=== PATIENT | male | born 1960 | race Hispanic/Latino ===

== ENCOUNTER 2020-03-19 13:26 | Inpatient (IN) | payer OTHER, SELFPAY ==
[2020-03-19] MEDS ORDERED: SODIUM CHLORIDE 0.9% 1000 ML 1,000 ML IV ONE ×2 (13:49→15:32)
--- NOTE | 2020-03-19 13:54 | Emergency Department Report ---
ED Shortness of Breath HPI - General Stated Complaint: COVID+/SOB Time Seen by Provider: 03/19/20 13:49 Source: patient, EMS - History of Present Illness Initial Comments: Patient is 59 years old male with history of hypertension. Patient brought to the emergency room via EMS from home for evaluation of shortness of breath and decreased oxygen saturation. Patient tested positive for COVID-19 4 days ago. Patient stated that he started having shortness of breath. EMS stated that his initial oxygen saturation was 84% on room air improved to 92% on 4 L. Patient denied any fever or chills. No nausea or vomiting. No chest pain. MD Complaint: shortness of breath, cough -: days(s) (3) Severity: moderate - Related Data Allergies Allergy/AdvReac Type Severity Reaction Status Date / Time celecoxib [From Celebrex] Allergy Unknown Verified 03/19/20 13:50 ED Review of Systems ROS: Stated complaint: COVID+/SOB Other details as noted in HPI Comment: All other systems reviewed and negative Constitutional: denies: chills, fever Respiratory: cough, shortness of breath, SOB with exertion, SOB at rest. denies: wheezing Cardiovascular: denies: chest pain, palpitations Gastrointestinal: denies: abdominal pain, nausea, vomiting Musculoskeletal: denies: back pain Neurological: weakness. denies: headache, numbness, paresthesias, confusion, abnormal gait ED Physical Exam - General General appearance: alert, in distress - Head Head exam: Present: atraumatic, normocephalic, normal inspection - Eye Eye exam: Present: normal appearance, PERRL - ENT ENT exam: Present: mucous membranes dry - Neck Neck exam: Present: normal inspection, full ROM. Absent: tenderness, meningismus - Respiratory Respiratory exam: Present: respiratory distress, rales - Cardiovascular Cardiovascular Exam: Present: regular rate, normal rhythm, normal heart sounds - GI/Abdominal GI/Abdominal exam: Present: soft, normal bowel sounds. Absent: distended, tenderness, guarding, rebound, rigid, organomegaly, mass, bruit, pulsatile mass, hernia - Extremities Exam Extremities exam: Present: normal inspection, full ROM, normal capillary refill. Absent: pedal edema, calf tenderness - Back Exam Back exam: Present: normal inspection, full ROM. Absent: CVA tenderness (R), CVA tenderness (L) - Neurological Exam Neurological exam: Present: alert, oriented X3, CN II-XII intact, normal gait, reflexes normal. Absent: motor sensory deficit - Psychiatric Psychiatric exam: Present: normal mood - Skin Skin exam: Present: warm, intact, normal color ED Course Vital Signs 03/19/20 03/19/20 03/19/20 13:38 13:46 14:00 Temperature Pulse Rate 91 H 88 Respiratory 15 34 H Rate Blood Pressure O2 Sat by Pulse 87 92 94 Oximetry 03/19/20 03/19/20 03/19/20 14:17 14:18 14:30 Temperature 98.3 F Pulse Rate 86 Respiratory 23 Rate Blood Pressure 126/86 O2 Sat by Pulse 4 L 95 Oximetry ED Medical Decision Making - Lab Data Result diagrams: 03/19/20 14:13 03/19/20 14:13 - EKG Data -: EKG Interpreted by Me EKG shows normal: sinus rhythm Rate: normal - EKG Data Interpretation: no acute changes - Radiology Data Radiology results: report reviewed - Medical Decision Making Patient is 59 years old male with history of hypertension. Patient brought to the emergency room via EMS from home for evaluation of shortness of breath and decreased oxygen saturation. Patient tested positive for COVID-19 4 days ago. Patient stated that he started having shortness of breath. EMS stated that his initial oxygen saturation was 84% on room air improved to 92% on 4 L. Patient denied any fever or chills. No nausea or vomiting. No chest pain. Patient continues to do well with 4 L of oxygen and his current oxygen satur ation is 96%. Chest x-ray showed bilateral infiltrate. Patient received Rocephin, Zithromax and Decadron. Critical Care Time: Yes Critical care time in (mins) excluding proc time.: 30 Critical care attestation.: If time is entered above; I have spent that time in minutes in the direct care of this critically ill patient, excluding procedure time. ED Disposition Clinical Impression: Acute respiratory failure due to COVID-19, Pneumonia Disposition: OP ADMIT IP TO THIS HOSP Is pt being admited?: Yes Condition: Stable Instructions: Bacterial Pneumonia (ED) Referrals: PRIMARY CARE, [Referring] - 3-5 Days
[2020-03-19 14:39] LABS: Basophils % (Auto) 0.2 % (0.0-1.8); Hematocrit 39.3 % (35.5-45.6); Hemoglobin 13.7 gm/dl (11.8-15.2); Lymphocytes # (Auto) 0.8 K/mm3 (1.2-5.4); Lymphocytes % (Auto) 13.5 % (13.4-35.0); Mean Corpuscular HGB Conc 35 % (32-34); Mean Corpuscular Volume 93 fl (84-94); Monocytes # (Auto) 0.7 K/mm3 (0.0-0.8); Monocytes % (Auto) 11.6 % (0.0-7.3); Platelet Count 219 K/mm3 (140-440); Red Blood Count 4.21 M/mm3 (3.65-5.03); Red Cell Distribution Width 13.4 % (13.2-15.2)
--- NOTE | 2020-03-19 14:45 | XRay Report ---
CHEST 1 VIEW 03/19/2020 1:57 PM INDICATION / CLINICAL INFORMATION: Dyspnea. COMPARISON: None available. FINDINGS: SUPPORT DEVICES: None. HEART / MEDIASTINUM: No significant abnormality. LUNGS / PLEURA: Subtle patchy densities in the right midlung and left lung base could represent early pneumonia. No pneumothorax. ADDITIONAL FINDINGS: No significant additional findings. IMPRESSION: 1. Possible early patchy pneumonia. Signer Name: Adela Meyers MD Signed: 03/19/2020 2:40 PM Workstation Name: [id number]
[2020-03-19 14:52] LABS: BUN/Creatinine Ratio 24; Blood Urea Nitrogen 19 mg/dL (9-20); Calcium 9.2 mg/dL (8.4-10.2); Hemolysis Index 6
[2020-03-19 14:56] LABS: Alanine Aminotransferase 45 units/L (7-56); Albumin 3.6 g/dL (3.9-5)
[2020-03-19 14:57] LABS: Bilirubin,Direct < 0.2 mg/dL (0-0.2)
[2020-03-19] MEDS ORDERED: cefTRIAXone/NS 1 GM/50 ML 1 GM/50 ML BAG IV ONE (15:30)
[2020-03-19] MEDS ORDERED: dexAMETHasone 4 MG/ML VIAL IV ONE (15:31)
[2020-03-19] MEDS ORDERED: AZITHROMYCIN 500 MG in SODIUM CHLORIDE 0.9% 250ML 250 ML IV ONE (16:00)
--- NOTE | 2020-03-19 16:15 | History and Physical Report ---
History of Present Illness Chief complaint: I cannot breathe History of present illness: 59 YO Male with HTN presents to ED for evaluation. Patient states that he has experienced "shortness of breath" for the past 1 week with persistently worsening symptoms over the same timeframe days. Patient underwent a coronav irus test as an outpatient 4 days ago and was found to have coronavirus infection. Pt acknowledges dry cough, shortness of breath, loss of sense of smell, loss of sense of taste, fatigue, malaise, body aches, and decreased exercise tolerance. EMS notified and upon arrival the patient was found to be in distress and subsequently transported to [facility] for further care and evaluation of the aforementioned symptoms. Patient seen and evaluated in the emergency department. All lab and imaging studies reviewed. Patient found to have lactic acidosis, tachycardia with heart rate of 105, tachypnea with a respiratory rate of 34, and a pulse oximetry of 84% with exertion while on room air which is co nsistent with acute hypoxemic respiratory failure. Patient underwent chest x- ray which revealed bilateral pneumonia complicated by sepsis. Patient admitted to medical floor and initiated on sepsis protocol, pneumonia protocol as well as coronavirus protocol. Pt denies chest pain, palpitation, skin rash, recent ill contacts, trauma. No medication listed at time of admission. No prior admission for review. Advanced care planning conducted in ED. Past History Past Medical History: hypertension Past Surgical History: No surgical history, Other (Reviewed) Social history: , lives with family, smoking, alcohol abuse Family history: hypertension Medications and Allergies Allergies Allergy/AdvReac Type Severity Reaction Status Date / Time celecoxib [From Celebrex] Allergy Unknown Verified 03/19/20 13:50 Home Medications Medication Instructions Recorded Confirmed Last Taken Type Insulin Glargine/Lixisenatide 15 unit SQ QAM 03/19/20 03/19/20 Unknown History [Soliqua 100 Unit-33 Mcg/ml Pen] Losartan [Cozaar] 100 mg PO QDAY 03/19/20 03/19/20 Unknown History Metformin HCl [metFORMIN] 2,000 mg PO BID 03/19/20 03/19/20 Unknown History Simvastatin 40 mg PO QHS 03/19/20 03/19/20 Unknown History Active Meds: Active Medications Azithromycin 500 mg/ Sodium (Chloride) 250 mls @ 250 mls/hr IV ONCE ONE; Protocol Stop: 03/19/20 16:59 Sodium Chloride (Nacl 0.9% 1000 Ml) 1,000 mls @ 999 mls/hr IV BOLUS ONE Stop: 03/19/20 16:32 Last Admin: 03/19/20 16:06 Dose: 999 mls/hr Documented by: Review of Systems Constitutional: fatigue, weakness, malaise, no weight loss, no weight gain, no fever Ears, nose, mouth and throat: other (Loss of sense of smell, loss of sense of ta rachana), no ear pain, no ear discharge, no nasal congestion Cardiovascular: no chest pain, no orthopnea, no rapid/irregular heart beat, no syncope Respiratory: cough, shortness of breath, no cough with sputum, no excessive sputum, no hemoptysis Gastrointestinal: no abdominal pain, no nausea, no vomiting, no diarrhea Genitourinary Male: no hematuria, no flank pain, no discharge, no urinary frequency, no urinary hesitancy Rectal: no pain, no incontinence Musculoskeletal: no neck stiffness, no neck pain, no shooting arm pain, no low back pain, no leg numbness/tingling Integumentary: no rash, no pruritis, no redness, no sores, no jaundice Neurological: no head injury, no transient paralysis, no paralysis, no weakness, no parathesias, no numbness, no tingling, no seizures Psychiatric: no anxiety, no memory loss, no change in sleep habits, no sleep disturbances, no hypersomnia, no change in appetite, no change in libido, no suicidal ideation Endocrine: no cold intolerance, no heat intolerance, no polyphagia, no excessive thirst, no polydipsia, no nocturia, no excessive sweating, no flushing Hematologic/Lymphatic: no easy bruising, no easy bleeding, no lymphadenopathy Allergic/Immunologic: no allergic rhinitis, no wheezing, no persistent infections, no anaphylaxis Exam - Constitutional Vitals: Temp Pulse Resp BP Pulse Ox 98.3 F 86 23 126/86 95 03/19/20 14:17 03/19/20 14:30 03/19/20 14:30 03/19/20 14:30 03/19/20 14:30 General appearance: Present: mild distress - EENT Eyes: Present: PERRL ENT: clear oral mucosa, hearing decreased - Neck Neck: Present: supple, normal ROM - Respiratory Respiratory effort: labored, accessory muscle use, stridor Respiratory: bilateral: diminished, wheezing - Cardiovascular Rhythm: other (Tachycardia) Heart Sounds: Present: S1 & S2. Absent: rub, click - Extremities Extremities: pulses symmetrical, No edema Peripheral Pulses: abnormal (Capillary refill greater than 3.5 seconds) - Abdominal General gastrointestinal: Present: soft, non-tender, non-distended, normal bowel sounds Male genitourinary: Present: normal - Integumentary Integumentary: Present: dry, clammy, decreased turgor - Musculoskeletal Musculoskeletal: generalized weakness - Psychiatric Psychiatric: appropriate mood/affect, intact judgment & insight - Neurologic Neurologic: CNII-XII intact, moves all extremities, no gait normal Results - Labs CBC & Chem 7: 03/19/20 14:13 03/19/20 14:13 Labs: Abnormal lab results 03/19/20 03/19/20 03/19/20 Range/Units 14:13 14:13 14:13 MCHC 35 H (32-34) % Story % (Auto) 11.6 H (0.0-7.3) % Lymph # (Auto) 0.8 L (1.2-5.4) K/mm3 Seg Neutrophils % 74.7 H (40.0-70.0) % Glucose 204 H (75-100) mg/dL Lactic Acid 2.30 H* (0.7-2.0) mmol/L AST (5-40) units/L Albumin (3.9-5) g/dL 03/19/20 Range/Units 14:13 MCHC (32-34) % Story % (Auto) (0.0-7.3) % Lymph # (Auto) (1.2-5.4) K/mm3 Seg Neutrophils % (40.0-70.0) % Glucose (75-100) mg/dL Lactic Acid (0.7-2.0) mmol/L AST 62 H (5-40) units/L Albumin 3.6 L (3.9-5) g/dL Assessment and Plan - Patient Problems (1) Sepsis Current Visit: Yes Status: Acute Qualifiers: Acute respiratory failure type: with hypoxia Plan to address problem: Sepsis protocol: Chest x-rays, CBC, CMP, urinalysis, blood culture, IV antibiotic therapy, maintain mean arterial pressure greater than or equal to 65, hold IV fluid resuscitation for now due to suspected coronavirus infection. Care will be taken to avoid fluid overload and flash pulmonary edema. (2) Acute hypoxemic respiratory failure Current Visit: Yes Status: Acute Plan to address problem: Supplemental oxygen, nebulizer therapy, pulse oximetry, chest x-ray, pulmonary toilet, supportive care. (3) Coronavirus infection Current Visit: Yes Status: Acute Plan to address problem: Coronavirus protocol: Coronavirus PCR, IV antibiotic therapy, IV steroid therapy, prophylactic anticoagulation, prone positioning while in bed, supplemental oxygen, pulse oximetry, nebulizer therapy, contact precautions, isolation precaution, supportive care. (4) Pneumonia Current Visit: Yes Status: Acute Plan to address problem: Pneumonia protocol: Chest x-ray, CBC, CMP, supplemental oxygen, pulse oximetry, nebulizer therapy, blood culture, IV antibiotic therapy. (5) Hypertension Current Visit: Yes Status: Acute Qualifiers: Hypertension type: essential hypertension Qualified Code(s): I10 - Essential (primary) hypertension Plan to address problem: Monitor blood pressure every shift, continue medical management (6) DVT prophylaxis Current Visit: Yes Status: Acute Plan to address problem: SCD to bilateral lower extremities while in bed, prophylactic anticoagulation (7) Advance care planning Current Visit: Yes Status: Acute Plan to address problem: Disease education conducted, patient is full code, prognosis discussed, care plan discussed, patient knowledges understanding and agreement with care plan, +30 minutes.
[2020-03-19] MEDS ORDERED: ACETAMINOPHEN 325 MG TAB PO PRN (16:16)
[2020-03-19] MEDS ORDERED: ONDANSETRON 4 MG/2 ML INJ IV PRN (16:16)
[2020-03-19] MEDS ORDERED: ALBUTEROL 2.5 MG/3 ML NEBU IH PRN (16:16)
[2020-03-19] MEDS: HEPARIN 5,000 UNIT/1 ML VIAL SUB-Q SCH (22:13)
[2020-03-19] MEDS: methylPREDNISolone Sod Succinate 40 MG/1 ML INJ IV SCH (22:13)
[2020-03-19] MEDS: FAMOTIDINE 20 MG TAB PO SCH (22:13)
[2020-03-20] MEDS: methylPREDNISolone Sod Succinate 40 MG/1 ML INJ IV SCH (05:04)
[2020-03-20 05:43] LABS: Bilirubin,Urine NEG (Negative); Blood,Urine NEG (Negative); Color,Urine Yellow (Yellow); Protein,Urine <15 mg/dL mg/dL (Negative); Urobilinogen,Urine < 2.0 mg/dL (<2.0)
[2020-03-20] MEDS: HEPARIN 5,000 UNIT/1 ML VIAL SUB-Q SCH ×2 (10:00→22:41)
[2020-03-20] MEDS ORDERED: cefTRIAXone/NS 2 GM/100 ML 2 GM/100 ML BAG IV SCH (10:00)
[2020-03-20] MEDS: FAMOTIDINE 20 MG TAB PO SCH ×2 (12:01→22:39)
[2020-03-20] MEDS: AZITHROMYCIN 500 MG in SODIUM CHLORIDE 0.9% 250ML 250 ML IV SCH (12:02)
--- NOTE | 2020-03-20 14:40 | Progress Note ---
Assessment and Plan -- Sepsis due to COVID19 infection cont iv steroid, remdesivir, supplemental O2 -- Acute hypoxemic respiratory failure due to covid19 PNA Supplemental oxygen, nebulizer therapy, pulse oximetry, pulmonary toilet, supportive care. -- Covid19 PNA IV steroid therapy, prophylactic anticoagulation, prone positioning while in bed, supplemental oxygen, pulse oximetry, nebulizer therapy, contact precautions, isolation precaution, supportive care. remdesivir for 5 days check for SARS-CoV-2 IgG --Bacteremia 1 out of 2 blood cx +ve for gm+ve cocci start on iv vanco, order repeat blood cx -- Hypertension Monitor blood pressure every shift, continue medical management -- DVT prophylaxis prophylactic anticoagulation -- Advance care planning Disease education conducted, patient is full code, prognosis discussed, care plan discussed, patient knowledges understanding and agreement with care plan, +30 minutes. 03/20: Positive for COVID 4 days ago before admission. started on dexamethasone iv. ID consulted. ordered for remdesivir. follow inflammatory markers. Start on vancomycin for positive blood culture -we will follow final result Subjective Date of service: 03/20/20 Interval history: Patient seen and examined pt on high flow O2 denies any chest pain Objective - Exam Narrative Exam: General appearance: Present: mild distress - EENT Eyes: Present: PERRL ENT: clear oral mucosa, - Neck Neck: Present: supple, normal ROM - Respiratory Respiratory effort: mild labored, Respiratory: bilateral: diminished, wheezing - Cardiovascular Rhythm: other (Tachycardia) Heart Sounds: Present: S1 & S2. Absent: rub, click - Extremities Extremities: pulses symmetrical, No edema - Abdominal General gastrointestinal: Present: soft, non-tender, non-distended, normal bowel sounds Male genitourinary: Present: normal - Integumentary Integumentary: Present: dry, clammy, decreased turgor - Musculoskeletal Musculoskeletal: generalized weakness - Psychiatric Psychiatric: appropriate mood/affect, intact judgment & insight - Neurologic Neurologic: CNII-XII intact, moves all extremities, - Constitutional Vitals: Vital Signs - 12hr 03/20/20 03/20/20 03/20/20 04:19 06:00 10:31 Temperature 98.6 F Pulse Rate 86 Respiratory 22 18 Rate Blood Pressure 128/71 O2 Sat by Pulse 86 92 Oximetry - Labs CBC & Chem 7: 03/19/20 14:13 03/21/20 08:26 Labs: Abnormal lab results 03/19/20 03/19/20 03/19/20 Range/Units 14:13 14:13 14:13 MCHC 35 H (32-34) % Woodson % (Auto) 11.6 H (0.0-7.3) % Lymph # (Auto) 0.8 L (1.2-5.4) K/mm3 Seg Neutrophils % 74.7 H (40.0-70.0) % D-Dimer (0-234) ng/mlDDU Glucose 204 H (75-100) mg/dL POC Glucose (70-105) mg/dL Lactic Acid 2.30 H* (0.7-2.0) mmol/L Ferritin (30.0-300.0) ng/mL AST (5-40) units/L Albumin (3.9-5) g/dL 03/19/20 03/19/20 03/19/20 Range/Units 14:13 15:35 15:35 MCHC (32-34) % Woodson % (Auto) (0.0-7.3) % Lymph # (Auto) (1.2-5.4) K/mm3 Seg Neutrophils % (40.0-70.0) % D-Dimer 658.20 H (0-234) ng/mlDDU Glucose (75-100) mg/dL POC Glucose (70-105) mg/dL Lactic Acid (0.7-2.0) mmol/L Ferritin 722.2 H (30.0-300.0) ng/mL AST 62 H (5-40) units/L Albumin 3.6 L (3.9-5) g/dL 03/20/20 Range/Units 12:20 MCHC (32-34) % Woodson % (Auto) (0.0-7.3) % Lymph # (Auto) (1.2-5.4) K/mm3 Seg Neutrophils % (40.0-70.0) % D-Dimer (0-234) ng/mlDDU Glucose (75-100) mg/dL POC Glucose 270 H (70-105) mg/dL Lactic Acid (0.7-2.0) mmol/L Ferritin (30.0-300.0) ng/mL AST (5-40) units/L Albumin (3.9-5) g/dL
[2020-03-20] MEDS ORDERED: REMDESIVIR 200 MG in SODIUM CHLORIDE 0.9% 250ML 250 ML IV ONE (15:00)
[2020-03-20] MEDS ORDERED: REMDESIVIR 100 MG VIAL IV ONE (15:00)
[2020-03-20] MEDS ORDERED: VANCOMYCIN/NS 1 GM/250 ML 1 GM/250 ML BAG IV SCH (16:00)
[2020-03-20] MEDS: INSULIN REGULAR, HUMAN 100 UNIT/ML 3ML VIAL SUB-Q SCH ×2 (16:30→22:40)
[2020-03-20] MEDS: ASCORBIC ACID 500 MG TAB PO SCH ×2 (16:48→22:39)
[2020-03-20] MEDS: CHOLECALCIFEROL (VIT D3) 5,000 UNIT TAB PO SCH (16:48)
[2020-03-20] MEDS: ZINC SULFATE 220 MG CAP PO SCH (16:49)
[2020-03-20] MEDS: SODIUM CHLORIDE 0.9% 50 ML IVPB IV SCH (16:49)
[2020-03-20] MEDS: VANCOMYCIN 1,500 MG in SODIUM CHLORIDE 0.9% 500 ML 500 ML IV SCH (16:50)
[2020-03-20] MEDS: APIXABAN 5 MG TAB PO SCH (22:39)
[2020-03-21] MEDS: ZINC SULFATE 220 MG CAP PO SCH ×3 (00:43→21:41)
[2020-03-21] MEDS: VANCOMYCIN 1,500 MG in SODIUM CHLORIDE 0.9% 500 ML 500 ML IV SCH ×2 (05:50→20:05)
[2020-03-21 09:15] LABS: Alanine Aminotransferase 36 units/L (7-56); Albumin 2.8 g/dL (3.9-5); BUN/Creatinine Ratio 29; Blood Urea Nitrogen 23 mg/dL (9-20); Calcium 8.5 mg/dL (8.4-10.2); Hemolysis Index 3
[2020-03-21 09:19] LABS: Bilirubin,Direct < 0.2 mg/dL (0-0.2)
[2020-03-21] MEDS: HEPARIN 5,000 UNIT/1 ML VIAL SUB-Q SCH (09:49)
[2020-03-21] MEDS: dexAMETHasone 4 MG/ML VIAL IV SCH (09:49)
[2020-03-21] MEDS: FAMOTIDINE 20 MG TAB PO SCH ×2 (09:49→21:41)
[2020-03-21] MEDS: ASCORBIC ACID 500 MG TAB PO SCH ×2 (09:50→21:42)
[2020-03-21] MEDS: APIXABAN 5 MG TAB PO SCH ×2 (09:50→21:41)
[2020-03-21] MEDS: INSULIN REGULAR, HUMAN 100 UNIT/ML 3ML VIAL SUB-Q SCH ×3 (09:52→20:10)
[2020-03-21] MEDS: CHOLECALCIFEROL (VIT D3) 5,000 UNIT TAB PO SCH (09:52)
[2020-03-21] MEDS ORDERED: [UNRECOGNIZED DRUG - OTHER] SQ SCH (10:00)
[2020-03-21] MEDS: AZITHROMYCIN 500 MG in SODIUM CHLORIDE 0.9% 250ML 250 ML IV SCH (10:06)
[2020-03-21] MEDS ORDERED: REMDESIVIR 200 MG in SODIUM CHLORIDE 0.9% 250ML 250 ML IV ONE (13:00)
--- NOTE | 2020-03-21 15:16 | Consultation ---
History of Present Illness - Reason for Consult Consult date: 03/21/20 COVID Requesting physician: NIKA ARRIETA - History of Present Illness 59 years old male with history of hypertension and COVID-19 diagnosed 4 days before admission, admitted on 03/19/2020 secondary to a week history of dry cough, shortness of breath, loss of smell and taste, body aches, dyspnea on exertion. On arrival, temperature 98.3, HR 91, RR 34, O2 sats 87%, BP 126/86. Initial WBC 6000. D-dimer 658. Ferritin 722. Lactate 2.3. Creatinine 0.8. AST 62. Procalcitonin normal. Urinalysis negative. SARS-CoV-2 PCR positive. SARS-CoV-2 IgG negative. Blood cultures coagulase-negative staph 1 out of 4 bottles. Chest x-ray shows bilateral patchy infiltrates. Initial O2 sats dropped to 84%. Patient currently on high flow nasal cannula 90%. Review of Systems: reviewed ED and H&P notes. Deferred to prevent COVID-19 transmission. Past History Past Medical History: hypertension Past Surgical History: No surgical history, Other (Reviewed) Social history: , lives with family, smoking, alcohol abuse Family history: hypertension Medications and Allergies Allergies Allergy/AdvReac Type Severity Reaction Status Date / Time celecoxib [From Celebrex] Allergy Unknown Verified 03/19/20 13:50 Home Medications Medication Instructions Recorded Confirmed Last Taken Type Insulin Glargine/Lixisenatide 15 unit SQ QAM 03/19/20 03/19/20 Unknown History [Soliqua 100 Unit-33 Mcg/ml Pen] Losartan [Cozaar] 100 mg PO QDAY 03/19/20 03/19/20 Unknown History Metformin HCl [metFORMIN] 2,000 mg PO BID 03/19/20 03/19/20 Unknown History Simvastatin 40 mg PO QHS 03/19/20 03/19/20 Unknown History Actos 1 PO 03/20/20 03/19/20 History Active Meds: Active Medications Acetaminophen (Acetaminophen 325 Mg Tab) 650 mg PO Q4H PRN PRN Reason: Pain MILD(1-3)/Fever >100.5/ROSS Albuterol (Albuterol 2.5 Mg/3 Ml Nebu) 2.5 mg IH Q4HRT PRN PRN Reason: Shortness Of Breath Apixaban (Apixaban 5 Mg Tab) 5 mg PO Q12HR [facility]; Protocol Last Admin: 03/21/20 09:50 Dose: 5 mg Documented by: Ascorbic Acid (Ascorbic Acid 500 Mg Tab) 1,000 mg PO BID [facility] Last Admin: 03/21/20 09:50 Dose: 1,000 mg Documented by: Cholecalciferol (Cholecalciferol (Vit D3) 5,000 Unit Tab) 5,000 unit PO DAILY [facility] Last Admin: 03/21/20 09:52 Dose: 5,000 unit Documented by: Dexamethasone (Dexamethasone 4 Mg/Ml Vial) 6 mg IV Q24HR [facility] Stop: 03/28/20 23:59 Last Admin: 03/21/20 09:49 Dose: 6 mg Documented by: Famotidine (Famotidine 20 Mg Tab) 20 mg PO BID [facility] Last Admin: 03/21/20 09:49 Dose: 20 mg Documented by: Hydromorphone HCl (Hydromorphone 1 Mg/1 Ml Inj) 0.25 mg IV Q4H PRN PRN Reason: Pain, Moderate (4-6) REMDESIVIR 100 mg/ Sodium (Chloride) 250 mls @ 500 mls/hr IV Q24HR@2100 [facility] Stop: 03/24/20 21:29 Vancomycin HCl 1,500 mg/ (Sodium Chloride) 530 mls @ 265 mls/hr IV Q12H [facility] Last Admin: 03/21/20 05:50 Dose: 265 mls/hr Documented by: Insulin Human Regular (Insulin Regular, Human 100 Unit/Ml 3ml Vial) 0 unit SUB- Q ACHS [facility]; Protocol Last Admin: 03/21/20 12:43 Dose: 2 unit Documented by: Miscellaneous Medication (Insulin Glargine/Lixisenatide [Soliqua 100 Unit-33 Mcg/Ml Pen]) 15 unit SQ QAM [facility] Ondansetron HCl (Ondansetron 4 Mg/2 Ml Inj) 4 mg IV Q8H PRN PRN Reason: Nausea And Vomiting Sodium Chloride (Sodium Chloride 0.9% 10 Ml Flush Syringe) 10 ml IV BID [facility] Last Admin: 03/21/20 09:52 Dose: 10 ml Documented by: Sodium Chloride (Sodium Chloride 0.9% 10 Ml Flush Syringe) 10 ml IV PRN PRN PRN Reason: LINE FLUSH Sodium Chloride (Sodium Chloride 0.9% 50 Ml Ivpb) 50 ml IV Q24HR@2100 [facility] Stop: 03/24/20 21:01 Last Admin: 03/20/20 16:49 Dose: 50 ml Documented by: Zinc Sulfate (Zinc Sulfate 220 Mg Cap) 220 mg PO BID [facility] Last Admin: 03/21/20 09:50 Dose: 220 mg Documented by: Physical Examination - Physical Exam Narrative exam: Deferred to prevent COVID-19 transmission - Constitutional Vitals: Vital Signs Temp Pulse Resp BP Pulse Ox 99.2 F 78 18 121/68 96 03/21/20 12:33 03/21/20 12:33 03/21/20 04:15 03/21/20 12:33 03/21/20 04:15 Temperature -Last 24 Hours Temperature 99.2 F Temperature 98.2 F Temperature 98.1 F Temperature 98.5 F Results - Labs CBC & Chem 7: 03/19/20 14:13 03/21/20 08:26 Labs: Abnormal lab results 03/20/20 03/20/20 03/21/20 Range/Units 16:31 20:28 08:26 Chloride 110.5 H (98-107) mmol/L BUN 23 H (9-20) mg/dL Glucose 168 H (75-100) mg/dL POC Glucose 306 H 320 H (70-105) mg/dL AST 42 H (5-40) units/L Total Protein 6.1 L (6.3-8.2) g/dL Albumin 2.8 L (3.9-5) g/dL 03/21/20 03/21/20 Range/Units 09:03 12:26 Chloride (98-107) mmol/L BUN (9-20) mg/dL Glucose (75-100) mg/dL POC Glucose 159 H 190 H (70-105) mg/dL AST (5-40) units/L Total Protein (6.3-8.2) g/dL Albumin (3.9-5) g/dL Assessment and Plan Cultures: Blood culture coagulase-negative staph 1 out of 4 bottles SARS CoV2 PCR positive SARS Covid 2 IgG negative Assessment: 59 years old male with history of hypertension and COVID-19 diagnosed 4 days before admission, admitted on 03/19/2020 secondary to a week history of dry cough, shortness of breath, loss of smell and taste, body aches, dyspnea on exertion: #Severe sepsis: Present on admission with tachycardia, elevated lactate likely due to bilateral pneumonia. #Severe COVID pneumonia: Severe hypoxia noted. Chest x-ray with bilateral patchy infiltrates. Inflammatory markers elevated. #Acute hypoxemic respiratory failure: Currently on high flow nasal cannula. #Elevated LFTs: from COVID Recommendations: -Pulmonary consult -Obtain chest CTA rule out PE and lower extremity ultrasound rule out DVT -Continue dexamethasone 6 mg IV/PO daily for 10 days -Continue remdesivir 200 mg IV q day x 1 day followed by 100 mg IV q day x 4 days (CrCl>30. Order placed) -Monitor inflammatory markers - ferritin, Ddimer, CRP, LDH -Stop ceftriaxone and azithromycin, procalcitonin <0.25 ng/mL -Monitor liver function test on Remdesivir -Continue anticoagulation per System Protocol -Prone positioning as possible -Obtain SARS CoV-2 IgG to determine if patient is a candidate for COVID convalescent plasma All laboratory, cultures and imaging were reviewed. Discussed with attending. Will follow Syl Hanson MD Infectious Diseases [employer] [facility] M [phone] O [phone]
[2020-03-21] MEDS ORDERED: SODIUM CHLORIDE 0.9% 50 ML IVPB IV SCH (21:00)
[2020-03-21] MEDS: REMDESIVIR 100 MG in SODIUM CHLORIDE 0.9% 250ML 250 ML IV SCH (21:40)
[2020-03-21] MEDS: SODIUM CHLORIDE 0.9% 50 ML IVPB IV SCH (21:41)
--- NOTE | 2020-03-22 00:05 | Progress Note ---
Assessment and Plan -- Sepsis due to COVID19 infection cont iv steroid, remdesivir, supplemental O2 -- Acute hypoxemic respiratory failure due to covid19 PNA Supplemental oxygen, nebulizer therapy, pulse oximetry, pulmonary toilet, supportive care. -- Covid19 PNA IV steroid therapy, prophylactic anticoagulation, prone positioning while in bed, supplemental oxygen, pulse oximetry, nebulizer therapy, contact precautions, isolation precaution, supportive care. remdesivir for 5 days -ve SARS-CoV-2 IgG: ordered for convalescent plasma --DM type 2 started on long acting insulin along with SSI --Bacteremia 1 out of 2 blood cx +ve for gm+ve cocci on iv vanco, ordered repeat blood cx -- Hypertension Monitor blood pressure every shift, continue medical management -- DVT prophylaxis prophylactic anticoagulation -- Advance care planning Disease education conducted, patient is full code, prognosis discussed, care plan discussed, patient knowledges understanding and agreement with care plan, +30 minutes. 03/20: Positive for COVID 4 days ago before admission. started on dexamethasone iv. ID consulted. ordered for remdesivir. follow inflammatory markers. Start on vancomycin for positive blood culture -we will follow final result 03/21: ordered repeat blood cx. -ve SARS-CoV-2 IgG, ordered for convalescent plasma. patient remains on high flow O2. cont to adjust insulin dose for better glycemic control Subjective Date of service: 03/21/20 Interval history: Patient seen and examined pt on high flow O2 denies any chest pain Objective - Exam Narrative Exam: General appearance: Present: mild distress - EENT Eyes: Present: PERRL ENT: clear oral mucosa, - Neck Neck: Present: supple, normal ROM - Respiratory Respiratory effort: mild labored, Respiratory: bilateral: diminished, wheezing - Cardiovascular Rhythm: other (Tachycardia) Heart Sounds: Present: S1 & S2. Absent: rub, click - Extremities Extremities: pulses symmetrical, No edema - Abdominal General gastrointestinal: Present: soft, non-tender, non-distended, normal bowel sounds Male genitourinary: Present: normal - Integumentary Integumentary: Present: dry, clammy, decreased turgor - Musculoskeletal Musculoskeletal: generalized weakness - Psychiatric Psychiatric: appropriate mood/affect, intact judgment & insight - Neurologic Neurologic: CNII-XII intact, moves all extremities, - Constitutional Vitals: Vital Signs - 12hr 03/21/20 03/21/20 03/21/20 12:33 15:50 18:57 Temperature 99.2 F 98.5 F Pulse Rate 78 79 Respiratory 18 Rate Blood Pressure 117/68 Blood Pressure 121/68 [Right] O2 Sat by Pulse 96 97 Oximetry 03/21/20 03/21/20 03/21/20 21:50 21:52 22:46 Temperature 98.5 F Pulse Rate 71 Respiratory 20 Rate Blood Pressure 124/72 Blood Pressure [Right] O2 Sat by Pulse 92 92 90 Oximetry - Labs CBC & Chem 7: 03/19/20 14:13 03/21/20 08:26 Labs: Abnormal lab results 03/21/20 03/21/20 03/21/20 Range/Units 08:26 09:03 12:26 Chloride 110.5 H (98-107) mmol/L BUN 23 H (9-20) mg/dL Glucose 168 H (75-100) mg/dL POC Glucose 159 H 190 H (70-105) mg/dL AST 42 H (5-40) units/L Total Protein 6.1 L (6.3-8.2) g/dL Albumin 2.8 L (3.9-5) g/dL 03/21/20 03/21/20 Range/Units 20:08 22:45 Chloride (98-107) mmol/L BUN (9-20) mg/dL Glucose (75-100) mg/dL POC Glucose 375 H 248 H (70-105) mg/dL AST (5-40) units/L Total Protein (6.3-8.2) g/dL Albumin (3.9-5) g/dL
[2020-03-22] MEDS: INSULIN REGULAR, HUMAN 100 UNIT/ML 3ML VIAL SUB-Q SCH ×5 (01:13→23:09)
[2020-03-22] MEDS: VANCOMYCIN 1,500 MG in SODIUM CHLORIDE 0.9% 500 ML 500 ML IV SCH (05:46)
--- NOTE | 2020-03-22 08:35 | Progress Note ---
Assessment and Plan Cultures: Blood culture coagulase-negative staph 1 out of 4 bottles SARS CoV2 PCR positive SARS Covid 2 IgG negative Assessment: 59 years old male with history of hypertension and COVID-19 diagnosed 4 days before admission, admitted on 03/19/2020 secondary to a week history of dry cough, shortness of breath, loss of smell and taste, body aches, dyspnea on exertion: #Severe sepsis: Improving likely due to bilateral pneumonia. #Severe COVID pneumonia: Severe hypoxia noted. Chest x-ray with bilateral patchy infiltrates. Inflammatory markers elevated. D-dimer 658. Ferritin 722. #Acute hypoxemic respiratory failure: Now improving, remains on high flow nasal cannula 85%, 20 L #Elevated LFTs: from COVID #Coagulase-negative in blood cultures: Likely a contaminant. Recommendations: -Pulmonary consult -pending -Obtain chest CTA rule out PE and lower extremity ultrasound rule out DVT - pending -SARS-CoV-2 IgG is negative, patient may benefit from Covid convalescent plasma -Continue dexamethasone 6 mg IV/PO daily for 10 days -Continue remdesivir total 5 days -Monitor inflammatory markers - ferritin, Ddimer, CRP, LDH -Monitor liver function test on Remdesivir -Continue anticoagulation per System Protocol -Prone positioning as possible -Follow-up repeat blood cultures All laboratory, cultures and imaging were reviewed. Discussed with attending. Will follow Syl Hanson MD Infectious Diseases Assistant Banquet Manager [facility] [phone] O [phone] Subjective Date of service: 03/22/20 Principal diagnosis: Severe COVID-19 Interval history: Patient remains on high flow nasal cannula 85%, 20 L, desat to 87%. No fever. Objective - Exam Narrative Exam: Deferred to prevent COVID-19 transmission - Constitutional Vitals: Vital Signs Temp Pulse Resp BP Pulse Ox 99.9 F H 79 20 114/68 97 03/22/20 05:55 03/22/20 05:55 03/22/20 05:55 03/22/20 05:55 03/22/20 05:55 Temperature -Last 24 Hours Temperature 99.9 F Temperature 98.5 F Temperature 98.5 F Temperature 99.2 F - Labs CBC & Chem 7: 03/19/20 14:13 03/21/20 08:26 Labs: Abnormal lab results 03/21/20 03/21/20 03/21/20 Range/Units 08:26 09:03 12:26 Chloride 110.5 H (98-107) mmol/L BUN 23 H (9-20) mg/dL Glucose 168 H (75-100) mg/dL POC Glucose 159 H 190 H (70-105) mg/dL AST 42 H (5-40) units/L Total Protein 6.1 L (6.3-8.2) g/dL Albumin 2.8 L (3.9-5) g/dL 03/21/20 03/21/20 03/22/20 Range/Units 20:08 22:45 07:56 Chloride (98-107) mmol/L BUN (9-20) mg/dL Glucose (75-100) mg/dL POC Glucose 375 H 248 H 147 H (70-105) mg/dL AST (5-40) units/L Total Protein (6.3-8.2) g/dL Albumin (3.9-5) g/dL
[2020-03-22] MEDS: INSULIN GLARGINE 100 UNITS/ML SUB-Q SCH (09:27)
[2020-03-22] MEDS: FAMOTIDINE 20 MG TAB PO SCH ×2 (09:28→23:08)
[2020-03-22] MEDS: APIXABAN 5 MG TAB PO SCH ×2 (09:28→23:08)
[2020-03-22] MEDS: ZINC SULFATE 220 MG CAP PO SCH ×2 (09:28→23:08)
[2020-03-22] MEDS: CHOLECALCIFEROL (VIT D3) 5,000 UNIT TAB PO SCH (09:28)
[2020-03-22] MEDS: ASCORBIC ACID 500 MG TAB PO SCH ×2 (09:28→23:08)
[2020-03-22] MEDS: dexAMETHasone 4 MG/ML VIAL IV SCH (09:29)
[2020-03-22 11:32] LABS: C-Reactive Protein 6.7 mg/dL (0.00-1.30)
--- NOTE | 2020-03-22 14:18 | Progress Note ---
Assessment and Plan -- Sepsis due to COVID19 infection cont iv steroid, remdesivir, supplemental O2 -- Acute hypoxemic respiratory failure due to covid19 PNA Supplemental oxygen, nebulizer therapy, pulse oximetry, pulmonary toilet, supportive care. -- Covid19 PNA IV steroid therapy, prophylactic anticoagulation, prone positioning while in bed, supplemental oxygen, pulse oximetry, nebulizer therapy, contact precautions, isolation precaution, supportive care. remdesivir for 5 days -ve SARS-CoV-2 IgG: ordered for convalescent plasma --DM type 2 started on long acting insulin along with SSI --Bacteremia 1 out of 2 blood cx +ve for gm+ve cocci on iv vanco, ordered repeat blood cx -- Hypertension Monitor blood pressure every shift, continue medical management -- DVT prophylaxis prophylactic anticoagulation -- Advance care planning Disease education conducted, patient is full code, prognosis discussed, care plan discussed, patient knowledges understanding and agreement with care plan, +30 minutes. 03/20: Positive for COVID 4 days ago before admission. started on dexamethasone iv. ID consulted. ordered for remdesivir. follow inflammatory markers. Start on vancomycin for positive blood culture -we will follow final result 03/21: ordered repeat blood cx. -ve SARS-CoV-2 IgG, ordered for convalescent plasma. patient remains on high flow O2. cont to adjust insulin dose for better glycemic control 03/22: Patient remains on high flow O2, ordered for pulmonary consult, CTA chest and bilateral lower extremity Doppler. Continue to follow inflammatory markers. Pending convalescent plasma transfusion Subjective Date of service: 03/22/20 Principal diagnosis: Severe COVID-19 Interval history: Patient seen and examined pt on high flow O2 denies any chest pain Objective - Exam Narrative Exam: General appearance: Present: mild distress - EENT Eyes: Present: PERRL ENT: clear oral mucosa, - Neck Neck: Present: supple, normal ROM - Respiratory Respiratory effort: mild labored, Respiratory: bilateral: diminished, wheezing - Cardiovascular Rhythm: other (Tachycardia) Heart Sounds: Present: S1 & S2. Absent: rub, click - Extremities Extremities: pulses symmetrical, No edema - Abdominal General gastrointestinal: Present: soft, non-tender, non-distended, normal bowel sounds Male genitourinary: Present: normal - Integumentary Integumentary: Present: dry, clammy, decreased turgor - Musculoskeletal Musculoskeletal: generalized weakness - Psychiatric Psychiatric: appropriate mood/affect, intact judgment & insight - Neurologic Neurologic: CNII-XII intact, moves all extremities, - Constitutional Vitals: Vital Signs - 12hr 03/22/20 03/22/20 03/22/20 05:55 08:52 11:30 Temperature 99.9 F H 99.1 F Pulse Rate 79 73 Respiratory 20 18 Rate Blood Pressure 114/68 132/75 O2 Sat by Pulse 97 95 93 Oximetry 03/22/20 13:45 Temperature Pulse Rate Respiratory Rate Blood Pressure O2 Sat by Pulse 90 Oximetry - Labs CBC & Chem 7: 03/19/20 14:13 03/21/20 08:26 Labs: Abnormal lab results 03/21/20 03/21/20 03/22/20 Range/Units 20:08 22:45 07:56 D-Dimer (0-234) ng/mlDDU POC Glucose 375 H 248 H 147 H (70-105) mg/dL Ferritin (30.0-300.0) ng/mL Lactate Dehydrogenase (91-180) units/L C-Reactive Protein (0.00-1.30) mg/dL 03/22/20 03/22/20 03/22/20 Range/Units 10:47 10:47 10:47 D-Dimer 855.69 H (0-234) ng/mlDDU POC Glucose (70-105) mg/dL Ferritin 717.5 H (30.0-300.0) ng/mL Lactate Dehydrogenase 569 H (91-180) units/L C-Reactive Protein 6.70 H (0.00-1.30) mg/dL 03/22/20 Range/Units 11:28 D-Dimer (0-234) ng/mlDDU POC Glucose 187 H (70-105) mg/dL Ferritin (30.0-300.0) ng/mL Lactate Dehydrogenase (91-180) units/L C-Reactive Protein (0.00-1.30) mg/dL
--- NOTE | 2020-03-22 19:05 | Vascular Lab Report ---
DUPLEX DOPPLER LOWER EXTREMITY VEINS, BILATERAL INDICATION / CLINICAL INFORMATION: acute DVT. TECHNIQUE: Duplex doppler imaging was performed through the veins of both lower extremities using venous elza corrie and other maneuvers. COMPARISON: None available. FINDINGS: RIGHT COMMON FEMORAL VEIN: Negative. RIGHT FEMORAL VEIN: Negative. RIGHT POPLITEAL VEIN: Negative. RIGHT CALF VEINS: Negative. LEFT COMMON FEMORAL VEIN: Negative. LEFT FEMORAL VEIN: Negative. LEFT POPLITEAL VEIN: Negative. LEFT CALF VEINS: Negative. ADDITIONAL FINDINGS: None. IMPRESSION: 1. No sonographic evidence for DVT in either lower extremity. Signer Name: Jose Carrizales MD Signed: 03/22/2020 7:01 PM Workstation Name: [id number]
[2020-03-22] MEDS ORDERED: REMDESIVIR 100 MG in SODIUM CHLORIDE 0.9% 250ML 250 ML IV SCH (21:00)
[2020-03-22] MEDS: SODIUM CHLORIDE 0.9% 50 ML IVPB IV SCH (23:07)
[2020-03-22] MEDS: REMDESIVIR 100 MG in SODIUM CHLORIDE 0.9% 250ML 250 ML IV SCH (23:07)
[2020-03-22] MEDS: HYDROmorphone 1 MG/1 ML INJ IV PRN (23:30)
[2020-03-23 07:01] LABS: Alanine Aminotransferase 31 units/L (7-56); Albumin 2.6 g/dL (3.9-5)
[2020-03-23 07:08] LABS: Bilirubin,Direct < 0.2 mg/dL (0-0.2)
[2020-03-23] MEDS: INSULIN REGULAR, HUMAN 100 UNIT/ML 3ML VIAL SUB-Q SCH ×3 (07:30→16:30)
[2020-03-23] MEDS: INSULIN GLARGINE 100 UNITS/ML SUB-Q SCH ×2 (08:49→10:02)
--- NOTE | 2020-03-23 09:52 | Progress Note ---
Assessment and Plan Cultures: Blood culture coagulase-negative staph 1 out of 4 bottles SARS CoV2 PCR positive SARS Covid 2 IgG negative Assessment: 59 years old male with history of hypertension and COVID-19 diagnosed 4 days before admission, admitted on 03/19/2020 secondary to a week history of dry cough, shortness of breath, loss of smell and taste, body aches, dyspnea on exertion: #Severe sepsis: Improving likely due to bilateral pneumonia. #Severe COVID pneumonia: Severe hypoxia noted. Chest x-ray with bilateral patchy infiltrates. Inflammatory markers elevated. D-dimer 658 worsening a 55. Ferritin 722. No DVT. #Acute hypoxemic respiratory failure: Now improving, remains on high flow nasal cannula now 100%, 35 L, 93% sats #Elevated LFTs: from COVID #Coagulase-negative in blood cultures: Likely a contaminant. Recommendations: -Pulmonary consult -pending -Obtain chest CTA rule out PE -pending -SARS-CoV-2 IgG is negative, patient may benefit from Covid convalescent plasma -pending -Continue dexamethasone 6 mg IV/PO daily for 10 days -Continue remdesivir total 5 days -Monitor inflammatory markers - ferritin, Ddimer, CRP, LDH recheck tomorrow -Monitor liver function test on Remdesivir -Continue anticoagulation per System Protocol -Prone positioning as possible -Follow-up repeat blood cultures High risk for deterioration intubation and , consider close monitoring IMCU All laboratory, cultures and imaging were reviewed. Will follow Syl Hanson MD Infectious Diseases Dry Transfer Worker [facility] M [phone] O [phone] Subjective Date of service: 03/23/20 Principal diagnosis: Severe COVID-19 Interval history: Patient remains on high flow nasal cannula 100%, 20 L. No fever. Objective - Exam Narrative Exam: Deferred to prevent COVID-19 transmission - Constitutional Vitals: Vital Signs Temp Pulse Resp BP Pulse Ox 98.7 F 78 24 114/72 93 03/23/20 04:03 03/22/20 21:56 03/23/20 04:03 03/23/20 04:03 03/23/20 08:00 Temperature -Last 24 Hours Temperature 98.7 F Temperature 98.1 F Temperature 99.3 F Temperature 99.1 F - Labs CBC & Chem 7: 03/19/20 14:13 03/21/20 08:26 Labs: Abnormal lab results 03/22/20 03/22/20 03/22/20 Range/Units 10:47 10:47 10:47 D-Dimer 855.69 H (0-234) ng/mlDDU POC Glucose (70-105) mg/dL Ferritin 717.5 H (30.0-300.0) ng/mL Lactate Dehydrogenase 569 H (91-180) units/L C-Reactive Protein 6.70 H (0.00-1.30) mg/dL Total Protein (6.3-8.2) g/dL Albumin (3.9-5) g/dL 03/22/20 03/22/20 03/22/20 Range/Units 11:28 16:32 21:03 D-Dimer (0-234) ng/mlDDU POC Glucose 187 H 238 H 204 H (70-105) mg/dL Ferritin (30.0-300.0) ng/mL Lactate Dehydrogenase (91-180) units/L C-Reactive Protein (0.00-1.30) mg/dL Total Protein (6.3-8.2) g/dL Albumin (3.9-5) g/dL 03/23/20 03/23/20 Range/Units 05:48 06:17 D-Dimer (0-234) ng/mlDDU POC Glucose 163 H (70-105) mg/dL Ferritin (30.0-300.0) ng/mL Lactate Dehydrogenase (91-180) units/L C-Reactive Protein (0.00-1.30) mg/dL Total Protein 5.7 L (6.3-8.2) g/dL Albumin 2.6 L (3.9-5) g/dL
[2020-03-23] MEDS: FAMOTIDINE 20 MG TAB PO SCH (10:09)
[2020-03-23] MEDS: ASCORBIC ACID 500 MG TAB PO SCH (10:09)
[2020-03-23] MEDS: APIXABAN 5 MG TAB PO SCH (10:09)
[2020-03-23] MEDS: ZINC SULFATE 220 MG CAP PO SCH (10:10)
[2020-03-23] MEDS: CHOLECALCIFEROL (VIT D3) 5,000 UNIT TAB PO SCH (10:10)
[2020-03-23] MEDS: dexAMETHasone 4 MG/ML VIAL IV SCH (10:11)
[2020-03-23] MEDS ORDERED: FUROSEMIDE 40 MG/4 ML INJ IV NR (10:30)
--- NOTE | 2020-03-23 12:51 | Consultation ---
History of Present Illness Consult date: 03/23/20 Requesting physician: NIKA ARRIETA Reason for consult: hypoxemia, other (COVID 19) History of present illness: 59 y/o male with acute hypoxic respiratory failure secondary to COVID 19. Patient has been on HFNC since admit with varying degrees of flow and FiO2. ID has requested a pulmonary consult placed by [facility]. No prior history of lung disease but patient is a smoker. Past History Past Medical History: hypertension Past Surgical History: No surgical history, Other (Reviewed) Social history: , lives with family, smoking, alcohol abuse Family history: hypertension Medications and Allergies Allergies Allergy/AdvReac Type Severity Reaction Status Date / Time celecoxib [From Celebrex] Allergy Unknown Verified 03/19/20 13:50 Home Medications Medication Instructions Recorded Confirmed Last Taken Type Insulin Glargine/Lixisenatide 15 unit SQ QAM 03/19/20 03/19/20 Unknown History [Soliqua 100 Unit-33 Mcg/ml Pen] Losartan [Cozaar] 100 mg PO QDAY 03/19/20 03/19/20 Unknown History Metformin HCl [metFORMIN] 2,000 mg PO BID 03/19/20 03/19/20 Unknown History Simvastatin 40 mg PO QHS 03/19/20 03/19/20 Unknown History Actos 1 PO 03/20/20 03/19/20 History Active Meds: Active Medications Acetaminophen (Acetaminophen 325 Mg Tab) 650 mg PO Q4H PRN PRN Reason: Pain MILD(1-3)/Fever >100.5/ROSS Albuterol (Albuterol 2.5 Mg/3 Ml Nebu) 2.5 mg IH Q4HRT PRN PRN Reason: Shortness Of Breath Apixaban (Apixaban 5 Mg Tab) 5 mg PO Q12HR FAVIOLA; Protocol Last Admin: 03/23/20 10:09 Dose: 5 mg Documented by: Ascorbic Acid (Ascorbic Acid 500 Mg Tab) 1,000 mg PO BID FAVIOLA Last Admin: 03/23/20 10:09 Dose: 1,000 mg Documented by: Cholecalciferol (Cholecalciferol (Vit D3) 5,000 Unit Tab) 5,000 unit PO DAILY FAVIOLA Last Admin: 03/23/20 10:10 Dose: 5,000 unit Documented by: Dexamethasone (Dexamethasone 4 Mg Tab) 6 mg PO DAILY [facility] Stop: 03/28/20 12:00 Famotidine (Famotidine 20 Mg Tab) 20 mg PO BID [facility] Last Admin: 03/23/20 10:09 Dose: 20 mg Documented by: Furosemide (Furosemide 40 Mg/4 Ml Inj) 40 mg IV ONCE@1030 NR Stop: 03/23/20 14:00 Last Admin: 03/23/20 10:12 Dose: 40 mg Documented by: Hydromorphone HCl (Hydromorphone 1 Mg/1 Ml Inj) 0.25 mg IV Q4H PRN PRN Reason: Pain, Moderate (4-6) Last Admin: 03/22/20 23:30 Dose: 0.25 mg Documented by: REMDESIVIR 100 mg/ Sodium (Chloride) 250 mls @ 500 mls/hr IV Q24HR@2100 FAVIOLA Stop: 03/24/20 21:29 Last Admin: 03/22/20 23:07 Dose: 500 mls/hr Documented by: Insulin Glargine (Insulin Glargine 100 Units/Ml) 15 units SUB-Q [facility] Last Admin: 03/23/20 10:02 Dose: Not Given Documented by: Insulin Human Regular (Insulin Regular, Human 100 Unit/Ml 3ml Vial) 0 unit SUB- Q [facility]; Protocol Last Admin: 03/23/20 07:30 Dose: 2 unit Documented by: Ondansetron HCl (Ondansetron 4 Mg/2 Ml Inj) 4 mg IV Q8H PRN PRN Reason: Nausea And Vomiting Sodium Chloride (Sodium Chloride 0.9% 10 Ml Flush Syringe) 10 ml IV BID [facility] Last Admin: 03/23/20 10:11 Dose: 10 ml Documented by: Sodium Chloride (Sodium Chloride 0.9% 10 Ml Flush Syringe) 10 ml IV PRN PRN PRN Reason: LINE FLUSH Sodium Chloride (Sodium Chloride 0.9% 50 Ml Ivpb) 50 ml IV Q24HR@2100 FAVIOLA Stop: 03/24/20 21:01 Last Admin: 03/22/20 23:07 Dose: 50 ml Documented by: Zinc Sulfate (Zinc Sulfate 220 Mg Cap) 220 mg PO BID [facility] Last Admin: 03/23/20 10:10 Dose: 220 mg Documented by: Physical Examination Vital signs: Vital Signs Pulse Ox 87 03/19/20 13:38 Patient not examined in person to preserve PPE during the global pandemic of COVID 19 Results - Laboratory Findings CBC and BMP: 03/19/20 14:13 03/21/20 08:26 PT/INR, D-dimer D-Dimer 855.69 ng/mlDDU (0-234) H 03/22/20 10:47 Abnormal lab findings: Abnormal Labs 03/19/20 03/19/20 03/19/20 14:13 14:13 14:13 MCHC 35 H Frederick % (Auto) 11.6 H Lymph # (Auto) 0.8 L Seg Neutrophils % 74.7 H D-Dimer Chloride BUN Glucose 204 H POC Glucose Lactic Acid 2.30 H* Ferritin AST Lactate Dehydrogenase C-Reactive Protein Total Protein Albumin Coronavirus (PCR) 03/19/20 03/19/20 03/19/20 14:13 15:35 15:35 MCHC Frederick % (Auto) Lymph # (Auto) Seg Neutrophils % D-Dimer 658.20 H Chloride BUN Glucose POC Glucose Lactic Acid Ferritin 722.2 H AST 62 H Lactate Dehydrogenase C-Reactive Protein Total Protein Albumin 3.6 L Coronavirus (PCR) 03/20/20 03/20/20 03/20/20 05:28 12:20 16:31 MCHC Frederick % (Auto) Lymph # (Auto) Seg Neutrophils % D-Dimer Chloride BUN Glucose POC Glucose 270 H 306 H Lactic Acid Ferritin AST Lactate Dehydrogenase C-Reactive Protein Total Protein Albumin Coronavirus (PCR) Positive A 03/20/20 03/21/20 03/21/20 20:28 08:26 09:03 MCHC Frederick % (Auto) Lymph # (Auto) Seg Neutrophils % D-Dimer Chloride 110.5 H BUN 23 H Glucose 168 H POC Glucose 320 H 159 H Lactic Acid Ferritin AST 42 H Lactate Dehydrogenase C-Reactive Protein Total Protein 6.1 L Albumin 2.8 L Coronavirus (PCR) 03/21/20 03/21/20 03/21/20 12:26 20:08 22:45 MCHC Frederick % (Auto) Lymph # (Auto) Seg Neutrophils % D-Dimer Chloride BUN Glucose POC Glucose 190 H 375 H 248 H Lactic Acid Ferritin AST Lactate Dehydrogenase C-Reactive Protein Total Protein Albumin Coronavirus (PCR) 03/22/20 03/22/20 03/22/20 07:56 10:47 10:47 MCHC Frederick % (Auto) Lymph # (Auto) Seg Neutrophils % D-Dimer 855.69 H Chloride BUN Glucose POC Glucose 147 H Lactic Acid Ferritin 717.5 H AST Lactate Dehydrogenase C-Reactive Protein Total Protein Albumin Coronavirus (PCR) 03/22/20 03/22/20 03/22/20 10:47 11:28 16:32 MCHC Frederick % (Auto) Lymph # (Auto) Seg Neutrophils % D-Dimer Chloride BUN Glucose POC Glucose 187 H 238 H Lactic Acid Ferritin AST Lactate Dehydrogenase 569 H C-Reactive Protein 6.70 H Total Protein Albumin Coronavirus (PCR) 03/22/20 03/23/20 03/23/20 21:03 05:48 06:17 MCHC Frederick % (Auto) Lymph # (Auto) Seg Neutrophils % D-Dimer Chloride BUN Glucose POC Glucose 204 H 163 H Lactic Acid Ferritin AST Lactate Dehydrogenase C-Reactive Protein Total Protein 5.7 L Albumin 2.6 L Coronavirus (PCR) 03/23/20 10:27 MCHC Frederick % (Auto) Lymph # (Auto) Seg Neutrophils % D-Dimer Chloride BUN Glucose POC Glucose 160 H Lactic Acid Ferritin AST Lactate Dehydrogenase C-Reactive Protein Total Protein Albumin Coronavirus (PCR) - Diagnostic Findings Chest x-ray: image reviewed (admission film. Agree with rads assessment.) Assessment and Plan 59 y/o male with acute hypoxic respiratory failure secondary to COVID 19 with prior history of tobacco abuse. 1. Given smoking history, not unreasonable to increase steroids as he may have a component of COPD. Will ask ID but I think they would be ok with this 2. [facility] has already given lasix this am. Would suggest checking chemistry in am and ordering strict I/O 3. Doppler's are negative. Already on treatment doses of anticoagulation. 4. Prone as much as possible during the day and sleep prone at night. Will ask that this be documented in nursing notes. 5. [facility]MS will need to manage diabetes more tightly with increases in steroids. 6. Guarded prognosis. Reviewed ID note, but no IMCU beds at the moment so will have to monitor as closely as possible on the floor.
[2020-03-23] MEDS: methylPREDNISolone Sod Succinate 125 MG/2 ML INJ IV SCH ×2 (14:56→17:51)
[2020-03-23] MEDS: HYDROmorphone 1 MG/1 ML INJ IV PRN (15:27)
--- NOTE | 2020-03-23 18:16 | Progress Note ---
Assessment and Plan -- Sepsis due to COVID19 infection cont iv steroid, remdesivir, supplemental O2 -- Acute hypoxemic respiratory failure due to covid19 PNA Supplemental oxygen, nebulizer therapy, pulse oximetry, pulmonary toilet, supportive care. -- Covid19 PNA IV steroid therapy, prophylactic anticoagulation, prone positioning while in bed, supplemental oxygen, pulse oximetry, nebulizer therapy, contact precautions, isolation precaution, supportive care. remdesivir for 5 days -ve SARS-CoV-2 IgG: ordered for convalescent plasma --DM type 2 started on long acting insulin along with SSI --Bacteremia, likely contamination 1 out of 2 blood cx +ve for gm+ve cocci s/p iv vanco, repeat blood cx negative -- Hypertension Monitor blood pressure every shift, continue medical management -- DVT prophylaxis prophylactic anticoagulation -- Advance care planning Disease education conducted, patient is full code, prognosis discussed, care plan discussed, patient knowledges understanding and agreement with care plan, +30 minutes. 03/20: Positive for COVID 4 days ago before admission. started on dexamethasone iv. ID consulted. ordered for remdesivir. follow inflammatory markers. Start on vancomycin for positive blood culture -we will follow final result 03/21: ordered repeat blood cx. -ve SARS-CoV-2 IgG, ordered for convalescent plasma. patient remains on high flow O2. cont to adjust insulin dose for better glycemic control 03/22: Patient remains on high flow O2, ordered for pulmonary consult, CTA chest and bilateral lower extremity Doppler. Continue to follow inflammatory markers. Pending convalescent plasma transfusion 03/23: pending convalescent plasma transfusion. remains on high flow O2. s/p laisx 40mg today. cont remdesivir and steroid. Le doppler neg for PE. on 35L with 100% FiO2 - poor prognostic factor Subjective Date of service: 03/23/20 Principal diagnosis: Severe COVID-19 Interval history: Patient seen and examined pt on high flow O2 denies any chest pain Objective - Exam Narrative Exam: General appearance: Present: mild distress - EENT Eyes: Present: PERRL ENT: clear oral mucosa, - Neck Neck: Present: supple, normal ROM - Respiratory Respiratory effort: mild labored, Respiratory: bilateral: diminished, wheezing - Cardiovascular Rhythm: other (Tachycardia) Heart Sounds: Present: S1 & S2. Absent: rub, click - Extremities Extremities: pulses symmetrical, No edema - Abdominal General gastrointestinal: Present: soft, non-tender, non-distended, normal bowel sounds Male genitourinary: Present: normal - Integumentary Integumentary: Present: dry, clammy, decreased turgor - Musculoskeletal Musculoskeletal: generalized weakness - Psychiatric Psychiatric: appropriate mood/affect, intact judgment & insight - Neurologic Neurologic: CNII-XII intact, moves all extremities, - Constitutional Vitals: Vital Signs - 12hr 03/23/20 03/23/20 03/23/20 08:00 12:01 13:39 Temperature 99.1 F Pulse Rate 98 H Respiratory 20 Rate Blood Pressure 106/71 O2 Sat by Pulse 93 86 94 Oximetry - Labs CBC & Chem 7: 03/19/20 14:13 03/21/20 08:26 Labs: Abnormal lab results 03/22/20 03/23/20 03/23/20 Range/Units 21:03 05:48 06:17 POC Glucose 204 H 163 H (70-105) mg/dL Total Protein 5.7 L (6.3-8.2) g/dL Albumin 2.6 L (3.9-5) g/dL 03/23/20 03/23/20 Range/Units 10:27 17:04 POC Glucose 160 H 253 H (70-105) mg/dL Total Protein (6.3-8.2) g/dL Albumin (3.9-5) g/dL
[2020-03-23] MEDS ORDERED: NALOXONE 0.4 MG/1 ML INJ ONE (22:05)
[2020-03-23] MEDS ORDERED: ROCURONIUM 50 MG/5 ML INJ IV ONE (22:15)
[2020-03-23] MEDS ORDERED: ETOMIDATE 20 MG/10 ML INJ IV ONE (22:15)
--- NOTE | 2020-03-23 22:29 | Procedure Note ---
Date of procedure: 03/23/20 Pre-op diagnosis: Respiratory failure Post-op diagnosis: same Procedure: Patient is a 59-year-old male that is admitted to the hospital service. The hospitalist asked that I intubate the patient for respiratory failure. Patient is currently hypoxic and the rest of his vital signs are stable. Intubation note: Timeout was done with the nursing staff. Patient intubated under emergent situation. RSI used for sedation. 20 mg of etomidate and 50 mg of rocuronium. Patient was intubated with a [place] 3. A 7.5 tube was placed at 24 at the teeth. I visualized the tube passing through the cords, equal breath sounds bilaterally, no breath sounds over the epigastrium, color change on capnography. Patient tolerated procedure well. No complications noted. X-ray was ordered. Care transferred back to the primary team. Anesthesia: other (RSI) Estimated blood loss: none Pathology: none Condition: critical Disposition: ICU
[2020-03-23] MEDS ORDERED: MINERAL OIL/PETROLATUM, WHITE OPHTH OINT 3.5 GM OU PRN (22:42)
[2020-03-23] MEDS ORDERED: LIP THERAPY VASELINE TP PRN (22:42)
[2020-03-23] MEDS: fentaNYL DRIP Premix 2,000 MCG/100 ML BAG IV SCH (22:52)
--- NOTE | 2020-03-23 23:35 | XRay Report ---
CHEST 1 VIEW, 03/23/2020 11:06 PM CLINICAL INFORMATION/INDICATION: Endotracheal tube placement COMPARISON: Chest radiograph, 03/19/2020 FINDINGS: SUPPORT DEVICES: There has been interval placement of endotracheal tube with tip approximately 3 cm a albino the level the yamilet. HEART: The cardiac silhouette is normal in size. LUNGS/PLEURA: There has been interval development of faint patchy bilateral pulmonary opacities. Ther e is a trace right pleural effusion. No pneumothorax. ADDITIONAL FINDINGS: No additional acute findings. IMPRESSION: 1. Satisfactory placement of endotracheal tube as described. 2. Interval development of faint patchy bilateral pulmonary opacities suggestive for pneumonia. Signer Name: Melissa Clark MD Signed: 03/23/2020 11:31 PM Workstation Name: [id number]
--- NOTE | 2020-03-23 23:36 | Event Note ---
Date: 03/23/20 Attention called to patient who has been on admission with acute respiratory failure secondary to COVID-19 pneumonia who has become unresponsive. Oxygen saturation is also said to be in the 80s. He was placed on the nonrebreather without any significant improvement in his oxygen saturation. Patient was also said to have had some Dilaudid about 5 to 6 hours ago. He had Narcan without any significant improvement. Stat ABG done reveals hypoxemia. Patient was subsequently intubated and transferred to the intensive care unit. Will notify information systems consultant and drywall application supervisor of change in patient's status.
[2020-03-24] MEDS: SODIUM CHLORIDE 0.9% 50 ML IVPB IV SCH ×2 (00:27→22:12)
[2020-03-24] MEDS: REMDESIVIR 100 MG in SODIUM CHLORIDE 0.9% 250ML 250 ML IV SCH ×2 (00:27→22:12)
[2020-03-24] MEDS: APIXABAN 5 MG TAB PO SCH ×3 (00:28→22:13)
[2020-03-24] MEDS: FAMOTIDINE 20 MG TAB PO SCH ×3 (00:28→22:13)
[2020-03-24] MEDS: INSULIN REGULAR, HUMAN 100 UNIT/ML 3ML VIAL SUB-Q SCH ×4 (00:28→18:38)
[2020-03-24] MEDS: ASCORBIC ACID 500 MG TAB PO SCH ×3 (00:28→22:13)
[2020-03-24] MEDS: ZINC SULFATE 220 MG CAP PO SCH ×3 (00:28→22:13)
[2020-03-24] MEDS: methylPREDNISolone Sod Succinate 125 MG/2 ML INJ IV SCH ×5 (01:15→23:07)
--- NOTE | 2020-03-24 08:29 | XRay Report ---
CHEST 1 VIEW 0801 hours INDICATION: follow up respiratory failure. COMPARISON: Yesterday at 2306 hours FINDINGS: Support devices: Endotracheal tube remains in similar position terminating 2.8 cm superior to the car christopher. Heart: Within normal limits. Lungs/Pleura: Severe diffuse subcutaneous emphysema has developed throughout the lower neck and chest wall bilaterally. Subtle bilateral lung opacities appear stable. No pneumothorax is detected. I ques tion if there could be pneumomediastinum. No pleural effusion. IMPRESSION: Severe diffuse subcutaneous emphysema has developed since yesterday's exam. There may be small pneum omediastinum as well. Given the marked change, CT chest with or without contrast should be considered . Please correlate with the patient's clinical presentation. Faint bilateral lung opacities are stable. Signer Name: Luis Manuel Chaparro Jr, MD Signed: 03/24/2020 8:25 AM Workstation Name: [id number]
[2020-03-24 09:08] LABS: Hemoglobin 14.6 gm/dl (11.8-15.2); Mean Corpuscular HGB Conc 35 % (32-34); Mean Corpuscular Volume 91 fl (84-94); Platelet Count 219 K/mm3 (140-440); Red Cell Distribution Width 13.4 % (13.2-15.2)
[2020-03-24 09:28] LABS: Blood Urea Nitrogen 27 mg/dL (9-20); Calcium 8.7 mg/dL (8.4-10.2); Hemolysis Index 4
[2020-03-24 09:30] LABS: BUN/Creatinine Ratio 39
[2020-03-24] MEDS ORDERED: DEXAMETHASONE 4 MG TAB PO SCH (10:00)
[2020-03-24] MEDS ORDERED: INSULIN GLARGINE 100 UNITS/ML SUB-Q ONE (10:00)
[2020-03-24] MEDS: CHOLECALCIFEROL (VIT D3) 5,000 UNIT TAB PO SCH (10:32)
--- NOTE | 2020-03-24 10:42 | Progress Note ---
Assessment and Plan -- Sepsis due to COVID19 infection cont iv steroid, remdesivir, supplemental O2 Patient now hypoxemic intubated. Severe sepsis secondary to COVID-19 pneumonia. -- Acute hypoxemic respiratory failure due to covid19 PNA Supplemental oxygen, nebulizer therapy, pulse oximetry, pulmonary toilet, supportive care. Will need to obtain CT scan head and neck. Patient has crepitus in neck area and increased rhonchi. -- Covid19 PNA IV steroid therapy, prophylactic anticoagulation, prone positioning while in bed, supplemental oxygen, pulse oximetry, nebulizer therapy, contact precautions, isolation precaution, supportive care. remdesivir for 5 days -ve SARS-CoV-2 IgG: ordered for convalescent plasma --DM type 2 started on long acting insulin along with SSI Uncontrolled. Will increase long-acting Lantus at this time. --Bacteremia, likely contamination 1 out of 2 blood cx +ve for gm+ve cocci s/p iv vanco, repeat blood cx negative -- Hypertension Monitor blood pressure every shift, continue medical management The high probability of a clinically significant, sudden or life threatening deterioration of the [] system(s) required my full and direct attention, intervention and personal management. The aggregate critical care time was [34] minutes. This time is in addition to time spent performing reported procedures but includes the following: [x] Data Review and interpretation [x] Patient assessment and monitoring of vital signs [x] Documentation [x] Medication orders and management Subjective Date of service: 03/24/20 Principal diagnosis: Severe COVID-19 Interval history: : Positive for COVID 4 days ago before admission. started on dexamethasone iv. ID consulted. ordered for remdesivir. follow inflammatory markers. Start on vancomycin for positive blood culture -we will follow final result 03/21: ordered repeat blood cx. -ve SARS-CoV-2 IgG, ordered for convalescent plasma. patient remains on high flow O2. cont to adjust insulin dose for better glycemic control 03/22: Patient remains on high flow O2, ordered for pulmonary consult, CTA chest and bilateral lower extremity Doppler. Continue to follow inflammatory markers. Pending convalescent plasma transfusion 03/23: pending convalescent plasma transfusion. remains on high flow O2. s/p laisx 40mg today. cont remdesivir and steroid. Le doppler neg for PE. on 35L with 100% FiO2 - poor prognostic factor 03/24 patient overnight episode altered mental status hypoxemia requiring intubation. At present patient in the prone position intubated remains unresponsive with altered mental status despite being only on 1 cal fentanyl. Objective - Constitutional Vitals: Vital Signs - 12hr 03/23/20 03/24/20 03/24/20 23:00 00:08 00:13 Temperature Pulse Rate 90 111 H 105 H Pulse Rate [ From Monitor] Respiratory 21 Rate Blood Pressure 112/76 132/102 138/86 O2 Sat by Pulse 94 99 99 Oximetry 03/24/20 03/24/20 03/24/20 00:17 01:00 02:00 Temperature 98.8 F Pulse Rate 86 71 Pulse Rate [ From Monitor] Respiratory 19 18 Rate Blood Pressure 138/86 109/77 O2 Sat by Pulse 96 Oximetry 03/24/20 03/24/20 03/24/20 02:27 03:00 03:04 Temperature Pulse Rate 65 62 Pulse Rate [ From Monitor] Respiratory 18 Rate Blood Pressure 109/77 113/81 O2 Sat by Pulse 99 98 96 Oximetry 03/24/20 03/24/20 03/24/20 04:00 05:00 06:00 Temperature 98.7 F Pulse Rate 64 63 69 Pulse Rate [ 63 From Monitor] Respiratory 20 14 19 Rate Blood Pressure 110/74 113/77 111/79 O2 Sat by Pulse 97 96 96 Oximetry 03/24/20 03/24/20 03/24/20 07:00 08:00 08:14 Temperature Pulse Rate 65 88 31 L Pulse Rate [ From Monitor] Respiratory 20 19 Rate Blood Pressure 113/77 113/77 127/94 O2 Sat by Pulse 96 95 95 Oximetry 03/24/20 03/24/20 09:00 10:00 Temperature Pulse Rate 71 66 Pulse Rate [ From Monitor] Respiratory 16 26 H Rate Blood Pressure 104/69 110/75 O2 Sat by Pulse 97 Oximetry General appearance: Present: other (Altered mental status unresponsive.) - Respiratory Respiratory: bilateral: rhonchi (Rhonchi), negative: other (Crepitus in upper neck area) - Cardiovascular Rhythm: other (Tachycardic at times.) Extremity abnormal: other (No edema unable to move extremities. Patient) - Gastrointestinal General gastrointestinal: Present: soft, non-tender, non-distended, normal bowel sounds - Musculoskeletal Musculoskeletal: generalized weakness - Labs CBC & Chem 7: 03/24/20 07:31 03/24/20 07:31 Labs: Abnormal lab results 03/23/20 03/23/20 03/23/20 Range/Units 17:04 21:53 23:02 WBC (4.5-11.0) K/mm3 MCHC (32-34) % ABG pH 7.472 H (7.320-7.450) POC ABG pO2 48.2 L (83-108) mmHg ABG Oxyhemoglobin (94-98) ABG Glucose 319 H (65-95) mg/dL BUN (9-20) mg/dL Creatinine (0.8-1.3) mg/dL Glucose (75-100) mg/dL POC Glucose 253 H 274 H (70-105) mg/dL Arterial Blood Glucose 319 H (65-95) mg/dL Arterial Blood Ionized Calcium 4.5 L (4.6-5.3) mg/dL 03/23/20 03/24/20 03/24/20 Range/Units 23:44 02:58 07:31 WBC 14.9 H (4.5-11.0) K/mm3 MCHC 35 H (32-34) % ABG pH (7.320-7.450) POC ABG pO2 260.5 H (83-108) mmHg ABG Oxyhemoglobin 98.4 H (94-98) ABG Glucose 287 H (65-95) mg/dL BUN (9-20) mg/dL Creatinine (0.8-1.3) mg/dL Glucose (75-100) mg/dL POC Glucose 216 H (70-105) mg/dL Arterial Blood Glucose 287 H (65-95) mg/dL Arterial Blood Ionized Calcium (4.6-5.3) mg/dL 03/24/20 03/24/20 Range/Units 07:31 08:10 WBC (4.5-11.0) K/mm3 MCHC (32-34) % ABG pH (7.320-7.450) POC ABG pO2 (83-108) mmHg ABG Oxyhemoglobin (94-98) ABG Glucose (65-95) mg/dL BUN 27 H (9-20) mg/dL Creatinine 0.7 L (0.8-1.3) mg/dL Glucose 305 H (75-100) mg/dL POC Glucose 259 H (70-105) mg/dL Arterial Blood Glucose (65-95) mg/dL Arterial Blood Ionized Calcium (4.6-5.3) mg/dL - Imaging and cardiology EKG: image reviewed CT scan - chest: image reviewed
[2020-03-24] MEDS: INSULIN GLARGINE 100 UNITS/ML SUB-Q SCH (11:18)
--- NOTE | 2020-03-24 11:21 | Progress Note ---
Assessment and Plan Cultures: Blood culture 03/19/2020 coagulase-negative staph 1 out of 4 bottles SARS CoV2 PCR positive SARS Covid 2 IgG negative Blood cultures 03/21/2020 no growth today Assessment: 59 years old male with history of hypertension and COVID-19 diagnosed 4 days before admission, admitted on 03/19/2020 secondary to a week history of dry cough, shortness of breath, loss of smell and taste, body aches, dyspnea on exertion: #Severe sepsis: Improving likely due to bilateral pneumonia. #Critical COVID pneumonia: Severe hypoxia noted. Chest x-ray with bilateral patchy infiltrates. Inflammatory markers elevated. D-dimer 658 worsening a 855. Ferritin 722. No DVT. #Acute hypoxemic respiratory failure: Now intubated, proning. #Elevated LFTs: from COVID #Coagulase-negative in blood cultures: Likely a contaminant. Recommendations: -Agree with increasing his steroids -Continue remdesivir D4 of 5 -Obtain chest CTA rule out PE -unable to obtain due to intubation -SARS-CoV-2 IgG is negative, patient may benefit from Covid convalescent plasma -pending -Monitor inflammatory markers - ferritin, Ddimer, CRP, LDH recheck today -Monitor liver function test on Remdesivir -Continue anticoagulation per System Protocol -Prone positioning as possible -Follow-up repeat blood cultures High risk for deterioration including All laboratory, cultures and imaging were reviewed. Will follow Syl Hanson MD Infectious Diseases Bilingual Speech Language Pathologist [facility] M [phone] O [phone] Subjective Date of service: 03/24/20 Principal diagnosis: Severe COVID-19 Interval history: Patient was not intubated, currently prone position, FiO2 40%, PEEP of 8, no fever. Objective - Exam Narrative Exam: Deferred to prevent COVID-19 transmission - Constitutional Vitals: Vital Signs Temp Pulse Resp BP Pulse Ox 98.7 F 66 26 H 110/75 97 03/24/20 04:00 03/24/20 10:00 03/24/20 10:00 03/24/20 10:00 03/24/20 10:00 Temperature -Last 24 Hours Temperature 98.7 F Temperature 98.8 F Temperature 98.9 F Temperature 99.1 F - Labs CBC & Chem 7: 03/24/20 07:31 03/24/20 07:31 Labs: Abnormal lab results 03/23/20 03/23/20 03/23/20 Range/Units 17:04 21:53 23:02 WBC (4.5-11.0) K/mm3 MCHC (32-34) % ABG pH 7.472 H (7.320-7.450) POC ABG pO2 48.2 L (83-108) mmHg ABG Oxyhemoglobin (94-98) ABG Glucose 319 H (65-95) mg/dL BUN (9-20) mg/dL Creatinine (0.8-1.3) mg/dL Glucose (75-100) mg/dL POC Glucose 253 H 274 H (70-105) mg/dL Arterial Blood Glucose 319 H (65-95) mg/dL Arterial Blood Ionized Calcium 4.5 L (4.6-5.3) mg/dL 03/23/20 03/24/20 03/24/20 Range/Units 23:44 02:58 07:31 WBC 14.9 H (4.5-11.0) K/mm3 MCHC 35 H (32-34) % ABG pH (7.320-7.450) POC ABG pO2 260.5 H (83-108) mmHg ABG Oxyhemoglobin 98.4 H (94-98) ABG Glucose 287 H (65-95) mg/dL BUN (9-20) mg/dL Creatinine (0.8-1.3) mg/dL Glucose (75-100) mg/dL POC Glucose 216 H (70-105) mg/dL Arterial Blood Glucose 287 H (65-95) mg/dL Arterial Blood Ionized Calcium (4.6-5.3) mg/dL 03/24/20 03/24/20 Range/Units 07:31 08:10 WBC (4.5-11.0) K/mm3 MCHC (32-34) % ABG pH (7.320-7.450) POC ABG pO2 (83-108) mmHg ABG Oxyhemoglobin (94-98) ABG Glucose (65-95) mg/dL BUN 27 H (9-20) mg/dL Creatinine 0.7 L (0.8-1.3) mg/dL Glucose 305 H (75-100) mg/dL POC Glucose 259 H (70-105) mg/dL Arterial Blood Glucose (65-95) mg/dL Arterial Blood Ionized Calcium (4.6-5.3) mg/dL
--- NOTE | 2020-03-24 12:03 | Progress Note ---
Assessment and Plan 59 y/o male with acute hypoxic respiratory failure secondary to COVID 19 with prior history of tobacco abuse. 1. Will obtain CT of chest given decrease in O2 and PEEP. Will obtain about 1 hour after un-proning and monitor for stability 2. Also ordered CT of head and neck given altered mental state and neck to be through given subq air present 3. Continue steroids at current dosing 4. Will prone again tonight at midnight 5. Finishes remdesivir today 6. Guarded prognosis. CCT 31 minutes. Subjective Date of service: 03/24/20 Principal diagnosis: Severe COVID-19 Interval history: Patient had an episode of altered mental status last night, unresponsive and required intubation secondary to hypoxemia. Currently on Fent but only at one. Prone in bed. SubQ emphysema is palpable, but actually down to 40% and 8 of PEEP. Unable to tell if pneumo on CXR from this am. Objective Vital Signs - 12hr 03/24/20 03/24/20 03/24/20 00:08 00:13 00:17 Temperature 98.8 F Pulse Rate 111 H 105 H Pulse Rate [ From Monitor] Respiratory Rate Blood Pressure 132/102 138/86 O2 Sat by Pulse 99 99 Oximetry 03/24/20 03/24/20 03/24/20 01:00 02:00 02:27 Temperature Pulse Rate 86 71 65 Pulse Rate [ From Monitor] Respiratory 19 18 Rate Blood Pressure 138/86 109/77 109/77 O2 Sat by Pulse 96 99 Oximetry 03/24/20 03/24/20 03/24/20 03:00 03:04 04:00 Temperature 98.7 F Pulse Rate 62 64 Pulse Rate [ 63 From Monitor] Respiratory 18 20 Rate Blood Pressure 113/81 110/74 O2 Sat by Pulse 98 96 97 Oximetry 03/24/20 03/24/20 03/24/20 05:00 06:00 07:00 Temperature Pulse Rate 63 69 65 Pulse Rate [ From Monitor] Respiratory 14 19 20 Rate Blood Pressure 113/77 111/79 113/77 O2 Sat by Pulse 96 96 96 Oximetry 03/24/20 03/24/20 03/24/20 08:00 08:14 09:00 Temperature Pulse Rate 88 31 L 71 Pulse Rate [ From Monitor] Respiratory 19 16 Rate Blood Pressure 113/77 127/94 104/69 O2 Sat by Pulse 95 95 Oximetry 03/24/20 10:00 Temperature Pulse Rate 66 Pulse Rate [ From Monitor] Respiratory 26 H Rate Blood Pressure 110/75 O2 Sat by Pulse 97 Oximetry CBC and BMP: 03/24/20 07:31 03/24/20 07:31 ABG, PT/INR, D-dimer: ABG ABG pH 7.418 (7.320-7.450) 03/24/20 02:58 POC ABG pCO2 39.0 mmHg (32.0-48.0) 03/24/20 02:58 POC ABG pO2 260.5 mmHg (83-108) H 03/24/20 02:58 POC ABG HCO3 24.6 03/24/20 02:58 PT/INR, D-dimer D-Dimer 855.69 ng/mlDDU (0-234) H 03/22/20 10:47 Abnormal lab findings: Abnormal Labs 03/19/20 03/19/20 03/19/20 14:13 14:13 14:13 WBC MCHC 35 H [place] % (Auto) 11.6 H Lymph # (Auto) 0.8 L Seg Neutrophils % 74.7 H D-Dimer ABG pH POC ABG pO2 ABG Oxyhemoglobin ABG Glucose Chloride BUN Creatinine Glucose 204 H POC Glucose Lactic Acid 2.30 H* Ferritin AST Lactate Dehydrogenase C-Reactive Protein Total Protein Albumin Arterial Blood Glucose Arterial Blood Ionized Calcium Coronavirus (PCR) 03/19/20 03/19/20 03/19/20 14:13 15:35 15:35 WBC MCHC [place] % (Auto) Lymph # (Auto) Seg Neutrophils % D-Dimer 658.20 H ABG pH POC ABG pO2 ABG Oxyhemoglobin ABG Glucose Chloride BUN Creatinine Glucose POC Glucose Lactic Acid Ferritin 722.2 H AST 62 H Lactate Dehydrogenase C-Reactive Protein Total Protein Albumin 3.6 L Arterial Blood Glucose Arterial Blood Ionized Calcium Coronavirus (PCR) 03/20/20 03/20/20 03/20/20 05:28 12: 16:31 WBC MCHC [place] % (Auto) Lymph # (Auto) Seg Neutrophils % D-Dimer ABG pH POC ABG pO2 ABG Oxyhemoglobin ABG Glucose Chloride BUN Creatinine Glucose POC Glucose 270 H 306 H Lactic Acid Ferritin AST Lactate Dehydrogenase C-Reactive Protein Total Protein Albumin Arterial Blood Glucose Arterial Blood Ionized Calcium Coronavirus (PCR) Positive A 03/20/20 03/21/20 03/21/20 20:28 08:26 09:03 WBC MCHC [place] % (Auto) Lymph # (Auto) Seg Neutrophils % D-Dimer ABG pH POC ABG pO2 ABG Oxyhemoglobin ABG Glucose Chloride 110.5 H BUN 23 H Creatinine Glucose 168 H POC Glucose 320 H 159 H Lactic Acid Ferritin AST 42 H Lactate Dehydrogenase C-Reactive Protein Total Protein 6.1 L Albumin 2.8 L Arterial Blood Glucose Arterial Blood Ionized Calcium Coronavirus (PCR) 03/21/20 03/21/20 03/21/20 12:26 20:08 22:45 WBC MCHC [place] % (Auto) Lymph # (Auto) Seg Neutrophils % D-Dimer ABG pH POC ABG pO2 ABG Oxyhemoglobin ABG Glucose Chloride BUN Creatinine Glucose POC Glucose 190 H 375 H 248 H Lactic Acid Ferritin AST Lactate Dehydrogenase C-Reactive Protein Total Protein Albumin Arterial Blood Glucose Arterial Blood Ionized Calcium Coronavirus (PCR) 03/22/20 03/22/20 03/22/20 07:56 10:47 10:47 WBC MCHC [place] % (Auto) Lymph # (Auto) Seg Neutrophils % D-Dimer 855.69 H ABG pH POC ABG pO2 ABG Oxyhemoglobin ABG Glucose Chloride BUN Creatinine Glucose POC Glucose 147 H Lactic Acid Ferritin 717.5 H AST Lactate Dehydrogenase C-Reactive Protein Total Protein Albumin Arterial Blood Glucose Arterial Blood Ionized Calcium Coronavirus (PCR) 03/22/20 03/22/20 03/22/20 10:47 11:28 16:32 WBC MCHC [place] % (Auto) Lymph # (Auto) Seg Neutrophils % D-Dimer ABG pH POC ABG pO2 ABG Oxyhemoglobin ABG Glucose Chloride BUN Creatinine Glucose POC Glucose 187 H 238 H Lactic Acid Ferritin AST Lactate Dehydrogenase 569 H C-Reactive Protein 6.70 H Total Protein Albumin Arterial Blood Glucose Arterial Blood Ionized Calcium Coronavirus (PCR) 03/22/20 03/23/20 03/23/20 21:03 05:48 06:17 WBC MCHC [place] % (Auto) Lymph # (Auto) Seg Neutrophils % D-Dimer ABG pH POC ABG pO2 ABG Oxyhemoglobin ABG Glucose Chloride BUN Creatinine Glucose POC Glucose 204 H 163 H Lactic Acid Ferritin AST Lactate Dehydrogenase C-Reactive Protein Total Protein 5.7 L Albumin 2.6 L Arterial Blood Glucose Arterial Blood Ionized Calcium Coronavirus (PCR) 03/23/20 03/23/20 03/23/20 10:27 17:04 21:53 WBC MCHC [place] % (Auto) Lymph # (Auto) Seg Neutrophils % D-Dimer ABG pH POC ABG pO2 ABG Oxyhemoglobin ABG Glucose Chloride BUN Creatinine Glucose POC Glucose 160 H 253 H 274 H Lactic Acid Ferritin AST Lactate Dehydrogenase C-Reactive Protein Total Protein Albumin Arterial Blood Glucose Arterial Blood Ionized Calcium Coronavirus (PCR) 03/23/20 03/23/20 03/24/20 23:02 23:44 02:58 WBC MCHC [place] % (Auto) Lymph # (Auto) Seg Neutrophils % D-Dimer ABG pH 7.472 H POC ABG pO2 48.2 L 260.5 H ABG Oxyhemoglobin 98.4 H ABG Glucose 319 H 287 H Chloride BUN Creatinine Glucose POC Glucose 216 H Lactic Acid Ferritin AST Lactate Dehydrogenase C-Reactive Protein Total Protein Albumin Arterial Blood Glucose 319 H 287 H Arterial Blood Ionized Calcium 4.5 L Coronavirus (PCR) 03/24/20 03/24/20 03/24/20 07:31 07:31 08:10 WBC 14.9 H MCHC 35 H [place] % (Auto) Lymph # (Auto) Seg Neutrophils % D-Dimer ABG pH POC ABG pO2 ABG Oxyhemoglobin ABG Glucose Chloride BUN 27 H Creatinine 0.7 L Glucose 305 H POC Glucose 259 H Lactic Acid Ferritin AST Lactate Dehydrogenase C-Reactive Protein Total Protein Albumin Arterial Blood Glucose Arterial Blood Ionized Calcium Coronavirus (PCR)
--- NOTE | 2020-03-24 16:02 | Cat Scan Report ---
NONENHANCED CT SCAN OF THE HEAD: INDICATION / CLINICAL INFORMATION: 59 years Male; altered mental state. TECHNIQUE: Routine CT head without contrast. All CT scans at this location are performed using CT dos e reduction for ALARA by means of automated exposure control. COMPARISON: None. FINDINGS: BRAIN / INTRACRANIAL CONTENTS: Abnormal CT scan of the head Acute/subacute nonhemorrhagic infarction seen in left superior cerebellar artery territory, left post erior cerebral artery territory and to assist left occipital lobe and left thalamus). There are also ischemic changes in the right occipital lobe and in the right thalamus. Mass effect over the fourth ventricle and third ventricle; no hydrocephalus Mild cortical involution CRANIOCERVICAL JUNCTION: No significant abnormality. ORBITS: No significant abnormality of visualized orbits. SINUSES / MASTOIDS: No significant abnormality of the visualized paranasal sinuses or mastoid air k[place] ls. ADDITIONAL FINDINGS: None. IMPRESSION: Nonhemorrhagic acute/subacute infarction in the left cerebral hemisphere, both occipital lobes in bot h thalami; mass effect over the fourth ventricle and third ventricle Signer Name: Kulwant Hernandez MD Signed: 03/24/2020 3:57 PM Workstation Name: [id number]
--- NOTE | 2020-03-24 16:23 | Cat Scan Report ---
CT NECK WITHOUT CONTRAST HISTORY: Altered mental status TECHNIQUE: Helical CT was sagittal and coronal reformatted images. All CT scans at this location are performed using CT dose reduction for ALARA by means of automated exposure control. COMPARISON: None. FINDINGS: There is severe extensive subcutaneous emphysema dissecting through the fascial planes of the neck an d the upper chest anteriorly and posteriorly. An endotracheal tube is present within the trachea alth ough the distal tip is not included. Moderate pneumomediastinum and trace right pneumothorax is ident ified in the visualized upper chest. Soft tissue structures of the neck are otherwise unremarkable. There is no obvious mass, adenopathy, inflammatory changes or fluid collection. There are moderate degenerative changes throughout the cerv ical spine but no evidence for acute injury. Skull base is intact. IMPRESSION: Extensive subcutaneous emphysema throughout the fascial planes of the neck and upper chest. Pneumomed iastinum and trace right pneumothorax are also noted in the upper chest. The etiology of this is not clearly evident on noncontrast CT. Signer Name: Luis Manuel Chaparro Jr, MD Signed: 03/24/2020 4:19 PM Workstation Name: [id number]
--- NOTE | 2020-03-24 16:26 | Cat Scan Report ---
CT CHEST WITHOUT CONTRAST INDICATION / CLINICAL INFORMATION: concern for pneumothorax. TECHNIQUE: Axial CT images were obtained through the chest without contrast. All CT scans at this location are p erformed using CT dose reduction for ALARA by means of automated exposure control. COMPARISON: Prior chest radiograph dated 03/24/2020. FINDINGS: HEART: No significant abnormality. THORACIC AORTA: Mild atherosclerotic calcification without acute abnormality. MEDIASTINUM and DEAN: Large volume pneumomediastinum. LUNGS: Scattered bilateral groundglass opacities and bibasilar pulmonary consolidations with air bron chograms, worse in the right lower lobe. Additionally there is a 3.4 cm thin-walled cyst right lower lobe. PLEURA: No significant pleural effusion. No pneumothorax. ADDITIONAL FINDINGS: ET tube terminates approximately 1.8 cm above the level the yamilet. Significant subcutaneous emphysema is noted throughout the lower neck and bilateral chest soares. UPPER ABDOMEN: Moderate volume pneumoperitoneum and pneumoretroperitoneum. SKELETAL SYSTEM: Multilevel degenerative changes are noted of the spine. No acute fractures or aggres sive osseous lesions. IMPRESSION: 1. No pneumothorax. 2. Large volume pneumomediastinum extending into the neck. 3. Pneumoperitoneum and pneumoretroperitoneum. 4. Extensive subcutaneous emphysema of the lower neck and bilateral chest wall. 5. Scattered groundglass opacities with bibasilar pulmonary consolidations consistent with prior hist ory of infectious process. Signer Name: Kameron Horton MD Signed: 03/24/2020 4:21 PM Workstation Name: [id number]
--- NOTE | 2020-03-24 20:53 | XRay Report ---
ABDOMEN 1 VIEW(S) INDICATION / CLINICAL INFORMATION: NGT plcmt for feeding. COMPARISON: None available. FINDINGS: TUBES / LINES: Gastric tube tip is in the distal stomach near the pylorus. BOWEL GAS PATTERN: No significant abnormality. FREE AIR / EXTRALUMINAL GAS: Pneumoperitoneum is noted. There is also pneumomediastinum. ADDITIONAL FINDINGS: No significant additional findings. IMPRESSION: 1. Gastric tube in good position. 2. Pneumoperitoneum and pneumomediastinum as seen on CT earlier today. Signer Name: Pedro Martinez MD Signed: 03/24/2020 8:48 PM Workstation Name: [id number]
[2020-03-24 20:57] LABS: C-Reactive Protein 12.9 mg/dL (0.00-1.30)
[2020-03-24] MEDS: fentaNYL DRIP Premix 2,000 MCG/100 ML BAG IV SCH (21:12)
[2020-03-25] MEDS: INSULIN REGULAR, HUMAN 100 UNIT/ML 3ML VIAL SUB-Q SCH ×4 (01:49→18:37)
[2020-03-25] MEDS: methylPREDNISolone Sod Succinate 125 MG/2 ML INJ IV SCH ×3 (06:04→18:37)
[2020-03-25 07:41] LABS: Hematocrit 46.8 % (35.5-45.6); Hemoglobin 15.4 gm/dl (11.8-15.2); Mean Corpuscular HGB Conc 33 % (32-34); Mean Corpuscular Volume 96 fl (84-94); Platelet Count 127 K/mm3 (140-440); Red Blood Count 4.86 M/mm3 (3.65-5.03); Red Cell Distribution Width 13.5 % (13.2-15.2)
--- NOTE | 2020-03-25 08:54 | Progress Note ---
Assessment and Plan Assessment and plan: -- Sepsis due to COVID19 infection cont iv steroid, remdesivir, supplemental O2 Patient now hypoxemic intubated. Severe sepsis secondary to COVID-19 pneumonia. -- Acute hypoxemic respiratory failure due to covid19 PNA Supplemental oxygen, nebulizer therapy, pulse oximetry, pulmonary toilet, supportive care. Will need to obtain CT scan head and neck. Patient has crepitus in neck area and increased rhonchi. -- Covid19 PNA IV steroid therapy, prophylactic anticoagulation, prone positioning while in bed, supplemental oxygen, pulse oximetry, nebulizer therapy, contact precautions, isolation precaution, supportive care. remdesivir for 5 days -ve SARS-CoV-2 IgG: ordered for convalescent plasma --DM type 2 started on long acting insulin along with SSI Uncontrolled. Will increase long-acting Lantus at this time. --Bacteremia, likely contamination 1 out of 2 blood cx +ve for gm+ve cocci s/p iv vanco, repeat blood cx negative -- Hypertension Monitor blood pressure every shift, continue medical management The high probability of a clinically significant, sudden or life threatening deterioration of the [] system(s) required my full and direct attention, intervention and personal management. The aggregate critical care time was [34] minutes. This time is in addition to time spent performing reported procedures but includes the following: [x] Data Review and interpretation [x] Patient assessment and monitoring of vital signs [x] Documentation [x] Medication orders and management Subjective Date of service: 03/24/20 Principal diagnosis: Severe COVID-19 Interval history: : Positive for COVID 4 days ago before admission. started on dexamethasone iv. ID consulted. ordered for remdesivir. follow inflammatory markers. Start on vancomycin for positive blood culture -we will follow final result 03/21: ordered repeat blood cx. -ve SARS-CoV-2 IgG, ordered for convalescent plasma. patient remains on high flow O2. cont to adjust insulin dose for better glycemic control 03/22: Patient remains on high flow O2, ordered for pulmonary consult, CTA chest and bilateral lower extremity Doppler. Continue to follow inflammatory markers. Pending convalescent plasma transfusion 03/23: pending convalescent plasma transfusion. remains on high flow O2. s/p l aisx 40mg today. cont remdesivir and steroid. Le doppler neg for PE. on 35L with 100% FiO2 - poor prognostic factor 03/24 patient overnight episode altered mental status hypoxemia requiring intubation. At present patient in the prone position intubated remains unresponsive with altered mental status despite being only on 1 cal fentanyl. 03/25/2020; patient is intubated and sedated, on mechanical ventilation. From prone positioning when I saw the patient. Patient has altered mental status and CT head was done yesterday and significant for acute bilateral CVA, left cerebral hemispheres, both thalamus, occipital with mass-effect and teleneurology was consulted. Teleneurology recommend to transfer to another facility and I called [facility] transfer line and pending the call back. Our neurosurgeon was also consulted and agreed with the transfer. It is difficult to get an accepting facility given the current pandemic, limited bed availability especially in the ICU. History Interval history: Patient was seen and evaluated this morning Patient was intubated, sedated and on mechanical ventilation Patient was on proning when I saw him Hospitalist Physical - Physical exam Narrative exam: Patient is intubated and sedated The patient appeared well nourished and normally developed. Vital signs as documented. Head exam is unremarkable. No scleral icterus . Neck is without jugular venous distension, thyromegaly, or carotid bruits. Lungs are clear to auscultation. Cardiac exam reveals regular rate and Rhythm. Abdominal exam reveals normal bowel sounds, nontender, no organomegaly. Extremities are nonedematous and both femoral and pedal pulses are normal. MARKETING SECRETARY: Patient is sedated - Constitutional Vitals: Temp Pulse Resp BP Pulse Ox 99.3 F 71 17 102/69 95 03/25/20 03:30 03/25/20 08:19 03/25/20 08:00 03/25/20 08:19 03/25/20 08:19 General appearance: Present: other (Altered mental status unresponsive.) Results - Labs CBC & Chem 7: 03/25/20 07:02 03/25/20 13:16 Labs: Laboratory Last Values WBC 16.4 K/mm3 (4.5-11.0) H 03/25/20 07:02 RBC 4.86 M/mm3 (3.65-5.03) 03/25/20 07:02 Hgb 15.4 gm/dl (11.8-15.2) H 03/25/20 07:02 Hct 46.8 % (35.5-45.6) H 03/25/20 07:02 MCV 96 fl (84-94) H 03/25/20 07:02 MCH 32 pg (28-32) 03/25/20 07:02 MCHC 33 % (32-34) 03/25/20 07:02 RDW 13.5 % (13.2-15.2) 03/25/20 07:02 Plt Count 127 K/mm3 (140-440) L 03/25/20 07:02 Lymph % (Auto) 13.5 % (13.4-35.0) 03/19/20 14:13 Hale % (Auto) 11.6 % (0.0-7.3) H 03/19/20 14:13 Eos % (Auto) 0.0 % (0.0-4.3) 03/19/20 14:13 Baso % (Auto) 0.2 % (0.0-1.8) 03/19/20 14:13 Lymph # (Auto) 0.8 K/mm3 (1.2-5.4) L 03/19/20 14:13 Hale # (Auto) 0.7 K/mm3 (0.0-0.8) 03/19/20 14:13 Eos # (Auto) 0.0 K/mm3 (0.0-0.4) 03/19/20 14:13 Baso # (Auto) 0.0 K/mm3 (0.0-0.1) 03/19/20 14:13 Seg Neutrophils % Title I Math Tutor 03/25/20 07:02 Seg Neutrophils # 4.5 K/mm3 (1.8-7.7) 03/19/20 14:13 D-Dimer > 62472 ng/mlDDU (0-234) H 03/24/20 20:01 ABG pH 7.418 (7.320-7.450) 03/24/20 02:58 POC ABG pCO2 39.0 mmHg (32.0-48.0) 03/24/20 02:58 POC ABG pO2 260.5 mmHg (83-108) H 03/24/20 02:58 POC ABG HCO3 24.6 03/24/20 02:58 POC ABG Base Excess 0.3 03/24/20 02:58 ABG Hemoglobin 15.0 (12.0-17.5) 03/24/20 02:58 ABG Oxyhemoglobin 98.4 (94-98) H 03/24/20 02:58 ABG Methemoglobin 0.3 (0.0-1.5) 03/24/20 02:58 ABG Sodium 137.5 mmol/L (136.0-145.0) 03/24/20 02:58 ABG Potassium 3.9 mmol/L (3.40-4.50) 03/24/20 02:58 ABG Chloride 103.0 mmol/L (98-107) 03/24/20 02:58 ABG Glucose 287 mg/dL (65-95) H 03/24/20 02:58 Carboxyhemoglobin 0.7 (0.5-1.5) 03/24/20 02:58 FiO2 100 03/24/20 02:58 Sodium 139 mmol/L (137-145) 03/24/20 07:31 Potassium 4.1 mmol/L (3.6-5.0) 03/24/20 07:31 Chloride 101.7 mmol/L (98-107) 03/24/20 07:31 Carbon Dioxide 26 mmol/L (22-30) 03/24/20 07:31 Anion Gap 15 mmol/L 03/24/20 07:31 BUN 27 mg/dL (9-20) H 03/24/20 07:31 Creatinine 0.7 mg/dL (0.8-1.3) L 03/24/20 07:31 Estimated GFR > 60 ml/min 03/24/20 07:31 BUN/Creatinine Ratio 39 % 03/24/20 07:31 Glucose 305 mg/dL (75-100) H 03/24/20 07:31 POC Glucose 298 mg/dL (70-105) H 03/25/20 05:36 Osmolality 311 Mosm/kg 03/21/20 13:43 Lactic Acid 1.70 mmol/L (0.7-2.0) 03/19/20 23:24 Calcium 8.7 mg/dL (8.4-10.2) 03/24/20 07:31 Ferritin 1233.0 ng/mL (30.0-300.0) H 03/24/20 20:01 Total Bilirubin 0.60 mg/dL (0.1-1.2) 03/23/20 05:48 Direct Bilirubin < 0.2 mg/dL (0-0.2) 03/23/20 05:48 Indirect Bilirubin 0.4 mg/dL 03/23/20 05:48 AST 30 units/L (5-40) 03/23/20 05:48 ALT 31 units/L (7-56) 03/23/20 05:48 Alkaline Phosphatase 77 units/L (35-129) 03/23/20 05:48 Lactate Dehydrogenase 619 units/L (91-180) H 03/24/20 20:01 C-Reactive Protein 12.90 mg/dL (0.00-1.30) H 03/24/20 20:01 Total Protein 5.7 g/dL (6.3-8.2) L 03/23/20 05:48 Albumin 2.6 g/dL (3.9-5) L 03/23/20 05:48 Albumin/Globulin Ratio 0.8 % 03/23/20 05:48 Procalcitonin 0.13 ng/mL (<0.15) 03/22/20 10:47 Arterial Blood Glucose 287 mg/dL (65-95) H 03/24/20 02:58 Arterial Blood Ionized Calcium 4.7 mg/dL (4.6-5.3) 03/24/20 02:58 Urine Color Yellow (Yellow) 03/20/20 05:28 Urine Turbidity Clear (Clear) 03/20/20 05:28 Urine pH 6.0 (5.0-7.0) 03/20/20 05:28 Ur Specific [place] 1.029 (1.003-1.030) 03/20/20 05:28 Urine Protein <15 mg/dl mg/dL (Negative) 03/20/20 05:28 Urine Glucose (UA) >=500 mg/dL (Negative) 03/20/20 05:28 Urine Ketones 20 mg/dL (Negative) 03/20/20 05:28 Urine Blood Neg (Negative) 03/20/20 05:28 Urine Nitrite Neg (Negative) 03/20/20 05:28 Urine Bilirubin Neg (Negative) 03/20/20 05:28 Urine Urobilinogen < 2.0 mg/dL (<2.0) 03/20/20 05:28 Ur Leukocyte Esterase Neg (Negative) 03/20/20 05:28 Urine WBC (Auto) 1.0 /HPF (0.0-6.0) 03/20/20 05:28 Urine RBC (Auto) 1.0 /HPF (0.0-6.0) 03/20/20 05:28 Coronavirus (PCR) Positive (Negative) A 03/20/20 05:28 SARS-CoV-2 IgG Ab Nonreactive (NonReactive) 03/20/20 17:49 Blood Type AB POSITIVE 03/20/20 17:49 Antibody Screen Negative 03/20/20 17:49 Microbiology: Microbiology 03/21/20 19:21 Peripheral/Venous Blood Culture - Preliminary NO GROWTH AFTER 72 HOURS 03/21/20 19:21 Peripheral/Venous Blood Culture - Preliminary NO GROWTH AFTER 72 HOURS 03/19/20 14:13 Peripheral/Venous Blood Culture - Final NO GROWTH AFTER 5 DAYS 03/24/20 02:14 Tracheal Aspirate Sputum Culture - Preliminary [place]/IV: Voiding Method Condom Catheter IV Catheter Type [Left Upper INT / Saline Lock arm] IV Catheter Type [Right Hand] INT / Saline Lock IV Catheter Type [Left Peripheral IV Antecubital] Active Medications - Current Medications Current Medications: Generic Name Dose Route Start Last Admin Trade Name Freq PRN Reason Stop Dose Admin Acetaminophen 650 mg 03/19/20 16:16 Acetaminophen 325 Mg Tab PO Q4H PRN Pain MILD(1-3)/Fever >100.5/ROSS Albuterol 2.5 mg 03/19/20 16:16 Albuterol 2.5 Mg/3 Ml Nebu IH Q4HRT PRN Shortness Of Breath Apixaban 5 mg 03/20/20 22:00 03/24/20 22:13 Apixaban 5 Mg Tab PO Not Given Q12HR [facility] Protocol Ascorbic Acid 1,000 mg 03/20/20 14:00 03/24/20 22:13 Ascorbic Acid 500 Mg Tab PO Not Given BID FAVIOLA Cholecalciferol 5,000 unit 03/20/20 14:00 03/24/20 10:32 Cholecalciferol (Vit D3) 5,000 Unit Tab PO Not Given DAILY FAVIOLA Famotidine 20 mg 03/25/20 10:00 Famotidine 20 Mg/2 Ml Inj IV BID FAVIOLA Fentanyl 50 mcg 03/23/20 22:42 Fentanyl 100 Mcg/2 Ml Inj IV Q10MIN PRN ANALGESIA Hydromorphone HCl 0.25 mg 03/19/20 16:16 03/23/20 15:27 Hydromorphone 1 Mg/1 Ml Inj IV 0.25 mg Q4H PRN Administration Pain, Moderate (4-6) Hydrophilic Ointment 1 applic 03/23/20 22:42 Lip Therapy Vaseline TP Q2HR PRN Dry Lips Fentanyl Citrate 2,000 mcg in 100 mls @ 3.92 mls/hr 03/23/20 23:00 03/25/20 00:05 Fentanyl Drip Premix IV 2 mcg/kg/hr TITR FAVIOLA 7.84 mls/hr Titration Protocol 1 MCG/KG/HR Insulin Glargine 22 units 03/25/20 10:00 Insulin Glargine 100 Units/Ml SUB-Q QAM FAVIOLA Insulin Human Regular 0 unit 03/24/20 12:00 03/25/20 05:52 Insulin Regular, Human 100 Unit/Ml 3ml Vial SUB-Q 4 unit Q6HR FAVIOLA Administration Protocol Methylprednisolone Sodium Succinate 60 mg 03/23/20 13:00 03/25/20 06:04 Methylprednisolone Sod Succinate 125 Mg/2 Ml Inj IV 60 mg Q6HR FAVIOLA Administration Multi-Ingred Cream/Lotion/Oil/Oint 1 applic 03/23/20 22:42 Mineral Oil/Petrolatum, White Ophth Oint 3.5 Gm OU Q4HR PRN Dry Eye(s) Ondansetron HCl 4 mg 03/19/20 16:16 Ondansetron 4 Mg/2 Ml Inj IV Q8H PRN Nausea And Vomiting Sodium Chloride 10 ml 03/19/20 22:00 03/24/20 22:14 Sodium Chloride 0.9% 10 Ml Flush Syringe IV 10 ml BID FAVIOLA Administration Sodium Chloride 10 ml 03/19/20 16:16 Sodium Chloride 0.9% 10 Ml Flush Syringe IV PRN PRN LINE FLUSH Zinc Sulfate 220 mg 03/20/20 14:00 03/24/20 22:13 Zinc Sulfate 220 Mg Cap PO Not Given BID [facility] Nutrition/Malnutrition Assess - Dietary Evaluation Nutrition/Malnutrition Findings: Nutrition Notes Start: 03/24/20 11:40 Freq: Status: Active Protocol: Document 03/24/20 11:41 AB (Rec: 03/24/20 11:54 AB [id number]) Co-Sign 03/24/20 11:41 LP Nutrition Notes Need for Assessment generated from: MD Order Initial or Follow up Assessment Current Diagnosis Sepsis,Hypertension Other Pertinent Diagnosis acute respiratory failure, pneumonia Current Diet NPO Labs/Tests 03/21 BUN 23 03/24 POC BG 259 Pertinent Medications Solu-medrol Fentanyl Height 5 ft 11 in Weight 78.9 kg [place] Body Weight (kg) 78.18 BMI 24.3 Weight Status Appropriate Subjective/Other Information MD order for evaluating nutritional intake. Per MD, pt to have NGT placed today once un-proned. Pt observed in proned position. Percent of energy/protein needs met: 0%/0% Burn Absent Trauma Absent GI Symptoms None Food Allergy No Current % PO Negligible Minimum of two criteria No physical signs of malnutrition #1 Nutrition Diagnosis Inadequate oral intake Etiology Mechanical ventilation As Evidenced by Signs and Symptoms Pt unable to consume PO Is patient on ventilator? Yes Is Patient Ambulatory and/or Out of Bed No REE-([facility]-confined to bed) 4.264 Calculation Used for Recommendations [facility] Additional Notes Protein: 95-158 g (1.2-2 g/kg) Fluid: 1 ml/kcal Nutrition Intervention Change Diet Order: Advance when medically feasible Nutrition Support: Osmolite 1.5 at 50 ml/hr (goal rate) Flush with 160 ml q4h Kcal 1,980 Protein (gm) 83 Fluid (mL) 1,006 Goal #1 Diet advancement Anticipated Discharge Needs: Unable to determine at this time Follow-Up By: 03/25/20 Additional Comments F/U for NGT placement and TF start
[2020-03-25] MEDS ORDERED: INSULIN GLARGINE 100 UNITS/ML SUB-Q ONE (10:00)
[2020-03-25] MEDS: ZINC SULFATE 220 MG CAP PO SCH ×2 (10:20→22:19)
[2020-03-25] MEDS: ASCORBIC ACID 500 MG TAB PO SCH ×2 (10:20→22:19)
[2020-03-25] MEDS: FAMOTIDINE 20 MG/2 ML INJ IV SCH ×2 (10:20→22:19)
[2020-03-25] MEDS: INSULIN GLARGINE 100 UNITS/ML SUB-Q SCH (10:21)
[2020-03-25] MEDS: CHOLECALCIFEROL (VIT D3) 5,000 UNIT TAB PO SCH (10:21)
--- NOTE | 2020-03-25 10:27 | Progress Note ---
Assessment and Plan 59 y/o male with acute hypoxic respiratory failure secondary to COVID 19 with prior history of tobacco abuse. 1. Prone again tonight. ABG in am. Currently, stable. Will not place chest tube as of right now. 2. Ordered Urgent Neuro consult. Likely not a candidate for any therapy that is invasive. Will turn sedation off after patient is unproned and see what mental state is like. Hopefully neurology can see during that tiem. 3. Continue steroids at current dosing 4. Pharmacy has adjusted insulin 5. Finished remdesivir 6. Guarded prognosis, especially with head CT findings. CCT 31 minutes. Subjective Date of service: 03/25/20 Principal diagnosis: Severe COVID-19 Interval history: FiO2 had to be increased overnight to 60. Currently prone. Now on Fent 2. Per RT, was given report that patient moved his head on his own last night. Head, ,Neck and Chest CT done. I am not able to see images. Each read by [address] shows large stroke with effacement. Neck CT suggest right apical pneumo and Chest CT says no Pneumo. Objective Vital Signs - 12hr 03/24/20 03/24/20 03/24/20 23:00 23:01 23:11 Temperature 98.9 F Pulse Rate 79 Pulse Rate [ From Monitor] Respiratory 16 Rate Blood Pressure 119/80 119/80 O2 Sat by Pulse Oximetry 03/25/20 03/25/20 03/25/20 00:00 01:00 01:01 Temperature Pulse Rate 87 85 84 Pulse Rate [ 86 From Monitor] Respiratory 18 20 Rate Blood Pressure 127/72 127/72 O2 Sat by Pulse 95 96 97 Oximetry 03/25/20 03/25/20 03/25/20 02:00 03:00 03:30 Temperature 99.3 F Pulse Rate 83 84 Pulse Rate [ From Monitor] Respiratory 20 13 Rate Blood Pressure 112/73 123/78 O2 Sat by Pulse 96 96 Oximetry 03/25/20 03/25/20 03/25/20 04:00 04:59 05:00 Temperature Pulse Rate 84 81 80 Pulse Rate [ 74 From Monitor] Respiratory 16 18 Rate Blood Pressure 114/73 115/63 115/63 O2 Sat by Pulse 96 95 95 Oximetry 03/25/20 03/25/20 03/25/20 06:00 07:00 08:00 Temperature Pulse Rate 75 81 78 Pulse Rate [ 72 From Monitor] Respiratory 11 L 15 18 Rate Blood Pressure 115/63 106/76 102/69 O2 Sat by Pulse 95 95 96 Oximetry 03/25/20 03/25/20 08:19 09:00 Temperature Pulse Rate 71 66 Pulse Rate [ From Monitor] Respiratory 21 Rate Blood Pressure 102/69 105/69 O2 Sat by Pulse 95 96 Oximetry CBC and BMP: 03/25/20 07:02 03/24/20 07:31 ABG, PT/INR, D-dimer: ABG ABG pH 7.418 (7.320-7.450) 03/24/20 02:58 POC ABG pCO2 39.0 mmHg (32.0-48.0) 03/24/20 02:58 POC ABG pO2 260.5 mmHg (83-108) H 03/24/20 02:58 POC ABG HCO3 24.6 03/24/20 02:58 PT/INR, D-dimer D-Dimer > 22487 ng/mlDDU (0-234) H 03/24/20 20:01 Abnormal lab findings: Abnormal Labs 03/19/20 03/19/20 03/19/20 14:13 14:13 14:13 WBC Hgb Hct MCV MCHC 35 H Plt Count Luce % (Auto) 11.6 H Lymph # (Auto) 0.8 L Seg Neutrophils % 74.7 H D-Dimer ABG pH POC ABG pO2 ABG Oxyhemoglobin ABG Glucose Chloride BUN Creatinine Glucose 204 H POC Glucose Lactic Acid 2.30 H* Ferritin AST Lactate Dehydrogenase C-Reactive Protein Total Protein Albumin Arterial Blood Glucose Arterial Blood Ionized Calcium Coronavirus (PCR) 03/19/20 03/19/20 03/19/20 14:13 15:35 15:35 WBC Hgb Hct MCV MCHC Plt Count Luce % (Auto) Lymph # (Auto) Seg Neutrophils % D-Dimer 658.20 H ABG pH POC ABG pO2 ABG Oxyhemoglobin ABG Glucose Chloride BUN Creatinine Glucose POC Glucose Lactic Acid Ferritin 722.2 H AST 62 H Lactate Dehydrogenase C-Reactive Protein Total Protein Albumin 3.6 L Arterial Blood Glucose Arterial Blood Ionized Calcium Coronavirus (PCR) 03/20/20 03/20/20 03/20/20 05:28 12:20 16:31 WBC Hgb Hct MCV MCHC Plt Count Luce % (Auto) Lymph # (Auto) Seg Neutrophils % D-Dimer ABG pH POC ABG pO2 ABG Oxyhemoglobin ABG Glucose Chloride BUN Creatinine Glucose POC Glucose 270 H 306 H Lactic Acid Ferritin AST Lactate Dehydrogenase C-Reactive Protein Total Protein Albumin Arterial Blood Glucose Arterial Blood Ionized Calcium Coronavirus (PCR) Positive A 03/20/20 03/21/20 03/21/20 20:28 08:26 09:03 WBC Hgb Hct MCV MCHC Plt Count Luce % (Auto) Lymph # (Auto) Seg Neutrophils % D-Dimer ABG pH POC ABG pO2 ABG Oxyhemoglobin ABG Glucose Chloride 110.5 H BUN 23 H Creatinine Glucose 168 H POC Glucose 320 H 159 H Lactic Acid Ferritin AST 42 H Lactate Dehydrogenase C-Reactive Protein Total Protein 6.1 L Albumin 2.8 L Arterial Blood Glucose Arterial Blood Ionized Calcium Coronavirus (PCR) 03/21/20 03/21/20 03/21/20 12:26 20:08 22:45 WBC Hgb Hct MCV MCHC Plt Count Luce % (Auto) Lymph # (Auto) Seg Neutrophils % D-Dimer ABG pH POC ABG pO2 ABG Oxyhemoglobin ABG Glucose Chloride BUN Creatinine Glucose POC Glucose 190 H 375 H 248 H Lactic Acid Ferritin AST Lactate Dehydrogenase C-Reactive Protein Total Protein Albumin Arterial Blood Glucose Arterial Blood Ionized Calcium Coronavirus (PCR) 03/22/20 03/22/20 03/22/20 07:56 10:47 10:47 WBC Hgb Hct MCV MCHC Plt Count Luce % (Auto) Lymph # (Auto) Seg Neutrophils % D-Dimer 855.69 H ABG pH POC ABG pO2 ABG Oxyhemoglobin ABG Glucose Chloride BUN Creatinine Glucose POC Glucose 147 H Lactic Acid Ferritin 717.5 H AST Lactate Dehydrogenase C-Reactive Protein Total Protein Albumin Arterial Blood Glucose Arterial Blood Ionized Calcium Coronavirus (PCR) 03/22/20 03/22/20 03/22/20 10:47 11:28 16:32 WBC Hgb Hct MCV MCHC Plt Count Luce % (Auto) Lymph # (Auto) Seg Neutrophils % D-Dimer ABG pH POC ABG pO2 ABG Oxyhemoglobin ABG Glucose Chloride BUN Creatinine Glucose POC Glucose 187 H 238 H Lactic Acid Ferritin AST Lactate Dehydrogenase 569 H C-Reactive Protein 6.70 H Total Protein Albumin Arterial Blood Glucose Arterial Blood Ionized Calcium Coronavirus (PCR) 1203/23/20 03/23/20 21:03 05:48 06:17 WBC Hgb Hct MCV MCHC Plt Count Luce % (Auto) Lymph # (Auto) Seg Neutrophils % D-Dimer ABG pH POC ABG pO2 ABG Oxyhemoglobin ABG Glucose Chloride BUN Creatinine Glucose POC Glucose 204 H 163 H Lactic Acid Ferritin AST Lactate Dehydrogenase C-Reactive Protein Total Protein 5.7 L Albumin 2.6 L Arterial Blood Glucose Arterial Blood Ionized Calcium Coronavirus (PCR) 03/23/20 03/23/20 03/23/20 10:27 17:04 21:53 WBC Hgb Hct MCV MCHC Plt Count Luce % (Auto) Lymph # (Auto) Seg Neutrophils % D-Dimer ABG pH POC ABG pO2 ABG Oxyhemoglobin ABG Glucose Chloride BUN Creatinine Glucose POC Glucose 160 H 253 H 274 H Lactic Acid Ferritin AST Lactate Dehydrogenase C-Reactive Protein Total Protein Albumin Arterial Blood Glucose Arterial Blood Ionized Calcium Coronavirus (PCR) 03/23/20 03/23/20 03/24/20 23:02 23:44 02:58 WBC Hgb Hct MCV MCHC Plt Count Luce % (Auto) Lymph # (Auto) Seg Neutrophils % D-Dimer ABG pH 7.472 H POC ABG pO2 48.2 L 260.5 H ABG Oxyhemoglobin 98.4 H ABG Glucose 319 H 287 H Chloride BUN Creatinine Glucose POC Glucose 216 H Lactic Acid Ferritin AST Lactate Dehydrogenase C-Reactive Protein Total Protein Albumin Arterial Blood Glucose 319 H 287 H Arterial Blood Ionized Calcium 4.5 L Coronavirus (PCR) 03/24/20 03/24/20 03/24/20 07:31 07:31 08:10 WBC 14.9 H Hgb Hct MCV MCHC 35 H Plt Count Luce % (Auto) Lymph # (Auto) Seg Neutrophils % D-Dimer ABG pH POC ABG pO2 ABG Oxyhemoglobin ABG Glucose Chloride BUN 27 H Creatinine 0.7 L Glucose 305 H POC Glucose 259 H Lactic Acid Ferritin AST Lactate Dehydrogenase C-Reactive Protein Total Protein Albumin Arterial Blood Glucose Arterial Blood Ionized Calcium Coronavirus (PCR) 03/24/20 03/24/20 03/24/20 12:07 17:07 20:01 WBC Hgb Hct MCV MCHC Plt Count Luce % (Auto) Lymph # (Auto) Seg Neutrophils % D-Dimer > 04371 H ABG pH POC ABG pO2 ABG Oxyhemoglobin ABG Glucose Chloride BUN Creatinine Glucose POC Glucose 306 H 306 H Lactic Acid Ferritin AST Lactate Dehydrogenase C-Reactive Protein Total Protein Albumin Arterial Blood Glucose Arterial Blood Ionized Calcium Coronavirus (PCR) 03/24/20 03/24/20 03/24/20 20:01 20:01 21:24 WBC Hgb Hct MCV MCHC Plt Count Luce % (Auto) Lymph # (Auto) Seg Neutrophils % D-Dimer ABG pH POC ABG pO2 ABG Oxyhemoglobin ABG Glucose Chloride BUN Creatinine Glucose POC Glucose 321 H Lactic Acid Ferritin 1233.0 H AST Lactate Dehydrogenase 619 H C-Reactive Protein 12.90 H Total Protein Albumin Arterial Blood Glucose Arterial Blood Ionized Calcium Coronavirus (PCR) 03/25/20 03/25/20 03/25/20 01:46 05:36 07:02 WBC 16.4 H Hgb 15.4 H Hct 46.8 H MCV 96 H MCHC Plt Count 127 L Luce % (Auto) Lymph # (Auto) Seg Neutrophils % D-Dimer ABG pH POC ABG pO2 ABG Oxyhemoglobin ABG Glucose Chloride BUN Creatinine Glucose POC Glucose 302 H 298 H Lactic Acid Ferritin AST Lactate Dehydrogenase C-Reactive Protein Total Protein Albumin Arterial Blood Glucose Arterial Blood Ionized Calcium Coronavirus (PCR)
--- NOTE | 2020-03-25 10:27 | Progress Note ---
Assessment and Plan Cultures: Blood culture 03/19/2020 coagulase-negative staph 1 out of 4 bottles SARS CoV2 PCR positive SARS Covid 2 IgG negative Blood cultures 03/21/2020 no growth today Tracheal aspirate 2020-03-24 pending Assessment: 59 years old male with history of hypertension and COVID-19 diagn osed 4 days before admission, admitted on 03/19/2020 secondary to a week history of dry cough, shortness of breath, loss of smell and taste, body aches, dyspnea on exertion: #Severe sepsis: likely due to bilateral pneumonia. #Acute bilateral CVA: CT shows left cerebral hemispheres, both thalamus, both occipital, positive mass-effect #Large pneumomediastinum with extensive subcutaneous emphysema #Critical COVID pneumonia: Severe hypoxia noted. Chest x-ray with bilateral patchy infiltrates. Inflammatory markers elevated. D-dimer 658 worsening a 8 55. Ferritin 722. Markers worsening. #Acute hypoxemic respiratory failure: Now intubated, proning. #Elevated LFTs: from COVID #Coagulase-negative in blood cultures: Likely a contaminant. Recommendations: -Stat Neuro consult -Continue remdesivir D5 of 5 -Obtain chest CTA rule out PE -unable to obtain due to intubation -SARS-CoV-2 IgG is negative, patient may benefit from Covid convalescent plasma -pending -Monitor inflammatory markers - ferritin, Ddimer, CRP, LDH recheck today -Monitor liver function test on Remdesivir -Continue anticoagulation per System Protocol -Prone positioning as possible High risk for deterioration including Dr. Kenny rounding this weekend. All laboratory, cultures and imaging were reviewed. Will follow Syl Hanson MD Infectious Diseases Mobile Lab Technician [facility] ([facility]) M [phone] O [phone] Subjective Date of service: 03/25/20 Principal diagnosis: Severe COVID-19 Interval history: Remains extubated intubated, currently prone position, FiO2 60% PEEP of 8, no fever. On fentanyl drip Objective - Exam Narrative Exam: General appearance: Sedated intubated prone position limited Eyes: Limited due to prone position HENT: Normocephalic, limited due to prone position Neck: supple, tracheal midline, no JVD Lungs: Bilateral posterior rhonchi CV: Limited Abdomen: Limited Extremities: no edema, no cyanosis Skin: No rash. Psych: Sedated Neuro: Sedated - Constitutional Vitals: Vital Signs Temp Pulse Resp BP Pulse Ox 99.3 F 66 21 105/69 96 03/25/20 03:30 03/25/20 09:00 03/25/20 09:00 03/25/20 09:00 03/25/20 09:00 Temperature -Last 24 Hours Temperature 99.3 F Temperature 98.9 F Temperature 98.5 F - Labs CBC & Chem 7: 03/25/20 07:02 03/24/20 07:31 Labs: Abnormal lab results 03/24/20 03/24/20 03/24/20 Range/Units 12:07 17:07 20:01 WBC (4.5-11.0) K/mm3 Hgb (11.8-15.2) gm/dl Hct (35.5-45.6) % MCV (84-94) fl Plt Count (140-440) K/mm3 D-Dimer > 01458 H (0-234) ng/mlDDU POC Glucose 306 H 306 H (70-105) mg/dL Ferritin (30.0-300.0) ng/mL Lactate Dehydrogenase (91-180) units/L C-Reactive Protein (0.00-1.30) mg/dL 03/24/20 03/24/20 03/24/20 Range/Units 20:01 20:01 21:24 WBC (4.5-11.0) K/mm3 Hgb (11.8-15.2) gm/dl Hct (35.5-45.6) % MCV (84-94) fl Plt Count (140-440) K/mm3 D-Dimer (0-234) ng/mlDDU POC Glucose 321 H (70-105) mg/dL Ferritin 1233.0 H (30.0-300.0) ng/mL Lactate Dehydrogenase 619 H (91-180) units/L C-Reactive Protein 12.90 H (0.00-1.30) mg/dL 03/25/20 03/25/20 03/25/20 Range/Units 01:46 05:36 07:02 WBC 16.4 H (4.5-11.0) K/mm3 Hgb 15.4 H (11.8-15.2) gm/dl Hct 46.8 H (35.5-45.6) % MCV 96 H (84-94) fl Plt Count 127 L (140-440) K/mm3 D-Dimer (0-234) ng/mlDDU POC Glucose 302 H 298 H (70-105) mg/dL Ferritin (30.0-300.0) ng/mL Lactate Dehydrogenase (91-180) units/L C-Reactive Protein (0.00-1.30) mg/dL
[2020-03-25 10:43] LABS: Total Cells Counted 100
[2020-03-25 10:44] LABS: Platelet Estimate Consistent w Auto; RBC Morphology Normal
[2020-03-25] MEDS: APIXABAN 5 MG TAB PO SCH (10:49)
[2020-03-25] MEDS ORDERED: SIMPLE SYRUP 15 ML FEEDTUBE PRN ×2 (11:39)
[2020-03-25] MEDS ORDERED: LIPASE 10,500/PROTEASE 25,000/AMYLASE 43,750 (UNITS) DR CAP FEEDTUBE PRN (11:39)
[2020-03-25] MEDS ORDERED: SODIUM BICARBONATE 325 MG TAB FEEDTUBE PRN (11:39)
[2020-03-25] MEDS: fentaNYL 100 MCG/2 ML INJ IV PRN (12:01)
[2020-03-25] MEDS: fentaNYL DRIP Premix 2,000 MCG/100 ML BAG IV SCH (12:43)
[2020-03-25 14:00] LABS: Alanine Aminotransferase 27 units/L (7-56); Albumin 2.7 g/dL (3.9-5); BUN/Creatinine Ratio 65; Blood Urea Nitrogen 52 mg/dL (9-20); Calcium 8.8 mg/dL (8.4-10.2); Hemolysis Index 5
--- NOTE | 2020-03-25 14:16 | Consultation ---
History of Present Illness Consult date: 03/25/20 Requesting physician: NICOLE LAINEZ Reason for Consult: Stroke, AMS Chief complaint: Stroke History of present illness: 59 yo male with htn, presenting with shortness of breath and diagnosed with COVID-19 4 days prior to admission, and during the hospital course noted with bilateral "COVID pneumonia" and concern also raised for sepsis. Noted with worsening respiratory distress requiring high flow O2. However, on the night of 03/23/2020, the patient suffered an unresponsive event which required emergent intubation. NCHCT obtained yesterday revealed bilateral posterior circulation infarcts. Patient remains unresponsive. Per RN, no seizure-like activity noted and the patient is currently prone. Past History Past Medical History: hypertension Past Surgical History: No surgical history, Other (Reviewed) Social history: , lives with family, smoking, alcohol abuse Family history: hypertension Medications and Allergies Allergies Allergy/AdvReac Type Severity Reaction Status Date / Time celecoxib [From Celebrex] Allergy Unknown Verified 03/19/20 13:50 Home Medications Medication Instructions Recorded Confirmed Last Taken Type Insulin Glargine/Lixisenatide 15 unit SQ QAM 03/19/20 03/19/20 Unknown History [Soliqua 100 Unit-33 Mcg/ml Pen] Losartan [Cozaar] 100 mg PO QDAY 03/19/20 03/19/20 Unknown History Metformin HCl [metFORMIN] 2,000 mg PO BID 03/19/20 03/19/20 Unknown History Simvastatin 40 mg PO QHS 03/19/20 03/19/20 Unknown History Actos 1 PO 03/20/20 03/19/20 History Active Meds: Active Medications Acetaminophen (Acetaminophen 325 Mg Tab) 650 mg PO Q4H PRN PRN Reason: Pain MILD(1-3)/Fever >100.5/ROSS Albuterol (Albuterol 2.5 Mg/3 Ml Nebu) 2.5 mg IH Q4HRT PRN PRN Reason: Shortness Of Breath Lipase/Protease/Amylase (Lipase 10,500/Protease 25,000/Amylase 43,750 (Units) Dr Chou) 1 each FEEDTUBE PRN PRN PRN Reason: For Clogged Feeding Tube Apixaban (Apixaban 5 Mg Tab) 5 mg PO Q12HR [facility]; Protocol Last Admin: 03/25/20 10:49 Dose: Not Given Documented by: Ascorbic Acid (Ascorbic Acid 500 Mg Tab) 1,000 mg PO BID [facility] Last Admin: 03/25/20 10:20 Dose: 1,000 mg Documented by: Cholecalciferol (Cholecalciferol (Vit D3) 5,000 Unit Tab) 5,000 unit PO DAILY [facility] Last Admin: 03/25/20 10:21 Dose: 5,000 unit Documented by: Famotidine (Famotidine 20 Mg/2 Ml Inj) 20 mg IV BID [facility] Last Admin: 03/25/20 10:20 Dose: 20 mg Documented by: Fentanyl (Fentanyl 100 Mcg/2 Ml Inj) 50 mcg IV Q10MIN PRN PRN Reason: ANALGESIA Last Admin: 03/25/20 12:01 Dose: 50 mcg Documented by: Hydromorphone HCl (Hydromorphone 1 Mg/1 Ml Inj) 0.25 mg IV Q4H PRN PRN Reason: Pain, Moderate (4-6) Last Admin: 03/23/20 15:27 Dose: 0.25 mg Documented by: Hydrophilic Ointment (Lip Therapy Vaseline) 1 applic TP Q2HR PRN PRN Reason: Dry Lips Fentanyl Citrate (Fentanyl Drip Premix) 2,000 mcg in 100 mls @ 3.92 mls/hr IV TITR [facility]; Protocol Last Admin: 03/25/20 12:43 Dose: 2 mcg/kg/hr, 7.84 mls/hr Documented by: Insulin Glargine (Insulin Glargine 100 Units/Ml) 22 units SUB-Q QAM [facility] Last Admin: 03/25/20 10:21 Dose: 22 units Documented by: Insulin Human Regular (Insulin Regular, Human 100 Unit/Ml 3ml Vial) 0 unit SUB- Q Q6HR [facility]; Protocol Last Admin: 03/25/20 12:04 Dose: 6 unit Documented by: Methylprednisolone Sodium Succinate (Methylprednisolone Sod Succinate 125 Mg/2 Ml Inj) 60 mg IV Q6HR [facility] Last Admin: 03/25/20 11:16 Dose: 60 mg Documented by: Multi-Ingred Cream/Lotion/Oil/Oint (Mineral Oil/Petrolatum, White Ophth Oint 3.5 Gm) 1 applic OU Q4HR PRN PRN Reason: Dry Eye(s) Ondansetron HCl (Ondansetron 4 Mg/2 Ml Inj) 4 mg IV Q8H PRN PRN Reason: Nausea And Vomiting Simple Syrup (Simple Syrup 15 Ml) 15 ml FEEDTUBE PRN PRN PRN Reason: Hypoglycemia Simple Syrup (Simple Syrup 15 Ml) 30 ml FEEDTUBE PRN PRN PRN Reason: Hypoglycemia Sodium Bicarbonate (Sodium Bicarbonate 325 Mg Tab) 325 mg FEEDTUBE PRN PRN PRN Reason: For Clogged Feeding Tube Sodium Chloride (Sodium Chloride 0.9% 10 Ml Flush Syringe) 10 ml IV BID [facility] Last Admin: 03/25/20 10:22 Dose: 10 ml Documented by: Sodium Chloride (Sodium Chloride 0.9% 10 Ml Flush Syringe) 10 ml IV PRN PRN PRN Reason: LINE FLUSH Zinc Sulfate (Zinc Sulfate 220 Mg Cap) 220 mg PO BID [facility] Last Admin: 03/25/20 10:20 Dose: 220 mg Documented by: Review of Systems ROS unobtainable: due to mental status Physical Examination - Vital Signs Vital Signs: Vital Signs Pulse Ox 87 03/19/20 13:38 - Additional Exam Additional Exam: Per RN, pt is on Fentanyl; sluggish reactive pupils; Results - Laboratory Findings CBC and BMP: 03/25/20 07:02 03/25/20 13:16 Abnormal Lab Findings: Abnormal Labs 03/19/20 03/19/20 03/19/20 14:13 14:13 14:13 WBC Hgb Hct MCV MCHC 35 H Plt Count Gregg % (Auto) 11.6 H Lymph # (Auto) 0.8 L Seg Neutrophils % 74.7 H Seg Neuts % (Manual) Seg Neutrophils # Man Lymphocytes # (Manual) D-Dimer ABG pH POC ABG pO2 ABG Oxyhemoglobin ABG Glucose Chloride BUN Creatinine Glucose 204 H POC Glucose Lactic Acid 2.30 H* Ferritin AST Lactate Dehydrogenase C-Reactive Protein Total Protein Albumin Arterial Blood Glucose Arterial Blood Ionized Calcium Coronavirus (PCR) 03/19/20 03/19/20 03/19/20 14:13 15:35 15:35 WBC Hgb Hct MCV MCHC Plt Count Gregg % (Auto) Lymph # (Auto) Seg Neutrophils % Seg Neuts % (Manual) Seg Neutrophils # Man Lymphocytes # (Manual) D-Dimer 658.20 H ABG pH POC ABG pO2 ABG Oxyhemoglobin ABG Glucose Chloride BUN Creatinine Glucose POC Glucose Lactic Acid Ferritin 722.2 H AST 62 H Lactate Dehydrogenase C-Reactive Protein Total Protein Albumin 3.6 L Arterial Blood Glucose Arterial Blood Ionized Calcium Coronavirus (PCR) 03/20/20 03/20/20 03/20/20 05:28 12:20 16:31 WBC Hgb Hct MCV MCHC Plt Count Gregg % (Auto) Lymph # (Auto) Seg Neutrophils % Seg Neuts % (Manual) Seg Neutrophils # Man Lymphocytes # (Manual) D-Dimer ABG pH POC ABG pO2 ABG Oxyhemoglobin ABG Glucose Chloride BUN Creatinine Glucose POC Glucose 270 H 306 H Lactic Acid Ferritin AST Lactate Dehydrogenase C-Reactive Protein Total Protein Albumin Arterial Blood Glucose Arterial Blood Ionized Calcium Coronavirus (PCR) Positive A 03/20/20 03/21/20 03/21/20 20:28 08:26 09:03 WBC Hgb Hct MCV MCHC Plt Count Gregg % (Auto) Lymph # (Auto) Seg Neutrophils % Seg Neuts % (Manual) Seg Neutrophils # Man Lymphocytes # (Manual) D-Dimer ABG pH POC ABG pO2 ABG Oxyhemoglobin ABG Glucose Chloride 110.5 H BUN 23 H Creatinine Glucose 168 H POC Glucose 320 H 159 H Lactic Acid Ferritin AST 42 H Lactate Dehydrogenase C-Reactive Protein Total Protein 6.1 L Albumin 2.8 L Arterial Blood Glucose Arterial Blood Ionized Calcium Coronavirus (PCR) 03/21/20 03/21/20 03/21/20 12:26 20:08 22:45 WBC Hgb Hct MCV MCHC Plt Count Gregg % (Auto) Lymph # (Auto) Seg Neutrophils % Seg Neuts % (Manual) Seg Neutrophils # Man Lymphocytes # (Manual) D-Dimer ABG pH POC ABG pO2 ABG Oxyhemoglobin ABG Glucose Chloride BUN Creatinine Glucose POC Glucose 190 H 375 H 248 H Lactic Acid Ferritin AST Lactate Dehydrogenase C-Reactive Protein Total Protein Albumin Arterial Blood Glucose Arterial Blood Ionized Calcium Coronavirus (PCR) 03/22/20 03/22/20 03/22/20 07:56 10:47 10:47 WBC Hgb Hct MCV MCHC Plt Count Gregg % (Auto) Lymph # (Auto) Seg Neutrophils % Seg Neuts % (Manual) Seg Neutrophils # Man Lymphocytes # (Manual) D-Dimer 855.69 H ABG pH POC ABG pO2 ABG Oxyhemoglobin ABG Glucose Chloride BUN Creatinine Glucose POC Glucose 147 H Lactic Acid Ferritin 717.5 H AST Lactate Dehydrogenase C-Reactive Protein Total Protein Albumin Arterial Blood Glucose Arterial Blood Ionized Calcium Coronavirus (PCR) 03/22/20 03/22/20 03/22/20 10:47 11:28 16:32 WBC Hgb Hct MCV MCHC Plt Count Gregg % (Auto) Lymph # (Auto) Seg Neutrophils % Seg Neuts % (Manual) Seg Neutrophils # Man Lymphocytes # (Manual) D-Dimer ABG pH POC ABG pO2 ABG Oxyhemoglobin ABG Glucose Chloride BUN Creatinine Glucose POC Glucose 187 H 238 H Lactic Acid Ferritin AST Lactate Dehydrogenase 569 H C-Reactive Protein 6.70 H Total Protein Albumin Arterial Blood Glucose Arterial Blood Ionized Calcium Coronavirus (PCR) 03/22/20 03/23/20 03/23/20 21:03 05:48 06:17 WBC Hgb Hct MCV MCHC Plt Count Gregg % (Auto) Lymph # (Auto) Seg Neutrophils % Seg Neuts % (Manual) Seg Neutrophils # Man Lymphocytes # (Manual) D-Dimer ABG pH POC ABG pO2 ABG Oxyhemoglobin ABG Glucose Chloride BUN Creatinine Glucose POC Glucose 204 H 163 H Lactic Acid Ferritin AST Lactate Dehydrogenase C-Reactive Protein Total Protein 5.7 L Albumin 2.6 L Arterial Blood Glucose Arterial Blood Ionized Calcium Coronavirus (PCR) 03/23/20 03/23/20 03/23/20 10:27 17:04 21:53 WBC Hgb Hct MCV MCHC Plt Count Gregg % (Auto) Lymph # (Auto) Seg Neutrophils % Seg Neuts % (Manual) Seg Neutrophils # Man Lymphocytes # (Manual) D-Dimer ABG pH POC ABG pO2 ABG Oxyhemoglobin ABG Glucose Chloride BUN Creatinine Glucose POC Glucose 160 H 253 H 274 H Lactic Acid Ferritin AST Lactate Dehydrogenase C-Reactive Protein Total Protein Albumin Arterial Blood Glucose Arterial Blood Ionized Calcium Coronavirus (PCR) 03/23/20 03/23/20 03/24/20 23:02 23:44 02:58 WBC Hgb Hct MCV MCHC Plt Count Gregg % (Auto) Lymph # (Auto) Seg Neutrophils % Seg Neuts % (Manual) Seg Neutrophils # Man Lymphocytes # (Manual) D-Dimer ABG pH 7.472 H POC ABG pO2 48.2 L 260.5 H ABG Oxyhemoglobin 98.4 H ABG Glucose 319 H 287 H Chloride BUN Creatinine Glucose POC Glucose 216 H Lactic Acid Ferritin AST Lactate Dehydrogenase C-Reactive Protein Total Protein Albumin Arterial Blood Glucose 319 H 287 H Arterial Blood Ionized Calcium 4.5 L Coronavirus (PCR) 03/24/20 03/24/20 03/24/20 07:31 07:31 08:10 WBC 14.9 H Hgb Hct MCV MCHC 35 H Plt Count Gregg % (Auto) Lymph # (Auto) Seg Neutrophils % Seg Neuts % (Manual) Seg Neutrophils # Man Lymphocytes # (Manual) D-Dimer ABG pH POC ABG pO2 ABG Oxyhemoglobin ABG Glucose Chloride BUN 27 H Creatinine 0.7 L Glucose 305 H POC Glucose 259 H Lactic Acid Ferritin AST Lactate Dehydrogenase C-Reactive Protein Total Protein Albumin Arterial Blood Glucose Arterial Blood Ionized Calcium Coronavirus (PCR) 03/24/20 03/24/20 03/24/20 12:07 17:07 20:01 WBC Hgb Hct MCV MCHC Plt Count Gregg % (Auto) Lymph # (Auto) Seg Neutrophils % Seg Neuts % (Manual) Seg Neutrophils # Man Lymphocytes # (Manual) D-Dimer > 16172 H ABG pH POC ABG pO2 ABG Oxyhemoglobin ABG Glucose Chloride BUN Creatinine Glucose POC Glucose 306 H 306 H Lactic Acid Ferritin AST Lactate Dehydrogenase C-Reactive Protein Total Protein Albumin Arterial Blood Glucose Arterial Blood Ionized Calcium Coronavirus (PCR) 03/24/20 03/24/20 03/24/20 20:01 20:01 21:24 WBC Hgb Hct MCV MCHC Plt Count Gregg % (Auto) Lymph # (Auto) Seg Neutrophils % Seg Neuts % (Manual) Seg Neutrophils # Man Lymphocytes # (Manual) D-Dimer ABG pH POC ABG pO2 ABG Oxyhemoglobin ABG Glucose Chloride BUN Creatinine Glucose POC Glucose 321 H Lactic Acid Ferritin 1233.0 H AST Lactate Dehydrogenase 619 H C-Reactive Protein 12.90 H Total Protein Albumin Arterial Blood Glucose Arterial Blood Ionized Calcium Coronavirus (PCR) 03/25/20 03/25/20 03/25/20 01:46 05:36 07:02 WBC 16.4 H Hgb 15.4 H Hct 46.8 H MCV 96 H MCHC Plt Count 127 L Gregg % (Auto) Lymph # (Auto) Seg Neutrophils % Seg Neuts % (Manual) 98.0 H Seg Neutrophils # Man 16.1 H Lymphocytes # (Manual) 0.0 L D-Dimer ABG pH POC ABG pO2 ABG Oxyhemoglobin ABG Glucose Chloride BUN Creatinine Glucose POC Glucose 302 H 298 H Lactic Acid Ferritin AST Lactate Dehydrogenase C-Reactive Protein Total Protein Albumin Arterial Blood Glucose Arterial Blood Ionized Calcium Coronavirus (PCR) 03/25/20 03/25/20 11:27 13:16 WBC Hgb Hct MCV MCHC Plt Count Gregg % (Auto) Lymph # (Auto) Seg Neutrophils % Seg Neuts % (Manual) Seg Neutrophils # Man Lymphocytes # (Manual) D-Dimer ABG pH POC ABG pO2 ABG Oxyhemoglobin ABG Glucose Chloride BUN 52 H Creatinine Glucose 294 H POC Glucose 267 H Lactic Acid Ferritin AST Lactate Dehydrogenase C-Reactive Protein Total Protein 6.0 L Albumin 2.7 L Arterial Blood Glucose Arterial Blood Ionized Calcium Coronavirus (PCR) Assessment and Plan 59 yo male with COVID-19 w/ respiratory failure w/ noted bilateral occipital/thalamic/cerebellar strokes (CT images not available to me). 1. Basilar (top of) / Vertebrobasilar Stroke - concern is raised based on CT report; noted with edema with only continued edema to be expected with risk of obstructive hydrocephalus; recommend emergent transfer of the patient to a comprehensive center if patient is clinically stable for transfer. Questions that come up is whether the patient will benefit from an EVD and/or from a possible suboccipital craniectomy. 2. Sp[address] Lainez regarding my concerns. Case to be discussed also with Neurosurgeon here at this hospital if he is available today. Mateo Elkins MD Neurology
--- NOTE | 2020-03-25 15:55 | XRay Report ---
CHEST - 1 VIEW 1240 hours INDICATION: follow up respiratory failure COMPARISON: Yesterday FINDINGS: Support devices: Stable support device positioning. Heart: Stable cardiomediastinal silhouette. Pneumomediastinum appears stable. Lungs/pleura: Bilateral lung opacities appear stable. No pneumothorax is appreciated on portable kristin st. Additional findings: Persistent diffuse subcutaneous edema IMPRESSION: Unchanged exam. Signer Name: Luis Manuel Chaparro Jr, MD Signed: 03/25/2020 3:50 PM Workstation Name: [id number]
--- NOTE | 2020-03-25 16:42 | Cat Scan Report ---
CTA HEAD AND NECK WITH CONTRAST HISTORY: Posterior circulation infarcts seen on recent CT. COMPARISON: Head CT on 03/24/2020. Neck CT on 03/24/2020 TECHNIQUE: All CT scans at this location are performed using CT dose reduction for ALARA by means of automated exposure control.. 3-D/MIP reformats postprocessed. Percentage stenosis is determined by d irect quantitative measurements of diseased internal carotid artery diameter compared with normal dis shmuel internal carotid artery reference segments or by criteria similar to NASCET where applicable. CONTRAST: 100 ml of Omnipaque 350 FINDINGS: CT HEAD: BRAIN / INTRACRANIAL CONTENTS: There is expected maturation of the left cerebellar hemisphere and occ ipital infarcts. ORBITS: No significant abnormality of visualized orbits. SINUSES / MASTOIDS: No significant abnormality of visualized sinuses and mastoid air cells. CTA HEAD: Intracranial vertebral arteries: No significant abnormality. Basilar artery: No significant abnormality. Posterior cerebral arteries: There is a free-floating thrombus in the right DRYER FEEDER P1 segment measuring about 5 mm in length. Remainder of the hot press operator appear normal. Intracranial internal carotid arteries: There is mild atherosclerotic plaque in the bilateral carotid siphons without significant stenosis or aneurysm. Anterior cerebral arteries: No significant abnormality. Middle cerebral arteries: No significant abnormality. Dural venous sinuses:Not optimally opacified. No significant abnormality. CTA NECK: Aortic arch: No significant abnormality. Cervical vertebral arteries: There is free floating thrombus in the cervical left vertebral artery ex tending from the C2-C4 level was. Common carotid arteries: No significant abnormality. Cervical internal carotid arteries: There is mild atherosclerotic plaque in both carotid bulbs withou t significant stenosis. Additional findings: Extensive subcutaneous emphysema is again seen in the neck. Tiny right apical pn eumothorax also again seen. Bilateral consolidations in the chest again noted. IMPRESSION: 1. Free-floating thrombus is seen in the cervical left vertebral artery and in the right T1 segment o f the right DRYER FEEDER. 2. Expected maturation in cerebellar and occipital lobe infarcts. 3. Extensive subcutaneous emphysema, pneumomediastinum, tiny right apical pneumothorax, and bilateral pulmonary consolidations are again noted. Signer Name: Misbah Ragsdale MD Signed: 03/25/2020 4:38 PM Workstation Name: [id number]
--- NOTE | 2020-03-25 16:42 | Cat Scan Report ---
CTA HEAD AND NECK WITH CONTRAST HISTORY: Posterior circulation infarcts seen on recent CT. COMPARISON: Head CT on 03/24/2020. Neck CT on 03/24/2020 TECHNIQUE: All CT scans at this location are performed using CT dose reduction for ALARA by means of automated exposure control.. 3-D/MIP reformats postprocessed. Percentage stenosis is determined by d irect quantitative measurements of diseased internal carotid artery diameter compared with normal dis shmuel internal carotid artery reference segments or by criteria similar to NASCET where applicable. CONTRAST: 100 ml of Omnipaque 350 FINDINGS: CT HEAD: BRAIN / INTRACRANIAL CONTENTS: There is expected maturation of the left cerebellar hemisphere and occ ipital infarcts. ORBITS: No significant abnormality of visualized orbits. SINUSES / MASTOIDS: No significant abnormality of visualized sinuses and mastoid air cells. CTA HEAD: Intracranial vertebral arteries: No significant abnormality. Basilar artery: No significant abnormality. Posterior cerebral arteries: There is a free-floating thrombus in the right FATS AND OILS LOADER P1 segment measuring about 5 mm in length. Remainder of the ladies attendant appear normal. Intracranial internal carotid arteries: There is mild atherosclerotic plaque in the bilateral carotid siphons without significant stenosis or aneurysm. Anterior cerebral arteries: No significant abnormality. Middle cerebral arteries: No significant abnormality. Dural venous sinuses:Not optimally opacified. No significant abnormality. CTA NECK: Aortic arch: No significant abnormality. Cervical vertebral arteries: There is free floating thrombus in the cervical left vertebral artery ex tending from the C2-C4 level was. Common carotid arteries: No significant abnormality. Cervical internal carotid arteries: There is mild atherosclerotic plaque in both carotid bulbs withou t significant stenosis. Additional findings: Extensive subcutaneous emphysema is again seen in the neck. Tiny right apical pn eumothorax also again seen. Bilateral consolidations in the chest again noted. IMPRESSION: 1. Free-floating thrombus is seen in the cervical left vertebral artery and in the right T1 segment o f the right FATS AND OILS LOADER. 2. Expected maturation in cerebellar and occipital lobe infarcts. 3. Extensive subcutaneous emphysema, pneumomediastinum, tiny right apical pneumothorax, and bilateral pulmonary consolidations are again noted. Signer Name: Misbah Ragsdale MD Signed: 03/25/2020 4:38 PM Workstation Name: [id number]
--- NOTE | 2020-03-25 21:50 | Consultation ---
History of Present Illness Consult date: 03/25/20 Reason for Consult: Posterior fossa infarct Chief complaint: altered mental status History of present illness: 59 y/o M admitted to [facility] 4 days ago due to shortness of breath. He was subsequently diagnosed with bilateral COVID-19 pneumonia. He was transferred to the ICU due to increasing respiratory requirements. He reportedly had an abrupt change in his mental status on 03/23/2020. Imaging studies have revealed a free floating thrombus in his left cervical vertebral artery and evidence of multiple infarcts involving both cerebellar hemispheres, thalami and occipital lobes. Neurologically, he has been minimally responsive for more than 48 hours. Past History Past Medical History: hypertension Past Surgical History: No surgical history, Other (Reviewed) Social history: , lives with family, smoking, alcohol abuse Family history: hypertension Medications and Allergies Allergies Allergy/AdvReac Type Severity Reaction Status Date / Time celecoxib [From Celebrex] Allergy Unknown Verified 03/19/20 13:50 Home Medications Medication Instructions Recorded Confirmed Last Taken Type Insulin Glargine/Lixisenatide 15 unit SQ QAM 03/19/20 03/19/20 Unknown History [Soliqua 100 Unit-33 Mcg/ml Pen] Losartan [Cozaar] 100 mg PO QDAY 03/19/20 03/19/20 Unknown History Metformin HCl [metFORMIN] 2,000 mg PO BID 03/19/20 03/19/20 Unknown History Simvastatin 40 mg PO QHS 03/19/20 03/19/20 Unknown History Actos 1 PO 03/20/20 03/19/20 History Active Meds: Active Medications Acetaminophen (Acetaminophen 325 Mg Tab) 650 mg PO Q4H PRN PRN Reason: Pain MILD(1-3)/Fever >100.5/ROSS Albuterol (Albuterol 2.5 Mg/3 Ml Nebu) 2.5 mg IH Q4HRT PRN PRN Reason: Shortness Of Breath Lipase/Protease/Amylase (Lipase 10,500/Protease 25,000/Amylase 43,750 (Units) Dr Chou) 1 each FEEDTUBE PRN PRN PRN Reason: For Clogged Feeding Tube Ascorbic Acid (Ascorbic Acid 500 Mg Tab) 1,000 mg PO BID [facility] Last Admin: 03/25/20 10:20 Dose: 1,000 mg Documented by: Cholecalciferol (Cholecalciferol (Vit D3) 5,000 Unit Tab) 5,000 unit PO DAILY [facility] Last Admin: 03/25/20 10:21 Dose: 5,000 unit Documented by: Clopidogrel Bisulfate (Clopidogrel 75 Mg Tab) 75 mg PO QDAY [facility] Famotidine (Famotidine 20 Mg/2 Ml Inj) 20 mg IV BID [facility] Last Admin: 03/25/20 10:20 Dose: 20 mg Documented by: Fentanyl (Fentanyl 100 Mcg/2 Ml Inj) 50 mcg IV Q10MIN PRN PRN Reason: ANALGESIA Last Admin: 03/25/20 12:01 Dose: 50 mcg Documented by: Hydromorphone HCl (Hydromorphone 1 Mg/1 Ml Inj) 0.25 mg IV Q4H PRN PRN Reason: Pain, Moderate (4-6) Last Admin: 03/23/20 15:27 Dose: 0.25 mg Documented by: Hydrophilic Ointment (Lip Therapy Vaseline) 1 applic TP Q2HR PRN PRN Reason: Dry Lips Fentanyl Citrate (Fentanyl Drip Premix) 2,000 mcg in 100 mls @ 3.92 mls/hr IV TITR [facility]; Protocol Last Titration: 03/25/20 18:56 Dose: 0 mcg/kg/hr, 0 mls/hr Documented by: Insulin Glargine (Insulin Glargine 100 Units/Ml) 22 units SUB-Q QAM [facility] Last Admin: 03/25/20 10:21 Dose: 22 units Documented by: Insulin Human Regular (Insulin Regular, Human 100 Unit/Ml 3ml Vial) 0 unit SUB- Q Q6HR [facility]; Protocol Last Admin: 03/25/20 18:37 Dose: 6 unit Documented by: Methylprednisolone Sodium Succinate (Methylprednisolone Sod Succinate 125 Mg/2 Ml Inj) 60 mg IV Q6HR [facility] Last Admin: 03/25/20 18:37 Dose: 60 mg Documented by: Multi-Ingred Cream/Lotion/Oil/Oint (Mineral Oil/Petrolatum, White Ophth Oint 3.5 Gm) 1 applic OU Q4HR PRN PRN Reason: Dry Eye(s) Ondansetron HCl (Ondansetron 4 Mg/2 Ml Inj) 4 mg IV Q8H PRN PRN Reason: Nausea And Vomiting Simple Syrup (Simple Syrup 15 Ml) 15 ml FEEDTUBE PRN PRN PRN Reason: Hypoglycemia Simple Syrup (Simple Syrup 15 Ml) 30 ml FEEDTUBE PRN PRN PRN Reason: Hypoglycemia Sodium Bicarbonate (Sodium Bicarbonate 325 Mg Tab) 325 mg FEEDTUBE PRN PRN PRN Reason: For Clogged Feeding Tube Sodium Chloride (Sodium Chloride 0.9% 10 Ml Flush Syringe) 10 ml IV BID [facility] Last Admin: 03/25/20 10:22 Dose: 10 ml Documented by: Sodium Chloride (Sodium Chloride 0.9% 10 Ml Flush Syringe) 10 ml IV PRN PRN PRN Reason: LINE FLUSH Zinc Sulfate (Zinc Sulfate 220 Mg Cap) 220 mg PO BID [facility] Last Admin: 03/25/20 10:20 Dose: 220 mg Documented by: Physical Examination - Vital Signs Vital Signs: Vital Signs Pulse Ox 87 03/19/20 13:38 - Physical Exam Narrative exam: seen and examined intubated no eye opening L pupil 4 mm, NR R pupil 3 mm, NR no corneal reflexes +cough localizes LUE to deep central stim extensor postures with b/l LE Results - Laboratory Findings CBC and BMP: 03/25/20 07:02 03/25/20 13:16 Abnormal Lab Findings: Abnormal Labs 03/19/20 03/19/20 03/19/20 14:13 14:13 14:13 WBC Hgb Hct MCV MCHC 35 H Plt Count [place] % (Auto) 11.6 H Lymph # (Auto) 0.8 L Seg Neutrophils % 74.7 H Seg Neuts % (Manual) Seg Neutrophils # Man Lymphocytes # (Manual) D-Dimer ABG pH POC ABG pO2 ABG Oxyhemoglobin ABG Glucose Chloride BUN Creatinine Glucose 204 H POC Glucose Lactic Acid 2.30 H* Ferritin AST Lactate Dehydrogenase C-Reactive Protein Total Protein Albumin Arterial Blood Glucose Arterial Blood Ionized Calcium Coronavirus (PCR) 03/19/20 03/19/20 03/19/20 14:13 15:35 15:35 WBC Hgb Hct MCV MCHC Plt Count [place] % (Auto) Lymph # (Auto) Seg Neutrophils % Seg Neuts % (Manual) Seg Neutrophils # Man Lymphocytes # (Manual) D-Dimer 658.20 H ABG pH POC ABG pO2 ABG Oxyhemoglobin ABG Glucose Chloride BUN Creatinine Glucose POC Glucose Lactic Acid Ferritin 722.2 H AST 62 H Lactate Dehydrogenase C-Reactive Protein Total Protein Albumin 3.6 L Arterial Blood Glucose Arterial Blood Ionized Calcium Coronavirus (PCR) 03/20/20 03/20/20 03/20/20 05:28 12:20 16:31 WBC Hgb Hct MCV MCHC Plt Count [place] % (Auto) Lymph # (Auto) Seg Neutrophils % Seg Neuts % (Manual) Seg Neutrophils # Man Lymphocytes # (Manual) D-Dimer ABG pH POC ABG pO2 ABG Oxyhemoglobin ABG Glucose Chloride BUN Creatinine Glucose POC Glucose 270 H 306 H Lactic Acid Ferritin AST Lactate Dehydrogenase C-Reactive Protein Total Protein Albumin Arterial Blood Glucose Arterial Blood Ionized Calcium Coronavirus (PCR) Positive A 03/20/20 03/21/20 03/21/20 20:28 08:26 09:03 WBC Hgb Hct MCV MCHC Plt Count [place] % (Auto) Lymph # (Auto) Seg Neutrophils % Seg Neuts % (Manual) Seg Neutrophils # Man Lymphocytes # (Manual) D-Dimer ABG pH POC ABG pO2 ABG Oxyhemoglobin ABG Glucose Chloride 110.5 H BUN 23 H Creatinine Glucose 168 H POC Glucose 320 H 159 H Lactic Acid Ferritin AST 42 H Lactate Dehydrogenase C-Reactive Protein Total Protein 6.1 L Albumin 2.8 L Arterial Blood Glucose Arterial Blood Ionized Calcium Coronavirus (PCR) 03/21/20 03/21/20 03/21/20 12:26 20:08 22:45 WBC Hgb Hct MCV MCHC Plt Count [place] % (Auto) Lymph # (Auto) Seg Neutrophils % Seg Neuts % (Manual) Seg Neutrophils # Man Lymphocytes # (Manual) D-Dimer ABG pH POC ABG pO2 ABG Oxyhemoglobin ABG Glucose Chloride BUN Creatinine Glucose POC Glucose 190 H 375 H 248 H Lactic Acid Ferritin AST Lactate Dehydrogenase C-Reactive Protein Total Protein Albumin Arterial Blood Glucose Arterial Blood Ionized Calcium Coronavirus (PCR) 03/22/20 03/22/20 03/22/20 07:56 10:47 10:47 WBC Hgb Hct MCV MCHC Plt Count [place] % (Auto) Lymph # (Auto) Seg Neutrophils % Seg Neuts % (Manual) Seg Neutrophils # Man Lymphocytes # (Manual) D-Dimer 855.69 H ABG pH POC ABG pO2 ABG Oxyhemoglobin ABG Glucose Chloride BUN Creatinine Glucose POC Glucose 147 H Lactic Acid Ferritin 717.5 H AST Lactate Dehydrogenase C-Reactive Protein Total Protein Albumin Arterial Blood Glucose Arterial Blood Ionized Calcium Coronavirus (PCR) 12/03/22/20 03/22/20 10:47 11:28 16:32 WBC Hgb Hct MCV MCHC Plt Count [place] % (Auto) Lymph # (Auto) Seg Neutrophils % Seg Neuts % (Manual) Seg Neutrophils # Man Lymphocytes # (Manual) D-Dimer ABG pH POC ABG pO2 ABG Oxyhemoglobin ABG Glucose Chloride BUN Creatinine Glucose POC Glucose 187 H 238 H Lactic Acid Ferritin AST Lactate Dehydrogenase 569 H C-Reactive Protein 6.70 H Total Protein Albumin Arterial Blood Glucose Arterial Blood Ionized Calcium Coronavirus (PCR) 03/22/20 03/23/20 03/23/20 21:03 05:48 06:17 WBC Hgb Hct MCV MCHC Plt Count [place] % (Auto) Lymph # (Auto) Seg Neutrophils % Seg Neuts % (Manual) Seg Neutrophils # Man Lymphocytes # (Manual) D-Dimer ABG pH POC ABG pO2 ABG Oxyhemoglobin ABG Glucose Chloride BUN Creatinine Glucose POC Glucose 204 H 163 H Lactic Acid Ferritin AST Lactate Dehydrogenase C-Reactive Protein Total Protein 5.7 L Albumin 2.6 L Arterial Blood Glucose Arterial Blood Ionized Calcium Coronavirus (PCR) 03/23/20 03/23/20 03/23/20 10:27 17:04 21:53 WBC Hgb Hct MCV MCHC Plt Count [place] % (Auto) Lymph # (Auto) Seg Neutrophils % Seg Neuts % (Manual) Seg Neutrophils # Man Lymphocytes # (Manual) D-Dimer ABG pH POC ABG pO2 ABG Oxyhemoglobin ABG Glucose Chloride BUN Creatinine Glucose POC Glucose 160 H 253 H 274 H Lactic Acid Ferritin AST Lactate Dehydrogenase C-Reactive Protein Total Protein Albumin Arterial Blood Glucose Arterial Blood Ionized Calcium Coronavirus (PCR) 03/23/20 03/23/20 03/24/20 23:02 23:44 02:58 WBC Hgb Hct MCV MCHC Plt Count [place] % (Auto) Lymph # (Auto) Seg Neutrophils % Seg Neuts % (Manual) Seg Neutrophils # Man Lymphocytes # (Manual) D-Dimer ABG pH 7.472 H POC ABG pO2 48.2 L 260.5 H ABG Oxyhemoglobin 98.4 H ABG Glucose 319 H 287 H Chloride BUN Creatinine Glucose POC Glucose 216 H Lactic Acid Ferritin AST Lactate Dehydrogenase C-Reactive Protein Total Protein Albumin Arterial Blood Glucose 319 H 287 H Arterial Blood Ionized Calcium 4.5 L Coronavirus (PCR) 03/24/20 03/24/20 03/24/20 07:31 07:31 08:10 WBC 14.9 H Hgb Hct MCV MCHC 35 H Plt Count [place] % (Auto) Lymph # (Auto) Seg Neutrophils % Seg Neuts % (Manual) Seg Neutrophils # Man Lymphocytes # (Manual) D-Dimer ABG pH POC ABG pO2 ABG Oxyhemoglobin ABG Glucose Chloride BUN 27 H Creatinine 0.7 L Glucose 305 H POC Glucose 259 H Lactic Acid Ferritin AST Lactate Dehydrogenase C-Reactive Protein Total Protein Albumin Arterial Blood Glucose Arterial Blood Ionized Calcium Coronavirus (PCR) 03/24/20 03/24/20 03/24/20 12:07 17:07 20:01 WBC Hgb Hct MCV MCHC Plt Count [place] % (Auto) Lymph # (Auto) Seg Neutrophils % Seg Neuts % (Manual) Seg Neutrophils # Man Lymphocytes # (Manual) D-Dimer > 07775 H ABG pH POC ABG pO2 ABG Oxyhemoglobin ABG Glucose Chloride BUN Creatinine Glucose POC Glucose 306 H 306 H Lactic Acid Ferritin AST Lactate Dehydrogenase C-Reactive Protein Total Protein Albumin Arterial Blood Glucose Arterial Blood Ionized Calcium Coronavirus (PCR) 03/24/20 03/24/20 03/24/20 20:01 20:01 21:24 WBC Hgb Hct MCV MCHC Plt Count [place] % (Auto) Lymph # (Auto) Seg Neutrophils % Seg Neuts % (Manual) Seg Neutrophils # Man Lymphocytes # (Manual) D-Dimer ABG pH POC ABG pO2 ABG Oxyhemoglobin ABG Glucose Chloride BUN Creatinine Glucose POC Glucose 321 H Lactic Acid Ferritin 1233.0 H AST Lactate Dehydrogenase 619 H C-Reactive Protein 12.90 H Total Protein Albumin Arterial Blood Glucose Arterial Blood Ionized Calcium Coronavirus (PCR) 03/25/20 03/25/20 03/25/20 01:46 05:36 07:02 WBC 16.4 H Hgb 15.4 H Hct 46.8 H MCV 96 H MCHC Plt Count 127 L [place] % (Auto) Lymph # (Auto) Seg Neutrophils % Seg Neuts % (Manual) 98.0 H Seg Neutrophils # Man 16.1 H Lymphocytes # (Manual) 0.0 L D-Dimer ABG pH POC ABG pO2 ABG Oxyhemoglobin ABG Glucose Chloride BUN Creatinine Glucose POC Glucose 302 H 298 H Lactic Acid Ferritin AST Lactate Dehydrogenase C-Reactive Protein Total Protein Albumin Arterial Blood Glucose Arterial Blood Ionized Calcium Coronavirus (PCR) 03/25/20 03/25/20 03/25/20 11:27 13:16 17:12 WBC Hgb Hct MCV MCHC Plt Count [place] % (Auto) Lymph # (Auto) Seg Neutrophils % Seg Neuts % (Manual) Seg Neutrophils # Man Lymphocytes # (Manual) D-Dimer ABG pH POC ABG pO2 ABG Oxyhemoglobin ABG Glucose Chloride BUN 52 H Creatinine Glucose 294 H POC Glucose 267 H 261 H Lactic Acid Ferritin AST Lactate Dehydrogenase C-Reactive Protein Total Protein 6.0 L Albumin 2.7 L Arterial Blood Glucose Arterial Blood Ionized Calcium Coronavirus (PCR) 03/25/20 21:33 WBC Hgb Hct MCV MCHC Plt Count [place] % (Auto) Lymph # (Auto) Seg Neutrophils % Seg Neuts % (Manual) Seg Neutrophils # Man Lymphocytes # (Manual) D-Dimer ABG pH POC ABG pO2 ABG Oxyhemoglobin ABG Glucose Chloride BUN Creatinine Glucose POC Glucose 265 H Lactic Acid Ferritin AST Lactate Dehydrogenase C-Reactive Protein Total Protein Albumin Arterial Blood Glucose Arterial Blood Ionized Calcium Coronavirus (PCR) Assessment and Plan 59 y/o M w/ bilateral COVID-19 pneumonia, L cervical VA thrombus formation with bilateral posterior fossa strokes -this patient is at risk of impending neurologic deterioration and progression to brain -recommend consideration for urgent transfer to a comprehensive stroke center for evaluation of EVD placement +/- suboccipital craniectomy -may consider ASA 81 mg the setting of free floating thrombus and due to the abs ence of possible transfer destinations -recommend goals of care discussion with family member- prognosis is extremely poor at this time and the likelihood of significant functional recovery is low -please notify if questions
[2020-03-25 23:57] LABS: Alanine Aminotransferase 28 units/L (7-56); Albumin 3.1 g/dL (3.9-5); BUN/Creatinine Ratio 63; Blood Urea Nitrogen 57 mg/dL (9-20); Hemolysis Index 32
[2020-03-26] MEDS: methylPREDNISolone Sod Succinate 125 MG/2 ML INJ IV SCH ×5 (01:51→23:44)
[2020-03-26] MEDS: INSULIN REGULAR, HUMAN 100 UNIT/ML 3ML VIAL SUB-Q SCH ×5 (01:52→23:42)
[2020-03-26] MEDS: fentaNYL DRIP Premix 2,000 MCG/100 ML BAG IV SCH ×2 (02:44→13:02)
[2020-03-26 06:18] LABS: Hematocrit 48.5 % (35.5-45.6); Hemoglobin 16.4 gm/dl (11.8-15.2); Mean Corpuscular HGB Conc 34 % (32-34); Mean Corpuscular Volume 95 fl (84-94); Platelet Count 128 K/mm3 (140-440); Red Blood Count 5.12 M/mm3 (3.65-5.03); Red Cell Distribution Width 13.7 % (13.2-15.2)
[2020-03-26 06:32] LABS: BUN/Creatinine Ratio 63; Blood Urea Nitrogen 57 mg/dL (9-20); Calcium 9.1 mg/dL (8.4-10.2); Hemolysis Index 6
[2020-03-26 09:55] LABS: Monocytes # (Auto) 0.1 K/mm3 (0.0-0.8)
[2020-03-26] MEDS: INSULIN GLARGINE 100 UNITS/ML SUB-Q SCH (10:35)
[2020-03-26] MEDS: FAMOTIDINE 20 MG/2 ML INJ IV SCH ×2 (10:35→21:56)
[2020-03-26] MEDS: CLOPIDOGREL 75 MG TAB PO SCH (10:36)
[2020-03-26] MEDS: CHOLECALCIFEROL (VIT D3) 5,000 UNIT TAB PO SCH (10:36)
[2020-03-26] MEDS: ZINC SULFATE 220 MG CAP PO SCH ×2 (10:36→21:56)
[2020-03-26] MEDS: ASCORBIC ACID 500 MG TAB PO SCH ×2 (10:36→21:56)
--- NOTE | 2020-03-26 11:09 | Event Note ---
Date: 03/26/20 The daughter said patient was accepted by [facility] but I called [facility] and [facility] doesn't have ICU beds.
[2020-03-26 11:25] LABS: Band Neutrophils # (Manual) 0.3 K/mm3; Total Cells Counted 100
--- NOTE | 2020-03-26 11:25 | Progress Note ---
Assessment and Plan 59 y/o male with acute hypoxic respiratory failure secondary to COVID 19 with prior history of tobacco abuse. 1. Proned now. Will get ABG once unproned today. Likely will need to increase PEEP. Unable to see images in meditech and now axis to pacs. 2. Neurology and Neurosurgery have both seen and evaluated patient. They both recommend transfer to a neurospecialized facility. The hospitalist had diligently tried to get the patient transferred but [facility] has declined the patient. Per the sister (Charlene) she is working to get patient accepted to [facility]. I explained to her that her brother is in the intensive care unit and he would need to be transferred to another intensive care unit and that the physician must have privileges to admit to the ICU. 3. Continue steroids at current dosing 4. Pharmacy has adjusted insulin 5. Finished remdesivir 6. Guarded prognosis, especially with head CT findings. CCT 31 minutes. Subjective Date of service: 03/26/20 Principal diagnosis: Severe COVID-19 Interval history: Pulm status has worsened in the last 48 hours. Now up to 100%. Still at only 8 of PEEP. Objective Vital Signs - 12hr 03/26/20 03/26/20 03/26/20 00:00 00:14 01:00 Temperature Pulse Rate 112 H 66 64 Pulse Rate [ 78 From Monitor] Respiratory 18 20 Rate Blood Pressure 123/88 121/97 141/96 O2 Sat by Pulse 91 93 92 Oximetry 03/26/20 03/26/20 03/26/20 02:01 03:00 03:31 Temperature 98.9 F Pulse Rate 75 99 H Pulse Rate [ From Monitor] Respiratory 21 22 Rate Blood Pressure 147/98 153/90 O2 Sat by Pulse 89 98 Oximetry 03/26/20 03/26/20 03/26/20 04:00 05:00 05:01 Temperature Pulse Rate 100 H 123 H 125 H Pulse Rate [ 103 H From Monitor] Respiratory 19 17 Rate Blood Pressure 136/102 131/101 131/101 O2 Sat by Pulse 97 96 95 Oximetry 03/26/20 03/26/20 03/26/20 06:01 07:00 09:50 Temperature Pulse Rate 130 H 127 H 127 H Pulse Rate [ From Monitor] Respiratory 16 15 Rate Blood Pressure 138/95 120/87 120/87 O2 Sat by Pulse 96 94 94 Oximetry CBC and BMP: 03/26/20 05:09 03/26/20 05:09 ABG, PT/INR, D-dimer: ABG ABG pH 7.418 (7.320-7.450) 03/24/20 02:58 POC ABG pCO2 39.0 mmHg (32.0-48.0) 03/24/20 02:58 POC ABG pO2 260.5 mmHg (83-108) H 03/24/20 02:58 POC ABG HCO3 24.6 03/24/20 02:58 PT/INR, D-dimer D-Dimer > 94661 ng/mlDDU (0-234) H 03/24/20 20:01 Abnormal lab findings: Abnormal Labs 03/19/20 03/19/20 03/19/20 14:13 14:13 14:13 WBC RBC Hgb Hct MCV MCHC 35 H Plt Count [place] % (Auto) 11.6 H Lymph # (Auto) 0.8 L Seg Neutrophils % 74.7 H Seg Neuts % (Manual) Seg Neutrophils # Man Lymphocytes # (Manual) D-Dimer ABG pH POC ABG pO2 ABG Oxyhemoglobin ABG Glucose Chloride BUN Creatinine Glucose 204 H POC Glucose Lactic Acid 2.30 H* Ferritin AST Lactate Dehydrogenase C-Reactive Protein Total Protein Albumin Arterial Blood Glucose Arterial Blood Ionized Calcium Coronavirus (PCR) 03/19/20 03/19/20 03/19/20 14:13 15:35 15:35 WBC RBC Hgb Hct MCV MCHC Plt Count [place] % (Auto) Lymph # (Auto) Seg Neutrophils % Seg Neuts % (Manual) Seg Neutrophils # Man Lymphocytes # (Manual) D-Dimer 658.20 H ABG pH POC ABG pO2 ABG Oxyhemoglobin ABG Glucose Chloride BUN Creatinine Glucose POC Glucose Lactic Acid Ferritin 722.2 H AST 62 H Lactate Dehydrogenase C-Reactive Protein Total Protein Albumin 3.6 L Arterial Blood Glucose Arterial Blood Ionized Calcium Coronavirus (PCR) 03/20/20 03/20/20 03/20/20 05:28 : 16:31 WBC RBC Hgb Hct MCV MCHC Plt Count [place] % (Auto) Lymph # (Auto) Seg Neutrophils % Seg Neuts % (Manual) Seg Neutrophils # Man Lymphocytes # (Manual) D-Dimer ABG pH POC ABG pO2 ABG Oxyhemoglobin ABG Glucose Chloride BUN Creatinine Glucose POC Glucose 270 H 306 H Lactic Acid Ferritin AST Lactate Dehydrogenase C-Reactive Protein Total Protein Albumin Arterial Blood Glucose Arterial Blood Ionized Calcium Coronavirus (PCR) Positive A 03/20/20 03/21/20 03/21/20 20:28 08:26 09:03 WBC RBC Hgb Hct MCV MCHC Plt Count [place] % (Auto) Lymph # (Auto) Seg Neutrophils % Seg Neuts % (Manual) Seg Neutrophils # Man Lymphocytes # (Manual) D-Dimer ABG pH POC ABG pO2 ABG Oxyhemoglobin ABG Glucose Chloride 110.5 H BUN 23 H Creatinine Glucose 168 H POC Glucose 320 H 159 H Lactic Acid Ferritin AST 42 H Lactate Dehydrogenase C-Reactive Protein Total Protein 6.1 L Albumin 2.8 L Arterial Blood Glucose Arterial Blood Ionized Calcium Coronavirus (PCR) 03/21/20 03/21/20 03/21/20 12:26 20:08 22:45 WBC RBC Hgb Hct MCV MCHC Plt Count [place] % (Auto) Lymph # (Auto) Seg Neutrophils % Seg Neuts % (Manual) Seg Neutrophils # Man Lymphocytes # (Manual) D-Dimer ABG pH POC ABG pO2 ABG Oxyhemoglobin ABG Glucose Chloride BUN Creatinine Glucose POC Glucose 190 H 375 H 248 H Lactic Acid Ferritin AST Lactate Dehydrogenase C-Reactive Protein Total Protein Albumin Arterial Blood Glucose Arterial Blood Ionized Calcium Coronavirus (PCR) 03/22/20 03/22/20 03/22/20 07:56 10:47 10:47 WBC RBC Hgb Hct MCV MCHC Plt Count [place] % (Auto) Lymph # (Auto) Seg Neutrophils % Seg Neuts % (Manual) Seg Neutrophils # Man Lymphocytes # (Manual) D-Dimer 855.69 H ABG pH POC ABG pO2 ABG Oxyhemoglobin ABG Glucose Chloride BUN Creatinine Glucose POC Glucose 147 H Lactic Acid Ferritin 717.5 H AST Lactate Dehydrogenase C-Reactive Protein Total Protein Albumin Arterial Blood Glucose Arterial Blood Ionized Calcium Coronavirus (PCR) 03/22/20 03/22/20 03/22/20 10:47 11:28 16:32 WBC RBC Hgb Hct MCV MCHC Plt Count [place] % (Auto) Lymph # (Auto) Seg Neutrophils % Seg Neuts % (Manual) Seg Neutrophils # Man Lymphocytes # (Manual) D-Dimer ABG pH POC ABG pO2 ABG Oxyhemoglobin ABG Glucose Chloride BUN Creatinine Glucose POC Glucose 187 H 238 H Lactic Acid Ferritin AST Lactate Dehydrogenase 569 H C-Reactive Protein 6.70 H Total Protein Albumin Arterial Blood Glucose Arterial Blood Ionized Calcium Coronavirus (PCR) 03/22/20 03/23/20 03/23/20 21:03 05:48 06:17 WBC RBC Hgb Hct MCV MCHC Plt Count [place] % (Auto) Lymph # (Auto) Seg Neutrophils % Seg Neuts % (Manual) Seg Neutrophils # Man Lymphocytes # (Manual) D-Dimer ABG pH POC ABG pO2 ABG Oxyhemoglobin ABG Glucose Chloride BUN Creatinine Glucose POC Glucose 204 H 163 H Lactic Acid Ferritin AST Lactate Dehydrogenase C-Reactive Protein Total Protein 5.7 L Albumin 2.6 L Arterial Blood Glucose Arterial Blood Ionized Calcium Coronavirus (PCR) 03/23/20 03/23/20 03/23/20 10:27 17:04 21:53 WBC RBC Hgb Hct MCV MCHC Plt Count [place] % (Auto) Lymph # (Auto) Seg Neutrophils % Seg Neuts % (Manual) Seg Neutrophils # Man Lymphocytes # (Manual) D-Dimer ABG pH POC ABG pO2 ABG Oxyhemoglobin ABG Glucose Chloride BUN Creatinine Glucose POC Glucose 160 H 253 H 274 H Lactic Acid Ferritin AST Lactate Dehydrogenase C-Reactive Protein Total Protein Albumin Arterial Blood Glucose Arterial Blood Ionized Calcium Coronavirus (PCR) 03/23/20 03/23/20 03/24/20 23:02 23:44 02:58 WBC RBC Hgb Hct MCV MCHC Plt Count [place] % (Auto) Lymph # (Auto) Seg Neutrophils % Seg Neuts % (Manual) Seg Neutrophils # Man Lymphocytes # (Manual) D-Dimer ABG pH 7.472 H POC ABG pO2 48.2 L 260.5 H ABG Oxyhemoglobin 98.4 H ABG Glucose 319 H 287 H Chloride BUN Creatinine Glucose POC Glucose 216 H Lactic Acid Ferritin AST Lactate Dehydrogenase C-Reactive Protein Total Protein Albumin Arterial Blood Glucose 319 H 287 H Arterial Blood Ionized Calcium 4.5 L Coronavirus (PCR) 03/24/20 03/24/20 03/24/20 07:31 07:31 08:10 WBC 14.9 H RBC Hgb Hct MCV MCHC 35 H Plt Count [place] % (Auto) Lymph # (Auto) Seg Neutrophils % Seg Neuts % (Manual) Seg Neutrophils # Man Lymphocytes # (Manual) D-Dimer ABG pH POC ABG pO2 ABG Oxyhemoglobin ABG Glucose Chloride BUN 27 H Creatinine 0.7 L Glucose 305 H POC Glucose 259 H Lactic Acid Ferritin AST Lactate Dehydrogenase C-Reactive Protein Total Protein Albumin Arterial Blood Glucose Arterial Blood Ionized Calcium Coronavirus (PCR) 03/24/20 03/24/20 03/24/20 12:07 17:07 20:01 WBC RBC Hgb Hct MCV MCHC Plt Count [place] % (Auto) Lymph # (Auto) Seg Neutrophils % Seg Neuts % (Manual) Seg Neutrophils # Man Lymphocytes # (Manual) D-Dimer > 21678 H ABG pH POC ABG pO2 ABG Oxyhemoglobin ABG Glucose Chloride BUN Creatinine Glucose POC Glucose 306 H 306 H Lactic Acid Ferritin AST Lactate Dehydrogenase C-Reactive Protein Total Protein Albumin Arterial Blood Glucose Arterial Blood Ionized Calcium Coronavirus (PCR) 03/24/20 03/24/20 03/24/20 20:01 20:01 21:24 WBC RBC Hgb Hct MCV MCHC Plt Count [place] % (Auto) Lymph # (Auto) Seg Neutrophils % Seg Neuts % (Manual) Seg Neutrophils # Man Lymphocytes # (Manual) D-Dimer ABG pH POC ABG pO2 ABG Oxyhemoglobin ABG Glucose Chloride BUN Creatinine Glucose POC Glucose 321 H Lactic Acid Ferritin 1233.0 H AST Lactate Dehydrogenase 619 H C-Reactive Protein 12.90 H Total Protein Albumin Arterial Blood Glucose Arterial Blood Ionized Calcium Coronavirus (PCR) 03/25/20 03/25/20 03/25/20 01:46 05:36 07:02 WBC 16.4 H RBC Hgb 15.4 H Hct 46.8 H MCV 96 H MCHC Plt Count 127 L [place] % (Auto) Lymph # (Auto) Seg Neutrophils % Seg Neuts % (Manual) 98.0 H Seg Neutrophils # Man 16.1 H Lymphocytes # (Manual) 0.0 L D-Dimer ABG pH POC ABG pO2 ABG Oxyhemoglobin ABG Glucose Chloride BUN Creatinine Glucose POC Glucose 302 H 298 H Lactic Acid Ferritin AST Lactate Dehydrogenase C-Reactive Protein Total Protein Albumin Arterial Blood Glucose Arterial Blood Ionized Calcium Coronavirus (PCR) 03/25/20 03/25/20 03/25/20 11:27 13:16 17:12 WBC RBC Hgb Hct MCV MCHC Plt Count [place] % (Auto) Lymph # (Auto) Seg Neutrophils % Seg Neuts % (Manual) Seg Neutrophils # Man Lymphocytes # (Manual) D-Dimer ABG pH POC ABG pO2 ABG Oxyhemoglobin ABG Glucose Chloride BUN 52 H Creatinine Glucose 294 H POC Glucose 267 H 261 H Lactic Acid Ferritin AST Lactate Dehydrogenase C-Reactive Protein Total Protein 6.0 L Albumin 2.7 L Arterial Blood Glucose Arterial Blood Ionized Calcium Coronavirus (PCR) 03/25/20 03/25/20 03/25/20 21:33 22:40 23:46 WBC RBC Hgb Hct MCV MCHC Plt Count [place] % (Auto) Lymph # (Auto) Seg Neutrophils % Seg Neuts % (Manual) Seg Neutrophils # Man Lymphocytes # (Manual) D-Dimer ABG pH POC ABG pO2 ABG Oxyhemoglobin ABG Glucose Chloride BUN 57 H Creatinine Glucose 326 H POC Glucose 265 H 321 H Lactic Acid Ferritin AST Lactate Dehydrogenase C-Reactive Protein Total Protein 6.0 L Albumin 3.1 L Arterial Blood Glucose Arterial Blood Ionized Calcium Coronavirus (PCR) 03/26/20 03/26/20 03/26/20 05:09 05:09 05:20 WBC RBC 5.12 H Hgb 16.4 H Hct 48.5 H MCV 95 H MCHC Plt Count 128 L [place] % (Auto) Lymph # (Auto) Seg Neutrophils % Seg Neuts % (Manual) Seg Neutrophils # Man Lymphocytes # (Manual) D-Dimer ABG pH POC ABG pO2 ABG Oxyhemoglobin ABG Glucose Chloride BUN 57 H Creatinine Glucose 302 H POC Glucose 245 H Lactic Acid Ferritin AST Lactate Dehydrogenase C-Reactive Protein Total Protein Albumin Arterial Blood Glucose Arterial Blood Ionized Calcium Coronavirus (PCR)
[2020-03-26 11:26] LABS: Platelet Estimate Consistent w Auto; RBC Morphology Normal
--- NOTE | 2020-03-26 14:08 | Progress Note ---
Assessment and Plan Assessment and plan: -- Sepsis due to COVID19 infection cont iv steroid, remdesivir, supplemental O2 Patient now hypoxemic intubated. Severe sepsis secondary to COVID-19 pneumonia. -- Acute hypoxemic respiratory failure due to covid19 PNA Supplemental oxygen, nebulizer therapy, pulse oximetry, pulmonary toilet, supportive care. Will need to obtain CT scan head and neck. Patient has crepitus in neck area and increased rhonchi. -- Covid19 PNA IV steroid therapy, prophylactic anticoagulation, prone positioning while in bed, supplemental oxygen, pulse oximetry, nebulizer therapy, contact precautions, isolation precaution, supportive care. remdesivir for 5 days -ve SARS-CoV-2 IgG: ordered for convalescent plasma --DM type 2 started on long acting insulin along with SSI Uncontrolled. Will increase long-acting Lantus at this time. --Bacteremia, likely contamination 1 out of 2 blood cx +ve for gm+ve cocci s/p iv vanco, repeat blood cx negative -- Hypertension Monitor blood pressure every shift, continue medical management The high probability of a clinically significant, sudden or life threatening deterioration of the [] system(s) required my full and direct attention, intervention and personal management. The aggregate critical care time was [34] minutes. This time is in addition to time spent performing reported procedures but includes the following: [x] Data Review and interpretation [x] Patient assessment and monitoring of vital signs [x] Documentation [x] Medication orders and management Subjective Date of service: 03/24/20 Principal diagnosis: Severe COVID-19 Interval history: : Positive for COVID 4 days ago before admission. started on dexamethasone iv. ID consulted. ordered for remdesivir. follow inflammatory markers. Start on vancomycin for positive blood culture -we will follow final result 03/21: ordered repeat blood cx. -ve SARS-CoV-2 IgG, ordered for convalescent plasma. patient remains on high flow O2. cont to adjust insulin dose for better glycemic control 03/22: Patient remains on high flow O2, ordered for pulmonary consult, CTA chest and bilateral lower extremity Doppler. Continue to follow inflammatory markers. Pending convalescent plasma transfusion 03/23: pending convalescent plasma transfusion. remains on high flow O2. s/p l aisx 40mg today. cont remdesivir and steroid. Le doppler neg for PE. on 35L with 100% FiO2 - poor prognostic factor 03/24 patient overnight episode altered mental status hypoxemia requiring intubation. At present patient in the prone position intubated remains unresponsive with altered mental status despite being only on 1 cal fentanyl. 03/25/2020; patient is intubated and sedated, on mechanical ventilation. From prone positioning when I saw the patient. Patient has altered mental status and CT head was done yesterday and significant for acute bilateral CVA, left cerebral hemispheres, both thalamus, occipital with mass-effect and teleneurology was consulted. Teleneurology recommend to transfer to another facility and I called [facility] transfer line and pending the call back. Our neurosurgeon was also consulted and agreed with the transfer. It is difficult to get an accepting facility given the current pandemic, limited bed availability especially in the ICU. 03/26/2020; patient is intubated and sedated and on mechanical ventilation with FiO2 of 100%. Patient was on prone position. I have a long discussion with his sister about transferring to another facility. I called [facility] transfer on 03/25/2020 and discussed with Neurointensivist Dr Dae Cordon and Neurosurgeon Dr Hector Wellington after explained to the the clinical condition and told them the CT and CTA head findings impression read by our radiologist both of them agreed that the patient is not a candidate for any neuro intervention. Said the damage is extensive and prognosis is very poor. I also told them the recommendations neurosurgeon at [facility] Dr Gaurav berry recommendations for the transfer. I also called other facilities including [facility] and because of the pandemic most of the ICU beds are full and I could not find any accepting facility. I also discussed with neurosurgeon Dr. [facility] I talk with her daughter about the poor prognosis and further plan of care, she wants him to be full code and thinking once his respiratory condition is improving she said she will take him to [facility] if they can do surgery. At this time prognosis is very poor and is not stable enough to be transferred or to do any surgery. His daughter wants plasma to be given to the patient and I called ID and he does not think it will help him much but okay to give it to him if the family requested. History Interval history: Patient was seen and evaluated this morning Patient was intubated, sedated and on mechanical ventilation Patient was on proning by the time I saw the patient Hospitalist Physical - Physical exam Narrative exam: Patient is intubated and sedated The patient appeared well nourished and normally developed. Vital signs as documented. Head exam is unremarkable. No scleral icterus . Neck is without jugular venous distension, thyromegaly, or carotid bruits. Lungs are clear to auscultation. Cardiac exam reveals regular rate and Rhythm. Abdominal exam reveals normal bowel sounds, nontender, no organomegaly. Extremities are nonedematous and both femoral and pedal pulses are normal. 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 MANAGER: Patient is sedated - Constitutional Vitals: Temp Pulse Resp BP Pulse Ox 98.9 F 127 H 15 120/87 94 03/26/20 03:31 03/26/20 09:50 03/26/20 07:00 03/26/20 09:50 03/26/20 09:50 General appearance: Present: other (Altered mental status unresponsive.) Results - Labs CBC & Chem 7: 03/26/20 05:09 03/26/20 05:09 Labs: Laboratory Last Values WBC 5.7 K/mm3 (4.5-11.0) 03/26/20 05:09 RBC 5.12 M/mm3 (3.65-5.03) H 03/26/20 05:09 Hgb 16.4 gm/dl (11.8-15.2) H 03/26/20 05:09 Hct 48.5 % (35.5-45.6) H 03/26/20 05:09 MCV 95 fl (84-94) H 03/26/20 05:09 MCH 32 pg (28-32) 03/26/20 05:09 MCHC 34 % (32-34) 03/26/20 05:09 RDW 13.7 % (13.2-15.2) 03/26/20 05:09 Plt Count 128 K/mm3 (140-440) L 03/26/20 05:09 Lymph % (Auto) 13.5 % (13.4-35.0) 03/19/20 14:13 [place] % (Auto) 1.0 % (0.0-7.3) 03/26/20 05:09 Eos % (Auto) 0.0 % (0.0-4.3) 03/26/20 05:09 Baso % (Auto) 0.2 % (0.0-1.8) 03/19/20 14:13 Lymph # (Auto) 0.8 K/mm3 (1.2-5.4) L 03/19/20 14:13 [place] # (Auto) 0.1 K/mm3 (0.0-0.8) 03/26/20 05:09 Eos # (Auto) 0.0 K/mm3 (0.0-0.4) 03/26/20 05:09 Baso # (Auto) 0.0 K/mm3 (0.0-0.1) 03/26/20 05:09 Add Manual Diff Complete 03/26/20 05:09 Total Counted 100 03/26/20 05:09 Seg Neutrophils % Back Strip Machine Operator 03/26/20 05:09 Seg Neuts % (Manual) 91.0 % (40.0-70.0) H 03/26/20 05:09 Band Neutrophils % 5.0 % 03/26/20 05:09 Lymphocytes % (Manual) 3.0 % (13.4-35.0) L 03/26/20 05:09 Monocytes % (Manual) 1.0 % (0.0-7.3) 03/26/20 05:09 Nucleated RBC % Not Reportable 03/26/20 05:09 Seg Neutrophils # 5.6 K/mm3 (1.8-7.7) 03/26/20 05:09 Seg Neutrophils # Man 5.2 K/mm3 (1.8-7.7) 03/26/20 05:09 Band Neutrophils # 0.3 K/mm3 03/26/20 05:09 Lymphocytes # (Manual) 0.2 K/mm3 (1.2-5.4) L 03/26/20 05:09 Abs React Lymphs (Man) 0.0 K/mm3 03/26/20 05:09 Monocytes # (Manual) 0.1 K/mm3 (0.0-0.8) 03/26/20 05:09 Eosinophils # (Manual) 0.0 K/mm3 (0.0-0.4) 03/26/20 05:09 Basophils # (Manual) 0.0 K/mm3 (0.0-0.1) 03/26/20 05:09 Metamyelocytes # 0.0 K/mm3 03/26/20 05:09 Myelocytes # 0.0 K/mm3 03/26/20 05:09 Promyelocytes # 0.0 K/mm3 03/26/20 05:09 Blast Cells # 0.0 K/mm3 03/26/20 05:09 WBC Morphology Not Reportable 03/26/20 05:09 Hypersegmented Neuts Not Reportable 03/26/20 05:09 Hyposegmented Neuts Not Reportable 03/26/20 05:09 Hypogranular Neuts Not Reportable 03/26/20 05:09 Smudge Cells Not Reportable 03/26/20 05:09 Toxic Granulation Not Reportable 03/26/20 05:09 Toxic Vacuolation Not Reportable 03/26/20 05:09 Dohle Bodies Not Reportable 03/26/20 05:09 Pelger-Huet Anomaly Not Reportable 03/26/20 05:09 Madeleine Rods Not Reportable 03/26/20 05:09 Platelet Estimate Consistent w auto 03/26/20 05:09 Clumped Platelets Not Reportable 03/26/20 05:09 Plt Clumps, EDTA Not Reportable 03/26/20 05:09 Large Platelets Not Reportable 03/26/20 05:09 Giant Platelets Not Reportable 03/26/20 05:09 Platelet Satelliting Not Reportable 03/26/20 05:09 Plt Morphology Comment Not Reportable 03/26/20 05:09 RBC Morphology Normal 03/26/20 05:09 Dimorphic RBCs Not Reportable 03/26/20 05:09 Polychromasia Not Reportable 03/26/20 05:09 Hypochromasia Not Reportable 03/26/20 05:09 Poikilocytosis Not Reportable 03/26/20 05:09 Anisocytosis Not Reportable 03/26/20 05:09 Microcytosis Not Reportable 03/26/20 05:09 Macrocytosis Not Reportable 03/26/20 05:09 Spherocytes Not Reportable 03/26/20 05:09 Pappenheimer Bodies Not Reportable 03/26/20 05:09 Sickle Cells Not Reportable 03/26/20 05:09 Target Cells Not Reportable 03/26/20 05:09 Tear Drop Cells Not Reportable 03/26/20 05:09 Ovalocytes Not Reportable 03/26/20 05:09 Helmet Cells Not Reportable 03/26/20 05:09 [place] Bodies Not Reportable 03/26/20 05:09 Thomas Rings Not Reportable 03/26/20 05:09 Ivelisse Cells Not Reportable 03/26/20 05:09 Bite Cells Not Reportable 03/26/20 05:09 Crenated Cell Not Reportable 03/26/20 05:09 Elliptocytes Not Reportable 03/26/20 05:09 Acanthocytes (Spur) Not Reportable 03/26/20 05:09 Rouleaux Not Reportable 03/26/20 05:09 Hemoglobin C Crystals Not Reportable 03/26/20 05:09 Schistocytes Not Reportable 03/26/20 05:09 Malaria parasites Not Reportable 03/26/20 05:09 Leland Bodies Not Reportable 03/26/20 05:09 Hem Pathologist Commnt No 03/26/20 05:09 D-Dimer > 96424 ng/mlDDU (0-234) H 03/24/20 20:01 ABG pH 7.418 (7.320-7.450) 03/24/20 02:58 POC ABG pCO2 39.0 mmHg (32.0-48.0) 03/24/20 02:58 POC ABG pO2 260.5 mmHg (83-108) H 03/24/20 02:58 POC ABG HCO3 24.6 03/24/20 02:58 POC ABG Base Excess 0.3 03/24/20 02:58 ABG Hemoglobin 15.0 (12.0-17.5) 03/24/20 02:58 ABG Oxyhemoglobin 98.4 (94-98) H 03/24/20 02:58 ABG Methemoglobin 0.3 (0.0-1.5) 03/24/20 02:58 ABG Sodium 137.5 mmol/L (136.0-145.0) 03/24/20 02:58 ABG Potassium 3.9 mmol/L (3.40-4.50) 03/24/20 02:58 ABG Chloride 103.0 mmol/L (98-107) 03/24/20 02:58 ABG Glucose 287 mg/dL (65-95) H 03/24/20 02:58 Carboxyhemoglobin 0.7 (0.5-1.5) 03/24/20 02:58 FiO2 100 03/24/20 02:58 Sodium 145 mmol/L (137-145) 03/26/20 05:09 Potassium 4.1 mmol/L (3.6-5.0) 03/26/20 05:09 Chloride 106.3 mmol/L (98-107) 03/26/20 05:09 Carbon Dioxide 25 mmol/L (22-30) 03/26/20 05:09 Anion Gap 18 mmol/L 03/26/20 05:09 BUN 57 mg/dL (9-20) H 03/26/20 05:09 Creatinine 0.9 mg/dL (0.8-1.3) 03/26/20 05:09 Estimated GFR > 60 ml/min 03/26/20 05:09 BUN/Creatinine Ratio 63 % 03/26/20 05:09 Glucose 302 mg/dL (75-100) H 03/26/20 05:09 POC Glucose 225 mg/dL (70-105) H 03/26/20 11:50 Osmolality 311 Mosm/kg 03/21/20 13:43 Lactic Acid 1.70 mmol/L (0.7-2.0) 03/19/20 23:24 Calcium 9.1 mg/dL (8.4-10.2) 03/26/20 05:09 Ferritin 1233.0 ng/mL (30.0-300.0) H 03/24/20 20:01 Total Bilirubin 1.20 mg/dL (0.1-1.2) 03/25/20 22:40 Direct Bilirubin < 0.2 mg/dL (0-0.2) 03/23/20 05:48 Indirect Bilirubin 0.4 mg/dL 03/23/20 05:48 AST 26 units/L (5-40) 03/25/20 22:40 ALT 28 units/L (7-56) 03/25/20 22:40 Alkaline Phosphatase 92 units/L (35-129) 03/25/20 22:40 Lactate Dehydrogenase 619 units/L (91-180) H 03/24/20 20:01 C-Reactive Protein 12.90 mg/dL (0.00-1.30) H 03/24/20 20:01 Total Protein 6.0 g/dL (6.3-8.2) L 03/25/20 22:40 Albumin 3.1 g/dL (3.9-5) L 03/25/20 22:40 Albumin/Globulin Ratio 1.1 % 03/25/20 22:40 Procalcitonin 0.13 ng/mL (<0.15) 03/22/20 10:47 Arterial Blood Glucose 287 mg/dL (65-95) H 03/24/20 02:58 Arterial Blood Ionized Calcium 4.7 mg/dL (4.6-5.3) 03/24/20 02:58 Urine Color Yellow (Yellow) 03/20/20 05:28 Urine Turbidity Clear (Clear) 03/20/20 05:28 Urine pH 6.0 (5.0-7.0) 03/20/20 05:28 Ur Specific Bivalve 1.029 (1.003-1.030) 03/20/20 05:28 Urine Protein <15 mg/dl mg/dL (Negative) 03/20/20 05:28 Urine Glucose (UA) >=500 mg/dL (Negative) 03/20/20 05:28 Urine Ketones 20 mg/dL (Negative) 03/20/20 05:28 Urine Blood Neg (Negative) 03/20/20 05:28 Urine Nitrite Neg (Negative) 03/20/20 05:28 Urine Bilirubin Neg (Negative) 03/20/20 05:28 Urine Urobilinogen < 2.0 mg/dL (<2.0) 03/20/20 05:28 Ur Leukocyte Esterase Neg (Negative) 03/20/20 05:28 Urine WBC (Auto) 1.0 /HPF (0.0-6.0) 03/20/20 05:28 Urine RBC (Auto) 1.0 /HPF (0.0-6.0) 03/20/20 05:28 Coronavirus (PCR) Positive (Negative) A 03/20/20 05:28 SARS-CoV-2 IgG Ab Nonreactive (NonReactive) 03/20/20 17:49 Blood Type AB POSITIVE 03/20/20 17:49 Antibody Screen Negative 03/20/20 17:49 Microbiology: Microbiology 03/21/20 19:21 Peripheral/Venous Blood Culture - Preliminary NO GROWTH AFTER 4 DAYS 03/21/20 19:21 Peripheral/Venous Blood Culture - Preliminary NO GROWTH AFTER 4 DAYS 03/24/20 02:14 Tracheal Aspirate Sputum Culture - Preliminary [place]/IV: Voiding Method Condom Catheter IV Catheter Type [Left Upper INT / Saline Lock arm] IV Catheter Type [Right Hand] INT / Saline Lock IV Catheter Type [Left Peripheral IV Antecubital] Active Medications - Current Medications Current Medications: Generic Name Dose Route Start Last Admin Trade Name Freq PRN Reason Stop Dose Admin Acetaminophen 650 mg 03/19/20 16:16 Acetaminophen 325 Mg Tab PO Q4H PRN Pain MILD(1-3)/Fever >100.5/ROSS Albuterol 2.5 mg 03/19/20 16:16 Albuterol 2.5 Mg/3 Ml Nebu IH Q4HRT PRN Shortness Of Breath Lipase/Protease/Amylase 1 each 03/25/20 11:39 Lipase 10,500/Protease 25,000/Amylase 43,750 (Units) Dr Chou FEEDTUBE PRN PRN For Clogged Feeding Tube Ascorbic Acid 1,000 mg 03/20/20 14:00 03/26/20 10:36 Ascorbic Acid 500 Mg Tab PO 1,000 mg BID FAVIOLA Administration Cholecalciferol 5,000 unit 03/20/20 14:00 03/26/20 10:36 Cholecalciferol (Vit D3) 5,000 Unit Tab PO 5,000 unit DAILY FAVIOLA Administration Clopidogrel Bisulfate 75 mg 03/26/20 10:00 03/26/20 10:36 Clopidogrel 75 Mg Tab PO 75 mg QDAY FAVIOLA Administration Famotidine 20 mg 03/25/20 10:00 03/26/20 10:35 Famotidine 20 Mg/2 Ml Inj IV 20 mg BID FAVIOLA Administration Fentanyl 50 mcg 03/23/20 22:42 03/25/20 12:01 Fentanyl 100 Mcg/2 Ml Inj IV 50 mcg Q10MIN PRN Administration ANALGESIA Hydromorphone HCl 0.25 mg 03/19/20 16:16 03/23/20 15:27 Hydromorphone 1 Mg/1 Ml Inj IV 0.25 mg Q4H PRN Administration Pain, Moderate (4-6) Hydrophilic Ointment 1 applic 03/23/20 22:42 Lip Therapy Vaseline TP Q2HR PRN Dry Lips Fentanyl Citrate 2,000 mcg in 100 mls @ 3.92 mls/hr 03/23/20 23:00 03/26/20 13:02 Fentanyl Drip Premix IV 2 mcg/kg/hr TITR FAVIOLA 7.84 mls/hr Administration Protocol 1 MCG/KG/HR Insulin Glargine 22 units 03/25/20 10:00 03/26/20 10:35 Insulin Glargine 100 Units/Ml SUB-Q 22 units QAM FAVIOLA Administration Insulin Human Regular 0 unit 03/24/20 12:00 03/26/20 13:00 Insulin Regular, Human 100 Unit/Ml 3ml Vial SUB-Q 4 unit Q6HR FAVIOLA Administration Protocol Methylprednisolone Sodium Succinate 60 mg 03/23/20 13:00 03/26/20 13:01 Methylprednisolone Sod Succinate 125 Mg/2 Ml Inj IV 60 mg Q6HR FAVIOLA Administration Multi-Ingred Cream/Lotion/Oil/Oint 1 applic 03/23/20 22:42 Mineral Oil/Petrolatum, White Ophth Oint 3.5 Gm OU Q4HR PRN Dry Eye(s) Ondansetron HCl 4 mg 03/19/20 16:16 Ondansetron 4 Mg/2 Ml Inj IV Q8H PRN Nausea And Vomiting Simple Syrup 15 ml 03/25/20 11:39 Simple Syrup 15 Ml FEEDTUBE PRN PRN Hypoglycemia Simple Syrup 30 ml 03/25/20 11:39 Simple Syrup 15 Ml FEEDTUBE PRN PRN Hypoglycemia Sodium Bicarbonate 325 mg 03/25/20 11:39 Sodium Bicarbonate 325 Mg Tab FEEDTUBE PRN PRN For Clogged Feeding Tube Sodium Chloride 10 ml 03/19/20 22:00 03/26/20 10:00 Sodium Chloride 0.9% 10 Ml Flush Syringe IV 10 ml BID FAVIOLA Administration Sodium Chloride 10 ml 03/19/20 16:16 Sodium Chloride 0.9% 10 Ml Flush Syringe IV PRN PRN LINE FLUSH Zinc Sulfate 220 mg 03/20/20 14:00 03/26/20 10:36 Zinc Sulfate 220 Mg Cap PO 220 mg BID FAVIOLA Administration Nutrition/Malnutrition Assess - Dietary Evaluation Nutrition/Malnutrition Findings: Nutrition Notes Start: 03/24/20 11:40 Freq: Status: Active Protocol: Document 03/25/20 11:44 AB (Rec: 03/25/20 11:50 AB [id number]) Co-Sign 03/25/20 11:44 LP Nutrition Notes Need for Assessment generated from: MD Order Initial or Follow up Reassessment Current Diagnosis Sepsis,Hypertension Other Pertinent Diagnosis acute respiratory failure, pneumonia Current Diet NPO Labs/Tests 03/24 BUN 27, Cr 0.7 03/25 POC BG 298 Pertinent Medications Reviewed Height 5 ft 11 in Weight 78.9 kg [place] Body Weight (kg) 78.18 BMI 24.3 Weight Status Appropriate Subjective/Other Information MD order for a write/manage TF . Per chart, pt had NGT placed . Pt observed in proned position. Percent of energy/protein needs met: 0%/0% Burn Absent Trauma Absent GI Symptoms None Food Allergy No Current % PO Negligible Minimum of two criteria No physical signs of malnutrition #1 Nutrition Diagnosis Inadequate oral intake Diagnosis Progress(for reassessment Continues documentation) Is patient on ventilator? Yes Is Patient Ambulatory and/or Out of Bed No REE-([facility]-confined to bed) 1943.264 Calculation Used for Recommendations [facility] Additional Notes Protein: 95-158 g (1.2-2 g/kg) Fluid: 1 ml/kcal Nutrition Intervention Change Diet Order: TF Nutrition Support: Change to Vital AF 1.2 at 65 ml/hr (goal rate) Flush with 100 ml q4h Kcal 1,872 Protein (gm) 117 Fluid (mL) 1,265 Goal #1 TF start/tolerance Anticipated Discharge Needs: Unable to determine at this time Follow-Up By: 03/29/20 Additional Comments F/U for TF rate/tolerance
--- NOTE | 2020-03-26 17:29 | Cat Scan Report ---
CT head/brain wo con INDICATION: Stroke. TECHNIQUE: Head CT without contrast. All CT scans at this location are performed using CT dose reduction for ALA RA by means of automated exposure control. COMPARISON: Head CT on 03/24/2020 FINDINGS: There is continued maturation in the bilateral CAPONIZER territory infarcts as well as multifocal infarcts in the left cerebellar hemisphere. There is a small 5 mm focus of hemorrhage along the lateral left o ccipital lobe. There is no adverse mass effect or hydrocephalus. There is no additional acute abnorma lity. IMPRESSION: 1. Continued maturation in multifocal posterior circulation infarcts, without worsening mass effect. Small 5 mm focus of hemorrhage is seen along the left lateral occipital lobe. Signer Name: Misbah Ragsdale MD Signed: 03/26/2020 5:25 PM Workstation Name: [id number]
--- NOTE | 2020-03-26 19:58 | XRay Report ---
CHEST 1 VIEW 03/26/2020 7:38 PM INDICATION / CLINICAL INFORMATION: follow up respiratory failure. COMPARISON: 03/25/2020 FINDINGS: SUPPORT DEVICES: Endotracheal tube and nasogastric tube appear unchanged HEART / MEDIASTINUM: Pneumomediastinum appears unchanged LUNGS / PLEURA: There is increased airspace opacity in the right lower lung zone remaining pulmonary opacities appear unchanged No pneumothorax is seen. ADDITIONAL FINDINGS: Subcutaneous air is again noted IMPRESSION: 1. There is increased airspace opacity in the right lung base. There is no other significant change. Signer Name: Tone tSiles MD Signed: 03/26/2020 7:53 PM Workstation Name: [id number]
[2020-03-27] MEDS: fentaNYL DRIP Premix 2,000 MCG/100 ML BAG IV SCH ×2 (06:14→18:13)
[2020-03-27] MEDS: methylPREDNISolone Sod Succinate 125 MG/2 ML INJ IV SCH ×4 (06:15→23:39)
[2020-03-27] MEDS: INSULIN REGULAR, HUMAN 100 UNIT/ML 3ML VIAL SUB-Q SCH ×4 (06:16→23:39)
--- NOTE | 2020-03-27 08:05 | Progress Note ---
Assessment and Plan Assessment and plan: -- Sepsis due to COVID19 infection cont iv steroid, remdesivir, supplemental O2 Patient now hypoxemic intubated. Severe sepsis secondary to COVID-19 pneumonia. -- Acute hypoxemic respiratory failure due to covid19 PNA Supplemental oxygen, nebulizer therapy, pulse oximetry, pulmonary toilet, supportive care. Will need to obtain CT scan head and neck. Patient has crepitus in neck area and increased rhonchi. -- Covid19 PNA IV steroid therapy, prophylactic anticoagulation, prone positioning while in bed, supplemental oxygen, pulse oximetry, nebulizer therapy, contact precautions, isolation precaution, supportive care. remdesivir for 5 days -ve SARS-CoV-2 IgG: ordered for convalescent plasma --DM type 2 started on long acting insulin along with SSI Uncontrolled. Will increase long-acting Lantus at this time. --Bacteremia, likely contamination 1 out of 2 blood cx +ve for gm+ve cocci s/p iv vanco, repeat blood cx negative -- Hypertension Monitor blood pressure every shift, continue medical management The high probability of a clinically significant, sudden or life threatening deterioration of the [] system(s) required my full and direct attention, intervention and personal management. The aggregate critical care time was [34] minutes. This time is in addition to time spent performing reported procedures but includes the following: [x] Data Review and interpretation [x] Patient assessment and monitoring of vital signs [x] Documentation [x] Medication orders and management Subjective Date of service: 03/24/20 Principal diagnosis: Severe COVID-19 Interval history: : Positive for COVID 4 days ago before admission. started on dexamethasone iv. ID consulted. ordered for remdesivir. follow inflammatory markers. Start on vancomycin for positive blood culture -we will follow final result 03/21: ordered repeat blood cx. -ve SARS-CoV-2 IgG, ordered for convalescent plasma. patient remains on high flow O2. cont to adjust insulin dose for better glycemic control 03/22: Patient remains on high flow O2, ordered for pulmonary consult, CTA chest and bilateral lower extremity Doppler. Continue to follow inflammatory markers. Pending convalescent plasma transfusion 03/23: pending convalescent plasma transfusion. remains on high flow O2. s/p l aisx 40mg today. cont remdesivir and steroid. Le doppler neg for PE. on 35L with 100% FiO2 - poor prognostic factor 03/24 patient overnight episode altered mental status hypoxemia requiring intubation. At present patient in the prone position intubated remains unresponsive with altered mental status despite being only on 1 cal fentanyl. 03/25/2020; patient is intubated and sedated, on mechanical ventilation. From prone positioning when I saw the patient. Patient has altered mental status and CT head was done yesterday and significant for acute bilateral CVA, left cerebral hemispheres, both thalamus, occipital with mass-effect and teleneurology was consulted. Teleneurology recommend to transfer to another facility and I called [facility] transfer line and pending the call back. Our neurosurgeon was also consulted and agreed with the transfer. It is difficult to get an accepting facility given the current pandemic, limited bed availability especially in the ICU. 03/26/2020; patient is intubated and sedated and on mechanical ventilation with FiO2 of 100%. Patient was on prone position. I have a long discussion with his sister about transferring to another facility. I called [facility] transfer on 03/25/2020 and discussed with Neurointensivist Dr Dea Cordon and Neurosurgeon Dr Hector Wellington after explained to the the clinical condition and told them the CT and CTA head findings impression read by our radiologist both of them agreed that the patient is not a candidate for any neuro intervention. Said the damage is extensive and prognosis is very poor. I also told them the recommendations neurosurgeon at [facility] Dr Gaurav berry recommendations for the transfer. I also called other facilities including [facility] and because of the pandemic most of the ICU beds are full and I could not find any accepting facility. I also discussed with neurosurgeon Dr. Berry here at [facility]. I talk with her daughter about the poor prognosis and further plan of care, she wants him to be full code and thinking once his respiratory condition is improving she said she will take him to [facility] if they can do surgery. At this time prognosis is very poor and is not stable enough to be transferred or to do any surgery. His daughter wants plasma to be given to the patient and I called ID and he does not think it will help him much but okay to give it to him if the family requested. 03/27/2020; I have also tried to call [facility] yesterday to transfer the patient and the neurosurgeon said did not have any capacity to accept the patient and he said call back tomorrow to place the patient on waiting list. Plans discussed in detail with his Sister Asad. His blood sugar level was very high and I increase his Lantus from 22units to 30 units and added 10 units of Humalog AC. I have discussed with his sister asad and she says she is going to get a ccepting facility. From my side already called the nearby hospitals who have neurosurgery capability but declined because of patient's poor prognosis. I have also discussed the neurosurgery here Dr. Gaurav Berry and he said patient's prognosis is very poor and no point to transfer the patient. He said he is going to talk to patient's sister problem and I gave her number. [phone]. History Interval history: Patient was seen and evaluated this morning Patient was intubated, sedated and on mechanical ventilation Hospitalist Physical - Physical exam Narrative exam: Patient is intubated and sedated The patient appeared well nourished and normally developed. Vital signs as documented. Head exam is unremarkable. No scleral icterus . Neck is without jugular venous distension, thyromegaly, or carotid bruits. Lungs are clear to auscultation. Cardiac exam reveals regular rate and Rhythm. Abdominal exam reveals normal bowel sounds, nontender, no organomegaly. Extremities are nonedematous and both femoral and pedal pulses are normal. ZINC PLATER: Patient is sedated - Constitutional Vitals: Temp Pulse Resp BP Pulse Ox 99.3 F 113 H 16 119/78 97 03/27/20 03:33 03/27/20 06:00 03/27/20 06:00 03/27/20 06:00 03/27/20 06:00 General appearance: Present: other (Altered mental status unresponsive.) Results - Labs CBC & Chem 7: 03/27/20 10:52 03/27/20 10:52 Labs: Laboratory Last Values WBC 5.7 K/mm3 (4.5-11.0) 03/26/20 05:09 RBC 5.12 M/mm3 (3.65-5.03) H 03/26/20 05:09 Hgb 16.4 gm/dl (11.8-15.2) H 03/26/20 05:09 Hct 48.5 % (35.5-45.6) H 03/26/20 05:09 MCV 95 fl (84-94) H 03/26/20 05:09 MCH 32 pg (28-32) 03/26/20 05:09 MCHC 34 % (32-34) 03/26/20 05:09 RDW 13.7 % (13.2-15.2) 03/26/20 05:09 Plt Count 128 K/mm3 (140-440) L 03/26/20 05:09 Lymph % (Auto) 13.5 % (13.4-35.0) 03/19/20 14:13 Falls % (Auto) 1.0 % (0.0-7.3) 03/26/20 05:09 Eos % (Auto) 0.0 % (0.0-4.3) 03/26/20 05:09 Baso % (Auto) 0.2 % (0.0-1.8) 03/19/20 14:13 Lymph # (Auto) 0.8 K/mm3 (1.2-5.4) L 03/19/20 14:13 Falls # (Auto) 0.1 K/mm3 (0.0-0.8) 03/26/20 05:09 Eos # (Auto) 0.0 K/mm3 (0.0-0.4) 03/26/20 05:09 Baso # (Auto) 0.0 K/mm3 (0.0-0.1) 03/26/20 05:09 Add Manual Diff Complete 03/26/20 05:09 Total Counted 100 03/26/20 05:09 Seg Neutrophils % [employer] Program Director 03/26/20 05:09 Seg Neuts % (Manual) 91.0 % (40.0-70.0) H 03/26/20 05:09 Band Neutrophils % 5.0 % 03/26/20 05:09 Lymphocytes % (Manual) 3.0 % (13.4-35.0) L 03/26/20 05:09 Monocytes % (Manual) 1.0 % (0.0-7.3) 03/26/20 05:09 Nucleated RBC % Not Reportable 03/26/20 05:09 Seg Neutrophils # 5.6 K/mm3 (1.8-7.7) 03/26/20 05:09 Seg Neutrophils # Man 5.2 K/mm3 (1.8-7.7) 03/26/20 05:09 Band Neutrophils # 0.3 K/mm3 03/26/20 05:09 Lymphocytes # (Manual) 0.2 K/mm3 (1.2-5.4) L 03/26/20 05:09 Abs React Lymphs (Man) 0.0 K/mm3 03/26/20 05:09 Monocytes # (Manual) 0.1 K/mm3 (0.0-0.8) 03/26/20 05:09 Eosinophils # (Manual) 0.0 K/mm3 (0.0-0.4) 03/26/20 05:09 Basophils # (Manual) 0.0 K/mm3 (0.0-0.1) 03/26/20 05:09 Metamyelocytes # 0.0 K/mm3 03/26/20 05:09 Myelocytes # 0.0 K/mm3 03/26/20 05:09 Promyelocytes # 0.0 K/mm3 03/26/20 05:09 Blast Cells # 0.0 K/mm3 03/26/20 05:09 WBC Morphology Not Reportable 03/26/20 05:09 Hypersegmented Neuts Not Reportable 03/26/20 05:09 Hyposegmented Neuts Not Reportable 03/26/20 05:09 Hypogranular Neuts Not Reportable 03/26/20 05:09 Smudge Cells Not Reportable 03/26/20 05:09 Toxic Granulation Not Reportable 03/26/20 05:09 Toxic Vacuolation Not Reportable 03/26/20 05:09 Dohle Bodies Not Reportable 03/26/20 05:09 Pelger-Huet Anomaly Not Reportable 03/26/20 05:09 Madeleine Rods Not Reportable 03/26/20 05:09 Platelet Estimate Consistent w auto 03/26/20 05:09 Clumped Platelets Not Reportable 03/26/20 05:09 Plt Clumps, EDTA Not Reportable 03/26/20 05:09 Large Platelets Not Reportable 03/26/20 05:09 Giant Platelets Not Reportable 03/26/20 05:09 Platelet Satelliting Not Reportable 03/26/20 05:09 Plt Morphology Comment Not Reportable 03/26/20 05:09 RBC Morphology Normal 03/26/20 05:09 Dimorphic RBCs Not Reportable 03/26/20 05:09 Polychromasia Not Reportable 03/26/20 05:09 Hypochromasia Not Reportable 03/26/20 05:09 Poikilocytosis Not Reportable 03/26/20 05:09 Anisocytosis Not Reportable 03/26/20 05:09 Microcytosis Not Reportable 03/26/20 05:09 Macrocytosis Not Reportable 03/26/20 05:09 Spherocytes Not Reportable 03/26/20 05:09 Pappenheimer Bodies Not Reportable 03/26/20 05:09 Sickle Cells Not Reportable 03/26/20 05:09 Target Cells Not Reportable 03/26/20 05:09 Tear Drop Cells Not Reportable 03/26/20 05:09 Ovalocytes Not Reportable 03/26/20 05:09 Helmet Cells Not Reportable 03/26/20 05:09 [place] Bodies Not Reportable 03/26/20 05:09 Holly Rings Not Reportable 03/26/20 05:09 [place] Cells Not Reportable 03/26/20 05:09 Bite Cells Not Reportable 03/26/20 05:09 Crenated Cell Not Reportable 03/26/20 05:09 Elliptocytes Not Reportable 03/26/20 05:09 Acanthocytes (Spur) Not Reportable 03/26/20 05:09 Rouleaux Not Reportable 03/26/20 05:09 Hemoglobin C Crystals Not Reportable 03/26/20 05:09 Schistocytes Not Reportable 03/26/20 05:09 Malaria parasites Not Reportable 03/26/20 05:09 Leland Bodies Not Reportable 03/26/20 05:09 Hem Pathologist Commnt No 03/26/20 05:09 D-Dimer > 95431 ng/mlDDU (0-234) H 03/24/20 20:01 ABG pH 7.346 (7.320-7.450) 03/26/20 18:16 POC ABG pCO2 46.2 mmHg (32.0-48.0) 03/26/20 18:16 POC ABG pO2 90.6 mmHg (83-108) 03/26/20 18:16 POC ABG HCO3 24.7 03/26/20 18:16 POC ABG Base Excess -1.4 03/26/20 18:16 ABG Hemoglobin 16.2 (12.0-17.5) 03/26/20 18:16 ABG Oxyhemoglobin 95.4 (94-98) 03/26/20 18:16 ABG Methemoglobin 0.3 (0.0-1.5) 03/26/20 18:16 ABG Sodium 143.4 mmol/L (136.0-145.0) 03/26/20 18:16 ABG Potassium 4.8 mmol/L (3.40-4.50) H 03/26/20 18:16 ABG Chloride 107.0 mmol/L (98-107) 03/26/20 18:16 ABG Glucose 422 mg/dL (65-95) H 03/26/20 18:16 Carboxyhemoglobin 1.1 (0.5-1.5) 03/26/20 18:16 FiO2 100 03/26/20 18:16 Sodium 145 mmol/L (137-145) 03/26/20 05:09 Potassium 4.1 mmol/L (3.6-5.0) 03/26/20 05:09 Chloride 106.3 mmol/L (98-107) 03/26/20 05:09 Carbon Dioxide 25 mmol/L (22-30) 03/26/20 05:09 Anion Gap 18 mmol/L 03/26/20 05:09 BUN 57 mg/dL (9-20) H 03/26/20 05:09 Creatinine 0.9 mg/dL (0.8-1.3) 03/26/20 05:09 Estimated GFR > 60 ml/min 03/26/20 05:09 BUN/Creatinine Ratio 63 % 03/26/20 05:09 Glucose 302 mg/dL (75-100) H 03/26/20 05:09 POC Glucose 376 mg/dL (70-105) H 03/27/20 05:21 Osmolality 311 Mosm/kg 03/21/20 13:43 Lactic Acid 1.70 mmol/L (0.7-2.0) 03/19/20 23:24 Calcium 9.1 mg/dL (8.4-10.2) 03/26/20 05:09 Ferritin 1233.0 ng/mL (30.0-300.0) H 03/24/20 20:01 Total Bilirubin 1.20 mg/dL (0.1-1.2) 03/25/20 22:40 Direct Bilirubin < 0.2 mg/dL (0-0.2) 03/23/20 05:48 Indirect Bilirubin 0.4 mg/dL 03/23/20 05:48 AST 26 units/L (5-40) 03/25/20 22:40 ALT 28 units/L (7-56) 03/25/20 22:40 Alkaline Phosphatase 92 units/L (35-129) 03/25/20 22:40 Lactate Dehydrogenase 619 units/L (91-180) H 03/24/20 20:01 C-Reactive Protein 12.90 mg/dL (0.00-1.30) H 03/24/20 20:01 Total Protein 6.0 g/dL (6.3-8.2) L 03/25/20 22:40 Albumin 3.1 g/dL (3.9-5) L 03/25/20 22:40 Albumin/Globulin Ratio 1.1 % 03/25/20 22:40 Procalcitonin 0.13 ng/mL (<0.15) 03/22/20 10:47 Arterial Blood Glucose 422 mg/dL (65-95) H 03/26/20 18:16 Arterial Blood Ionized Calcium 4.9 mg/dL (4.6-5.3) 03/26/20 18:16 Urine Color Yellow (Yellow) 03/20/20 05:28 Urine Turbidity Clear (Clear) 03/20/20 05:28 Urine pH 6.0 (5.0-7.0) 03/20/20 05:28 Ur Specific [place] 1.029 (1.003-1.030) 03/20/20 05:28 Urine Protein <15 mg/dl mg/dL (Negative) 03/20/20 05:28 Urine Glucose (UA) >=500 mg/dL (Negative) 03/20/20 05:28 Urine Ketones 20 mg/dL (Negative) 03/20/20 05:28 Urine Blood Neg (Negative) 03/20/20 05:28 Urine Nitrite Neg (Negative) 03/20/20 05:28 Urine Bilirubin Neg (Negative) 03/20/20 05:28 Urine Urobilinogen < 2.0 mg/dL (<2.0) 03/20/20 05:28 Ur Leukocyte Esterase Neg (Negative) 03/20/20 05:28 Urine WBC (Auto) 1.0 /HPF (0.0-6.0) 03/20/20 05:28 Urine RBC (Auto) 1.0 /HPF (0.0-6.0) 03/20/20 05:28 Coronavirus (PCR) Positive (Negative) A 03/20/20 05:28 SARS-CoV-2 IgG Ab Nonreactive (NonReactive) 03/20/20 17:49 Blood Type AB POSITIVE 03/20/20 17:49 Antibody Screen Negative 03/20/20 17:49 Microbiology: Microbiology 03/21/20 19:21 Peripheral/Venous Blood Culture - Final NO GROWTH AFTER 5 DAYS 03/21/20 19:21 Peripheral/Venous Blood Culture - Final NO GROWTH AFTER 5 DAYS 03/24/20 02:14 Tracheal Aspirate Sputum Culture - Final [place]/IV: Voiding Method Condom Catheter IV Catheter Type [Left Upper INT / Saline Lock arm] IV Catheter Type [Right Hand] INT / Saline Lock IV Catheter Type [Left Peripheral IV Antecubital] Active Medications - Current Medications Current Medications: Generic Name Dose Route Start Last Admin Trade Name Freq PRN Reason Stop Dose Admin Acetaminophen 650 mg 03/19/20 16:16 Acetaminophen 325 Mg Tab PO Q4H PRN Pain MILD(1-3)/Fever >100.5/ROSS Albuterol 2.5 mg 03/19/20 16:16 Albuterol 2.5 Mg/3 Ml Nebu IH Q4HRT PRN Shortness Of Breath Lipase/Protease/Amylase 1 each 03/25/20 11:39 Lipase 10,500/Protease 25,000/Amylase 43,750 (Units) Dr Chou FEEDTUBE PRN PRN For Clogged Feeding Tube Ascorbic Acid 1,000 mg 03/20/20 14:00 03/26/20 21:56 Ascorbic Acid 500 Mg Tab PO 1,000 mg BID FAVIOLA Administration Cholecalciferol 5,000 unit 03/20/20 14:00 03/26/20 10:36 Cholecalciferol (Vit D3) 5,000 Unit Tab PO 5,000 unit DAILY FAVIOLA Administration Clopidogrel Bisulfate 75 mg 03/26/20 10:00 03/26/20 10:36 Clopidogrel 75 Mg Tab PO 75 mg QDAY FAVIOLA Administration Famotidine 20 mg 03/25/20 10:00 03/26/20 21:56 Famotidine 20 Mg/2 Ml Inj IV 20 mg BID FAVIOLA Administration Fentanyl 50 mcg 03/23/20 22:42 03/25/20 12:01 Fentanyl 100 Mcg/2 Ml Inj IV 50 mcg Q10MIN PRN Administration ANALGESIA Hydromorphone HCl 0.25 mg 03/19/20 16:16 03/23/20 15:27 Hydromorphone 1 Mg/1 Ml Inj IV 0.25 mg Q4H PRN Administration Pain, Moderate (4-6) Hydrophilic Ointment 1 applic 03/23/20 22:42 Lip Therapy Vaseline TP Q2HR PRN Dry Lips Fentanyl Citrate 2,000 mcg in 100 mls @ 3.92 mls/hr 03/23/20 23:00 03/27/20 06:14 Fentanyl Drip Premix IV 2 mcg/kg/hr TITR FAVIOLA 7.84 mls/hr Administration Protocol 1 MCG/KG/HR Insulin Glargine 30 units 03/27/20 07:58 Insulin Glargine 100 Units/Ml SUB-Q QAM [facility] Insulin Human Lispro 10 unit 03/27/20 11:30 Insulin Lispro 100 Unit/Ml Vial 3 Ml SUB-Q AC [facility] Insulin Human Regular 0 unit 03/24/20 12:00 03/27/20 06:16 Insulin Regular, Human 100 Unit/Ml 3ml Vial SUB-Q 10 unit Q6HR [facility] Administration Protocol Methylprednisolone Sodium Succinate 60 mg 03/23/20 13:00 03/27/20 06:15 Methylprednisolone Sod Succinate 125 Mg/2 Ml Inj IV 60 mg Q6HR [facility] Administration Multi-Ingred Cream/Lotion/Oil/Oint 1 applic 03/23/20 22:42 Mineral Oil/Petrolatum, White Ophth Oint 3.5 Gm OU Q4HR PRN Dry Eye(s) Ondansetron HCl 4 mg 03/19/20 16:16 Ondansetron 4 Mg/2 Ml Inj IV Q8H PRN Nausea And Vomiting Simple Syrup 15 ml 03/25/20 11:39 Simple Syrup 15 Ml FEEDTUBE PRN PRN Hypoglycemia Simple Syrup 30 ml 03/25/20 11:39 Simple Syrup 15 Ml FEEDTUBE PRN PRN Hypoglycemia Sodium Bicarbonate 325 mg 03/25/20 11:39 Sodium Bicarbonate 325 Mg Tab FEEDTUBE PRN PRN For Clogged Feeding Tube Sodium Chloride 10 ml 03/19/20 22:00 03/26/20 10:00 Sodium Chloride 0.9% 10 Ml Flush Syringe IV 10 ml BID AFVIOLA Administration Sodium Chloride 10 ml 03/19/20 16:16 Sodium Chloride 0.9% 10 Ml Flush Syringe IV PRN PRN LINE FLUSH Zinc Sulfate 220 mg 03/20/20 14:00 03/26/20 21:56 Zinc Sulfate 220 Mg Cap PO 220 mg BID FAVIOLA Administration Nutrition/Malnutrition Assess - Dietary Evaluation Nutrition/Malnutrition Findings: Nutrition Notes Start: 03/24/20 11:40 Freq: Status: Active Protocol: Document 03/25/20 11:44 AB (Rec: 03/25/20 11:50 AB [id number]) Co-Sign 03/25/20 11:44 LP Nutrition Notes Need for Assessment generated from: MD Order Initial or Follow up Reassessment Current Diagnosis Sepsis,Hypertension Other Pertinent Diagnosis acute respiratory failure, pneumonia Current Diet NPO Labs/Tests 03/24 BUN 27, Cr 0.7 03/25 POC BG 298 Pertinent Medications Reviewed Height 5 ft 11 in Weight 78.9 kg [place] Body Weight (kg) 78.18 BMI 24.3 Weight Status Appropriate Subjective/Other Information MD order for a write/manage TF . Per chart, pt had NGT placed . Pt observed in proned position. Percent of energy/protein needs met: 0%/0% Burn Absent Trauma Absent GI Symptoms None Food Allergy No Current % PO Negligible Minimum of two criteria No physical signs of malnutrition #1 Nutrition Diagnosis Inadequate oral intake Diagnosis Progress(for reassessment Continues documentation) Is patient on ventilator? Yes Is Patient Ambulatory and/or Out of Bed No REE-([facility]-confined to bed) 1944.264 Calculation Used for Recommendations [facility] Additional Notes Protein: 95-158 g (1.2-2 g/kg) Fluid: 1 ml/kcal Nutrition Intervention Change Diet Order: TF Nutrition Support: Change to Vital AF 1.2 at 65 ml/hr (goal rate) Flush with 100 ml q4h Kcal 1,872 Protein (gm) 117 Fluid (mL) 1,265 Goal #1 TF start/tolerance Anticipated Discharge Needs: Unable to determine at this time Follow-Up By: 03/29/20 Additional Comments F/U for TF rate/tolerance
[2020-03-27] MEDS: ZINC SULFATE 220 MG CAP PO SCH ×2 (10:27→21:58)
[2020-03-27] MEDS: ASCORBIC ACID 500 MG TAB PO SCH ×2 (10:27→21:57)
[2020-03-27] MEDS: CHOLECALCIFEROL (VIT D3) 5,000 UNIT TAB PO SCH (10:27)
[2020-03-27] MEDS: CLOPIDOGREL 75 MG TAB PO SCH (10:27)
[2020-03-27] MEDS: FAMOTIDINE 20 MG/2 ML INJ IV SCH ×2 (10:28→21:57)
[2020-03-27] MEDS: INSULIN LISPRO 100 UNIT/ML VIAL 3 mL SUB-Q SCH ×2 (10:29→18:12)
[2020-03-27] MEDS: INSULIN GLARGINE 100 UNITS/ML SUB-Q SCH (10:29)
[2020-03-27] MEDS ORDERED: fentaNYL 100 MCG/2 ML INJ IV ONE (11:00)
[2020-03-27 11:18] LABS: Hematocrit 47.9 % (35.5-45.6); Mean Corpuscular HGB Conc 33 % (32-34); Mean Corpuscular Volume 96 fl (84-94); Platelet Count 102 K/mm3 (140-440); Red Blood Count 5.02 M/mm3 (3.65-5.03)
[2020-03-27 11:38] LABS: BUN/Creatinine Ratio 63; Blood Urea Nitrogen 69 mg/dL (9-20); Calcium 8.8 mg/dL (8.4-10.2); Hemolysis Index 15
--- NOTE | 2020-03-27 11:41 | Progress Note ---
Assessment and Plan 59 y/o male with acute hypoxic respiratory failure secondary to COVID 19 with prior history of tobacco abuse. 1. No further proning. Will wean FiO2 for sats >88% and PaO2>55 2. Neurology and Neurosurgery have both seen and evaluated patient. They both recommend transfer to a neurospecialized facility. The hospitalist had diligently tried to get the patient transferred but [facility] has declined the patient. Per the sister (Charlene) she is working to get patient transfered. I explained to her that her brother is in the intensive care unit and he would need to be transferred to another intensive care unit and that the physician mus t have privileges to admit to the ICU. 3. Continue steroids at current dosing 4. Pharmacy has adjusted insulin 5. Finished remdesivir 6. Guarded prognosis, especially with head CT findings. CCT 31 minutes. Subjective Date of service: 03/27/20 Principal diagnosis: Severe COVID-19 Interval history: Still no beds available for transfer. mental state is unchanged. When proned requires sedations. No further proning after today. Objective Vital Signs - 12hr 03/26/20 03/26/20 03/27/20 23:44 23:46 00:00 Temperature 100 F H Pulse Rate 120 H 121 H Pulse Rate [ 141 H From Monitor] Respiratory 18 Rate Blood Pressure 121/87 125/86 O2 Sat by Pulse 94 93 Oximetry 03/27/20 03/27/20 03/27/20 01:00 02:00 03:09 Temperature Pulse Rate 124 H 124 H 175 H Pulse Rate [ From Monitor] Respiratory 17 16 17 Rate Blood Pressure 113/83 111/83 119/74 O2 Sat by Pulse 94 92 96 Oximetry 03/27/20 03/27/20 03/27/20 03:33 03:42 04:00 Temperature 99.3 F Pulse Rate 147 H 142 H Pulse Rate [ 113 H From Monitor] Respiratory 20 Rate Blood Pressure 109/58 105/68 O2 Sat by Pulse 98 99 Oximetry 03/27/20 03/27/20 03/27/20 05:00 06:00 09:11 Temperature Pulse Rate 120 H 113 H 108 H Pulse Rate [ From Monitor] Respiratory 17 16 Rate Blood Pressure 110/65 119/78 109/75 O2 Sat by Pulse 97 97 99 Oximetry CBC and BMP: 03/27/20 10:52 03/27/20 10:52 ABG, PT/INR, D-dimer: ABG ABG pH 7.346 (7.320-7.450) 03/26/20 18:16 POC ABG pCO2 46.2 mmHg (32.0-48.0) 03/26/20 18:16 POC ABG pO2 90.6 mmHg (83-108) 03/26/20 18:16 POC ABG HCO3 24.7 03/26/20 18:16 PT/INR, D-dimer D-Dimer > 18923 ng/mlDDU (0-234) H 03/24/20 20:01 Abnormal lab findings: Abnormal Labs 03/19/20 03/19/20 03/19/20 14:13 14:13 14:13 WBC RBC Hgb Hct MCV MCHC 35 H Plt Count [place] % (Auto) 11.6 H Lymph # (Auto) 0.8 L Seg Neutrophils % 74.7 H Seg Neuts % (Manual) Lymphocytes % (Manual) Seg Neutrophils # Man Lymphocytes # (Manual) D-Dimer ABG pH POC ABG pO2 ABG Oxyhemoglobin ABG Potassium ABG Glucose Sodium Chloride BUN Creatinine Glucose 204 H POC Glucose Lactic Acid 2.30 H* Ferritin AST Lactate Dehydrogenase C-Reactive Protein Total Protein Albumin Arterial Blood Glucose Arterial Blood Ionized Calcium Coronavirus (PCR) 03/19/20 03/19/20 03/19/20 14:13 15:35 15:35 WBC RBC Hgb Hct MCV MCHC Plt Count [place] % (Auto) Lymph # (Auto) Seg Neutrophils % Seg Neuts % (Manual) Lymphocytes % (Manual) Seg Neutrophils # Man Lymphocytes # (Manual) D-Dimer 658.20 H ABG pH POC ABG pO2 ABG Oxyhemoglobin ABG Potassium ABG Glucose Sodium Chloride BUN Creatinine Glucose POC Glucose Lactic Acid Ferritin 722.2 H AST 62 H Lactate Dehydrogenase C-Reactive Protein Total Protein Albumin 3.6 L Arterial Blood Glucose Arterial Blood Ionized Calcium Coronavirus (PCR) 03/20/20 03/20/20 03/20/20 05:28 12: 16:31 WBC RBC Hgb Hct MCV MCHC Plt Count [place] % (Auto) Lymph # (Auto) Seg Neutrophils % Seg Neuts % (Manual) Lymphocytes % (Manual) Seg Neutrophils # Man Lymphocytes # (Manual) D-Dimer ABG pH POC ABG pO2 ABG Oxyhemoglobin ABG Potassium ABG Glucose Sodium Chloride BUN Creatinine Glucose POC Glucose 270 H 306 H Lactic Acid Ferritin AST Lactate Dehydrogenase C-Reactive Protein Total Protein Albumin Arterial Blood Glucose Arterial Blood Ionized Calcium Coronavirus (PCR) Positive A 03/20/20 03/21/20 03/21/20 20:28 08:26 09:03 WBC RBC Hgb Hct MCV MCHC Plt Count [place] % (Auto) Lymph # (Auto) Seg Neutrophils % Seg Neuts % (Manual) Lymphocytes % (Manual) Seg Neutrophils # Man Lymphocytes # (Manual) D-Dimer ABG pH POC ABG pO2 ABG Oxyhemoglobin ABG Potassium ABG Glucose Sodium Chloride 110.5 H BUN 23 H Creatinine Glucose 168 H POC Glucose 320 H 159 H Lactic Acid Ferritin AST 42 H Lactate Dehydrogenase C-Reactive Protein Total Protein 6.1 L Albumin 2.8 L Arterial Blood Glucose Arterial Blood Ionized Calcium Coronavirus (PCR) 03/21/20 03/21/20 03/21/20 12:26 20:08 22:45 WBC RBC Hgb Hct MCV MCHC Plt Count [place] % (Auto) Lymph # (Auto) Seg Neutrophils % Seg Neuts % (Manual) Lymphocytes % (Manual) Seg Neutrophils # Man Lymphocytes # (Manual) D-Dimer ABG pH POC ABG pO2 ABG Oxyhemoglobin ABG Potassium ABG Glucose Sodium Chloride BUN Creatinine Glucose POC Glucose 190 H 375 H 248 H Lactic Acid Ferritin AST Lactate Dehydrogenase C-Reactive Protein Total Protein Albumin Arterial Blood Glucose Arterial Blood Ionized Calcium Coronavirus (PCR) 03/22/20 03/22/20 03/22/20 07:56 10:47 10:47 WBC RBC Hgb Hct MCV MCHC Plt Count [place] % (Auto) Lymph # (Auto) Seg Neutrophils % Seg Neuts % (Manual) Lymphocytes % (Manual) Seg Neutrophils # Man Lymphocytes # (Manual) D-Dimer 855.69 H ABG pH POC ABG pO2 ABG Oxyhemoglobin ABG Potassium ABG Glucose Sodium Chloride BUN Creatinine Glucose POC Glucose 147 H Lactic Acid Ferritin 717.5 H AST Lactate Dehydrogenase C-Reactive Protein Total Protein Albumin Arterial Blood Glucose Arterial Blood Ionized Calcium Coronavirus (PCR) 03/22/20 03/22/20 03/22/20 10:47 11:28 16:32 WBC RBC Hgb Hct MCV MCHC Plt Count [place] % (Auto) Lymph # (Auto) Seg Neutrophils % Seg Neuts % (Manual) Lymphocytes % (Manual) Seg Neutrophils # Man Lymphocytes # (Manual) D-Dimer ABG pH POC ABG pO2 ABG Oxyhemoglobin ABG Potassium ABG Glucose Sodium Chloride BUN Creatinine Glucose POC Glucose 187 H 238 H Lactic Acid Ferritin AST Lactate Dehydrogenase 569 H C-Reactive Protein 6.70 H Total Protein Albumin Arterial Blood Glucose Arterial Blood Ionized Calcium Coronavirus (PCR) 03/22/20 03/23/20 03/23/20 21:03 05:48 06:17 WBC RBC Hgb Hct MCV MCHC Plt Count [place] % (Auto) Lymph # (Auto) Seg Neutrophils % Seg Neuts % (Manual) Lymphocytes % (Manual) Seg Neutrophils # Man Lymphocytes # (Manual) D-Dimer ABG pH POC ABG pO2 ABG Oxyhemoglobin ABG Potassium ABG Glucose Sodium Chloride BUN Creatinine Glucose POC Glucose 204 H 163 H Lactic Acid Ferritin AST Lactate Dehydrogenase C-Reactive Protein Total Protein 5.7 L Albumin 2.6 L Arterial Blood Glucose Arterial Blood Ionized Calcium Coronavirus (PCR) 03/23/20 03/23/20 03/23/20 10:27 17:04 21:53 WBC RBC Hgb Hct MCV MCHC Plt Count [place] % (Auto) Lymph # (Auto) Seg Neutrophils % Seg Neuts % (Manual) Lymphocytes % (Manual) Seg Neutrophils # Man Lymphocytes # (Manual) D-Dimer ABG pH POC ABG pO2 ABG Oxyhemoglobin ABG Potassium ABG Glucose Sodium Chloride BUN Creatinine Glucose POC Glucose 160 H 253 H 274 H Lactic Acid Ferritin AST Lactate Dehydrogenase C-Reactive Protein Total Protein Albumin Arterial Blood Glucose Arterial Blood Ionized Calcium Coronavirus (PCR) 03/23/20 03/23/20 03/24/20 23:02 23:44 02:58 WBC RBC Hgb Hct MCV MCHC Plt Count [place] % (Auto) Lymph # (Auto) Seg Neutrophils % Seg Neuts % (Manual) Lymphocytes % (Manual) Seg Neutrophils # Man Lymphocytes # (Manual) D-Dimer ABG pH 7.472 H POC ABG pO2 48.2 L 260.5 H ABG Oxyhemoglobin 98.4 H ABG Potassium ABG Glucose 319 H 287 H Sodium Chloride BUN Creatinine Glucose POC Glucose 216 H Lactic Acid Ferritin AST Lactate Dehydrogenase C-Reactive Protein Total Protein Albumin Arterial Blood Glucose 319 H 287 H Arterial Blood Ionized Calcium 4.5 L Coronavirus (PCR) 03/24/20 03/24/20 03/24/20 07:31 07:31 08:10 WBC 14.9 H RBC Hgb Hct MCV MCHC 35 H Plt Count [place] % (Auto) Lymph # (Auto) Seg Neutrophils % Seg Neuts % (Manual) Lymphocytes % (Manual) Seg Neutrophils # Man Lymphocytes # (Manual) D-Dimer ABG pH POC ABG pO2 ABG Oxyhemoglobin ABG Potassium ABG Glucose Sodium Chloride BUN 27 H Creatinine 0.7 L Glucose 305 H POC Glucose 259 H Lactic Acid Ferritin AST Lactate Dehydrogenase C-Reactive Protein Total Protein Albumin Arterial Blood Glucose Arterial Blood Ionized Calcium Coronavirus (PCR) 03/24/20 03/24/20 03/24/20 12:07 17:07 20:01 WBC RBC Hgb Hct MCV MCHC Plt Count [place] % (Auto) Lymph # (Auto) Seg Neutrophils % Seg Neuts % (Manual) Lymphocytes % (Manual) Seg Neutrophils # Man Lymphocytes # (Manual) D-Dimer > 51654 H ABG pH POC ABG pO2 ABG Oxyhemoglobin ABG Potassium ABG Glucose Sodium Chloride BUN Creatinine Glucose POC Glucose 306 H 306 H Lactic Acid Ferritin AST Lactate Dehydrogenase C-Reactive Protein Total Protein Albumin Arterial Blood Glucose Arterial Blood Ionized Calcium Coronavirus (PCR) 03/24/20 03/24/20 03/24/20 20:01 20:01 21:24 WBC RBC Hgb Hct MCV MCHC Plt Count [place] % (Auto) Lymph # (Auto) Seg Neutrophils % Seg Neuts % (Manual) Lymphocytes % (Manual) Seg Neutrophils # Man Lymphocytes # (Manual) D-Dimer ABG pH POC ABG pO2 ABG Oxyhemoglobin ABG Potassium ABG Glucose Sodium Chloride BUN Creatinine Glucose POC Glucose 321 H Lactic Acid Ferritin 1233.0 H AST Lactate Dehydrogenase 619 H C-Reactive Protein 12.90 H Total Protein Albumin Arterial Blood Glucose Arterial Blood Ionized Calcium Coronavirus (PCR) 03/25/20 03/25/20 03/25/20 01:46 05:36 07:02 WBC 16.4 H RBC Hgb 15.4 H Hct 46.8 H MCV 96 H MCHC Plt Count 127 L [place] % (Auto) Lymph # (Auto) Seg Neutrophils % Seg Neuts % (Manual) 98.0 H Lymphocytes % (Manual) Seg Neutrophils # Man 16.1 H Lymphocytes # (Manual) 0.0 L D-Dimer ABG pH POC ABG pO2 ABG Oxyhemoglobin ABG Potassium ABG Glucose Sodium Chloride BUN Creatinine Glucose POC Glucose 302 H 298 H Lactic Acid Ferritin AST Lactate Dehydrogenase C-Reactive Protein Total Protein Albumin Arterial Blood Glucose Arterial Blood Ionized Calcium Coronavirus (PCR) 03/25/20 03/25/20 03/25/20 11:27 13:16 17:12 WBC RBC Hgb Hct MCV MCHC Plt Count [place] % (Auto) Lymph # (Auto) Seg Neutrophils % Seg Neuts % (Manual) Lymphocytes % (Manual) Seg Neutrophils # Man Lymphocytes # (Manual) D-Dimer ABG pH POC ABG pO2 ABG Oxyhemoglobin ABG Potassium ABG Glucose Sodium Chloride BUN 52 H Creatinine Glucose 294 H POC Glucose 267 H 261 H Lactic Acid Ferritin AST Lactate Dehydrogenase C-Reactive Protein Total Protein 6.0 L Albumin 2.7 L Arterial Blood Glucose Arterial Blood Ionized Calcium Coronavirus (PCR) 03/25/20 03/25/20 03/25/20 21:33 22:40 23:46 WBC RBC Hgb Hct MCV MCHC Plt Count [place] % (Auto) Lymph # (Auto) Seg Neutrophils % Seg Neuts % (Manual) Lymphocytes % (Manual) Seg Neutrophils # Man Lymphocytes # (Manual) D-Dimer ABG pH POC ABG pO2 ABG Oxyhemoglobin ABG Potassium ABG Glucose Sodium Chloride BUN 57 H Creatinine Glucose 326 H POC Glucose 265 H 321 H Lactic Acid Ferritin AST Lactate Dehydrogenase C-Reactive Protein Total Protein 6.0 L Albumin 3.1 L Arterial Blood Glucose Arterial Blood Ionized Calcium Coronavirus (PCR) 03/26/20 03/26/20 03/26/20 05:09 05:09 05:20 WBC RBC 5.12 H Hgb 16.4 H Hct 48.5 H MCV 95 H MCHC Plt Count 128 L [place] % (Auto) Lymph # (Auto) Seg Neutrophils % Seg Neuts % (Manual) 91.0 H Lymphocytes % (Manual) 3.0 L Seg Neutrophils # Man Lymphocytes # (Manual) 0.2 L D-Dimer ABG pH POC ABG pO2 ABG Oxyhemoglobin ABG Potassium ABG Glucose Sodium Chloride BUN 57 H Creatinine Glucose 302 H POC Glucose 245 H Lactic Acid Ferritin AST Lactate Dehydrogenase C-Reactive Protein Total Protein Albumin Arterial Blood Glucose Arterial Blood Ionized Calcium Coronavirus (PCR) 03/26/20 03/26/20 03/26/20 11:50 16:51 18:16 WBC RBC Hgb Hct MCV MCHC Plt Count [place] % (Auto) Lymph # (Auto) Seg Neutrophils % Seg Neuts % (Manual) Lymphocytes % (Manual) Seg Neutrophils # Man Lymphocytes # (Manual) D-Dimer ABG pH POC ABG pO2 ABG Oxyhemoglobin ABG Potassium 4.8 H ABG Glucose 422 H Sodium Chloride BUN Creatinine Glucose POC Glucose 225 H 352 H Lactic Acid Ferritin AST Lactate Dehydrogenase C-Reactive Protein Total Protein Albumin Arterial Blood Glucose 422 H Arterial Blood Ionized Calcium Coronavirus (PCR) 03/26/20 03/27/20 03/27/20 23:29 05:21 10:52 WBC 11.8 H RBC Hgb 16.0 H Hct 47.9 H MCV 96 H MCHC Plt Count 102 L [place] % (Auto) Lymph # (Auto) Seg Neutrophils % Seg Neuts % (Manual) Lymphocytes % (Manual) Seg Neutrophils # Man Lymphocytes # (Manual) D-Dimer ABG pH POC ABG pO2 ABG Oxyhemoglobin ABG Potassium ABG Glucose Sodium Chloride BUN Creatinine Glucose POC Glucose 367 H 376 H Lactic Acid Ferritin AST Lactate Dehydrogenase C-Reactive Protein Total Protein Albumin Arterial Blood Glucose Arterial Blood Ionized Calcium Coronavirus (PCR) 03/27/20 10:52 WBC RBC Hgb Hct MCV MCHC Plt Count [place] % (Auto) Lymph # (Auto) Seg Neutrophils % Seg Neuts % (Manual) Lymphocytes % (Manual) Seg Neutrophils # Man Lymphocytes # (Manual) D-Dimer ABG pH POC ABG pO2 ABG Oxyhemoglobin ABG Potassium ABG Glucose Sodium 149 H Chloride 109.3 H BUN 69 H Creatinine Glucose POC Glucose Lactic Acid Ferritin AST Lactate Dehydrogenase C-Reactive Protein Total Protein Albumin Arterial Blood Glucose Arterial Blood Ionized Calcium Coronavirus (PCR)
[2020-03-27 12:22] LABS: Band Neutrophils # (Manual) 0.4 K/mm3; Platelet Estimate Consistent w Auto; RBC Morphology Normal; Total Cells Counted 100
--- NOTE | 2020-03-27 13:54 | Progress Note ---
Assessment and Plan Cultures: Blood culture 03/19/2020 coagulase-negative staph 1 out of 4 bottles SARS CoV2 PCR positive SARS Covid 2 IgG negative Blood cultures 03/21/2020 no growth Tracheal aspirate 2020-03-24: Usual respiratory bernard Assessment: 59 year old male with history of hypertension and COVID-19 diagnosed 4 days before admission, admitted on 03/19/2020 secondary to a week history of dry cough, shortness of breath, loss of smell and taste, body aches, dyspnea on exertion: #Severe sepsis: likely due to bilateral pneumonia. #Acute bilateral CVA: CT with CVA involving left cerebral hemisphere, both thalamus, both occipital, positive mass-effect. #Large pneumomediastinum with extensive subcutaneous emphysema #Critical COVID pneumonia: on vent. #Acute hypoxemic respiratory failure: intubated, proning. #Elevated LFTs: from COVID #Coagulase-negative in blood cultures: Likely a contaminant. Recommendations: -Completed remdesivir -CCP pending, may or may not benefit -Steroids per ICU -Monitor inflammatory markers - ferritin, Ddimer, CRP, LDH recheck today -Continue anticoagulation per System Protocol -Poor prognosis Eva Kenny MD, FACP [facility] O: [phone] F: [phone] Subjective Date of service: 03/27/20 Principal diagnosis: Severe COVID-19 Interval history: T-max 100 F. Remains on the vent, prone ventilation. Objective - Exam Narrative Exam: Physical Exam (reviewed in chart to minimize risk of transmission) Constitutional: deferred Head, Ears, Nose: deferred Eyes: deferred Neck: deferred Oral: deferred Cardiovascular: deferred Respiratory: deferred GI: deferred Musculoskeletal: deferred Skin: deferred Hem/Lymphatic: deferred Psych: deferred Neurological: deferred - Constitutional Vitals: Vital Signs Temp Pulse Resp BP Pulse Ox 99.3 F 136 H 18 103/70 99 03/27/20 03:33 03/27/20 12:56 03/27/20 12:00 03/27/20 12:56 03/27/20 12:56 Temperature -Last 24 Hours Temperature 99.3 F Temperature 100 F Temperature 98.9 F - Labs CBC & Chem 7: 03/27/20 10:52 12/20/20 10:52 Labs: Abnormal lab results 03/26/20 03/26/20 03/26/20 Range/Units 16:51 18:16 23:29 WBC (4.5-11.0) K/mm3 Hgb (11.8-15.2) gm/dl Hct (35.5-45.6) % MCV (84-94) fl Plt Count (140-440) K/mm3 Seg Neuts % (Manual) (40.0-70.0) % Lymphocytes % (Manual) (13.4-35.0) % Seg Neutrophils # Man (1.8-7.7) K/mm3 Lymphocytes # (Manual) (1.2-5.4) K/mm3 ABG Potassium 4.8 H (3.40-4.50) mmol/L ABG Glucose 422 H (65-95) mg/dL Sodium (137-145) mmol/L Potassium (3.6-5.0) mmol/L Chloride (98-107) mmol/L BUN (9-20) mg/dL Glucose (75-100) mg/dL POC Glucose 352 H 367 H (70-105) mg/dL Arterial Blood Glucose 422 H (65-95) mg/dL 03/27/20 03/27/20 03/27/20 Range/Units 05:21 10:52 10:52 WBC 11.8 H (4.5-11.0) K/mm3 Hgb 16.0 H (11.8-15.2) gm/dl Hct 47.9 H (35.5-45.6) % MCV 96 H (84-94) fl Plt Count 102 L (140-440) K/mm3 Seg Neuts % (Manual) 93.0 H (40.0-70.0) % Lymphocytes % (Manual) 1.0 L (13.4-35.0) % Seg Neutrophils # Man 11.0 H (1.8-7.7) K/mm3 Lymphocytes # (Manual) 0.1 L (1.2-5.4) K/mm3 ABG Potassium (3.40-4.50) mmol/L ABG Glucose (65-95) mg/dL Sodium 149 H (137-145) mmol/L Potassium 5.1 H D (3.6-5.0) mmol/L Chloride 109.3 H (98-107) mmol/L BUN 69 H (9-20) mg/dL Glucose 512 H* (75-100) mg/dL POC Glucose 376 H (70-105) mg/dL Arterial Blood Glucose (65-95) mg/dL 03/27/20 Range/Units 11:46 WBC (4.5-11.0) K/mm3 Hgb (11.8-15.2) gm/dl Hct (35.5-45.6) % MCV (84-94) fl Plt Count (140-440) K/mm3 Seg Neuts % (Manual) (40.0-70.0) % Lymphocytes % (Manual) (13.4-35.0) % Seg Neutrophils # Man (1.8-7.7) K/mm3 Lymphocytes # (Manual) (1.2-5.4) K/mm3 ABG Potassium (3.40-4.50) mmol/L ABG Glucose (65-95) mg/dL Sodium (137-145) mmol/L Potassium (3.6-5.0) mmol/L Chloride (98-107) mmol/L BUN (9-20) mg/dL Glucose (75-100) mg/dL POC Glucose 446 H (70-105) mg/dL Arterial Blood Glucose (65-95) mg/dL - Imaging and cardiology Chest x-ray: report reviewed, image reviewed (subcut emphysema, pneumonia)
--- NOTE | 2020-03-27 15:21 | Discharge Summary ---
Providers - Providers Date of Admission: 03/19/20 16:33 Attending physician: DEN BROOKS MD 03/20/20 13:40 Consult to Physician [CONS] Routine Comment: Consulting Provider: AARON FRANKEL Physician Instructions: Reason For Exam: covid 19 03/22/20 09:39 Consult to Physician [CONS] Routine Comment: Consulting Provider: NICOLE ESPINOZA Physician Instructions: Reason For Exam: acute respiratory failure 03/23/20 22:42 Consult to Dietitian/Nutrition [CONS] Routine Physician Instructions: Reason For Exam: Reason for Consult: Evaluate nutritional intake 03/24/20 10:38 Midline [Consult to PICC Line RN] [CONS] Urgent Reason For Exam: IV medication needs Type Line:: Midline 03/25/20 10:17 Consult to Physician [CONS] Urgent Comment: Consulting Provider: BETTIE ELKINS Physician Instructions: Reason For Exam: Stroke, altered mental state 03/25/20 10:33 Consult to Dietitian/Nutrition [CONS] Routine Physician Instructions: Reason For Exam: Reason for Consult: Write/Manage Tube Feeding Primary care physician: JESSICA BARAJAS Hospitalization Condition: Stable Disposition: [id number]/[place]-[id number] ANOTHER [facility] Time spent for discharge: 45 minutes - Discharge Diagnoses (1) Cerebrovascular accident involving posterior circulation Status: Acute (2) Acute hypoxemic respiratory failure Status: Acute (3) Acute respiratory failure due to COVID-19 Status: Acute Core Measure Documentation - Palliative Care Palliative Care/ Comfort Measures: Not Applicable - Core Measures Any of the following diagnoses?: stroke - Stroke Discharge Requirements Statin for LDL = or >70 mg/dl on DC: Not Applicable Reason for no statin on DC: Not Indicated Anticoag for atrial fib/atrial flutter: Not Applicable Reason for no anticoag for AF/F on DC: Not Indicated Antithrombotic for ischemic stroke: No Reason for no antithrombotic on DC: Not Indicated (patient is going to another facility) Exam - Physical Exam Narrative exam: Patient is intubated and sedated The patient appeared well nourished and normally developed. Vital signs as documented. Head exam is unremarkable. No scleral icterus . Neck is without jugular venous distension, thyromegaly, or carotid bruits. Lungs are clear to auscultation. Cardiac exam reveals regular rate and Rhythm. Abdominal exam reveals normal bowel sounds, nontender, no organomegaly. Extremities are nonedematous and both femoral and pedal pulses are normal. TUBE WINDER HAND: Patient is sedated - Constitutional Vitals: Temp Pulse Resp BP Pulse Ox 99.3 F 136 H 18 103/70 99 03/27/20 03:33 03/27/20 12:56 03/27/20 12:00 03/27/20 12:56 03/27/20 12:56 Plan Follow up with: PRIMARY CARE, [Referring] - 3-5 Days
--- NOTE | 2020-03-27 15:39 | Discharge Summary ---
Providers - Providers Date of Admission: 03/19/20 16:33 Date of discharge: 03/27/20 Attending physician: DEN BROOKS MD 03/20/20 13:40 Consult to Physician [CONS] Routine Comment: Consulting Provider: AARON FRANKEL Physician Instructions: Reason For Exam: covid 19 03/22/20 09:39 Consult to Physician [CONS] Routine Comment: Consulting Provider: NICOLE ESPINOZA Physician Instructions: Reason For Exam: acute respiratory failure 03/23/20 22:42 Consult to Dietitian/Nutrition [CONS] Routine Physician Instructions: Reason For Exam: Reason for Consult: Evaluate nutritional intake 03/24/20 10:38 Midline [Consult to PICC Line RN] [CONS] Urgent Reason For Exam: IV medication needs Type Line:: Midline 03/25/20 10:17 Consult to Physician [CONS] Urgent Comment: Consulting Provider: BETTIE ELKINS Physician Instructions: Reason For Exam: Stroke, altered mental state 03/25/20 10:33 Consult to Dietitian/Nutrition [CONS] Routine Physician Instructions: Reason For Exam: Reason for Consult: Write/Manage Tube Feeding Primary care physician: JESSICA BARAJAS Hospitalization Reason for admission: acute hypoxic respiratory failure, Covid-19 infection Condition: Critical Pertinent studies: ct head, CTA head and neck Hospital course: 59 YO Male with HTN presents to ED for evaluation. Patient states that he has experienced "shortness of breath" for the past 1 week with persistently worsening symptoms over the same timeframe days. Patient underwent a coronavirus test as an outpatient 4 days ago and was found to have coronavirus infection. Pt acknowledges dry cough, shortness of breath, loss of sense of smell, loss of sense of taste, fatigue, malaise, body aches, and decreased exercise tolerance. EMS notified and upon arrival the patient was found to be in distress and subsequently transported to [facility] for further care and evaluation of the aforementioned symptoms. Patient seen and evaluated in the emergency department. All lab and imaging studies reviewed. Patient found to have lactic acidosis, tachycardia with heart rate of 105, tachypnea with a respiratory rate of 34, and a pulse oximetry of 84% with exertion while on room air which is consistent with acute hypoxemic respiratory failure. Patient underwent chest x-ray which revealed bilateral pneumonia complicated by sepsis. Patient admitted to medical floor and initiated on sepsis protocol, pneumonia protocol as well as coronavirus protocol. Pt denies chest pain, palpitation, skin rash, recent ill contacts, trauma. No medication listed at time of admission. No prior admission for review. Advanced care planning conducted in ED. Hospital course -- Sepsis due to COVID19 infection cont iv steroid, remdesivir, supplemental O2 Patient now hypoxemic intubated. Severe sepsis secondary to COVID-19 pneumonia. -- Acute hypoxemic respiratory failure due to covid19 PNA Supplemental oxygen, nebulizer therapy, pulse oximetry, pulmonary toilet, supportive care. Will need to obtain CT scan head and neck. Patient has crepitus in neck area and increased rhonchi. -- Covid19 PNA IV steroid therapy, prophylactic anticoagulation, prone positioning while in bed, supplemental oxygen, pulse oximetry, nebulizer therapy, contact precautions, isolation precaution, supportive care. remdesivir for 5 days -ve SARS-CoV-2 IgG: ordered for convalescent plasma --DM type 2 started on long acting insulin along with SSI Uncontrolled. Will increase long-acting Lantus at this time. --Bacteremia, likely contamination 1 out of 2 blood cx +ve for gm+ve cocci s/p iv vanco, repeat blood cx negative -- Hypertension Monitor blood pressure every shift, continue medical management : Positive for COVID 4 days ago before admission. started on dexamethasone iv. ID consulted. ordered for remdesivir. follow inflammatory markers. Start on vancomycin for positive blood culture -we will follow final result 03/21: ordered repeat blood cx. -ve SARS-CoV-2 IgG, ordered for convalescent plasma. patient remains on high flow O2. cont to adjust insulin dose for better glycemic control 03/22: Patient remains on high flow O2, ordered for pulmonary consult, CTA chest and bilateral lower extremity Doppler. Continue to follow inflammatory markers. Pending convalescent plasma transfusion 03/23: pending convalescent plasma transfusion. remains on high flow O2. s/p laisx 40mg today. cont remdesivir and steroid. Le doppler neg for PE. on 35L with 100% FiO2 - poor prognostic factor 03/24 patient overnight episode altered mental status hypoxemia requiring intubation. At present patient in the prone position intubated remains unresponsive with altered mental status despite being only on 1 cal fentanyl. 03/25/2020; patient is intubated and sedated, on mechanical ventilation. From prone positioning when I saw the patient. Patient has altered mental status and CT head was done yesterday and significant for acute bilateral CVA, left cerebral hemispheres, both thalamus, occipital with mass-effect and teleneurology was consulted. Teleneurology recommend to transfer to another facility and I called [facility] line and pending the call back. Our neurosurgeon was also consulted and agreed with the transfer. It is difficult to get an accepting facility given the current pandemic, limited bed availability especially in the ICU. 03/26/2020; patient is intubated and sedated and on mechanical ventilation with FiO2 of 100%. Patient was on prone position. I have a long discussion with his sister about transferring to another facility. I called [facility] on 03/25/2020 and discussed with Neurointensivist Dr Dae Cordon and Neurosurgeon Dr Hector Wellington after explained to the the clinical condition and told them the CT and CTA head findings impression read by our radiologist both of them agreed that the patient is not a candidate for any neuro intervention. Said the damage is extensive and prognosis is very poor. I also told them the recommendations neurosurgeon at [facility] Dr Gaurav berry recommendations for the transfer. I also called other facilities including [facility] and because of the pandemic most of the ICU beds are full and I could not find any accepting facility. I also discussed with neurosurgeon Dr. Berry here at [facility]. I talk with her daughter about the poor prognosis and further plan of care, she wants him to be full code and thinking once his respiratory condition is improving she said she will take him to [facility] if they can do surgery. At this time prognosis is very poor and is not stable enough to be transferred or to do any surgery. His daughter wants plasma to be given to the patient and I called ID and he does not think it will help him much but okay to give it to him if the family requested. 03/27/2020; I have also tried to call [facility] yesterday to transfer the patient and the neurosurgeon said did not have any capacity to accept the patient and he said call back tomorrow to place the patient on waiting list. Plans discussed in detail with his Sister Asad. His blood sugar level was very high and I increase his Lantus from 22units to 30 units and added 10 units of Humalog AC. I have discussed with his sister asad and she says she is going to get accepting facility. From my side already called the nearby hospitals who have neurosurgery capability but declined because of patient's poor prognosis. I have also discussed the neurosurgery here Dr. Gaurav Berry and he said patient's prognosis is very poor and no point to transfer the patient. He said he is going to talk to patient's sister problem and I gave her number. . Patient's daughter find accepting Neurosurgeon at [facility] Dr Avinash Cabral, I have called and discussed with him in detail and agreed with the treatment plan. He said he is unlikely to do any surgery but he will accept the patient because family request. Contacted the [facility] and will take the patient when bed is ready. patient is intubated and on MV with fio2 of 100%. Patient was treated with covid-19. patient has very poor prognosis. I have discussed with my team the patient need to be airlifted. Disposition: [id number]/[id number] ANOTHER TYPE THCARE Time spent for discharge: 45 minutes - Discharge Diagnoses (1) Cerebrovascular accident involving posterior circulation Status: Acute (2) Acute hypoxemic respiratory failure Status: Acute (3) Acute respiratory failure due to COVID-19 Status: Acute Core Measure Documentation - Palliative Care Palliative Care/ Comfort Measures: Not Applicable - Core Measures Any of the following diagnoses?: stroke - Stroke Discharge Requirements Statin for LDL = or >70 mg/dl on DC: Not Applicable Reason for no statin on DC: Not Indicated Anticoag for atrial fib/atrial flutter: Not Applicable Reason for no anticoag for AF/F on DC: Not Indicated Antithrombotic for ischemic stroke: No Reason for no antithrombotic on DC: Not Indicated (patient transferred to [facility]) Exam - Physical Exam Narrative exam: Patient is intubated and sedated The patient appeared well nourished and normally developed. Vital signs as documented. Head exam is unremarkable. No scleral icterus . Neck is without jugular venous distension, thyromegaly, or carotid bruits. Lungs are clear to auscultation. Cardiac exam reveals regular rate and Rhythm. Abdominal exam reveals normal bowel sounds, nontender, no organomegaly. Extremities are nonedematous and both femoral and pedal pulses are normal. 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
[2020-03-27] MEDS: ASPIRIN 81 MG TAB CHEW PO SCH (16:36)
[2020-03-27] MEDS: fentaNYL 100 MCG/2 ML INJ IV PRN (18:11)
[2020-03-28] MEDS: fentaNYL DRIP Premix 2,000 MCG/100 ML BAG IV SCH ×2 (02:34→17:58)
[2020-03-28] MEDS: dilTIAZem/D5W 100 MG/100 ML BAG IV SCH ×3 (02:52→21:09)
[2020-03-28 05:10] LABS: ABG Base Excess 3.4 mmol/L (-2.0-3.0); ABG Methemoglobin 0.6 % (0.0-1.5); ABG Oxygen Saturation 98.9 % (95.0-99.0); ABG PCO2 58.1 mm Hg; ABG PH 7.346 pH Units (7.350-7.450)
[2020-03-28] MEDS: methylPREDNISolone Sod Succinate 125 MG/2 ML INJ IV SCH (06:19)
[2020-03-28] MEDS: INSULIN REGULAR, HUMAN 100 UNIT/ML 3ML VIAL SUB-Q SCH ×3 (06:19→17:59)
[2020-03-28 08:14] LABS: Hematocrit 48.4 % (35.5-45.6); Hemoglobin 16.3 gm/dl (11.8-15.2); Mean Corpuscular HGB Conc 34 % (32-34); Mean Corpuscular Volume 95 fl (84-94); Platelet Count 124 K/mm3 (140-440); Red Blood Count 5.08 M/mm3 (3.65-5.03)
[2020-03-28 08:35] LABS: BUN/Creatinine Ratio 69; Blood Urea Nitrogen 76 mg/dL (9-20); Calcium 9.2 mg/dL (8.4-10.2); Hemolysis Index 22
--- NOTE | 2020-03-28 09:07 | Progress Note ---
Assessment and Plan Assessment and plan: -- Sepsis due to COVID19 infection cont iv steroid, remdesivir, supplemental O2 Patient now hypoxemic intubated. Severe sepsis secondary to COVID-19 pneumonia. -- Acute hypoxemic respiratory failure due to covid19 PNA Supplemental oxygen, nebulizer therapy, pulse oximetry, pulmonary toilet, supportive care. Will need to obtain CT scan head and neck. Patient has crepitus in neck area and increased rhonchi. -- Covid19 PNA IV steroid therapy, prophylactic anticoagulation, prone positioning while in bed, supplemental oxygen, pulse oximetry, nebulizer therapy, contact precautions, isolation precaution, supportive care. remdesivir for 5 days -ve SARS-CoV-2 IgG: ordered for convalescent plasma --DM type 2 started on long acting insulin along with SSI Uncontrolled. Will increase long-acting Lantus at this time. --Bacteremia, likely contamination 1 out of 2 blood cx +ve for gm+ve cocci s/p iv vanco, repeat blood cx negative -- Hypertension Monitor blood pressure every shift, continue medical management The high probability of a clinically significant, sudden or life threatening deterioration of the [] system(s) required my full and direct attention, intervention and personal management. The aggregate critical care time was [34] minutes. This time is in addition to time spent performing reported procedures but includes the following: [x] Data Review and interpretation [x] Patient assessment and monitoring of vital signs [x] Documentation [x] Medication orders and management Subjective Date of service: 03/24/20 Principal diagnosis: Severe COVID-19 Interval history: : Positive for COVID 4 days ago before admission. started on dexamethasone iv. ID consulted. ordered for remdesivir. follow inflammatory markers. Start on vancomycin for positive blood culture -we will follow final result 03/21: ordered repeat blood cx. -ve SARS-CoV-2 IgG, ordered for convalescent plasma. patient remains on high flow O2. cont to adjust insulin dose for better glycemic control 03/22: Patient remains on high flow O2, ordered for pulmonary consult, CTA chest and bilateral lower extremity Doppler. Continue to follow inflammatory markers. Pending convalescent plasma transfusion 03/23: pending convalescent plasma transfusion. remains on high flow O2. s/p l aisx 40mg today. cont remdesivir and steroid. Le doppler neg for PE. on 35L with 100% FiO2 - poor prognostic factor 03/24 patient overnight episode altered mental status hypoxemia requiring intubation. At present patient in the prone position intubated remains unresponsive with altered mental status despite being only on 1 cal fentanyl. 03/25/2020; patient is intubated and sedated, on mechanical ventilation. From prone positioning when I saw the patient. Patient has altered mental status and CT head was done yesterday and significant for acute bilateral CVA, left cerebral hemispheres, both thalamus, occipital with mass-effect and teleneurology was consulted. Teleneurology recommend to transfer to another facility and I called [facility] transfer line and pending the call back. Our neurosurgeon was also consulted and agreed with the transfer. It is difficult to get an accepting facility given the current pandemic, limited bed availability especially in the ICU. 03/26/2020; patient is intubated and sedated and on mechanical ventilation with FiO2 of 100%. Patient was on prone position. I have a long discussion with his sister about transferring to another facility. I called [facility] on 03/25/2020 and discussed with Neurointensivist Dr Dae Cordon and Neurosurgeon Dr Hector Wellington after explained to the the clinical condition and told them the CT and CTA head findings impression read by our radiologist both of them agreed that the patient is not a candidate for any neuro intervention. Said the damage is extensive and prognosis is very poor. I also told them the recommendations [facility]sur[facility] Dr Gaurav berry recommendations for the transfer. I also called other facilities including [facility] and because of the pandemic most of the ICU beds are full and I could not find any accepting facility. I also discussed with neurosurgeon Dr. Berry here at [facility]. I talk with her daughter about the poor prognosis and further plan of care, she wants him to be full code and thinking once his respiratory condition is improving she said she will take him to [facility] if they can do surgery. At this time prognosis is very poor and is not stable enough to be transferred or to do any surgery. His daughter wants plasma to be given to the patient and I called ID and he does not think it will help him much but okay to give it to him if the family requested. 03/27/2020; I have also tried to call [facility] yesterday to transfer the patient and the neurosurgeon said did not have any capacity to accept the patient and he said call back tomorrow to place the patient on waiting list. Plans discussed in detail with his Sister Asad. His blood sugar level was very high and I increase his Lantus from 22units to 30 units and added 10 units of Humalog AC. I have discussed with his sister asad and she says she is going to get a ccepting facility. From my side already called the nearby hospitals who have neurosurgery capability but declined because of patient's poor prognosis. I have also discussed the neurosurgery here Dr. Gaurav Berry and he said patient's prognosis is very poor and no point to transfer the patient. He said he is going to talk to patient's sister problem and I gave her number. [phone]. 03/28/2020; yesterday I discussed with Dr. Avinash Cabral neurosurgeon at [facility] and he accepted the patient. But [facility] called me and said they did not have any bed but patient is on the waiting list. - Patient Problems (1) Cerebrovascular accident involving posterior circulation Current Visit: Yes Status: Acute (2) Acute hypoxemic respiratory failure Current Visit: Yes Status: Acute (3) Acute respiratory failure due to COVID-19 Current Visit: Yes Status: Acute History Interval history: Patient was seen and evaluated this morning Patient was intubated, sedated and on mechanical ventilation Hospitalist Physical - Physical exam Narrative exam: Patient is intubated and sedated The patient appeared well nourished and normally developed. Vital signs as documented. Head exam is unremarkable. No scleral icterus . Neck is without jugular venous distension, thyromegaly, or carotid bruits. Lungs are clear to auscultation. Cardiac exam reveals regular rate and Rhythm. Abdominal exam reveals normal bowel sounds, nontender, no organomegaly. Extremities are nonedematous and both femoral and pedal pulses are normal. [employer] OFFICER: Patient is sedated - Constitutional Vitals: Temp Pulse Resp BP Pulse Ox 98.2 F 104 H 30 H 117/79 98 03/28/20 08:00 03/28/20 08:30 03/28/20 08:30 03/28/20 08:30 03/28/20 08:30 General appearance: Present: other (Altered mental status unresponsive.) Results - Labs CBC & Chem 7: 03/28/20 07:24 03/28/20 07:24 Labs: Laboratory Last Values WBC 17.9 K/mm3 (4.5-11.0) H 03/28/20 07:24 RBC 5.08 M/mm3 (3.65-5.03) H 03/28/20 07:24 Hgb 16.3 gm/dl (11.8-15.2) H 03/28/20 07:24 Hct 48.4 % (35.5-45.6) H 03/28/20 07:24 MCV 95 fl (84-94) H 03/28/20 07:24 MCH 32 pg (28-32) 03/28/20 07:24 MCHC 34 % (32-34) 03/28/20 07:24 RDW 14.0 % (13.2-15.2) 03/28/20 07:24 Plt Count 124 K/mm3 (140-440) L 03/28/20 07:24 Lymph % (Auto) 13.5 % (13.4-35.0) 03/19/20 14:13 [place] % (Auto) 1.0 % (0.0-7.3) 03/26/20 05:09 Eos % (Auto) 0.0 % (0.0-4.3) 03/26/20 05:09 Baso % (Auto) 0.2 % (0.0-1.8) 03/19/20 14:13 Lymph # (Auto) 0.8 K/mm3 (1.2-5.4) L 03/19/20 14:13 [place] # (Auto) 0.1 K/mm3 (0.0-0.8) 03/26/20 05:09 Eos # (Auto) 0.0 K/mm3 (0.0-0.4) 03/26/20 05:09 Baso # (Auto) 0.0 K/mm3 (0.0-0.1) 03/26/20 05:09 Add Manual Diff Complete 03/27/20 10:52 Total Counted 100 03/27/20 10:52 Seg Neutrophils % Door Clamper 03/28/20 07:24 Seg Neuts % (Manual) 93.0 % (40.0-70.0) H 03/27/20 10:52 Band Neutrophils % 3.0 % 03/27/20 10:52 Lymphocytes % (Manual) 1.0 % (13.4-35.0) L 03/27/20 10:52 Reactive Lymphs % (Man) 1.0 % 03/27/20 10:52 Monocytes % (Manual) 1.0 % (0.0-7.3) 03/27/20 10:52 Metamyelocytes % 1.0 % 03/27/20 10:52 Nucleated RBC % Not Reportable 03/27/20 10:52 Seg Neutrophils # 5.6 K/mm3 (1.8-7.7) 03/26/20 05:09 Seg Neutrophils # Man 11.0 K/mm3 (1.8-7.7) H 03/27/20 10:52 Band Neutrophils # 0.4 K/mm3 03/27/20 10:52 Lymphocytes # (Manual) 0.1 K/mm3 (1.2-5.4) L 03/27/20 10:52 Abs React Lymphs (Man) 0.1 K/mm3 03/27/20 10:52 Monocytes # (Manual) 0.1 K/mm3 (0.0-0.8) 03/27/20 10:52 Eosinophils # (Manual) 0.0 K/mm3 (0.0-0.4) 03/27/20 10:52 Basophils # (Manual) 0.0 K/mm3 (0.0-0.1) 03/27/20 10:52 Metamyelocytes # 0.1 K/mm3 03/27/20 10:52 Myelocytes # 0.0 K/mm3 03/27/20 10:52 Promyelocytes # 0.0 K/mm3 03/27/20 10:52 Blast Cells # 0.0 K/mm3 03/27/20 10:52 WBC Morphology Not Reportable 03/27/20 10:52 WBC Morphology TNR 03/27/20 10:52 Hypersegmented Neuts Not Reportable 03/27/20 10:52 Hyposegmented Neuts Not Reportable 03/27/20 10:52 Hypogranular Neuts Not Reportable 03/27/20 10:52 Smudge Cells Not Reportable 03/27/20 10:52 Toxic Granulation Not Reportable 03/27/20 10:52 Toxic Vacuolation Not Reportable 03/27/20 10:52 Dohle Bodies Not Reportable 03/27/20 10:52 Pelger-Huet Anomaly Not Reportable 03/27/20 10:52 Madeleine Rods Not Reportable 03/27/20 10:52 Platelet Estimate Consistent w auto 03/27/20 10:52 Clumped Platelets Not Reportable 03/27/20 10:52 Plt Clumps, EDTA Not Reportable 03/27/20 10:52 Large Platelets Not Reportable 03/27/20 10:52 Giant Platelets Not Reportable 03/27/20 10:52 Platelet Satelliting Not Reportable 03/27/20 10:52 Plt Morphology Comment Not Reportable 03/27/20 10:52 RBC Morphology Normal 03/27/20 10:52 Dimorphic RBCs Not Reportable 03/27/20 10:52 Polychromasia Not Reportable 03/27/20 10:52 Hypochromasia Not Reportable 03/27/20 10:52 Poikilocytosis Not Reportable 03/27/20 10:52 Anisocytosis Not Reportable 03/27/20 10:52 Microcytosis Not Reportable 03/27/20 10:52 Macrocytosis Not Reportable 03/27/20 10:52 Spherocytes Not Reportable 03/27/20 10:52 Pappenheimer Bodies Not Reportable 03/27/20 10:52 Sickle Cells Not Reportable 03/27/20 10:52 Target Cells Not Reportable 03/27/20 10:52 Tear Drop Cells Not Reportable 03/27/20 10:52 Ovalocytes Not Reportable 03/27/20 10:52 Helmet Cells Not Reportable 03/27/20 10:52 [place] Bodies Not Reportable 03/27/20 10:52 [place] Rings Not Reportable 03/27/20 10:52 Ivelisse Cells Not Reportable 03/27/20 10:52 Bite Cells Not Reportable 03/27/20 10:52 Crenated Cell Not Reportable 03/27/20 10:52 Elliptocytes Not Reportable 03/27/20 10:52 Acanthocytes (Spur) Not Reportable 03/27/20 10:52 Rouleaux Not Reportable 03/27/20 10:52 Hemoglobin C Crystals Not Reportable 03/27/20 10:52 Schistocytes Not Reportable 03/27/20 10:52 Malaria parasites Not Reportable 03/27/20 10:52 [place] Bodies Not Reportable 03/27/20 10:52 Hem Pathologist Commnt No 03/27/20 10:52 D-Dimer > 33165 ng/mlDDU (0-234) H 03/24/20 20:01 ABG pH 7.346 pH Units (7.350-7.450) L 03/28/20 04:40 POC ABG pCO2 53.4 mmHg (32.0-48.0) H 03/27/20 04:07 ABG pCO2 58.1 mm Hg 03/28/20 04:40 POC ABG pO2 129.5 mmHg (83-108) H 03/27/20 04:07 ABG pO2 166.0 mm Hg (80.0-90.0) H 03/28/20 04:40 POC ABG HCO3 28.3 03/27/20 04:07 ABG HCO3 31.0 mmol/L (20.0-26.0) H 03/28/20 04:40 ABG O2 Saturation 98.9 % (95.0-99.0) 03/28/20 04:40 ABG O2 Content 24.2 (0.0-44) 03/28/20 04:40 POC ABG Base Excess 1.3 03/27/20 04:07 ABG Base Excess 3.4 mmol/L (-2.0-3.0) H 03/28/20 04:40 ABG Hemoglobin 17.4 gm/dl (14.0-18.0) 03/28/20 04:40 ABG Oxyhemoglobin 97.4 (94-98) 03/27/20 04:07 ABG Carboxyhemoglobin 0.7 % (0.0-5.0) 03/28/20 04:40 ABG Methemoglobin 0.6 % (0.0-1.5) 03/28/20 04:40 ABG Sodium 145.6 mmol/L (136.0-145.0) H 03/27/20 04:07 ABG Potassium 4.9 mmol/L (3.40-4.50) H 03/27/20 04:07 ABG Chloride 108.0 mmol/L (98-107) H 03/27/20 04:07 ABG Glucose 475 mg/dL (65-95) H 03/27/20 04:07 Oxyhemoglobin 97.5 % (95.0-99.0) 03/28/20 04:40 Carboxyhemoglobin 0.7 (0.5-1.5) 03/27/20 04:07 FiO2 100 % 03/28/20 04:40 Sodium 151 mmol/L (137-145) H 03/28/20 07:24 Potassium 5.4 mmol/L (3.6-5.0) H 03/28/20 07:24 Chloride 111.5 mmol/L (98-107) H 03/28/20 07:24 Carbon Dioxide 31 mmol/L (22-30) H 03/28/20 07:24 Anion Gap 14 mmol/L 03/28/20 07:24 BUN 76 mg/dL (9-20) H 03/28/20 07:24 Creatinine 1.1 mg/dL (0.8-1.3) 03/28/20 07:24 Estimated GFR > 60 ml/min 03/28/20 07:24 BUN/Creatinine Ratio 69 % 03/28/20 07:24 Glucose 481 mg/dL (75-100) H 03/28/20 07:24 POC Glucose 326 mg/dL (70-105) H 03/28/20 05:05 Osmolality 311 Mosm/kg 03/21/20 13:43 Lactic Acid 1.70 mmol/L (0.7-2.0) 03/19/20 23:24 Calcium 9.2 mg/dL (8.4-10.2) 03/28/20 07:24 Ferritin 1233.0 ng/mL (30.0-300.0) H 03/24/20 20:01 Total Bilirubin 1.20 mg/dL (0.1-1.2) 03/25/20 22:40 Direct Bilirubin < 0.2 mg/dL (0-0.2) 03/23/20 05:48 Indirect Bilirubin 0.4 mg/dL 03/23/20 05:48 AST 26 units/L (5-40) 03/25/20 22:40 ALT 28 units/L (7-56) 03/25/20 22:40 Alkaline Phosphatase 92 units/L (35-129) 03/25/20 22:40 Lactate Dehydrogenase 619 units/L (91-180) H 03/24/20 20:01 C-Reactive Protein 12.90 mg/dL (0.00-1.30) H 03/24/20 20:01 Total Protein 6.0 g/dL (6.3-8.2) L 03/25/20 22:40 Albumin 3.1 g/dL (3.9-5) L 03/25/20 22:40 Albumin/Globulin Ratio 1.1 % 03/25/20 22:40 Procalcitonin 0.13 ng/mL (<0.15) 03/22/20 10:47 Arterial Blood Glucose 475 mg/dL (65-95) H 03/27/20 04:07 Arterial Blood Ionized Calcium 5.0 mg/dL (4.6-5.3) 03/27/20 04:07 Urine Color Yellow (Yellow) 03/20/20 05:28 Urine Turbidity Clear (Clear) 03/20/20 05:28 Urine pH 6.0 (5.0-7.0) 03/20/20 05:28 Ur Specific [place] 1.029 (1.003-1.030) 03/20/20 05:28 Urine Protein <15 mg/dl mg/dL (Negative) 03/20/20 05:28 Urine Glucose (UA) >=500 mg/dL (Negative) 03/20/20 05:28 Urine Ketones 20 mg/dL (Negative) 03/20/20 05:28 Urine Blood Neg (Negative) 03/20/20 05:28 Urine Nitrite Neg (Negative) 03/20/20 05:28 Urine Bilirubin Neg (Negative) 03/20/20 05:28 Urine Urobilinogen < 2.0 mg/dL (<2.0) 03/20/20 05:28 Ur Leukocyte Esterase Neg (Negative) 03/20/20 05:28 Urine WBC (Auto) 1.0 /HPF (0.0-6.0) 03/20/20 05:28 Urine RBC (Auto) 1.0 /HPF (0.0-6.0) 03/20/20 05:28 Coronavirus (PCR) Positive (Negative) A 03/20/20 05:28 SARS-CoV-2 IgG Ab Nonreactive (NonReactive) 03/20/20 17:49 Blood Type AB POSITIVE 12/13/20 17:49 Antibody Screen Negative 03/20/20 17:49 Dodge/IV: Voiding Method Condom Catheter IV Catheter Type [Left Upper INT / Saline Lock arm] IV Catheter Type [Right Hand] INT / Saline Lock IV Catheter Type [Left Peripheral IV Antecubital] Active Medications - Current Medications Current Medications: Generic Name Dose Route Start Last Admin Trade Name Freq PRN Reason Stop Dose Admin Acetaminophen 650 mg 03/19/20 16:16 Acetaminophen 325 Mg Tab PO Q4H PRN Pain MILD(1-3)/Fever >100.5/ROSS Albuterol 2.5 mg 03/19/20 16:16 Albuterol 2.5 Mg/3 Ml Nebu IH Q4HRT PRN Shortness Of Breath Lipase/Protease/Amylase 1 each 03/25/20 11:39 Lipase 10,500/Protease 25,000/Amylase 43,750 (Units) Dr Chou FEEDTUBE PRN PRN For Clogged Feeding Tube Ascorbic Acid 1,000 mg 03/20/20 14:00 03/27/20 21:57 Ascorbic Acid 500 Mg Tab PO 1,000 mg BID FAVIOLA Administration Aspirin 81 mg 03/27/20 14:00 03/27/20 16:36 Aspirin 81 Mg Tab Chew PO 81 mg QDAY FAVIOLA Administration Cholecalciferol 5,000 unit 03/20/20 14:00 03/27/20 10:27 Cholecalciferol (Vit D3) 5,000 Unit Tab PO 5,000 unit DAILY FAVIOLA Administration Clopidogrel Bisulfate 75 mg 03/26/20 10:00 03/27/20 10:27 Clopidogrel 75 Mg Tab PO 75 mg QDAY FAVIOLA Administration Famotidine 20 mg 03/28/20 10:00 Famotidine 20 Mg Tab PO BID FAVIOLA Fentanyl 50 mcg 03/23/20 22:42 03/27/20 18:11 Fentanyl 100 Mcg/2 Ml Inj IV 50 mcg Q10MIN PRN Administration ANALGESIA Hydromorphone HCl 0.25 mg 03/19/20 16:16 03/23/20 15:27 Hydromorphone 1 Mg/1 Ml Inj IV 0.25 mg Q4H PRN Administration Pain, Moderate (4-6) Hydrophilic Ointment 1 applic 03/23/20 22:42 Lip Therapy Vaseline TP Q2HR PRN Dry Lips Fentanyl Citrate 2,000 mcg in 100 mls @ 3.92 mls/hr 03/23/20 23:00 03/28/20 02:34 Fentanyl Drip Premix IV 2 mcg/kg/hr TITR FAVIOLA 7.84 mls/hr Administration Protocol 1 MCG/KG/HR Diltiazem HCl 100 mg in 100 mls @ 5 mls/hr 03/27/20 21:00 03/28/20 03:39 Cardizem/D5w 100mg/100ml IV 10 mg/hr TITR FAVIOLA 10 mls/hr Titration Protocol 5 MG/HR Insulin Glargine 30 units 03/27/20 07:58 03/27/20 10:29 Insulin Glargine 100 Units/Ml SUB-Q 30 units QAM FAVIOLA Administration Insulin Human Lispro 10 unit 03/27/20 11:30 03/27/20 18:12 Insulin Lispro 100 Unit/Ml Vial 3 Ml SUB-Q 10 unit AC FAVIOLA Administration Insulin Human Regular 0 unit 03/24/20 12:00 03/28/20 06:19 Insulin Regular, Human 100 Unit/Ml 3ml Vial SUB-Q 8 unit Q6HR FAVIOLA Administration Protocol Methylprednisolone Sodium Succinate 60 mg 03/23/20 13:00 03/28/20 06:19 Methylprednisolone Sod Succinate 125 Mg/2 Ml Inj IV 60 mg Q6HR FAVIOLA Administration Multi-Ingred Cream/Lotion/Oil/Oint 1 applic 03/23/20 22:42 Mineral Oil/Petrolatum, White Ophth Oint 3.5 Gm OU Q4HR PRN Dry Eye(s) Ondansetron HCl 4 mg 03/19/20 16:16 Ondansetron 4 Mg/2 Ml Inj IV Q8H PRN Nausea And Vomiting Simple Syrup 15 ml 03/25/20 11:39 Simple Syrup 15 Ml FEEDTUBE PRN PRN Hypoglycemia Simple Syrup 30 ml 03/25/20 11:39 Simple Syrup 15 Ml FEEDTUBE PRN PRN Hypoglycemia Sodium Bicarbonate 325 mg 03/25/20 11:39 Sodium Bicarbonate 325 Mg Tab FEEDTUBE PRN PRN For Clogged Feeding Tube Sodium Chloride 10 ml 03/19/20 22:00 03/28/20 07:32 Sodium Chloride 0.9% 10 Ml Flush Syringe IV Not Given BID FAVIOLA Sodium Chloride 10 ml 03/19/20 16:16 Sodium Chloride 0.9% 10 Ml Flush Syringe IV PRN PRN LINE FLUSH Zinc Sulfate 220 mg 03/20/20 14:00 03/27/20 21:58 Zinc Sulfate 220 Mg Cap PO 220 mg BID FAVIOLA Administration Nutrition/Malnutrition Assess - Dietary Evaluation Nutrition/Malnutrition Findings: Nutrition Notes Start: 03/24/20 11:40 Freq: Status: Active Protocol: Document 03/25/20 11:44 AB (Rec: 03/25/20 11:50 AB [id number]) Co-Sign 03/25/20 11:44 LP Nutrition Notes Need for Assessment generated from: MD Order Initial or Follow up Reassessment Current Diagnosis Sepsis,Hypertension Other Pertinent Diagnosis acute respiratory failure, pneumonia Current Diet NPO Labs/Tests 03/24 BUN 27, Cr 0.7 03/25 POC BG 298 Pertinent Medications Reviewed Height 5 ft 11 in Weight 78.9 kg [place] Body Weight (kg) 78.18 BMI 24.3 Weight Status Appropriate Subjective/Other Information MD order for a write/manage TF . Per chart, pt had NGT placed . Pt observed in proned position. Percent of energy/protein needs met: 0%/0% Burn Absent Trauma Absent GI Symptoms None Food Allergy No Current % PO Negligible Minimum of two criteria No physical signs of malnutrition #1 Nutrition Diagnosis Inadequate oral intake Diagnosis Progress(for reassessment Continues documentation) Is patient on ventilator? Yes Is Patient Ambulatory and/or Out of Bed No REE-([facility]-confined to bed) 1944.264 Calculation Used for Recommendations [facility] Additional Notes Protein: 95-158 g (1.2-2 g/kg) Fluid: 1 ml/kcal Nutrition Intervention Change Diet Order: TF Nutrition Support: Change to Vital AF 1.2 at 65 ml/hr (goal rate) Flush with 100 ml q4h Kcal 1,872 Protein (gm) 117 Fluid (mL) 1,265 Goal #1 TF start/tolerance Anticipated Discharge Needs: Unable to determine at this time Follow-Up By: 03/29/20 Additional Comments F/U for TF rate/tolerance
[2020-03-28] MEDS: INSULIN LISPRO 100 UNIT/ML VIAL 3 mL SUB-Q SCH ×3 (09:34→17:59)
[2020-03-28] MEDS: FAMOTIDINE 20 MG TAB PO SCH ×2 (09:37→21:11)
[2020-03-28] MEDS: ZINC SULFATE 220 MG CAP PO SCH ×2 (09:37→21:11)
[2020-03-28] MEDS: ASPIRIN 81 MG TAB CHEW PO SCH (09:37)
[2020-03-28] MEDS: INSULIN GLARGINE 100 UNITS/ML SUB-Q SCH (09:37)
[2020-03-28] MEDS: CHOLECALCIFEROL (VIT D3) 5,000 UNIT TAB PO SCH (09:37)
[2020-03-28] MEDS: CLOPIDOGREL 75 MG TAB PO SCH (09:37)
[2020-03-28] MEDS: ASCORBIC ACID 500 MG TAB PO SCH ×2 (09:37→21:11)
--- NOTE | 2020-03-28 10:58 | Progress Note ---
Assessment and Plan 59 y/o male with acute hypoxic respiratory failure secondary to COVID 19 with prior history of tobacco abuse. 1. No further proning. Will wean FiO2 for sats >88% and PaO2>55 2. Ok with transfer to outside hospital for higher level of care. 3. Will decrease solumedrol to 40q8 4. Pharmacy has adjusted insulin, will given 10 of IV regular to help with sugar and potassium 5. Finished remdesivir 6. Guarded prognosis, especially with head CT findings. CCT 31 minutes. Subjective Date of service: 03/28/20 Principal diagnosis: Severe COVID-19 Interval history: No acute events. Per IMS documentation, patient has been accepted to [facility] by Neurosurgery. Pulm perez stable for traser. Mental status is un changed. Objective Vital Signs - 12hr 03/27/20 03/27/20 03/28/20 23:00 23:40 00:00 Temperature 98.9 F Pulse Rate 118 H 116 H Pulse Rate [ 111 H From Monitor] Respiratory 18 18 Rate Blood Pressure 117/76 99/75 O2 Sat by Pulse 95 95 Oximetry 03/28/20 03/28/20 03/28/20 00:22 01:00 02:00 Temperature Pulse Rate 113 H 113 H 109 H Pulse Rate [ From Monitor] Respiratory 19 19 Rate Blood Pressure 107/79 109/76 104/77 O2 Sat by Pulse 95 93 97 Oximetry 03/28/20 03/28/20 03/28/20 02:52 03:00 03:17 Temperature 97.4 F L Pulse Rate 168 H 189 H Pulse Rate [ From Monitor] Respiratory 19 Rate Blood Pressure 123/75 121/83 O2 Sat by Pulse 95 Oximetry 03/28/20 03/28/20 03/28/20 04:00 04:30 05:00 Temperature Pulse Rate 110 H 112 H 114 H Pulse Rate [ 113 H From Monitor] Respiratory 14 11 L Rate Blood Pressure 111/75 100/74 105/76 O2 Sat by Pulse 99 98 Oximetry 03/28/20 03/28/20 03/28/20 06:00 07:00 08:00 Temperature 98.2 F Pulse Rate 103 H 103 H 103 H Pulse Rate [ 103 H From Monitor] Respiratory 17 20 10 L Rate Blood Pressure 110/77 102/74 120/73 O2 Sat by Pulse 99 Oximetry 03/28/20 03/28/20 03/28/20 08:30 09:00 10:00 Temperature Pulse Rate 104 H 104 H 103 H Pulse Rate [ From Monitor] Respiratory 30 H 11 L 11 L Rate Blood Pressure 117/79 117/75 110/76 O2 Sat by Pulse 98 98 98 Oximetry CBC and BMP: 03/28/20 07:24 03/28/20 07:24 ABG, PT/INR, D-dimer: ABG ABG pH 7.346 pH Units (7.350-7.450) L 03/28/20 04:40 POC ABG pCO2 53.4 mmHg (32.0-48.0) H 03/27/20 04:07 ABG pCO2 58.1 mm Hg 03/28/20 04:40 POC ABG pO2 129.5 mmHg (83-108) H 03/27/20 04:07 ABG pO2 166.0 mm Hg (80.0-90.0) H 03/28/20 04:40 POC ABG HCO3 28.3 03/27/20 04:07 ABG O2 Saturation 98.9 % (95.0-99.0) 03/28/20 04:40 PT/INR, D-dimer D-Dimer > 24371 ng/mlDDU (0-234) H 03/24/20 20:01 Abnormal lab findings: Abnormal Labs 03/19/20 03/19/20 03/19/20 14:13 14:13 14:13 WBC RBC Hgb Hct MCV MCHC 35 H Plt Count [place] % (Auto) 11.6 H Lymph # (Auto) 0.8 L Seg Neutrophils % 74.7 H Seg Neuts % (Manual) Lymphocytes % (Manual) Seg Neutrophils # Man Lymphocytes # (Manual) D-Dimer ABG pH POC ABG pCO2 POC ABG pO2 ABG pO2 ABG HCO3 ABG Base Excess ABG Oxyhemoglobin ABG Sodium ABG Potassium ABG Chloride ABG Glucose Sodium Potassium Chloride Carbon Dioxide BUN Creatinine Glucose 204 H POC Glucose Lactic Acid 2.30 H* Ferritin AST Lactate Dehydrogenase C-Reactive Protein Total Protein Albumin Arterial Blood Glucose Arterial Blood Ionized Calcium Coronavirus (PCR) 03/19/20 03/19/20 03/19/20 14:13 15:35 15:35 WBC RBC Hgb Hct MCV MCHC Plt Count [place] % (Auto) Lymph # (Auto) Seg Neutrophils % Seg Neuts % (Manual) Lymphocytes % (Manual) Seg Neutrophils # Man Lymphocytes # (Manual) D-Dimer 658.20 H ABG pH POC ABG pCO2 POC ABG pO2 ABG pO2 ABG HCO3 ABG Base Excess ABG Oxyhemoglobin ABG Sodium ABG Potassium ABG Chloride ABG Glucose Sodium Potassium Chloride Carbon Dioxide BUN Creatinine Glucose POC Glucose Lactic Acid Ferritin 722.2 H AST 62 H Lactate Dehydrogenase C-Reactive Protein Total Protein Albumin 3.6 L Arterial Blood Glucose Arterial Blood Ionized Calcium Coronavirus (PCR) 03/20/20 03/20/20 03/20/20 05:28 12:20 16:31 WBC RBC Hgb Hct MCV MCHC Plt Count [place] % (Auto) Lymph # (Auto) Seg Neutrophils % Seg Neuts % (Manual) Lymphocytes % (Manual) Seg Neutrophils # Man Lymphocytes # (Manual) D-Dimer ABG pH POC ABG pCO2 POC ABG pO2 ABG pO2 ABG HCO3 ABG Base Excess ABG Oxyhemoglobin ABG Sodium ABG Potassium ABG Chloride ABG Glucose Sodium Potassium Chloride Carbon Dioxide BUN Creatinine Glucose POC Glucose 270 H 306 H Lactic Acid Ferritin AST Lactate Dehydrogenase C-Reactive Protein Total Protein Albumin Arterial Blood Glucose Arterial Blood Ionized Calcium Coronavirus (PCR) Positive A 03/20/20 03/21/20 03/21/20 20:28 08:26 09:03 WBC RBC Hgb Hct MCV MCHC Plt Count [place] % (Auto) Lymph # (Auto) Seg Neutrophils % Seg Neuts % (Manual) Lymphocytes % (Manual) Seg Neutrophils # Man Lymphocytes # (Manual) D-Dimer ABG pH POC ABG pCO2 POC ABG pO2 ABG pO2 ABG HCO3 ABG Base Excess ABG Oxyhemoglobin ABG Sodium ABG Potassium ABG Chloride ABG Glucose Sodium Potassium Chloride 110.5 H Carbon Dioxide BUN 23 H Creatinine Glucose 168 H POC Glucose 320 H 159 H Lactic Acid Ferritin AST 42 H Lactate Dehydrogenase C-Reactive Protein Total Protein 6.1 L Albumin 2.8 L Arterial Blood Glucose Arterial Blood Ionized Calcium Coronavirus (PCR) 03/21/20 03/21/20 03/21/20 12:26 20:08 22:45 WBC RBC Hgb Hct MCV MCHC Plt Count [place] % (Auto) Lymph # (Auto) Seg Neutrophils % Seg Neuts % (Manual) Lymphocytes % (Manual) Seg Neutrophils # Man Lymphocytes # (Manual) D-Dimer ABG pH POC ABG pCO2 POC ABG pO2 ABG pO2 ABG HCO3 ABG Base Excess ABG Oxyhemoglobin ABG Sodium ABG Potassium ABG Chloride ABG Glucose Sodium Potassium Chloride Carbon Dioxide BUN Creatinine Glucose POC Glucose 190 H 375 H 248 H Lactic Acid Ferritin AST Lactate Dehydrogenase C-Reactive Protein Total Protein Albumin Arterial Blood Glucose Arterial Blood Ionized Calcium Coronavirus (PCR) 03/22/20 03/22/20 03/22/20 07:56 10:47 10:47 WBC RBC Hgb Hct MCV MCHC Plt Count [place] % (Auto) Lymph # (Auto) Seg Neutrophils % Seg Neuts % (Manual) Lymphocytes % (Manual) Seg Neutrophils # Man Lymphocytes # (Manual) D-Dimer 855.69 H ABG pH POC ABG pCO2 POC ABG pO2 ABG pO2 ABG HCO3 ABG Base Excess ABG Oxyhemoglobin ABG Sodium ABG Potassium ABG Chloride ABG Glucose Sodium Potassium Chloride Carbon Dioxide BUN Creatinine Glucose POC Glucose 147 H Lactic Acid Ferritin 717.5 H AST Lactate Dehydrogenase C-Reactive Protein Total Protein Albumin Arterial Blood Glucose Arterial Blood Ionized Calcium Coronavirus (PCR) 03/22/20 03/22/20 03/22/20 10:47 11:28 16:32 WBC RBC Hgb Hct MCV MCHC Plt Count [place] % (Auto) Lymph # (Auto) Seg Neutrophils % Seg Neuts % (Manual) Lymphocytes % (Manual) Seg Neutrophils # Man Lymphocytes # (Manual) D-Dimer ABG pH POC ABG pCO2 POC ABG pO2 ABG pO2 ABG HCO3 ABG Base Excess ABG Oxyhemoglobin ABG Sodium ABG Potassium ABG Chloride ABG Glucose Sodium Potassium Chloride Carbon Dioxide BUN Creatinine Glucose POC Glucose 187 H 238 H Lactic Acid Ferritin AST Lactate Dehydrogenase 569 H C-Reactive Protein 6.70 H Total Protein Albumin Arterial Blood Glucose Arterial Blood Ionized Calcium Coronavirus (PCR) 03/22/20 03/23/20 03/23/20 21:03 05:48 06:17 WBC RBC Hgb Hct MCV MCHC Plt Count [place] % (Auto) Lymph # (Auto) Seg Neutrophils % Seg Neuts % (Manual) Lymphocytes % (Manual) Seg Neutrophils # Man Lymphocytes # (Manual) D-Dimer ABG pH POC ABG pCO2 POC ABG pO2 ABG pO2 ABG HCO3 ABG Base Excess ABG Oxyhemoglobin ABG Sodium ABG Potassium ABG Chloride ABG Glucose Sodium Potassium Chloride Carbon Dioxide BUN Creatinine Glucose POC Glucose 204 H 163 H Lactic Acid Ferritin AST Lactate Dehydrogenase C-Reactive Protein Total Protein 5.7 L Albumin 2.6 L Arterial Blood Glucose Arterial Blood Ionized Calcium Coronavirus (PCR) 03/23/20 03/23/20 03/23/20 10:27 17:04 21:53 WBC RBC Hgb Hct MCV MCHC Plt Count [place] % (Auto) Lymph # (Auto) Seg Neutrophils % Seg Neuts % (Manual) Lymphocytes % (Manual) Seg Neutrophils # Man Lymphocytes # (Manual) D-Dimer ABG pH POC ABG pCO2 POC ABG pO2 ABG pO2 ABG HCO3 ABG Base Excess ABG Oxyhemoglobin ABG Sodium ABG Potassium ABG Chloride ABG Glucose Sodium Potassium Chloride Carbon Dioxide BUN Creatinine Glucose POC Glucose 160 H 253 H 274 H Lactic Acid Ferritin AST Lactate Dehydrogenase C-Reactive Protein Total Protein Albumin Arterial Blood Glucose Arterial Blood Ionized Calcium Coronavirus (PCR) 03/23/20 03/23/20 03/24/20 23:02 23:44 02:58 WBC RBC Hgb Hct MCV MCHC Plt Count [place] % (Auto) Lymph # (Auto) Seg Neutrophils % Seg Neuts % (Manual) Lymphocytes % (Manual) Seg Neutrophils # Man Lymphocytes # (Manual) D-Dimer ABG pH 7.472 H POC ABG pCO2 POC ABG pO2 48.2 L 260.5 H ABG pO2 ABG HCO3 ABG Base Excess ABG Oxyhemoglobin 98.4 H ABG Sodium ABG Potassium ABG Chloride ABG Glucose 319 H 287 H Sodium Potassium Chloride Carbon Dioxide BUN Creatinine Glucose POC Glucose 216 H Lactic Acid Ferritin AST Lactate Dehydrogenase C-Reactive Protein Total Protein Albumin Arterial Blood Glucose 319 H 287 H Arterial Blood Ionized Calcium 4.5 L Coronavirus (PCR) 03/24/20 03/24/20 03/24/20 07:31 07:31 08:10 WBC 14.9 H RBC Hgb Hct MCV MCHC 35 H Plt Count [place] % (Auto) Lymph # (Auto) Seg Neutrophils % Seg Neuts % (Manual) Lymphocytes % (Manual) Seg Neutrophils # Man Lymphocytes # (Manual) D-Dimer ABG pH POC ABG pCO2 POC ABG pO2 ABG pO2 ABG HCO3 ABG Base Excess ABG Oxyhemoglobin ABG Sodium ABG Potassium ABG Chloride ABG Glucose Sodium Potassium Chloride Carbon Dioxide BUN 27 H Creatinine 0.7 L Glucose 305 H POC Glucose 259 H Lactic Acid Ferritin AST Lactate Dehydrogenase C-Reactive Protein Total Protein Albumin Arterial Blood Glucose Arterial Blood Ionized Calcium Coronavirus (PCR) 03/24/20 03/24/20 03/24/20 12:07 17:07 20:01 WBC RBC Hgb Hct MCV MCHC Plt Count [place] % (Auto) Lymph # (Auto) Seg Neutrophils % Seg Neuts % (Manual) Lymphocytes % (Manual) Seg Neutrophils # Man Lymphocytes # (Manual) D-Dimer > 11489 H ABG pH POC ABG pCO2 POC ABG pO2 ABG pO2 ABG HCO3 ABG Base Excess ABG Oxyhemoglobin ABG Sodium ABG Potassium ABG Chloride ABG Glucose Sodium Potassium Chloride Carbon Dioxide BUN Creatinine Glucose POC Glucose 306 H 306 H Lactic Acid Ferritin AST Lactate Dehydrogenase C-Reactive Protein Total Protein Albumin Arterial Blood Glucose Arterial Blood Ionized Calcium Coronavirus (PCR) 03/24/20 03/24/20 03/24/20 20:01 20:01 21:24 WBC RBC Hgb Hct MCV MCHC Plt Count [place] % (Auto) Lymph # (Auto) Seg Neutrophils % Seg Neuts % (Manual) Lymphocytes % (Manual) Seg Neutrophils # Man Lymphocytes # (Manual) D-Dimer ABG pH POC ABG pCO2 POC ABG pO2 ABG pO2 ABG HCO3 ABG Base Excess ABG Oxyhemoglobin ABG Sodium ABG Potassium ABG Chloride ABG Glucose Sodium Potassium Chloride Carbon Dioxide BUN Creatinine Glucose POC Glucose 321 H Lactic Acid Ferritin 1233.0 H AST Lactate Dehydrogenase 619 H C-Reactive Protein 12.90 H Total Protein Albumin Arterial Blood Glucose Arterial Blood Ionized Calcium Coronavirus (PCR) 03/25/20 03/25/20 03/25/20 01:46 05:36 07:02 WBC 16.4 H RBC Hgb 15.4 H Hct 46.8 H MCV 96 H MCHC Plt Count 127 L [place] % (Auto) Lymph # (Auto) Seg Neutrophils % Seg Neuts % (Manual) 98.0 H Lymphocytes % (Manual) Seg Neutrophils # Man 16.1 H Lymphocytes # (Manual) 0.0 L D-Dimer ABG pH POC ABG pCO2 POC ABG pO2 ABG pO2 ABG HCO3 ABG Base Excess ABG Oxyhemoglobin ABG Sodium ABG Potassium ABG Chloride ABG Glucose Sodium Potassium Chloride Carbon Dioxide BUN Creatinine Glucose POC Glucose 302 H 298 H Lactic Acid Ferritin AST Lactate Dehydrogenase C-Reactive Protein Total Protein Albumin Arterial Blood Glucose Arterial Blood Ionized Calcium Coronavirus (PCR) 03/25/20 03/25/20 03/25/20 11:27 13:16 17:12 WBC RBC Hgb Hct MCV MCHC Plt Count [place] % (Auto) Lymph # (Auto) Seg Neutrophils % Seg Neuts % (Manual) Lymphocytes % (Manual) Seg Neutrophils # Man Lymphocytes # (Manual) D-Dimer ABG pH POC ABG pCO2 POC ABG pO2 ABG pO2 ABG HCO3 ABG Base Excess ABG Oxyhemoglobin ABG Sodium ABG Potassium ABG Chloride ABG Glucose Sodium Potassium Chloride Carbon Dioxide BUN 52 H Creatinine Glucose 294 H POC Glucose 267 H 261 H Lactic Acid Ferritin AST Lactate Dehydrogenase C-Reactive Protein Total Protein 6.0 L Albumin 2.7 L Arterial Blood Glucose Arterial Blood Ionized Calcium Coronavirus (PCR) 03/25/20 03/25/20 03/25/20 21:33 22:40 23:46 WBC RBC Hgb Hct MCV MCHC Plt Count [place] % (Auto) Lymph # (Auto) Seg Neutrophils % Seg Neuts % (Manual) Lymphocytes % (Manual) Seg Neutrophils # Man Lymphocytes # (Manual) D-Dimer ABG pH POC ABG pCO2 POC ABG pO2 ABG pO2 ABG HCO3 ABG Base Excess ABG Oxyhemoglobin ABG Sodium ABG Potassium ABG Chloride ABG Glucose Sodium Potassium Chloride Carbon Dioxide BUN 57 H Creatinine Glucose 326 H POC Glucose 265 H 321 H Lactic Acid Ferritin AST Lactate Dehydrogenase C-Reactive Protein Total Protein 6.0 L Albumin 3.1 L Arterial Blood Glucose Arterial Blood Ionized Calcium Coronavirus (PCR) 03/26/20 03/26/20 03/26/20 05:09 05:09 05:20 WBC RBC 5.12 H Hgb 16.4 H Hct 48.5 H MCV 95 H MCHC Plt Count 128 L [place] % (Auto) Lymph # (Auto) Seg Neutrophils % Seg Neuts % (Manual) 91.0 H Lymphocytes % (Manual) 3.0 L Seg Neutrophils # Man Lymphocytes # (Manual) 0.2 L D-Dimer ABG pH POC ABG pCO2 POC ABG pO2 ABG pO2 ABG HCO3 ABG Base Excess ABG Oxyhemoglobin ABG Sodium ABG Potassium ABG Chloride ABG Glucose Sodium Potassium Chloride Carbon Dioxide BUN 57 H Creatinine Glucose 302 H POC Glucose 245 H Lactic Acid Ferritin AST Lactate Dehydrogenase C-Reactive Protein Total Protein Albumin Arterial Blood Glucose Arterial Blood Ionized Calcium Coronavirus (PCR) 03/26/20 03/26/20 03/26/20 11:50 16:51 18:16 WBC RBC Hgb Hct MCV MCHC Plt Count [place] % (Auto) Lymph # (Auto) Seg Neutrophils % Seg Neuts % (Manual) Lymphocytes % (Manual) Seg Neutrophils # Man Lymphocytes # (Manual) D-Dimer ABG pH POC ABG pCO2 POC ABG pO2 ABG pO2 ABG HCO3 ABG Base Excess ABG Oxyhemoglobin ABG Sodium ABG Potassium 4.8 H ABG Chloride ABG Glucose 422 H Sodium Potassium Chloride Carbon Dioxide BUN Creatinine Glucose POC Glucose 225 H 352 H Lactic Acid Ferritin AST Lactate Dehydrogenase C-Reactive Protein Total Protein Albumin Arterial Blood Glucose 422 H Arterial Blood Ionized Calcium Coronavirus (PCR) 03/26/20 03/27/20 03/27/20 23:29 04:07 05:21 WBC RBC Hgb Hct MCV MCHC Plt Count [place] % (Auto) Lymph # (Auto) Seg Neutrophils % Seg Neuts % (Manual) Lymphocytes % (Manual) Seg Neutrophils # Man Lymphocytes # (Manual) D-Dimer ABG pH POC ABG pCO2 53.4 H POC ABG pO2 129.5 H ABG pO2 ABG HCO3 ABG Base Excess ABG Oxyhemoglobin ABG Sodium 145.6 H ABG Potassium 4.9 H ABG Chloride 108.0 H ABG Glucose 475 H Sodium Potassium Chloride Carbon Dioxide BUN Creatinine Glucose POC Glucose 367 H 376 H Lactic Acid Ferritin AST Lactate Dehydrogenase C-Reactive Protein Total Protein Albumin Arterial Blood Glucose 475 H Arterial Blood Ionized Calcium Coronavirus (PCR) 03/27/20 03/27/20 03/27/20 10:52 10:52 11:46 WBC 11.8 H RBC Hgb 16.0 H Hct 47.9 H MCV 96 H MCHC Plt Count 102 L [place] % (Auto) Lymph # (Auto) Seg Neutrophils % Seg Neuts % (Manual) 93.0 H Lymphocytes % (Manual) 1.0 L Seg Neutrophils # Man 11.0 H Lymphocytes # (Manual) 0.1 L D-Dimer ABG pH POC ABG pCO2 POC ABG pO2 ABG pO2 ABG HCO3 ABG Base Excess ABG Oxyhemoglobin ABG Sodium ABG Potassium ABG Chloride ABG Glucose Sodium 149 H Potassium 5.1 H D Chloride 109.3 H Carbon Dioxide BUN 69 H Creatinine Glucose 512 H* POC Glucose 446 H Lactic Acid Ferritin AST Lactate Dehydrogenase C-Reactive Protein Total Protein Albumin Arterial Blood Glucose Arterial Blood Ionized Calcium Coronavirus (PCR) 03/27/20 03/27/20 03/28/20 17:24 23:25 04:40 WBC RBC Hgb Hct MCV MCHC Plt Count [place] % (Auto) Lymph # (Auto) Seg Neutrophils % Seg Neuts % (Manual) Lymphocytes % (Manual) Seg Neutrophils # Man Lymphocytes # (Manual) D-Dimer ABG pH 7.346 L POC ABG pCO2 POC ABG pO2 ABG pO2 166.0 H ABG HCO3 31.0 H ABG Base Excess 3.4 H ABG Oxyhemoglobin ABG Sodium ABG Potassium ABG Chloride ABG Glucose Sodium Potassium Chloride Carbon Dioxide BUN Creatinine Glucose POC Glucose 446 H 370 H Lactic Acid Ferritin AST Lactate Dehydrogenase C-Reactive Protein Total Protein Albumin Arterial Blood Glucose Arterial Blood Ionized Calcium Coronavirus (PCR) 03/28/20 03/28/20 03/28/20 05:05 07:24 07:24 WBC 17.9 H RBC 5.08 H Hgb 16.3 H Hct 48.4 H MCV 95 H MCHC Plt Count 124 L [place] % (Auto) Lymph # (Auto) Seg Neutrophils % Seg Neuts % (Manual) Lymphocytes % (Manual) Seg Neutrophils # Man Lymphocytes # (Manual) D-Dimer ABG pH POC ABG pCO2 POC ABG pO2 ABG pO2 ABG HCO3 ABG Base Excess ABG Oxyhemoglobin ABG Sodium ABG Potassium ABG Chloride ABG Glucose Sodium 151 H Potassium 5.4 H Chloride 111.5 H Carbon Dioxide 31 H BUN 76 H Creatinine Glucose 481 H POC Glucose 326 H Lactic Acid Ferritin AST Lactate Dehydrogenase C-Reactive Protein Total Protein Albumin Arterial Blood Glucose Arterial Blood Ionized Calcium Coronavirus (PCR)
[2020-03-28] MEDS ORDERED: SODIUM POLYSTYRENE 15 GM/60 ML ORAL LIQD PO ONE (11:00)
[2020-03-28] MEDS ORDERED: INSULIN REGULAR, HUMAN 100 UNIT/ML 3ML VIAL IV ONE (11:00)
--- NOTE | 2020-03-28 11:28 | Progress Note ---
Assessment and Plan Cultures: Blood culture 03/19/2020 coagulase-negative staph 1 out of 4 bottles SARS CoV2 PCR positive SARS Covid 2 IgG negative Blood cultures 03/21/2020 no growth Tracheal aspirate 2020-03-24: Usual respiratory bernard Assessment: 59 year old male with history of hypertension and COVID-19 diagnosed 4 days before admission, admitted on 03/19/2020 secondary to a week history of dry cough, shortness of breath, loss of smell and taste, body aches, dyspnea on exertion: #Severe sepsis: likely due to bilateral pneumonia. #Acute bilateral CVA: CT with CVA involving left cerebral hemisphere, both thalamus, both occipital, positive mass-effect. #Large pneumomediastinum with extensive subcutaneous emphysema #Critical COVID pneumonia: on vent. #Acute hypoxemic respiratory failure: intubated, proning. #Elevated LFTs: from COVID. #Coagulase-negative Staph in blood cultures: Likely a contaminant. Recommendations: -Completed remdesivir -CCP pending, may or may not benefit -Steroids per ICU -Continue anticoagulation per System Protocol -Poor prognosis. Noted plans for transfer to [facility] under neurosurgery. ID will sign off. Please call with questions. Eva Kenny MD, FACP [facility] ([facility] O: [phone] F: [phone] Subjective Date of service: 03/28/20 Principal diagnosis: Severe COVID-19 Interval history: No fever. Patient remains on the vent. Noted plans for possible transfer. Objective - Exam Narrative Exam: Physical Exam (reviewed in chart to minimize risk of transmission) Constitutional: deferred Head, Ears, Nose: deferred Eyes: deferred Neck: deferred Oral: deferred Cardiovascular: deferred Respiratory: deferred GI: deferred Musculoskeletal: deferred Skin: deferred Hem/Lymphatic: deferred Psych: deferred Neurological: deferred - Constitutional Vitals: Vital Signs Temp Pulse Resp BP Pulse Ox 98.2 F 102 H 10 L 108/74 97 03/28/20 08:00 03/28/20 11:08 03/28/20 11:00 03/28/20 11:08 03/28/20 11:08 Temperature -Last 24 Hours Temperature 98.2 F Temperature 97.4 F Temperature 98.9 F Temperature 98.7 F - Labs CBC & Chem 7: 03/28/20 07:24 03/28/20 07:24 Labs: Abnormal lab results 03/27/20 03/27/20 03/27/20 Range/Units 04:07 10:52 10:52 WBC 11.8 H (4.5-11.0) K/mm3 RBC (3.65-5.03) M/mm3 Hgb 16.0 H (11.8-15.2) gm/dl Hct 47.9 H (35.5-45.6) % MCV 96 H (84-94) fl Plt Count 102 L (140-440) K/mm3 Seg Neuts % (Manual) 93.0 H (40.0-70.0) % Lymphocytes % (Manual) 1.0 L (13.4-35.0) % Seg Neutrophils # Man 11.0 H (1.8-7.7) K/mm3 Lymphocytes # (Manual) 0.1 L (1.2-5.4) K/mm3 ABG pH (7.350-7.450) pH Units POC ABG pCO2 53.4 H (32.0-48.0) mmHg POC ABG pO2 129.5 H (83-108) mmHg ABG pO2 (80.0-90.0) mm Hg ABG HCO3 (20.0-26.0) mmol/L ABG Base Excess (-2.0-3.0) mmol/L ABG Sodium 145.6 H (136.0-145.0) mmol/L ABG Potassium 4.9 H (3.40-4.50) mmol/L ABG Chloride 108.0 H (98-107) mmol/L ABG Glucose 475 H (65-95) mg/dL Sodium 149 H (137-145) mmol/L Potassium 5.1 H D (3.6-5.0) mmol/L Chloride 109.3 H (98-107) mmol/L Carbon Dioxide (22-30) mmol/L BUN 69 H (9-20) mg/dL Glucose 512 H* (75-100) mg/dL POC Glucose (70-105) mg/dL Arterial Blood Glucose 475 H (65-95) mg/dL 03/27/20 03/27/20 03/27/20 Range/Units 11:46 17:24 23:25 WBC (4.5-11.0) K/mm3 RBC (3.65-5.03) M/mm3 Hgb (11.8-15.2) gm/dl Hct (35.5-45.6) % MCV (84-94) fl Plt Count (140-440) K/mm3 Seg Neuts % (Manual) (40.0-70.0) % Lymphocytes % (Manual) (13.4-35.0) % Seg Neutrophils # Man (1.8-7.7) K/mm3 Lymphocytes # (Manual) (1.2-5.4) K/mm3 ABG pH (7.350-7.450) pH Units POC ABG pCO2 (32.0-48.0) mmHg POC ABG pO2 (83-108) mmHg ABG pO2 (80.0-90.0) mm Hg ABG HCO3 (20.0-26.0) mmol/L ABG Base Excess (-2.0-3.0) mmol/L ABG Sodium (136.0-145.0) mmol/L ABG Potassium (3.40-4.50) mmol/L ABG Chloride (98-107) mmol/L ABG Glucose (65-95) mg/dL Sodium (137-145) mmol/L Potassium (3.6-5.0) mmol/L Chloride (98-107) mmol/L Carbon Dioxide (22-30) mmol/L BUN (9-20) mg/dL Glucose (75-100) mg/dL POC Glucose 446 H 446 H 370 H (70-105) mg/dL Arterial Blood Glucose (65-95) mg/dL 03/28/20 03/28/20 03/28/20 Range/Units 04:40 05:05 07:24 WBC 17.9 H (4.5-11.0) K/mm3 RBC 5.08 H (3.65-5.03) M/mm3 Hgb 16.3 H (11.8-15.2) gm/dl Hct 48.4 H (35.5-45.6) % MCV 95 H (84-94) fl Plt Count 124 L (140-440) K/mm3 Seg Neuts % (Manual) (40.0-70.0) % Lymphocytes % (Manual) (13.4-35.0) % Seg Neutrophils # Man (1.8-7.7) K/mm3 Lymphocytes # (Manual) (1.2-5.4) K/mm3 ABG pH 7.346 L (7.350-7.450) pH Units POC ABG pCO2 (32.0-48.0) mmHg POC ABG pO2 (83-108) mmHg ABG pO2 166.0 H (80.0-90.0) mm Hg ABG HCO3 31.0 H (20.0-26.0) mmol/L ABG Base Excess 3.4 H (-2.0-3.0) mmol/L ABG Sodium (136.0-145.0) mmol/L ABG Potassium (3.40-4.50) mmol/L ABG Chloride (98-107) mmol/L ABG Glucose (65-95) mg/dL Sodium (137-145) mmol/L Potassium (3.6-5.0) mmol/L Chloride (98-107) mmol/L Carbon Dioxide (22-30) mmol/L BUN (9-20) mg/dL Glucose (75-100) mg/dL POC Glucose 326 H (70-105) mg/dL Arterial Blood Glucose (65-95) mg/dL 03/28/20 Range/Units 07:24 WBC (4.5-11.0) K/mm3 RBC (3.65-5.03) M/mm3 Hgb (11.8-15.2) gm/dl Hct (35.5-45.6) % MCV (84-94) fl Plt Count (140-440) K/mm3 Seg Neuts % (Manual) (40.0-70.0) % Lymphocytes % (Manual) (13.4-35.0) % Seg Neutrophils # Man (1.8-7.7) K/mm3 Lymphocytes # (Manual) (1.2-5.4) K/mm3 ABG pH (7.350-7.450) pH Units POC ABG pCO2 (32.0-48.0) mmHg POC ABG pO2 (83-108) mmHg ABG pO2 (80.0-90.0) mm Hg ABG HCO3 (20.0-26.0) mmol/L ABG Base Excess (-2.0-3.0) mmol/L ABG Sodium (136.0-145.0) mmol/L ABG Potassium (3.40-4.50) mmol/L ABG Chloride (98-107) mmol/L ABG Glucose (65-95) mg/dL Sodium 151 H (137-145) mmol/L Potassium 5.4 H (3.6-5.0) mmol/L Chloride 111.5 H (98-107) mmol/L Carbon Dioxide 31 H (22-30) mmol/L BUN 76 H (9-20) mg/dL Glucose 481 H (75-100) mg/dL POC Glucose (70-105) mg/dL Arterial Blood Glucose (65-95) mg/dL
[2020-03-28 14:35] LABS: Band Neutrophils # (Manual) 0.2 K/mm3; Total Cells Counted 100
[2020-03-28 14:37] LABS: Anisocytosis 1+; Platelet Estimate Consistent w Auto
[2020-03-28] MEDS: methylPREDNISolone Sod Succinate 40 MG/1 ML INJ IV SCH ×2 (17:59→21:12)
[2020-03-29] MEDS: fentaNYL DRIP Premix 2,000 MCG/100 ML BAG IV SCH (06:22)
[2020-03-29] MEDS: dilTIAZem/D5W 100 MG/100 ML BAG IV SCH (06:23)
[2020-03-29] MEDS: methylPREDNISolone Sod Succinate 40 MG/1 ML INJ IV SCH ×3 (06:24→21:01)
[2020-03-29] MEDS: INSULIN REGULAR, HUMAN 100 UNIT/ML 3ML VIAL SUB-Q SCH ×2 (06:25)
[2020-03-29 08:51] LABS: Hematocrit 49.9 % (35.5-45.6); Hemoglobin 16.3 gm/dl (11.8-15.2); Mean Corpuscular HGB Conc 33 % (32-34); Mean Corpuscular Volume 97 fl (84-94); Platelet Count 114 K/mm3 (140-440); Red Blood Count 5.15 M/mm3 (3.65-5.03); Red Cell Distribution Width 14.4 % (13.2-15.2)
--- NOTE | 2020-03-29 09:04 | Progress Note ---
Assessment and Plan Assessment and plan: -- Sepsis due to COVID19 infection cont iv steroid, remdesivir, supplemental O2 Patient now hypoxemic intubated. Severe sepsis secondary to COVID-19 pneumonia. -- Acute hypoxemic respiratory failure due to covid19 PNA Supplemental oxygen, nebulizer therapy, pulse oximetry, pulmonary toilet, supportive care. Will need to obtain CT scan head and neck. Patient has crepitus in neck area and increased rhonchi. -- Covid19 PNA IV steroid therapy, prophylactic anticoagulation, prone positioning while in bed, supplemental oxygen, pulse oximetry, nebulizer therapy, contact precautions, isolation precaution, supportive care. remdesivir for 5 days -ve SARS-CoV-2 IgG: ordered for convalescent plasma --DM type 2 started on long acting insulin along with SSI Uncontrolled. Will increase long-acting Lantus at this time. --Bacteremia, likely contamination 1 out of 2 blood cx +ve for gm+ve cocci s/p iv vanco, repeat blood cx negative -- Hypertension Monitor blood pressure every shift, continue medical management The high probability of a clinically significant, sudden or life threatening deterioration of the [] system(s) required my full and direct attention, intervention and personal management. The aggregate critical care time was [34] minutes. This time is in addition to time spent performing reported procedures but includes the following: [x] Data Review and interpretation [x] Patient assessment and monitoring of vital signs [x] Documentation [x] Medication orders and management Subjective Date of service: 03/24/20 Principal diagnosis: Severe COVID-19 Interval history: : Positive for COVID 4 days ago before admission. started on dexamethasone iv. ID consulted. ordered for remdesivir. follow inflammatory markers. Start on vancomycin for positive blood culture -we will follow final result 03/21: ordered repeat blood cx. -ve SARS-CoV-2 IgG, ordered for convalescent plasma. patient remains on high flow O2. cont to adjust insulin dose for better glycemic control 03/22: Patient remains on high flow O2, ordered for pulmonary consult, CTA chest and bilateral lower extremity Doppler. Continue to follow inflammatory markers. Pending convalescent plasma transfusion 03/23: pending convalescent plasma transfusion. remains on high flow O2. s/p l aisx 40mg today. cont remdesivir and steroid. Le doppler neg for PE. on 35L with 100% FiO2 - poor prognostic factor 03/24 patient overnight episode altered mental status hypoxemia requiring intubation. At present patient in the prone position intubated remains unresponsive with altered mental status despite being only on 1 cal fentanyl. 03/25/2020; patient is intubated and sedated, on mechanical ventilation. From prone positioning when I saw the patient. Patient has altered mental status and CT head was done yesterday and significant for acute bilateral CVA, left cerebral hemispheres, both thalamus, occipital with mass-effect and teleneurology was consulted. Teleneurology recommend to transfer to another facility and I called [facility] transfer line and pending the call back. Our neurosurgeon was also consulted and agreed with the transfer. It is difficult to get an accepting facility given the current pandemic, limited bed availability especially in the ICU. 03/26/2020; patient is intubated and sedated and on mechanical ventilation with FiO2 of 100%. Patient was on prone position. I have a long discussion with his sister about transferring to another facility. I called [facility] transfer on 03/25/2020 and discussed with Neurointensivist Dr Dae Cordon and Neurosurgeon Dr Hector Wellington after explained to the the clinical condition and told them the CT and CTA head findings impression read by our radiologist both of them agreed that the patient is not a candidate for any neuro intervention. Said the damage is extensive and prognosis is very poor. I also told them the recommendations neurosurgeon at [facility] Dr Gaurav berry recommendations for the transfer. I also called other facilities including [facility] and because of the pandemic most of the ICU beds are full and I could not find any accepting facility. I also discussed with neurosurgeon Dr. Berry here at [facility]. I talk with her daughter about the poor prognosis and further plan of care, she wants him to be full code and thinking once his respiratory condition is improving she said she will take him to [facility] if they can do surgery. At this time prognosis is very poor and is not stable enough to be transferred or to do any surgery. His daughter wants plasma to be given to the patient and I called ID and he does not think it will help him much but okay to give it to him if the family requested. 03/27/2020; I have also tried to call [facility] yesterday to transfer the patient and the neurosurgeon said did not have any capacity to accept the patient and he said call back tomorrow to place the patient on waiting list. Plans discussed in detail with his Sister Asad. His blood sugar level was very high and I increase his Lantus from 22units to 30 units and added 10 units of Humalog AC. I have discussed with his sister asad and she says she is going to get a ccepting facility. From my side already called the nearby hospitals who have neurosurgery capability but declined because of patient's poor prognosis. I have also discussed the neurosurgery here Dr. Gaurav Berry and he said patient's prognosis is very poor and no point to transfer the patient. He said he is going to talk to patient's sister problem and I gave her number. [phone]. 03/28/2020; yesterday I discussed with Dr. Avinash Cabral neurosurgeon at [facility] and he accepted the patient. But [facility] called me and said they did not have any bed but patient is on the waiting list. 03/29/2020; patient is intubated and sedated and on mechanical ventilation. FiO2 60% and PEEP of 8. On the waiting list to be transferred to [facility]. Patient's blood sugar was 605 this a.m. and I discussed with the nurse to put the patient on insulin drip. Prognosis very poor. - Patient Problems (1) Cerebrovascular accident involving posterior circulation Current Visit: Yes Status: Acute (2) Acute hypoxemic respiratory failure Current Visit: Yes Status: Acute (3) Acute respiratory failure due to COVID-19 Current Visit: Yes Status: Acute History Interval history: Patient was seen and evaluated this morning Patient was intubated, sedated and on mechanical ventilation Hospitalist Physical - Physical exam Narrative exam: Patient is intubated and sedated The patient appeared well nourished and normally developed. Vital signs as documented. Head exam is unremarkable. No scleral icterus . Neck is without jugular venous distension, thyromegaly, or carotid bruits. Lungs are clear to auscultation. Cardiac exam reveals regular rate and Rhythm. Abdominal exam reveals normal bowel sounds, nontender, no organomegaly. Extremities are nonedematous and both femoral and pedal pulses are normal. FROG CATCHER: Patient is sedated - Constitutional Vitals: Temp Pulse Resp BP Pulse Ox 99.1 F 106 H 17 116/83 92 03/29/20 08:00 03/29/20 08:32 03/29/20 08:00 03/29/20 08:32 03/29/20 08:32 General appearance: Present: other (Altered mental status unresponsive.) Results - Labs CBC & Chem 7: 03/29/20 08:30 03/29/20 08:30 Labs: Laboratory Last Values WBC 20.9 K/mm3 (4.5-11.0) H 03/29/20 08:30 RBC 5.15 M/mm3 (3.65-5.03) H 03/29/20 08:30 Hgb 16.3 gm/dl (11.8-15.2) H 03/29/20 08:30 Hct 49.9 % (35.5-45.6) H 03/29/20 08:30 MCV 97 fl (84-94) H 03/29/20 08:30 MCH 32 pg (28-32) 03/29/20 08:30 MCHC 33 % (32-34) 03/29/20 08:30 RDW 14.4 % (13.2-15.2) 03/29/20 08:30 Plt Count 114 K/mm3 (140-440) L 03/29/20 08:30 Lymph % (Auto) 13.5 % (13.4-35.0) 03/19/20 14:13 [place] % (Auto) 1.0 % (0.0-7.3) 03/26/20 05:09 Eos % (Auto) 0.0 % (0.0-4.3) 03/26/20 05:09 Baso % (Auto) 0.2 % (0.0-1.8) 03/19/20 14:13 Lymph # (Auto) 0.8 K/mm3 (1.2-5.4) L 03/19/20 14:13 [place] # (Auto) 0.1 K/mm3 (0.0-0.8) 03/26/20 05:09 Eos # (Auto) 0.0 K/mm3 (0.0-0.4) 03/26/20 05:09 Baso # (Auto) 0.0 K/mm3 (0.0-0.1) 03/26/20 05:09 Add Manual Diff Complete 03/28/20 07:24 Total Counted 100 03/28/20 07:24 Seg Neutrophils % Drive In Teller 03/28/20 07:24 Seg Neuts % (Manual) 97.0 % (40.0-70.0) H 03/28/20 07:24 Band Neutrophils % 1.0 % 03/28/20 07:24 Lymphocytes % (Manual) 1.0 % (13.4-35.0) L 03/27/20 10:52 Reactive Lymphs % (Man) 1.0 % 03/27/20 10:52 Monocytes % (Manual) 2.0 % (0.0-7.3) 03/28/20 07:24 Metamyelocytes % 1.0 % 03/27/20 10:52 Nucleated RBC % Not Reportable 03/28/20 07:24 Seg Neutrophils # 5.6 K/mm3 (1.8-7.7) 03/26/20 05:09 Seg Neutrophils # Man 17.4 K/mm3 (1.8-7.7) H 03/28/20 07:24 Band Neutrophils # 0.2 K/mm3 03/28/20 07:24 Lymphocytes # (Manual) 0.0 K/mm3 (1.2-5.4) L 03/28/20 07:24 Abs React Lymphs (Man) 0.0 K/mm3 03/28/20 07:24 Monocytes # (Manual) 0.4 K/mm3 (0.0-0.8) 03/28/20 07:24 Eosinophils # (Manual) 0.0 K/mm3 (0.0-0.4) 03/28/20 07:24 Basophils # (Manual) 0.0 K/mm3 (0.0-0.1) 03/28/20 07:24 Metamyelocytes # 0.0 K/mm3 03/28/20 07:24 Myelocytes # 0.0 K/mm3 03/28/20 07:24 Promyelocytes # 0.0 K/mm3 03/28/20 07:24 Blast Cells # 0.0 K/mm3 03/28/20 07:24 WBC Morphology Not Reportable 03/28/20 07:24 Hypersegmented Neuts Not Reportable 03/28/20 07:24 Hyposegmented Neuts Not Reportable 03/28/20 07:24 Hypogranular Neuts Not Reportable 03/28/20 07:24 Smudge Cells Not Reportable 03/28/20 07:24 Toxic Granulation Not Reportable 03/28/20 07:24 Toxic Vacuolation Not Reportable 03/28/20 07:24 Dohle Bodies Not Reportable 03/28/20 07:24 Pelger-Huet Anomaly Not Reportable 03/28/20 07:24 Madeleine Rods Not Reportable 03/28/20 07:24 Platelet Estimate Consistent w auto 03/28/20 07:24 Clumped Platelets Not Reportable 03/28/20 07:24 Plt Clumps, EDTA Not Reportable 03/28/20 07:24 Large Platelets Not Reportable 03/28/20 07:24 Giant Platelets Not Reportable 03/28/20 07:24 Platelet Satelliting Not Reportable 03/28/20 07:24 Plt Morphology Comment Not Reportable 03/28/20 07:24 RBC Morphology Not Reportable 03/28/20 07:24 Dimorphic RBCs Not Reportable 03/28/20 07:24 Polychromasia Not Reportable 03/28/20 07:24 Hypochromasia Not Reportable 03/28/20 07:24 Poikilocytosis Not Reportable 03/28/20 07:24 Anisocytosis 1+ 03/28/20 07:24 Microcytosis Not Reportable 03/28/20 07:24 Macrocytosis Not Reportable 03/28/20 07:24 Spherocytes Not Reportable 03/28/20 07:24 Pappenheimer Bodies Not Reportable 03/28/20 07:24 Sickle Cells Not Reportable 03/28/20 07:24 Target Cells Not Reportable 03/28/20 07:24 Tear Drop Cells Not Reportable 03/28/20 07:24 Ovalocytes Not Reportable 03/28/20 07:24 Helmet Cells Not Reportable 03/28/20 07:24 [place] Bodies Not Reportable 03/28/20 07:24 [place] Rings Not Reportable 03/28/20 07:24 [place] Cells Not Reportable 03/28/20 07:24 Bite Cells Not Reportable 03/28/20 07:24 Crenated Cell Not Reportable 03/28/20 07:24 Elliptocytes Not Reportable 03/28/20 07:24 Acanthocytes (Spur) Not Reportable 03/28/20 07:24 Rouleaux Not Reportable 03/28/20 07:24 Hemoglobin C Crystals Not Reportable 03/28/20 07:24 Schistocytes Not Reportable 03/28/20 07:24 Malaria parasites Not Reportable 03/28/20 07:24 [place] Bodies Not Reportable 03/28/20 07:24 Hem Pathologist Commnt No 03/28/20 07:24 D-Dimer > 56533 ng/mlDDU (0-234) H 03/24/20 20:01 ABG pH 7.346 pH Units (7.350-7.450) L 03/28/20 04:40 POC ABG pCO2 53.4 mmHg (32.0-48.0) H 03/27/20 04:07 ABG pCO2 58.1 mm Hg 03/28/20 04:40 POC ABG pO2 129.5 mmHg (83-108) H 03/27/20 04:07 ABG pO2 166.0 mm Hg (80.0-90.0) H 03/28/20 04:40 POC ABG HCO3 28.3 03/27/20 04:07 ABG HCO3 31.0 mmol/L (20.0-26.0) H 03/28/20 04:40 ABG O2 Saturation 98.9 % (95.0-99.0) 03/28/20 04:40 ABG O2 Content 24.2 (0.0-44) 03/28/20 04:40 POC ABG Base Excess 1.3 03/27/20 04:07 ABG Base Excess 3.4 mmol/L (-2.0-3.0) H 03/28/20 04:40 ABG Hemoglobin 17.4 gm/dl (14.0-18.0) 03/28/20 04:40 ABG Oxyhemoglobin 97.4 (94-98) 03/27/20 04:07 ABG Carboxyhemoglobin 0.7 % (0.0-5.0) 03/28/20 04:40 ABG Methemoglobin 0.6 % (0.0-1.5) 03/28/20 04:40 ABG Sodium 145.6 mmol/L (136.0-145.0) H 03/27/20 04:07 ABG Potassium 4.9 mmol/L (3.40-4.50) H 03/27/20 04:07 ABG Chloride 108.0 mmol/L (98-107) H 03/27/20 04:07 ABG Glucose 475 mg/dL (65-95) H 03/27/20 04:07 Oxyhemoglobin 97.5 % (95.0-99.0) 03/28/20 04:40 Carboxyhemoglobin 0.7 (0.5-1.5) 03/27/20 04:07 FiO2 100 % 03/28/20 04:40 Sodium 151 mmol/L (137-145) H 03/28/20 07:24 Potassium 5.4 mmol/L (3.6-5.0) H 03/28/20 07:24 Chloride 111.5 mmol/L (98-107) H 03/28/20 07:24 Carbon Dioxide 31 mmol/L (22-30) H 03/28/20 07:24 Anion Gap 14 mmol/L 03/28/20 07:24 BUN 76 mg/dL (9-20) H 03/28/20 07:24 Creatinine 1.1 mg/dL (0.8-1.3) 03/28/20 07:24 Estimated GFR > 60 ml/min 03/28/20 07:24 BUN/Creatinine Ratio 69 % 03/28/20 07:24 Glucose 481 mg/dL (75-100) H 03/28/20 07:24 POC Glucose 446 mg/dL (70-105) H 03/29/20 05:16 Osmolality 311 Mosm/kg 03/21/20 13:43 Lactic Acid 1.70 mmol/L (0.7-2.0) 03/19/20 23:24 Calcium 9.2 mg/dL (8.4-10.2) 03/28/20 07:24 Ferritin 1233.0 ng/mL (30.0-300.0) H 03/24/20 20:01 Total Bilirubin 1.20 mg/dL (0.1-1.2) 03/25/20 22:40 Direct Bilirubin < 0.2 mg/dL (0-0.2) 03/23/20 05:48 Indirect Bilirubin 0.4 mg/dL 03/23/20 05:48 AST 26 units/L (5-40) 03/25/20 22:40 ALT 28 units/L (7-56) 03/25/20 22:40 Alkaline Phosphatase 92 units/L (35-129) 03/25/20 22:40 Lactate Dehydrogenase 619 units/L (91-180) H 03/24/20 20:01 C-Reactive Protein 12.90 mg/dL (0.00-1.30) H 03/24/20 20:01 Total Protein 6.0 g/dL (6.3-8.2) L 03/25/20 22:40 Albumin 3.1 g/dL (3.9-5) L 03/25/20 22:40 Albumin/Globulin Ratio 1.1 % 03/25/20 22:40 Procalcitonin 0.13 ng/mL (<0.15) 03/22/20 10:47 Arterial Blood Glucose 475 mg/dL (65-95) H 03/27/20 04:07 Arterial Blood Ionized Calcium 5.0 mg/dL (4.6-5.3) 03/27/20 04:07 Urine Color Yellow (Yellow) 03/20/20 05:28 Urine Turbidity Clear (Clear) 03/20/20 05:28 Urine pH 6.0 (5.0-7.0) 03/20/20 05:28 Ur Specific [place] 1.029 (1.003-1.030) 03/20/20 05:28 Urine Protein <15 mg/dl mg/dL (Negative) 03/20/20 05:28 Urine Glucose (UA) >=500 mg/dL (Negative) 03/20/20 05:28 Urine Ketones 20 mg/dL (Negative) 03/20/20 05:28 Urine Blood Neg (Negative) 03/20/20 05:28 Urine Nitrite Neg (Negative) 03/20/20 05:28 Urine Bilirubin Neg (Negative) 03/20/20 05:28 Urine Urobilinogen < 2.0 mg/dL (<2.0) 03/20/20 05:28 Ur Leukocyte Esterase Neg (Negative) 03/20/20 05:28 Urine WBC (Auto) 1.0 /HPF (0.0-6.0) 03/20/20 05:28 Urine RBC (Auto) 1.0 /HPF (0.0-6.0) 03/20/20 05:28 Coronavirus (PCR) Positive (Negative) A 03/20/20 05:28 SARS-CoV-2 IgG Ab Nonreactive (NonReactive) 03/20/20 17:49 Blood Type AB POSITIVE 03/20/20 17:49 Antibody Screen Negative 03/20/20 17:49 [place]/IV: Voiding Method Condom Catheter IV Catheter Type [Left Upper INT / Saline Lock arm] IV Catheter Type [Right Hand] INT / Saline Lock IV Catheter Type [Left Peripheral IV Antecubital] Active Medications - Current Medications Current Medications: Generic Name Dose Route Start Last Admin Trade Name Freq PRN Reason Stop Dose Admin Acetaminophen 650 mg 03/19/20 16:16 Acetaminophen 325 Mg Tab PO Q4H PRN Pain MILD(1-3)/Fever >100.5/ROSS Albuterol 2.5 mg 03/19/20 16:16 Albuterol 2.5 Mg/3 Ml Nebu IH Q4HRT PRN Shortness Of Breath Lipase/Protease/Amylase 1 each 03/25/20 11:39 Lipase 10,500/Protease 25,000/Amylase 43,750 (Units) Dr Chou FEEDTUBE PRN PRN For Clogged Feeding Tube Ascorbic Acid 1,000 mg 03/20/20 14:00 03/28/20 21:11 Ascorbic Acid 500 Mg Tab PO 1,000 mg BID FAVIOLA Administration Aspirin 81 mg 03/27/20 14:00 03/28/20 09:37 Aspirin 81 Mg Tab Chew PO 81 mg QDAY FAVIOLA Administration Cholecalciferol 5,000 unit 03/20/20 14:00 03/28/20 09:37 Cholecalciferol (Vit D3) 5,000 Unit Tab PO 5,000 unit DAILY FAVIOLA Administration Clopidogrel Bisulfate 75 mg 03/26/20 10:00 03/28/20 09:37 Clopidogrel 75 Mg Tab PO 75 mg QDAY FAVIOLA Administration Famotidine 20 mg 03/28/20 10:00 03/28/20 21:11 Famotidine 20 Mg Tab PO 20 mg BID FAVIOLA Administration Fentanyl 50 mcg 03/23/20 22:42 03/27/20 18:11 Fentanyl 100 Mcg/2 Ml Inj IV 50 mcg Q10MIN PRN Administration ANALGESIA Hydrophilic Ointment 1 applic 03/23/20 22:42 Lip Therapy Vaseline TP Q2HR PRN Dry Lips Fentanyl Citrate 2,000 mcg in 100 mls @ 3.92 mls/hr 03/23/20 23:00 03/29/20 06:22 Fentanyl Drip Premix IV 2 mcg/kg/hr TITR FAVIOLA 7.84 mls/hr Administration Protocol 1 MCG/KG/HR Diltiazem HCl 100 mg in 100 mls @ 5 mls/hr 03/27/20 21:00 03/29/20 06:23 Cardizem/D5w 100mg/100ml IV 10 mg/hr TITR FAVIOLA 10 mls/hr Administration Protocol 5 MG/HR Insulin Glargine 30 units 03/27/20 07:58 03/28/20 09:37 Insulin Glargine 100 Units/Ml SUB-Q 30 units QAM [facility] Administration Insulin Human Lispro 10 unit 03/29/20 14:00 Insulin Lispro 100 Unit/Ml Vial 3 Ml SUB-Q TID FAVIOLA Insulin Human Regular 0 unit 03/24/20 12:00 03/29/20 06:25 Insulin Regular, Human 100 Unit/Ml 3ml Vial SUB-Q 10 unit Q6HR [facility] Administration Protocol Methylprednisolone Sodium Succinate 40 mg 03/28/20 14:00 03/29/20 06:24 Methylprednisolone Sod Succinate 40 Mg/1 Ml Inj IV 40 mg Q8HR FAVIOLA Administration Multi-Ingred Cream/Lotion/Oil/Oint 1 applic 03/23/20 22:42 Mineral Oil/Petrolatum, White Ophth Oint 3.5 Gm OU Q4HR PRN Dry Eye(s) Ondansetron HCl 4 mg 03/19/20 16:16 Ondansetron 4 Mg/2 Ml Inj IV Q8H PRN Nausea And Vomiting Simple Syrup 15 ml 03/25/20 11:39 Simple Syrup 15 Ml FEEDTUBE PRN PRN Hypoglycemia Simple Syrup 30 ml 03/25/20 11:39 Simple Syrup 15 Ml FEEDTUBE PRN PRN Hypoglycemia Sodium Bicarbonate 325 mg 03/25/20 11:39 Sodium Bicarbonate 325 Mg Tab FEEDTUBE PRN PRN For Clogged Feeding Tube Sodium Chloride 10 ml 03/19/20 22:00 03/28/20 21:12 Sodium Chloride 0.9% 10 Ml Flush Syringe IV 10 ml BID FAVIOLA Administration Sodium Chloride 10 ml 03/19/20 16:16 Sodium Chloride 0.9% 10 Ml Flush Syringe IV PRN PRN LINE FLUSH Zinc Sulfate 220 mg 03/20/20 14:00 03/28/20 21:11 Zinc Sulfate 220 Mg Cap PO 220 mg BID FAVIOLA Administration Nutrition/Malnutrition Assess - Dietary Evaluation Nutrition/Malnutrition Findings: Nutrition Notes Start: 03/24/20 11:40 Freq: Status: Active Protocol: Document 03/28/20 12:01 AB (Rec: 03/28/20 12:05 AB [id number]) Co-Sign 03/28/20 12:01 LP Nutrition Notes Initial or Follow up Brief Note Current Diagnosis Sepsis,Hypertension Other Pertinent Diagnosis acute respiratory failure, pneumonia Current Diet Vital AF 1.2 at 65 ml/hr (goal rate) Labs/Tests Na 151 K 5.4 BUN 76 BG 481 Subjective/Other Information verbalized a want for increasing flush to 250 ml q4h . Order updated. Nutrition Intervention Follow-Up By: 03/30/20 Additional Comments F/U for TF rate/tolerance
[2020-03-29 09:07] LABS: Calcium 8.6 mg/dL (8.4-10.2)
[2020-03-29] MEDS ORDERED: DEXTROSE 50% IN WATER (25GM) 50 ML SYRINGE IV PRN (09:54)
[2020-03-29] MEDS: ASPIRIN 81 MG TAB CHEW PO SCH (10:48)
[2020-03-29] MEDS: ZINC SULFATE 220 MG CAP PO SCH ×2 (10:48→21:00)
[2020-03-29] MEDS: CLOPIDOGREL 75 MG TAB PO SCH (10:48)
[2020-03-29] MEDS: ASCORBIC ACID 500 MG TAB PO SCH ×2 (10:48→21:01)
[2020-03-29] MEDS: CHOLECALCIFEROL (VIT D3) 5,000 UNIT TAB PO SCH (10:48)
[2020-03-29] MEDS: FAMOTIDINE 20 MG TAB PO SCH ×2 (10:48→21:00)
[2020-03-29] MEDS: INSULIN REGULAR, HUMAN 100 UNITS in SODIUM CHLORIDE 0.9% 99 ML IV SCH ×2 (10:49→20:19)
[2020-03-29] MEDS ORDERED: fentaNYL 100 MCG/2 ML INJ IV PRN (11:00)
[2020-03-29] MEDS: dilTIAZem 60 MG TAB PO SCH ×2 (11:02→18:45)
[2020-03-29] MEDS: INSULIN LISPRO 100 UNIT/ML VIAL 3 mL SUB-Q SCH (11:03)
[2020-03-29] MEDS: ACETAMINOPHEN 325 MG TAB PO PRN (12:04)
--- NOTE | 2020-03-29 12:08 | Progress Note ---
Assessment and Plan 59 y/o male with acute hypoxic respiratory failure secondary to COVID 19 with prior history of tobacco abuse. 1. No further proning. Will wean FiO2 for sats >88% and PaO2>55 2. Ok with transfer to outside hospital for higher level of care. 3. Will decrease solumedrol to 40q8, sugars are still elevated so will start Insulin drip. 4. Continue current tube feeds 5. Finished remdesivir 6. Guarded prognosis, especially with head CT findings. CCT 31 minutes. Subjective Date of service: 03/29/20 Principal diagnosis: Severe COVID-19 Interval history: No beds at [facility]. Still unresponsive but sedation has been used for breathing pattern and presumed pain. Objective Vital Signs - 12hr 03/29/20 03/29/20 03/29/20 00:20 01:00 02:00 Temperature Pulse Rate 96 H 99 H 96 H Pulse Rate [ From Monitor] Respiratory 14 13 Rate Blood Pressure 129/84 124/83 104/83 O2 Sat by Pulse 93 93 Oximetry 03/29/20 03/29/20 03/29/20 03:00 03:40 03:55 Temperature 98.9 F Pulse Rate 99 H 103 H Pulse Rate [ From Monitor] Respiratory 16 Rate Blood Pressure 111/77 118/77 O2 Sat by Pulse 93 93 Oximetry 03/29/20 03/29/20 03/29/20 04:00 05:00 06:00 Temperature Pulse Rate 93 H 102 H 99 H Pulse Rate [ 101 H From Monitor] Respiratory 16 14 14 Rate Blood Pressure 112/78 118/79 117/81 O2 Sat by Pulse 93 90 Oximetry 03/29/20 03/29/20 03/29/20 07:00 08:00 08:32 Temperature 99.1 F Pulse Rate 103 H 108 H 106 H Pulse Rate [ 108 H From Monitor] Respiratory 14 17 Rate Blood Pressure 121/81 113/80 116/83 O2 Sat by Pulse 92 91 92 Oximetry 03/29/20 03/29/20 03/29/20 09:00 09:48 10:00 Temperature Pulse Rate 106 H 112 H Pulse Rate [ From Monitor] Respiratory 21 19 Rate Blood Pressure 122/80 121/82 O2 Sat by Pulse 89 Oximetry 03/29/20 03/29/20 03/29/20 11:00 11:02 11:23 Temperature Pulse Rate 106 H 109 H 110 H Pulse Rate [ From Monitor] Respiratory 22 Rate Blood Pressure 119/82 119/82 O2 Sat by Pulse 87 Oximetry 03/29/20 03/29/20 11:39 11:46 Temperature Pulse Rate 117 H Pulse Rate [ 118 H From Monitor] Respiratory 24 Rate Blood Pressure 115/80 O2 Sat by Pulse 88 89 Oximetry CBC and BMP: 03/29/20 08:30 03/29/20 08:30 ABG, PT/INR, D-dimer: ABG ABG pH 7.408 (7.320-7.450) 03/29/20 04:00 POC ABG pCO2 46.9 mmHg (32.0-48.0) 03/29/20 04:00 ABG pCO2 58.1 mm Hg 03/28/20 04:40 POC ABG pO2 66.0 mmHg (83-108) L 03/29/20 04:00 ABG pO2 166.0 mm Hg (80.0-90.0) H 03/28/20 04:40 POC ABG HCO3 28.9 03/29/20 04:00 ABG O2 Saturation 98.9 % (95.0-99.0) 03/28/20 04:40 PT/INR, D-dimer D-Dimer > 75891 ng/mlDDU (0-234) H 03/24/20 20:01 Abnormal lab findings: Abnormal Labs 03/19/20 03/19/20 03/19/20 14:13 14:13 14:13 WBC RBC Hgb Hct MCV MCHC 35 H Plt Count [place] % (Auto) 11.6 H Lymph # (Auto) 0.8 L Seg Neutrophils % 74.7 H Seg Neuts % (Manual) Lymphocytes % (Manual) Seg Neutrophils # Man Lymphocytes # (Manual) D-Dimer ABG pH POC ABG pCO2 POC ABG pO2 ABG pO2 ABG HCO3 ABG Base Excess ABG Oxyhemoglobin ABG Sodium ABG Potassium ABG Chloride ABG Glucose Sodium Potassium Chloride Carbon Dioxide BUN Creatinine Glucose 204 H POC Glucose Lactic Acid 2.30 H* Ferritin AST Lactate Dehydrogenase C-Reactive Protein Total Protein Albumin Arterial Blood Glucose Arterial Blood Ionized Calcium Coronavirus (PCR) 03/19/20 03/19/20 03/19/20 14:13 15:35 15:35 WBC RBC Hgb Hct MCV MCHC Plt Count [place] % (Auto) Lymph # (Auto) Seg Neutrophils % Seg Neuts % (Manual) Lymphocytes % (Manual) Seg Neutrophils # Man Lymphocytes # (Manual) D-Dimer 658.20 H ABG pH POC ABG pCO2 POC ABG pO2 ABG pO2 ABG HCO3 ABG Base Excess ABG Oxyhemoglobin ABG Sodium ABG Potassium ABG Chloride ABG Glucose Sodium Potassium Chloride Carbon Dioxide BUN Creatinine Glucose POC Glucose Lactic Acid Ferritin 722.2 H AST 62 H Lactate Dehydrogenase C-Reactive Protein Total Protein Albumin 3.6 L Arterial Blood Glucose Arterial Blood Ionized Calcium Coronavirus (PCR) 03/20/20 03/20/20 03/20/20 05:28 12:20 16:31 WBC RBC Hgb Hct MCV MCHC Plt Count [place] % (Auto) Lymph # (Auto) Seg Neutrophils % Seg Neuts % (Manual) Lymphocytes % (Manual) Seg Neutrophils # Man Lymphocytes # (Manual) D-Dimer ABG pH POC ABG pCO2 POC ABG pO2 ABG pO2 ABG HCO3 ABG Base Excess ABG Oxyhemoglobin ABG Sodium ABG Potassium ABG Chloride ABG Glucose Sodium Potassium Chloride Carbon Dioxide BUN Creatinine Glucose POC Glucose 270 H 306 H Lactic Acid Ferritin AST Lactate Dehydrogenase C-Reactive Protein Total Protein Albumin Arterial Blood Glucose Arterial Blood Ionized Calcium Coronavirus (PCR) Positive A 03/20/20 03/21/20 03/21/20 20:28 08:26 09:03 WBC RBC Hgb Hct MCV MCHC Plt Count [place] % (Auto) Lymph # (Auto) Seg Neutrophils % Seg Neuts % (Manual) Lymphocytes % (Manual) Seg Neutrophils # Man Lymphocytes # (Manual) D-Dimer ABG pH POC ABG pCO2 POC ABG pO2 ABG pO2 ABG HCO3 ABG Base Excess ABG Oxyhemoglobin ABG Sodium ABG Potassium ABG Chloride ABG Glucose Sodium Potassium Chloride 110.5 H Carbon Dioxide BUN 23 H Creatinine Glucose 168 H POC Glucose 320 H 159 H Lactic Acid Ferritin AST 42 H Lactate Dehydrogenase C-Reactive Protein Total Protein 6.1 L Albumin 2.8 L Arterial Blood Glucose Arterial Blood Ionized Calcium Coronavirus (PCR) 03/21/20 03/21/20 03/21/20 12:26 20:08 22:45 WBC RBC Hgb Hct MCV MCHC Plt Count [place] % (Auto) Lymph # (Auto) Seg Neutrophils % Seg Neuts % (Manual) Lymphocytes % (Manual) Seg Neutrophils # Man Lymphocytes # (Manual) D-Dimer ABG pH POC ABG pCO2 POC ABG pO2 ABG pO2 ABG HCO3 ABG Base Excess ABG Oxyhemoglobin ABG Sodium ABG Potassium ABG Chloride ABG Glucose Sodium Potassium Chloride Carbon Dioxide BUN Creatinine Glucose POC Glucose 190 H 375 H 248 H Lactic Acid Ferritin AST Lactate Dehydrogenase C-Reactive Protein Total Protein Albumin Arterial Blood Glucose Arterial Blood Ionized Calcium Coronavirus (PCR) 03/22/20 03/22/20 03/22/20 07:56 10:47 10:47 WBC RBC Hgb Hct MCV MCHC Plt Count [place] % (Auto) Lymph # (Auto) Seg Neutrophils % Seg Neuts % (Manual) Lymphocytes % (Manual) Seg Neutrophils # Man Lymphocytes # (Manual) D-Dimer 855.69 H ABG pH POC ABG pCO2 POC ABG pO2 ABG pO2 ABG HCO3 ABG Base Excess ABG Oxyhemoglobin ABG Sodium ABG Potassium ABG Chloride ABG Glucose Sodium Potassium Chloride Carbon Dioxide BUN Creatinine Glucose POC Glucose 147 H Lactic Acid Ferritin 717.5 H AST Lactate Dehydrogenase C-Reactive Protein Total Protein Albumin Arterial Blood Glucose Arterial Blood Ionized Calcium Coronavirus (PCR) 03/22/20 03/22/20 03/22/20 10:47 11:28 16:32 WBC RBC Hgb Hct MCV MCHC Plt Count [place] % (Auto) Lymph # (Auto) Seg Neutrophils % Seg Neuts % (Manual) Lymphocytes % (Manual) Seg Neutrophils # Man Lymphocytes # (Manual) D-Dimer ABG pH POC ABG pCO2 POC ABG pO2 ABG pO2 ABG HCO3 ABG Base Excess ABG Oxyhemoglobin ABG Sodium ABG Potassium ABG Chloride ABG Glucose Sodium Potassium Chloride Carbon Dioxide BUN Creatinine Glucose POC Glucose 187 H 238 H Lactic Acid Ferritin AST Lactate Dehydrogenase 569 H C-Reactive Protein 6.70 H Total Protein Albumin Arterial Blood Glucose Arterial Blood Ionized Calcium Coronavirus (PCR) 03/22/20 03/23/20 03/23/20 21:03 05:48 06:17 WBC RBC Hgb Hct MCV MCHC Plt Count [place] % (Auto) Lymph # (Auto) Seg Neutrophils % Seg Neuts % (Manual) Lymphocytes % (Manual) Seg Neutrophils # Man Lymphocytes # (Manual) D-Dimer ABG pH POC ABG pCO2 POC ABG pO2 ABG pO2 ABG HCO3 ABG Base Excess ABG Oxyhemoglobin ABG Sodium ABG Potassium ABG Chloride ABG Glucose Sodium Potassium Chloride Carbon Dioxide BUN Creatinine Glucose POC Glucose 204 H 163 H Lactic Acid Ferritin AST Lactate Dehydrogenase C-Reactive Protein Total Protein 5.7 L Albumin 2.6 L Arterial Blood Glucose Arterial Blood Ionized Calcium Coronavirus (PCR) 03/23/20 03/23/20 03/23/20 10:27 17:04 21:53 WBC RBC Hgb Hct MCV MCHC Plt Count [place] % (Auto) Lymph # (Auto) Seg Neutrophils % Seg Neuts % (Manual) Lymphocytes % (Manual) Seg Neutrophils # Man Lymphocytes # (Manual) D-Dimer ABG pH POC ABG pCO2 POC ABG pO2 ABG pO2 ABG HCO3 ABG Base Excess ABG Oxyhemoglobin ABG Sodium ABG Potassium ABG Chloride ABG Glucose Sodium Potassium Chloride Carbon Dioxide BUN Creatinine Glucose POC Glucose 160 H 253 H 274 H Lactic Acid Ferritin AST Lactate Dehydrogenase C-Reactive Protein Total Protein Albumin Arterial Blood Glucose Arterial Blood Ionized Calcium Coronavirus (PCR) 03/23/20 03/23/20 03/24/20 23:02 23:44 02:58 WBC RBC Hgb Hct MCV MCHC Plt Count [place] % (Auto) Lymph # (Auto) Seg Neutrophils % Seg Neuts % (Manual) Lymphocytes % (Manual) Seg Neutrophils # Man Lymphocytes # (Manual) D-Dimer ABG pH 7.472 H POC ABG pCO2 POC ABG pO2 48.2 L 260.5 H ABG pO2 ABG HCO3 ABG Base Excess ABG Oxyhemoglobin 98.4 H ABG Sodium ABG Potassium ABG Chloride ABG Glucose 319 H 287 H Sodium Potassium Chloride Carbon Dioxide BUN Creatinine Glucose POC Glucose 216 H Lactic Acid Ferritin AST Lactate Dehydrogenase C-Reactive Protein Total Protein Albumin Arterial Blood Glucose 319 H 287 H Arterial Blood Ionized Calcium 4.5 L Coronavirus (PCR) 03/24/20 03/24/20 03/24/20 07:31 07:31 08:10 WBC 14.9 H RBC Hgb Hct MCV MCHC 35 H Plt Count [place] % (Auto) Lymph # (Auto) Seg Neutrophils % Seg Neuts % (Manual) Lymphocytes % (Manual) Seg Neutrophils # Man Lymphocytes # (Manual) D-Dimer ABG pH POC ABG pCO2 POC ABG pO2 ABG pO2 ABG HCO3 ABG Base Excess ABG Oxyhemoglobin ABG Sodium ABG Potassium ABG Chloride ABG Glucose Sodium Potassium Chloride Carbon Dioxide BUN 27 H Creatinine 0.7 L Glucose 305 H POC Glucose 259 H Lactic Acid Ferritin AST Lactate Dehydrogenase C-Reactive Protein Total Protein Albumin Arterial Blood Glucose Arterial Blood Ionized Calcium Coronavirus (PCR) 03/24/20 03/24/20 03/24/20 12:07 17:07 20:01 WBC RBC Hgb Hct MCV MCHC Plt Count [place] % (Auto) Lymph # (Auto) Seg Neutrophils % Seg Neuts % (Manual) Lymphocytes % (Manual) Seg Neutrophils # Man Lymphocytes # (Manual) D-Dimer > 60597 H ABG pH POC ABG pCO2 POC ABG pO2 ABG pO2 ABG HCO3 ABG Base Excess ABG Oxyhemoglobin ABG Sodium ABG Potassium ABG Chloride ABG Glucose Sodium Potassium Chloride Carbon Dioxide BUN Creatinine Glucose POC Glucose 306 H 306 H Lactic Acid Ferritin AST Lactate Dehydrogenase C-Reactive Protein Total Protein Albumin Arterial Blood Glucose Arterial Blood Ionized Calcium Coronavirus (PCR) 03/24/20 03/24/20 03/24/20 20:01 20:01 21:24 WBC RBC Hgb Hct MCV MCHC Plt Count [place] % (Auto) Lymph # (Auto) Seg Neutrophils % Seg Neuts % (Manual) Lymphocytes % (Manual) Seg Neutrophils # Man Lymphocytes # (Manual) D-Dimer ABG pH POC ABG pCO2 POC ABG pO2 ABG pO2 ABG HCO3 ABG Base Excess ABG Oxyhemoglobin ABG Sodium ABG Potassium ABG Chloride ABG Glucose Sodium Potassium Chloride Carbon Dioxide BUN Creatinine Glucose POC Glucose 321 H Lactic Acid Ferritin 1233.0 H AST Lactate Dehydrogenase 619 H C-Reactive Protein 12.90 H Total Protein Albumin Arterial Blood Glucose Arterial Blood Ionized Calcium Coronavirus (PCR) 03/25/20 03/25/20 03/25/20 01:46 05:36 07:02 WBC 16.4 H RBC Hgb 15.4 H Hct 46.8 H MCV 96 H MCHC Plt Count 127 L [place] % (Auto) Lymph # (Auto) Seg Neutrophils % Seg Neuts % (Manual) 98.0 H Lymphocytes % (Manual) Seg Neutrophils # Man 16.1 H Lymphocytes # (Manual) 0.0 L D-Dimer ABG pH POC ABG pCO2 POC ABG pO2 ABG pO2 ABG HCO3 ABG Base Excess ABG Oxyhemoglobin ABG Sodium ABG Potassium ABG Chloride ABG Glucose Sodium Potassium Chloride Carbon Dioxide BUN Creatinine Glucose POC Glucose 302 H 298 H Lactic Acid Ferritin AST Lactate Dehydrogenase C-Reactive Protein Total Protein Albumin Arterial Blood Glucose Arterial Blood Ionized Calcium Coronavirus (PCR) 03/25/20 03/25/20 03/25/20 11:27 13:16 17:12 WBC RBC Hgb Hct MCV MCHC Plt Count [place] % (Auto) Lymph # (Auto) Seg Neutrophils % Seg Neuts % (Manual) Lymphocytes % (Manual) Seg Neutrophils # Man Lymphocytes # (Manual) D-Dimer ABG pH POC ABG pCO2 POC ABG pO2 ABG pO2 ABG HCO3 ABG Base Excess ABG Oxyhemoglobin ABG Sodium ABG Potassium ABG Chloride ABG Glucose Sodium Potassium Chloride Carbon Dioxide BUN 52 H Creatinine Glucose 294 H POC Glucose 267 H 261 H Lactic Acid Ferritin AST Lactate Dehydrogenase C-Reactive Protein Total Protein 6.0 L Albumin 2.7 L Arterial Blood Glucose Arterial Blood Ionized Calcium Coronavirus (PCR) 03/25/20 03/25/20 03/25/20 21:33 22:40 23:46 WBC RBC Hgb Hct MCV MCHC Plt Count [place] % (Auto) Lymph # (Auto) Seg Neutrophils % Seg Neuts % (Manual) Lymphocytes % (Manual) Seg Neutrophils # Man Lymphocytes # (Manual) D-Dimer ABG pH POC ABG pCO2 POC ABG pO2 ABG pO2 ABG HCO3 ABG Base Excess ABG Oxyhemoglobin ABG Sodium ABG Potassium ABG Chloride ABG Glucose Sodium Potassium Chloride Carbon Dioxide BUN 57 H Creatinine Glucose 326 H POC Glucose 265 H 321 H Lactic Acid Ferritin AST Lactate Dehydrogenase C-Reactive Protein Total Protein 6.0 L Albumin 3.1 L Arterial Blood Glucose Arterial Blood Ionized Calcium Coronavirus (PCR) 03/26/20 03/26/20 03/26/20 05:09 05:09 05:20 WBC RBC 5.12 H Hgb 16.4 H Hct 48.5 H MCV 95 H MCHC Plt Count 128 L [place] % (Auto) Lymph # (Auto) Seg Neutrophils % Seg Neuts % (Manual) 91.0 H Lymphocytes % (Manual) 3.0 L Seg Neutrophils # Man Lymphocytes # (Manual) 0.2 L D-Dimer ABG pH POC ABG pCO2 POC ABG pO2 ABG pO2 ABG HCO3 ABG Base Excess ABG Oxyhemoglobin ABG Sodium ABG Potassium ABG Chloride ABG Glucose Sodium Potassium Chloride Carbon Dioxide BUN 57 H Creatinine Glucose 302 H POC Glucose 245 H Lactic Acid Ferritin AST Lactate Dehydrogenase C-Reactive Protein Total Protein Albumin Arterial Blood Glucose Arterial Blood Ionized Calcium Coronavirus (PCR) 03/26/20 03/26/20 03/26/20 11:50 16:51 18:16 WBC RBC Hgb Hct MCV MCHC Plt Count [place] % (Auto) Lymph # (Auto) Seg Neutrophils % Seg Neuts % (Manual) Lymphocytes % (Manual) Seg Neutrophils # Man Lymphocytes # (Manual) D-Dimer ABG pH POC ABG pCO2 POC ABG pO2 ABG pO2 ABG HCO3 ABG Base Excess ABG Oxyhemoglobin ABG Sodium ABG Potassium 4.8 H ABG Chloride ABG Glucose 422 H Sodium Potassium Chloride Carbon Dioxide BUN Creatinine Glucose POC Glucose 225 H 352 H Lactic Acid Ferritin AST Lactate Dehydrogenase C-Reactive Protein Total Protein Albumin Arterial Blood Glucose 422 H Arterial Blood Ionized Calcium Coronavirus (PCR) 03/26/20 03/27/20 03/27/20 23:29 04:07 05:21 WBC RBC Hgb Hct MCV MCHC Plt Count [place] % (Auto) Lymph # (Auto) Seg Neutrophils % Seg Neuts % (Manual) Lymphocytes % (Manual) Seg Neutrophils # Man Lymphocytes # (Manual) D-Dimer ABG pH POC ABG pCO2 53.4 H POC ABG pO2 129.5 H ABG pO2 ABG HCO3 ABG Base Excess ABG Oxyhemoglobin ABG Sodium 145.6 H ABG Potassium 4.9 H ABG Chloride 108.0 H ABG Glucose 475 H Sodium Potassium Chloride Carbon Dioxide BUN Creatinine Glucose POC Glucose 367 H 376 H Lactic Acid Ferritin AST Lactate Dehydrogenase C-Reactive Protein Total Protein Albumin Arterial Blood Glucose 475 H Arterial Blood Ionized Calcium Coronavirus (PCR) 03/27/20 03/27/20 03/27/20 10:52 10:52 11:46 WBC 11.8 H RBC Hgb 16.0 H Hct 47.9 H MCV 96 H MCHC Plt Count 102 L [place] % (Auto) Lymph # (Auto) Seg Neutrophils % Seg Neuts % (Manual) 93.0 H Lymphocytes % (Manual) 1.0 L Seg Neutrophils # Man 11.0 H Lymphocytes # (Manual) 0.1 L D-Dimer ABG pH POC ABG pCO2 POC ABG pO2 ABG pO2 ABG HCO3 ABG Base Excess ABG Oxyhemoglobin ABG Sodium ABG Potassium ABG Chloride ABG Glucose Sodium 149 H Potassium 5.1 H D Chloride 109.3 H Carbon Dioxide BUN 69 H Creatinine Glucose 512 H* POC Glucose 446 H Lactic Acid Ferritin AST Lactate Dehydrogenase C-Reactive Protein Total Protein Albumin Arterial Blood Glucose Arterial Blood Ionized Calcium Coronavirus (PCR) 03/27/20 03/27/20 03/28/20 17:24 23:25 04:40 WBC RBC Hgb Hct MCV MCHC Plt Count [place] % (Auto) Lymph # (Auto) Seg Neutrophils % Seg Neuts % (Manual) Lymphocytes % (Manual) Seg Neutrophils # Man Lymphocytes # (Manual) D-Dimer ABG pH 7.346 L POC ABG pCO2 POC ABG pO2 ABG pO2 166.0 H ABG HCO3 31.0 H ABG Base Excess 3.4 H ABG Oxyhemoglobin ABG Sodium ABG Potassium ABG Chloride ABG Glucose Sodium Potassium Chloride Carbon Dioxide BUN Creatinine Glucose POC Glucose 446 H 370 H Lactic Acid Ferritin AST Lactate Dehydrogenase C-Reactive Protein Total Protein Albumin Arterial Blood Glucose Arterial Blood Ionized Calcium Coronavirus (PCR) 03/28/20 03/28/20 03/28/20 05:05 07:24 07:24 WBC 17.9 H RBC 5.08 H Hgb 16.3 H Hct 48.4 H MCV 95 H MCHC Plt Count 124 L [place] % (Auto) Lymph # (Auto) Seg Neutrophils % Seg Neuts % (Manual) 97.0 H Lymphocytes % (Manual) Seg Neutrophils # Man 17.4 H Lymphocytes # (Manual) 0.0 L D-Dimer ABG pH POC ABG pCO2 POC ABG pO2 ABG pO2 ABG HCO3 ABG Base Excess ABG Oxyhemoglobin ABG Sodium ABG Potassium ABG Chloride ABG Glucose Sodium 151 H Potassium 5.4 H Chloride 111.5 H Carbon Dioxide 31 H BUN 76 H Creatinine Glucose 481 H POC Glucose 326 H Lactic Acid Ferritin AST Lactate Dehydrogenase C-Reactive Protein Total Protein Albumin Arterial Blood Glucose Arterial Blood Ionized Calcium Coronavirus (PCR) 03/28/20 03/28/20 03/28/20 11:42 17:01 23:25 WBC RBC Hgb Hct MCV MCHC Plt Count [place] % (Auto) Lymph # (Auto) Seg Neutrophils % Seg Neuts % (Manual) Lymphocytes % (Manual) Seg Neutrophils # Man Lymphocytes # (Manual) D-Dimer ABG pH POC ABG pCO2 POC ABG pO2 ABG pO2 ABG HCO3 ABG Base Excess ABG Oxyhemoglobin ABG Sodium ABG Potassium ABG Chloride ABG Glucose Sodium Potassium Chloride Carbon Dioxide BUN Creatinine Glucose POC Glucose 395 H 392 H 388 H Lactic Acid Ferritin AST Lactate Dehydrogenase C-Reactive Protein Total Protein Albumin Arterial Blood Glucose Arterial Blood Ionized Calcium Coronavirus (PCR) 03/29/20 03/29/20 03/29/20 04:00 05:16 08:30 WBC 20.9 H RBC 5.15 H Hgb 16.3 H Hct 49.9 H MCV 97 H MCHC Plt Count 114 L [place] % (Auto) Lymph # (Auto) Seg Neutrophils % Seg Neuts % (Manual) Lymphocytes % (Manual) Seg Neutrophils # Man Lymphocytes # (Manual) D-Dimer ABG pH POC ABG pCO2 POC ABG pO2 66.0 L ABG pO2 ABG HCO3 ABG Base Excess ABG Oxyhemoglobin 91.6 L ABG Sodium 147.3 H ABG Potassium 4.6 H ABG Chloride 109.0 H ABG Glucose 532 H Sodium Potassium Chloride Carbon Dioxide BUN Creatinine Glucose POC Glucose 446 H Lactic Acid Ferritin AST Lactate Dehydrogenase C-Reactive Protein Total Protein Albumin Arterial Blood Glucose 532 H Arterial Blood Ionized Calcium Coronavirus (PCR) 03/29/20 03/29/20 08:30 11:53 WBC RBC Hgb Hct MCV MCHC Plt Count [place] % (Auto) Lymph # (Auto) Seg Neutrophils % Seg Neuts % (Manual) Lymphocytes % (Manual) Seg Neutrophils # Man Lymphocytes # (Manual) D-Dimer ABG pH POC ABG pCO2 POC ABG pO2 ABG pO2 ABG HCO3 ABG Base Excess ABG Oxyhemoglobin ABG Sodium ABG Potassium ABG Chloride ABG Glucose Sodium 151 H Potassium Chloride 110.5 H Carbon Dioxide 32 H BUN 91 H Creatinine 1.4 H Glucose 605 H* POC Glucose 496 H Lactic Acid Ferritin AST Lactate Dehydrogenase C-Reactive Protein Total Protein Albumin Arterial Blood Glucose Arterial Blood Ionized Calcium Coronavirus (PCR)
[2020-03-29] MEDS ORDERED: INSULIN LISPRO 100 UNIT/ML VIAL 3 mL SUB-Q SCH (14:00)
[2020-03-29] MEDS ORDERED: SODIUM CHLORIDE 0.9% 1000 ML 1,000 ML IV ONE (16:00)
[2020-03-29] MEDS: NORepinephrine/NS 4 MG-250 ML 4 MG/250 ML BAG IV SCH (17:00)
[2020-03-30] MEDS: NORepinephrine/NS 4 MG-250 ML 4 MG/250 ML BAG IV SCH ×4 (00:03→06:53)
[2020-03-30] MEDS: dilTIAZem 60 MG TAB PO SCH ×2 (00:04→05:07)
[2020-03-30] MEDS: ACETAMINOPHEN 325 MG TAB PO PRN (00:14)
[2020-03-30] MEDS ORDERED: SODIUM CHLORIDE 0.9% 250ML 250 ML IV ONE (02:22)
[2020-03-30] MEDS: DOPamine/D5W 800 MG/250 ML 800 MG/250 ML BAG IV SCH ×3 (03:36→22:08)
[2020-03-30] MEDS ORDERED: methylPREDNISolone Sod Succinate 40 MG/1 ML INJ IV SCH (06:00)
[2020-03-30] MEDS: VASOPRESSIN 20 UNIT in SODIUM CHLORIDE 0.9% 100 ML IV SCH ×2 (06:26→15:34)
[2020-03-30 08:14] LABS: Hematocrit 42.8 % (35.5-45.6); Hemoglobin 14.4 gm/dl (11.8-15.2); Mean Corpuscular HGB Conc 34 % (32-34); Mean Corpuscular Volume 96 fl (84-94); Red Blood Count 4.45 M/mm3 (3.65-5.03); Red Cell Distribution Width 14.7 % (13.2-15.2)
[2020-03-30 08:20] LABS: Calcium 6.4 mg/dL (8.4-10.2); Hemolysis Index 117
[2020-03-30 08:21] LABS: Platelet Count 67 K/mm3 (140-440)
--- NOTE | 2020-03-30 08:21 | Progress Note ---
Assessment and Plan Assessment and plan: -- Sepsis due to COVID19 infection cont iv steroid, remdesivir, supplemental O2 Patient now hypoxemic intubated. Severe sepsis secondary to COVID-19 pneumonia. -- Acute hypoxemic respiratory failure due to covid19 PNA Supplemental oxygen, nebulizer therapy, pulse oximetry, pulmonary toilet, supportive care. Will need to obtain CT scan head and neck. Patient has crepitus in neck area and increased rhonchi. -- Covid19 PNA IV steroid therapy, prophylactic anticoagulation, prone positioning while in bed, supplemental oxygen, pulse oximetry, nebulizer therapy, contact precautions, isolation precaution, supportive care. remdesivir for 5 days -ve SARS-CoV-2 IgG: ordered for convalescent plasma --DM type 2 started on long acting insulin along with SSI Uncontrolled. Will increase long-acting Lantus at this time. --Bacteremia, likely contamination 1 out of 2 blood cx +ve for gm+ve cocci s/p iv vanco, repeat blood cx negative -- Hypertension Monitor blood pressure every shift, continue medical management The high probability of a clinically significant, sudden or life threatening deterioration of the [] system(s) required my full and direct attention, intervention and personal management. The aggregate critical care time was [34] minutes. This time is in addition to time spent performing reported procedures but includes the following: [x] Data Review and interpretation [x] Patient assessment and monitoring of vital signs [x] Documentation [x] Medication orders and management Subjective Date of service: 03/24/20 Principal diagnosis: Severe COVID-19 Interval history: : Positive for COVID 4 days ago before admission. started on dexamethasone iv. ID consulted. ordered for remdesivir. follow inflammatory markers. Start on vancomycin for positive blood culture -we will follow final result 03/21: ordered repeat blood cx. -ve SARS-CoV-2 IgG, ordered for convalescent plasma. patient remains on high flow O2. cont to adjust insulin dose for better glycemic control 03/22: Patient remains on high flow O2, ordered for pulmonary consult, CTA chest and bilateral lower extremity Doppler. Continue to follow inflammatory markers. Pending convalescent plasma transfusion 03/23: pending convalescent plasma transfusion. remains on high flow O2. s/p la isx 40mg today. cont remdesivir and steroid. Le doppler neg for PE. on 35L with 100% FiO2 - poor prognostic factor 03/24 patient overnight episode altered mental status hypoxemia requiring intubation. At present patient in the prone position intubated remains unresponsive with altered mental status despite being only on 1 cal fentanyl. 03/25/2020; patient is intubated and sedated, on mechanical ventilation. From prone positioning when I saw the patient. Patient has altered mental status and CT head was done yesterday and significant for acute bilateral CVA, left cerebral hemispheres, both thalamus, occipital with mass-effect and teleneurology was consulted. Teleneurology recommend to transfer to another facility and I called [facility] transfer line and pending the call back. Our neurosurgeon was also consulted and agreed with the transfer. It is difficult to get an accepting facility given the current pandemic, limited bed availability especially in the ICU. 03/26/2020; patient is intubated and sedated and on mechanical ventilation with FiO2 of 100%. Patient was on prone position. I have a long discussion with his sister about transferring to another facility. I called [facility] transfer on 03/25/2020 and discussed with Neurointensivist Dr Dae Cordon and Neurosurgeon Dr Hector Wellington after explained to the the clinical condition and told them the CT and CTA head findings impression read by our radiologist both of them agreed that the patient is not a candidate for any neuro intervention. Said the damage is extensive and prognosis is very poor. I also told them the recommendations neurosurgeon at [facility] Dr Gaurav berry recommendations for the transfer. I also called other facilities including [facility] and because of the pandemic most of the ICU beds are full and I could not find any accepting facility. I also discussed with neurosurgeon Dr. Berry here at [facility]. I talk with her daughter about the poor prognosis and further plan of care, she wants him to be full code and thinking once his respiratory condition is improving she said she will take him to [facility] if they can do surgery. At this time prognosis is very poor and is not stable enough to be transferred or to do any surgery. His daughter wants plasma to be given to the patient and I called ID and he does not think it will help him much but okay to give it to him if the family requested. 03/27/2020; I have also tried to call [facility] yesterday to transfer the patient and the neurosurgeon said did not have any capacity to accept the patient and he said call back tomorrow to place the patient on waiting list. Plans discussed in detail with his Sister Asad. His blood sugar level was very high and I increase his Lantus from 22units to 30 units and added 10 units of Humalog AC. I have discussed with his sister asad and she says she is going [facility]. From my side already called the nearby hospitals who have neurosurgery capability but declined because of patient's poor prognosis. I have also discussed the neurosurgery here Dr. Gaurav Berry and he said patient's prognosis is very poor and no point to transfer the patient. He said he is going to talk to patient's sister problem and I gave her number. [phone]. 03/28/2020; yesterday I discussed with Dr. Avinash Cabral neurosurgeon at [facility] and he accepted the patient. But [facility] called me and said they did not have any bed but patient is on the waiting list. 03/29/2020; patient is intubated and sedated and on mechanical ventilation. FiO2 60% and PEEP of 8. On the waiting list to be transferred to [facility]. Patient's blood sugar was 605 this a.m. and I discussed with the nurse to put the patient on insulin drip. Prognosis very poor. 03/30: Patient remains intubated and critically ill, I have advised patient's sister Ms. Milton about the critical nature of his illness. And also he is unstable for transport even at this time due to low blood pressure. She wants me to call the surgeon to see if he can make a push, I do not have a number for him but I have gone ahead and called the facility and advised that how critically ill the patient is day said that at this time they still do not have a bed behind him on the wait list. I discussed with our informatics analyst diltiazem has been discontinued patient has been started on a third pressor epinephrine in addition to other pressors that he is already on. We will also start him on amiodarone with a bolus. To control the A. fib. Will adjust insulin for better blood sugar control. The high probability of a clinically significant, sudden or life threatening deterioration of the [pulmonary, nervous system, renal, endocrine,] system(s) required my full and direct attention, intervention and personal management. The aggregate critical care time was [65] minutes. This time is in addition to time spent performing reported procedures but includes the following: [x] Data Review and interpretation [x] Patient assessment and monitoring of vital signs [x] Documentation x[] Medication orders and management - Patient Problems (1) Cerebrovascular accident involving posterior circulation Current Visit: Yes Status: Acute (2) Acute hypoxemic respiratory failure Current Visit: Yes Status: Acute (3) Acute respiratory failure due to COVID-19 Current Visit: Yes Status: Acute (4) Shock - vasogenic./Multiorgan failure (5) Atrial Fibrillation RVR: (6) DM with Hyperglycemia History Interval history: Patient seen and examined, remains critically sick, hypotensive refractory to pressors at this time. Hospitalist Physical - Physical exam Narrative exam: Patient is intubated and sedated. Limited due to PPE direct observation used. The patient appeared well nourished and normally developed. Vital signs as documented. Head exam is unremarkable. No scleral icterus . Neck is without jugular venous distension, thyromegaly, or carotid bruits. Lungs are transmitted sounds Cardiac exam irregularly irregular. Abdominal exam , nontender, no organomegaly. Extremities are nonedematous and both femoral and pedal pulses are normal. BIOMASS TECHNICIAN: Patient is sedated - Constitutional Vitals: Temp Pulse Resp BP Pulse Ox 101.0 F H 139 H 23 47/28 94 03/30/20 04:00 03/30/20 07:40 03/30/20 06:00 03/30/20 07:40 03/30/20 07:40 General appearance: Present: other (Altered mental status unresponsive.) Results - Labs CBC & Chem 7: 03/30/20 07:20 03/30/20 07:20 Labs: Laboratory Last Values WBC 20.9 K/mm3 (4.5-11.0) H 03/29/20 08:30 RBC 5.15 M/mm3 (3.65-5.03) H 03/29/20 08:30 Hgb 16.3 gm/dl (11.8-15.2) H 03/29/20 08:30 Hct 49.9 % (35.5-45.6) H 03/29/20 08:30 MCV 97 fl (84-94) H 03/29/20 08:30 MCH 32 pg (28-32) 03/29/20 08:30 MCHC 33 % (32-34) 03/29/20 08:30 RDW 14.4 % (13.2-15.2) 03/29/20 08:30 Plt Count 114 K/mm3 (140-440) L 03/29/20 08:30 Lymph % (Auto) 13.5 % (13.4-35.0) 03/19/20 14:13 Jewell % (Auto) 1.0 % (0.0-7.3) 03/26/20 05:09 Eos % (Auto) 0.0 % (0.0-4.3) 03/26/20 05:09 Baso % (Auto) 0.2 % (0.0-1.8) 03/19/20 14:13 Lymph # (Auto) 0.8 K/mm3 (1.2-5.4) L 03/19/20 14:13 Jewell # (Auto) 0.1 K/mm3 (0.0-0.8) 03/26/20 05:09 Eos # (Auto) 0.0 K/mm3 (0.0-0.4) 03/26/20 05:09 Baso # (Auto) 0.0 K/mm3 (0.0-0.1) 03/26/20 05:09 Add Manual Diff Complete 03/28/20 07:24 Total Counted 100 03/28/20 07:24 Seg Neutrophils % [place] Custodian 03/28/20 07:24 Seg Neuts % (Manual) 97.0 % (40.0-70.0) H 03/28/20 07:24 Band Neutrophils % 1.0 % 03/28/20 07:24 Lymphocytes % (Manual) 1.0 % (13.4-35.0) L 03/27/20 10:52 Reactive Lymphs % (Man) 1.0 % 03/27/20 10:52 Monocytes % (Manual) 2.0 % (0.0-7.3) 03/28/20 07:24 Metamyelocytes % 1.0 % 03/27/20 10:52 Nucleated RBC % Not Reportable 03/28/20 07:24 Seg Neutrophils # 5.6 K/mm3 (1.8-7.7) 03/26/20 05:09 Seg Neutrophils # Man 17.4 K/mm3 (1.8-7.7) H 03/28/20 07:24 Band Neutrophils # 0.2 K/mm3 03/28/20 07:24 Lymphocytes # (Manual) 0.0 K/mm3 (1.2-5.4) L 03/28/20 07:24 Abs React Lymphs (Man) 0.0 K/mm3 03/28/20 07:24 Monocytes # (Manual) 0.4 K/mm3 (0.0-0.8) 03/28/20 07:24 Eosinophils # (Manual) 0.0 K/mm3 (0.0-0.4) 03/28/20 07:24 Basophils # (Manual) 0.0 K/mm3 (0.0-0.1) 03/28/20 07:24 Metamyelocytes # 0.0 K/mm3 03/28/20 07:24 Myelocytes # 0.0 K/mm3 03/28/20 07:24 Promyelocytes # 0.0 K/mm3 03/28/20 07:24 Blast Cells # 0.0 K/mm3 03/28/20 07:24 WBC Morphology Not Reportable 03/28/20 07:24 Hypersegmented Neuts Not Reportable 03/28/20 07:24 Hyposegmented Neuts Not Reportable 03/28/20 07:24 Hypogranular Neuts Not Reportable 03/28/20 07:24 Smudge Cells Not Reportable 03/28/20 07:24 Toxic Granulation Not Reportable 03/28/20 07:24 Toxic Vacuolation Not Reportable 03/28/20 07:24 Dohle Bodies Not Reportable 03/28/20 07:24 Pelger-Huet Anomaly Not Reportable 03/28/20 07:24 Madeleine Rods Not Reportable 03/28/20 07:24 Platelet Estimate Consistent w auto 03/28/20 07:24 Clumped Platelets Not Reportable 03/28/20 07:24 Plt Clumps, EDTA Not Reportable 03/28/20 07:24 Large Platelets Not Reportable 03/28/20 07:24 Giant Platelets Not Reportable 03/28/20 07:24 Platelet Satelliting Not Reportable 03/28/20 07:24 Plt Morphology Comment Not Reportable 03/28/20 07:24 RBC Morphology Not Reportable 03/28/20 07:24 Dimorphic RBCs Not Reportable 03/28/20 07:24 Polychromasia Not Reportable 03/28/20 07:24 Hypochromasia Not Reportable 03/28/20 07:24 Poikilocytosis Not Reportable 03/28/20 07:24 Anisocytosis 1+ 03/28/20 07:24 Microcytosis Not Reportable 03/28/20 07:24 Macrocytosis Not Reportable 03/28/20 07:24 Spherocytes Not Reportable 03/28/20 07:24 Pappenheimer Bodies Not Reportable 03/28/20 07:24 Sickle Cells Not Reportable 03/28/20 07:24 Target Cells Not Reportable 03/28/20 07:24 Tear Drop Cells Not Reportable 03/28/20 07:24 Ovalocytes Not Reportable 03/28/20 07:24 Helmet Cells Not Reportable 03/28/20 07:24 Kong-Atkins Bodies Not Reportable 03/28/20 07:24 [place] Rings Not Reportable 03/28/20 07:24 Ivelisse Cells Not Reportable 03/28/20 07:24 Bite Cells Not Reportable 03/28/20 07:24 Crenated Cell Not Reportable 03/28/20 07:24 Elliptocytes Not Reportable 03/28/20 07:24 Acanthocytes (Spur) Not Reportable 03/28/20 07:24 Rouleaux Not Reportable 03/28/20 07:24 Hemoglobin C Crystals Not Reportable 03/28/20 07:24 Schistocytes Not Reportable 03/28/20 07:24 Malaria parasites Not Reportable 03/28/20 07:24 Leland Bodies Not Reportable 03/28/20 07:24 Hem Pathologist Commnt No 03/28/20 07:24 D-Dimer > 02362 ng/mlDDU (0-234) H 03/24/20 20:01 ABG pH 7.408 (7.320-7.450) 03/29/20 04:00 POC ABG pCO2 46.9 mmHg (32.0-48.0) 03/29/20 04:00 ABG pCO2 58.1 mm Hg 03/28/20 04:40 POC ABG pO2 66.0 mmHg (83-108) L 03/29/20 04:00 ABG pO2 166.0 mm Hg (80.0-90.0) H 03/28/20 04:40 POC ABG HCO3 28.9 03/29/20 04:00 ABG HCO3 31.0 mmol/L (20.0-26.0) H 03/28/20 04:40 ABG O2 Saturation 98.9 % (95.0-99.0) 03/28/20 04:40 ABG O2 Content 24.2 (0.0-44) 03/28/20 04:40 POC ABG Base Excess 3.4 03/29/20 04:00 ABG Base Excess 3.4 mmol/L (-2.0-3.0) H 03/28/20 04:40 ABG Hemoglobin 16.6 (12.0-17.5) 03/29/20 04:00 ABG Oxyhemoglobin 91.6 (94-98) L 03/29/20 04:00 ABG Carboxyhemoglobin 0.7 % (0.0-5.0) 03/28/20 04:40 ABG Methemoglobin 0 (0.0-1.5) 03/29/20 04:00 ABG Sodium 147.3 mmol/L (136.0-145.0) H 03/29/20 04:00 ABG Potassium 4.6 mmol/L (3.40-4.50) H 03/29/20 04:00 ABG Chloride 109.0 mmol/L (98-107) H 03/29/20 04:00 ABG Glucose 532 mg/dL (65-95) H 03/29/20 04:00 Oxyhemoglobin 97.5 % (95.0-99.0) 03/28/20 04:40 Carboxyhemoglobin 0.8 (0.5-1.5) 03/29/20 04:00 FiO2 35.0 03/29/20 04:00 Sodium 151 mmol/L (137-145) H 03/29/20 08:30 Potassium 4.9 mmol/L (3.6-5.0) 03/29/20 08:30 Chloride 110.5 mmol/L (98-107) H 03/29/20 08:30 Carbon Dioxide 32 mmol/L (22-30) H 03/29/20 08:30 Anion Gap 13 mmol/L 03/29/20 08:30 BUN 91 mg/dL (9-20) H 03/29/20 08:30 Creatinine 1.4 mg/dL (0.8-1.3) H 03/29/20 08:30 Estimated GFR 52 ml/min 03/29/20 08:30 BUN/Creatinine Ratio 65 % 03/29/20 08:30 Glucose 605 mg/dL (75-100) H* 03/29/20 08:30 POC Glucose 229 mg/dL (70-105) H 03/30/20 06:36 Osmolality 311 Mosm/kg 03/21/20 13:43 Lactic Acid 1.70 mmol/L (0.7-2.0) 03/19/20 23:24 Calcium 8.6 mg/dL (8.4-10.2) 03/29/20 08:30 Ferritin 1233.0 ng/mL (30.0-300.0) H 03/24/20 20:01 Total Bilirubin 1.20 mg/dL (0.1-1.2) 03/25/20 22:40 Direct Bilirubin < 0.2 mg/dL (0-0.2) 03/23/20 05:48 Indirect Bilirubin 0.4 mg/dL 03/23/20 05:48 AST 26 units/L (5-40) 03/25/20 22:40 ALT 28 units/L (7-56) 03/25/20 22:40 Alkaline Phosphatase 92 units/L (35-129) 03/25/20 22:40 Lactate Dehydrogenase 619 units/L (91-180) H 03/24/20 20:01 C-Reactive Protein 12.90 mg/dL (0.00-1.30) H 03/24/20 20:01 Total Protein 6.0 g/dL (6.3-8.2) L 03/25/20 22:40 Albumin 3.1 g/dL (3.9-5) L 03/25/20 22:40 Albumin/Globulin Ratio 1.1 % 03/25/20 22:40 Procalcitonin 0.13 ng/mL (<0.15) 03/22/20 10:47 Arterial Blood Glucose 532 mg/dL (65-95) H 03/29/20 04:00 Arterial Blood Ionized Calcium 4.9 mg/dL (4.6-5.3) 03/29/20 04:00 Urine Color Yellow (Yellow) 03/20/20 05:28 Urine Turbidity Clear (Clear) 03/20/20 05:28 Urine pH 6.0 (5.0-7.0) 03/20/20 05:28 Ur Specific [place] 1.029 (1.003-1.030) 03/20/20 05:28 Urine Protein <15 mg/dl mg/dL (Negative) 03/20/20 05:28 Urine Glucose (UA) >=500 mg/dL (Negative) 03/20/20 05:28 Urine Ketones 20 mg/dL (Negative) 03/20/20 05:28 Urine Blood Neg (Negative) 03/20/20 05:28 Urine Nitrite Neg (Negative) 03/20/20 05:28 Urine Bilirubin Neg (Negative) 03/20/20 05:28 Urine Urobilinogen < 2.0 mg/dL (<2.0) 03/20/20 05:28 Ur Leukocyte Esterase Neg (Negative) 03/20/20 05:28 Urine WBC (Auto) 1.0 /HPF (0.0-6.0) 03/20/20 05:28 Urine RBC (Auto) 1.0 /HPF (0.0-6.0) 03/20/20 05:28 Coronavirus (PCR) Positive (Negative) A 03/20/20 05:28 SARS-CoV-2 IgG Ab Nonreactive (NonReactive) 03/20/20 17:49 Blood Type AB POSITIVE 03/20/20 17:49 Antibody Screen Negative 03/20/20 17:49 Microbiology: Microbiology 03/29/20 20:05 Peripheral/Venous Blood Culture - Preliminary Culture in Progress 03/29/20 20:05 Peripheral/Venous Blood Culture - Preliminary Culture in Progress [place]/IV: Voiding Method Condom Catheter IV Catheter Type [Right Upper PICC Line arm] IV Catheter Type [Left Upper INT / Saline Lock arm] IV Catheter Type [Right Hand] INT / Saline Lock IV Catheter Type [Left Peripheral IV Antecubital] Active Medications - Current Medications Current Medications: Generic Name Dose Route Start Last Admin Trade Name Freq PRN Reason Stop Dose Admin Acetaminophen 650 mg 03/19/20 16:16 03/30/20 00:14 Acetaminophen 325 Mg Tab PO 650 mg Q4H PRN Administration Pain MILD(1-3)/Fever >100.5/ROSS Albuterol 2.5 mg 03/19/20 16:16 Albuterol 2.5 Mg/3 Ml Nebu IH Q4HRT PRN Shortness Of Breath Lipase/Protease/Amylase 1 each 03/25/20 11:39 Lipase 10,500/Protease 25,000/Amylase 43,750 (Units) Dr Cap FEEDTUBE PRN PRN For Clogged Feeding Tube Ascorbic Acid 1,000 mg 03/20/20 14:00 03/29/20 21:01 Ascorbic Acid 500 Mg Tab PO 1,000 mg BID FAVIOLA Administration Aspirin 81 mg 03/27/20 14:00 03/29/20 10:48 Aspirin 81 Mg Tab Chew PO 81 mg QDAY FAVIOLA Administration Cholecalciferol 5,000 unit 03/20/20 14:00 03/29/20 10:48 Cholecalciferol (Vit D3) 5,000 Unit Tab PO 5,000 unit DAILY FAVIOLA Administration Clopidogrel Bisulfate 75 mg 03/26/20 10:00 03/29/20 10:48 Clopidogrel 75 Mg Tab PO 75 mg QDAY FAVIOLA Administration Dextrose 50 ml 03/29/20 09:54 Dextrose 50% In Water (25gm) 50 Ml Syringe IV Q30MIN PRN Hypoglycemia Protocol Diltiazem HCl 60 mg 03/29/20 12:00 03/30/20 05:07 Diltiazem 60 Mg Tab PO Not Given Q6HR FAVIOLA Famotidine 20 mg 03/28/20 10:00 03/29/20 21:00 Famotidine 20 Mg Tab PO 20 mg BID FAVIOLA Administration Fentanyl 50 mcg 03/29/20 11:00 03/29/20 13:02 Fentanyl 100 Mcg/2 Ml Inj IV 50 mcg Q2H PRN Administration ANALGESIA Hydrophilic Ointment 1 applic 03/23/20 22:42 Lip Therapy Vaseline TP Q2HR PRN Dry Lips Insulin Human Regular 100 100 mls @ 1 mls/hr 03/29/20 10:30 03/30/20 06:38 units/ Sodium Chloride IV 5 units/hr TITR FAVIOLA 5 mls/hr Titration Protocol 1 UNITS/HR Norepinephrine 4 mg in 250 mls @ 7.5 mls/hr 03/29/20 17:00 03/30/20 06:53 Levophed Drip 4 Mg/Ns 250 Ml IV 30 mcg/min TITR FAVIOLA 112.5 mls/hr Administration Protocol 2 MCG/MIN Dopamine HCl/Dextrose 800 mg in 250 mls @ 2.768 mls/hr 03/30/20 04:00 03/30/20 06:04 Intropin Drip 800 Mg/D5w 250 Ml IV 20 mcg/kg/min TITR FAVIOLA 27.675 mls/hr Titration Protocol 2 MCG/KG/MIN Vasopressin 20 unit/ Sodium 101 mls @ 9.09 mls/hr 03/30/20 07:00 03/30/20 06:26 Chloride IV 0.03 units/min TITR FAVIOLA 9.09 mls/hr Administration Protocol 0.03 UNITS/MIN Phenylephrine HCl 100 mg/ 100 mls @ 3 mls/hr 03/30/20 07:45 Sodium Chloride IV TITR FAVIOLA Protocol 50 MCG/MIN Methylprednisolone Sodium Succinate 20 mg 03/30/20 06:00 03/30/20 05:06 Methylprednisolone Sod Succinate 40 Mg/1 Ml Inj IV 20 mg Q8HR FAVIOLA Administration Multi-Ingred Cream/Lotion/Oil/Oint 1 applic 03/23/20 22:42 Mineral Oil/Petrolatum, White Ophth Oint 3.5 Gm OU Q4HR PRN Dry Eye(s) Ondansetron HCl 4 mg 03/19/20 16:16 Ondansetron 4 Mg/2 Ml Inj IV Q8H PRN Nausea And Vomiting Simple Syrup 15 ml 03/25/20 11:39 Simple Syrup 15 Ml FEEDTUBE PRN PRN Hypoglycemia Simple Syrup 30 ml 03/25/20 11:39 Simple Syrup 15 Ml FEEDTUBE PRN PRN Hypoglycemia Sodium Bicarbonate 325 mg 03/25/20 11:39 Sodium Bicarbonate 325 Mg Tab FEEDTUBE PRN PRN For Clogged Feeding Tube Sodium Chloride 10 ml 03/19/20 22:00 03/29/20 21:02 Sodium Chloride 0.9% 10 Ml Flush Syringe IV 10 ml BID FAVIOLA Administration Sodium Chloride 10 ml 03/19/20 16:16 Sodium Chloride 0.9% 10 Ml Flush Syringe IV PRN PRN LINE FLUSH Zinc Sulfate 220 mg 03/20/20 14:00 03/29/20 21:00 Zinc Sulfate 220 Mg Cap PO 220 mg BID FAVIOLA Administration Nutrition/Malnutrition Assess - Dietary Evaluation Nutrition/Malnutrition Findings: Nutrition Notes Start: 03/24/20 11:40 Freq: Status: Active Protocol: Document 03/28/20 12:01 AB (Rec: 03/28/20 12:05 AB [id number]) Co-Sign 03/28/20 12:01 LP Nutrition Notes Initial or Follow up Brief Note Current Diagnosis Sepsis,Hypertension Other Pertinent Diagnosis acute respiratory failure, pneumonia Current Diet Vital AF 1.2 at 65 ml/hr (goal rate) Labs/Tests Na 151 K 5.4 BUN 76 BG 481 Subjective/Other Information verbalized a want for increasing flush to 250 ml q4h . Order updated. Nutrition Intervention Follow-Up By: 03/30/20 Additional Comments F/U for TF rate/tolerance
[2020-03-30] MEDS: PHENYLEPHRINE 100 MG in SODIUM CHLORIDE 0.9% 90 ML IV SCH ×4 (08:30→22:02)
[2020-03-30 08:38] LABS: BUN/Creatinine Ratio 36; Blood Urea Nitrogen 157 mg/dL (9-20)
[2020-03-30] MEDS ORDERED: AMIODARONE 900 MG in DEXTROSE 5% IN WATER 482 ML IV SCH (09:00)
[2020-03-30] MEDS ORDERED: NORepinephrine 8 MG in SODIUM CHLORIDE 0.9% 250ML 242 ML IV SCH (09:00)
[2020-03-30] MEDS ORDERED: EPINEPHrine 1 MG/1 ML 8 MG in SODIUM CHLORIDE 0.9% 250ML 242 ML IV SCH (09:00)
[2020-03-30] MEDS: NS IV SCH ×4 (09:26→22:07)
[2020-03-30] MEDS: NOREPINEPHRINE IV SCH ×4 (09:26→22:07)
[2020-03-30] MEDS: ZINC SULFATE 220 MG CAP PO SCH ×2 (10:18→22:09)
[2020-03-30] MEDS: FAMOTIDINE 20 MG TAB PO SCH ×2 (10:18→22:06)
[2020-03-30] MEDS: CLOPIDOGREL 75 MG TAB PO SCH (10:18)
[2020-03-30] MEDS: ASCORBIC ACID 500 MG TAB PO SCH ×2 (10:18→22:06)
[2020-03-30] MEDS: ASPIRIN 81 MG TAB CHEW PO SCH (10:18)
[2020-03-30] MEDS: CHOLECALCIFEROL (VIT D3) 5,000 UNIT TAB PO SCH (10:19)
[2020-03-30] MEDS: AMIODARONE 150 MG in DEXTROSE 5% IN WATER 97 ML IV ONE ×2 (10:30→17:15)
[2020-03-30] MEDS ORDERED: VANCOMYCIN 1,500 MG in SODIUM CHLORIDE 0.9% 500 ML 500 ML IV ONE (10:45)
[2020-03-30] MEDS ORDERED: CEFEPIME/NS 2 GM/100 ML 2 GM/100 ML BAG IV ONE (11:00)
[2020-03-30] MEDS: LACTATED RINGERS 1,000 ML IV SCH ×3 (11:30→13:43)
--- NOTE | 2020-03-30 11:33 | Progress Note ---
Assessment and Plan 59 y/o male with acute hypoxic respiratory failure secondary to COVID 19 with prior history of tobacco abuse. 1. No further proning. Will wean FiO2 for sats >88% and PaO2>55 2. Overall clinical state is much worse. Now with cardiovascular collapse and renal failure. This combination with respiratory failure from COVID plus bilateral strokes. IMS has spoken to sister, is just getting over COVID. Overall prognosis is guarded to poor with high likelyhood of cardiac arrest with lack of ROSC could happen today. 3. Not stable for transfer now CCT 31 minutes. Subjective Date of service: 03/30/20 Principal diagnosis: Severe COVID-19 Interval history: Maxed on 5 pressors now. Marginal BP's. Unresponsive. Minimal urine output. Objective Vital Signs - 12hr 03/30/20 03/30/20 03/30/20 00:00 00:04 00:12 Temperature 101.9 F H Pulse Rate 110 H 111 H 106 H Pulse Rate [ 110 H From Monitor] Respiratory 29 H Rate Blood Pressure 86/30 86/30 81/43 O2 Sat by Pulse 94 Oximetry 03/30/20 03/30/20 03/30/20 01:00 02:00 03:00 Temperature Pulse Rate 104 H 122 H 115 H Pulse Rate [ From Monitor] Respiratory 27 H 25 H 28 H Rate Blood Pressure 66/29 80/35 75/42 O2 Sat by Pulse 95 91 Oximetry 03/30/20 03/30/20 03/30/20 04:00 04:01 04:55 Temperature 101.0 F H Pulse Rate 108 H 119 H 110 H Pulse Rate [ 118 H From Monitor] Respiratory 23 25 H Rate Blood Pressure 136/96 131/106 O2 Sat by Pulse 94 94 Oximetry 03/30/20 03/30/20 03/30/20 05:00 05:07 06:00 Temperature Pulse Rate 113 H 113 H 139 H Pulse Rate [ From Monitor] Respiratory 24 23 Rate Blood Pressure 141/110 111/64 47/28 O2 Sat by Pulse Oximetry 03/30/20 07:40 Temperature Pulse Rate 139 H Pulse Rate [ From Monitor] Respiratory Rate Blood Pressure 47/28 O2 Sat by Pulse 94 Oximetry Constitutional: comatose Eyes: non-icteric ENT: other (orally intubated) Neck: supple Ascultation: Right: diminished breath sounds Percussion: Bilateral: not dull Cardiovascular: other (sinus tach) Gastrointestinal: normoactive bowel sounds CBC and BMP: 03/30/20 07:20 03/30/20 07:20 ABG, PT/INR, D-dimer: ABG ABG pH 7.408 (7.320-7.450) 03/29/20 04:00 POC ABG pCO2 46.9 mmHg (32.0-48.0) 03/29/20 04:00 ABG pCO2 58.1 mm Hg 03/28/20 04:40 POC ABG pO2 66.0 mmHg (83-108) L 03/29/20 04:00 ABG pO2 166.0 mm Hg (80.0-90.0) H 03/28/20 04:40 POC ABG HCO3 28.9 03/29/20 04:00 ABG O2 Saturation 98.9 % (95.0-99.0) 03/28/20 04:40 PT/INR, D-dimer D-Dimer > 95222 ng/mlDDU (0-234) H 03/24/20 20:01 Abnormal lab findings: Abnormal Labs 03/19/20 03/19/20 03/19/20 14:13 14:13 14:13 WBC RBC Hgb Hct MCV MCHC 35 H Plt Count [place] % (Auto) 11.6 H Lymph # (Auto) 0.8 L Seg Neutrophils % 74.7 H Seg Neuts % (Manual) Lymphocytes % (Manual) Seg Neutrophils # Man Lymphocytes # (Manual) D-Dimer ABG pH POC ABG pCO2 POC ABG pO2 ABG pO2 ABG HCO3 ABG Base Excess ABG Oxyhemoglobin ABG Sodium ABG Potassium ABG Chloride ABG Glucose Sodium Potassium Chloride Carbon Dioxide BUN Creatinine Glucose 204 H POC Glucose Lactic Acid 2.30 H* Calcium Ferritin AST Lactate Dehydrogenase C-Reactive Protein Total Protein Albumin Arterial Blood Glucose Arterial Blood Ionized Calcium Coronavirus (PCR) 03/19/20 03/19/20 03/19/20 14:13 15:35 15:35 WBC RBC Hgb Hct MCV MCHC Plt Count [place] % (Auto) Lymph # (Auto) Seg Neutrophils % Seg Neuts % (Manual) Lymphocytes % (Manual) Seg Neutrophils # Man Lymphocytes # (Manual) D-Dimer 658.20 H ABG pH POC ABG pCO2 POC ABG pO2 ABG pO2 ABG HCO3 ABG Base Excess ABG Oxyhemoglobin ABG Sodium ABG Potassium ABG Chloride ABG Glucose Sodium Potassium Chloride Carbon Dioxide BUN Creatinine Glucose POC Glucose Lactic Acid Calcium Ferritin 722.2 H AST 62 H Lactate Dehydrogenase C-Reactive Protein Total Protein Albumin 3.6 L Arterial Blood Glucose Arterial Blood Ionized Calcium Coronavirus (PCR) 03/20/20 03/20/20 03/20/20 05:28 12:20 16:31 WBC RBC Hgb Hct MCV MCHC Plt Count [place] % (Auto) Lymph # (Auto) Seg Neutrophils % Seg Neuts % (Manual) Lymphocytes % (Manual) Seg Neutrophils # Man Lymphocytes # (Manual) D-Dimer ABG pH POC ABG pCO2 POC ABG pO2 ABG pO2 ABG HCO3 ABG Base Excess ABG Oxyhemoglobin ABG Sodium ABG Potassium ABG Chloride ABG Glucose Sodium Potassium Chloride Carbon Dioxide BUN Creatinine Glucose POC Glucose 270 H 306 H Lactic Acid Calcium Ferritin AST Lactate Dehydrogenase C-Reactive Protein Total Protein Albumin Arterial Blood Glucose Arterial Blood Ionized Calcium Coronavirus (PCR) Positive A 03/20/20 03/21/20 03/21/20 20:28 08:26 09:03 WBC RBC Hgb Hct MCV MCHC Plt Count [place] % (Auto) Lymph # (Auto) Seg Neutrophils % Seg Neuts % (Manual) Lymphocytes % (Manual) Seg Neutrophils # Man Lymphocytes # (Manual) D-Dimer ABG pH POC ABG pCO2 POC ABG pO2 ABG pO2 ABG HCO3 ABG Base Excess ABG Oxyhemoglobin ABG Sodium ABG Potassium ABG Chloride ABG Glucose Sodium Potassium Chloride 110.5 H Carbon Dioxide BUN 23 H Creatinine Glucose 168 H POC Glucose 320 H 159 H Lactic Acid Calcium Ferritin AST 42 H Lactate Dehydrogenase C-Reactive Protein Total Protein 6.1 L Albumin 2.8 L Arterial Blood Glucose Arterial Blood Ionized Calcium Coronavirus (PCR) 03/21/20 03/21/20 03/21/20 12:26 20:08 22:45 WBC RBC Hgb Hct MCV MCHC Plt Count [place] % (Auto) Lymph # (Auto) Seg Neutrophils % Seg Neuts % (Manual) Lymphocytes % (Manual) Seg Neutrophils # Man Lymphocytes # (Manual) D-Dimer ABG pH POC ABG pCO2 POC ABG pO2 ABG pO2 ABG HCO3 ABG Base Excess ABG Oxyhemoglobin ABG Sodium ABG Potassium ABG Chloride ABG Glucose Sodium Potassium Chloride Carbon Dioxide BUN Creatinine Glucose POC Glucose 190 H 375 H 248 H Lactic Acid Calcium Ferritin AST Lactate Dehydrogenase C-Reactive Protein Total Protein Albumin Arterial Blood Glucose Arterial Blood Ionized Calcium Coronavirus (PCR) 03/22/20 03/22/20 03/22/20 07:56 10:47 10:47 WBC RBC Hgb Hct MCV MCHC Plt Count [place] % (Auto) Lymph # (Auto) Seg Neutrophils % Seg Neuts % (Manual) Lymphocytes % (Manual) Seg Neutrophils # Man Lymphocytes # (Manual) D-Dimer 855.69 H ABG pH POC ABG pCO2 POC ABG pO2 ABG pO2 ABG HCO3 ABG Base Excess ABG Oxyhemoglobin ABG Sodium ABG Potassium ABG Chloride ABG Glucose Sodium Potassium Chloride Carbon Dioxide BUN Creatinine Glucose POC Glucose 147 H Lactic Acid Calcium Ferritin 717.5 H AST Lactate Dehydrogenase C-Reactive Protein Total Protein Albumin Arterial Blood Glucose Arterial Blood Ionized Calcium Coronavirus (PCR) 03/22/20 03/22/20 03/22/20 10:47 11:28 16:32 WBC RBC Hgb Hct MCV MCHC Plt Count [place] % (Auto) Lymph # (Auto) Seg Neutrophils % Seg Neuts % (Manual) Lymphocytes % (Manual) Seg Neutrophils # Man Lymphocytes # (Manual) D-Dimer ABG pH POC ABG pCO2 POC ABG pO2 ABG pO2 ABG HCO3 ABG Base Excess ABG Oxyhemoglobin ABG Sodium ABG Potassium ABG Chloride ABG Glucose Sodium Potassium Chloride Carbon Dioxide BUN Creatinine Glucose POC Glucose 187 H 238 H Lactic Acid Calcium Ferritin AST Lactate Dehydrogenase 569 H C-Reactive Protein 6.70 H Total Protein Albumin Arterial Blood Glucose Arterial Blood Ionized Calcium Coronavirus (PCR) 03/22/20 03/23/20 03/23/20 21:03 05:48 06:17 WBC RBC Hgb Hct MCV MCHC Plt Count [place] % (Auto) Lymph # (Auto) Seg Neutrophils % Seg Neuts % (Manual) Lymphocytes % (Manual) Seg Neutrophils # Man Lymphocytes # (Manual) D-Dimer ABG pH POC ABG pCO2 POC ABG pO2 ABG pO2 ABG HCO3 ABG Base Excess ABG Oxyhemoglobin ABG Sodium ABG Potassium ABG Chloride ABG Glucose Sodium Potassium Chloride Carbon Dioxide BUN Creatinine Glucose POC Glucose 204 H 163 H Lactic Acid Calcium Ferritin AST Lactate Dehydrogenase C-Reactive Protein Total Protein 5.7 L Albumin 2.6 L Arterial Blood Glucose Arterial Blood Ionized Calcium Coronavirus (PCR) 03/23/20 03/23/20 03/23/20 10:27 17:04 21:53 WBC RBC Hgb Hct MCV MCHC Plt Count [place] % (Auto) Lymph # (Auto) Seg Neutrophils % Seg Neuts % (Manual) Lymphocytes % (Manual) Seg Neutrophils # Man Lymphocytes # (Manual) D-Dimer ABG pH POC ABG pCO2 POC ABG pO2 ABG pO2 ABG HCO3 ABG Base Excess ABG Oxyhemoglobin ABG Sodium ABG Potassium ABG Chloride ABG Glucose Sodium Potassium Chloride Carbon Dioxide BUN Creatinine Glucose POC Glucose 160 H 253 H 274 H Lactic Acid Calcium Ferritin AST Lactate Dehydrogenase C-Reactive Protein Total Protein Albumin Arterial Blood Glucose Arterial Blood Ionized Calcium Coronavirus (PCR) 03/23/20 03/23/20 03/24/20 23:02 23:44 02:58 WBC RBC Hgb Hct MCV MCHC Plt Count [place] % (Auto) Lymph # (Auto) Seg Neutrophils % Seg Neuts % (Manual) Lymphocytes % (Manual) Seg Neutrophils # Man Lymphocytes # (Manual) D-Dimer ABG pH 7.472 H POC ABG pCO2 POC ABG pO2 48.2 L 260.5 H ABG pO2 ABG HCO3 ABG Base Excess ABG Oxyhemoglobin 98.4 H ABG Sodium ABG Potassium ABG Chloride ABG Glucose 319 H 287 H Sodium Potassium Chloride Carbon Dioxide BUN Creatinine Glucose POC Glucose 216 H Lactic Acid Calcium Ferritin AST Lactate Dehydrogenase C-Reactive Protein Total Protein Albumin Arterial Blood Glucose 319 H 287 H Arterial Blood Ionized Calcium 4.5 L Coronavirus (PCR) 03/24/20 03/24/20 03/24/20 07:31 07:31 08:10 WBC 14.9 H RBC Hgb Hct MCV MCHC 35 H Plt Count [place] % (Auto) Lymph # (Auto) Seg Neutrophils % Seg Neuts % (Manual) Lymphocytes % (Manual) Seg Neutrophils # Man Lymphocytes # (Manual) D-Dimer ABG pH POC ABG pCO2 POC ABG pO2 ABG pO2 ABG HCO3 ABG Base Excess ABG Oxyhemoglobin ABG Sodium ABG Potassium ABG Chloride ABG Glucose Sodium Potassium Chloride Carbon Dioxide BUN 27 H Creatinine 0.7 L Glucose 305 H POC Glucose 259 H Lactic Acid Calcium Ferritin AST Lactate Dehydrogenase C-Reactive Protein Total Protein Albumin Arterial Blood Glucose Arterial Blood Ionized Calcium Coronavirus (PCR) 03/24/20 03/24/20 03/24/20 12:07 17:07 20:01 WBC RBC Hgb Hct MCV MCHC Plt Count [place] % (Auto) Lymph # (Auto) Seg Neutrophils % Seg Neuts % (Manual) Lymphocytes % (Manual) Seg Neutrophils # Man Lymphocytes # (Manual) D-Dimer > 84985 H ABG pH POC ABG pCO2 POC ABG pO2 ABG pO2 ABG HCO3 ABG Base Excess ABG Oxyhemoglobin ABG Sodium ABG Potassium ABG Chloride ABG Glucose Sodium Potassium Chloride Carbon Dioxide BUN Creatinine Glucose POC Glucose 306 H 306 H Lactic Acid Calcium Ferritin AST Lactate Dehydrogenase C-Reactive Protein Total Protein Albumin Arterial Blood Glucose Arterial Blood Ionized Calcium Coronavirus (PCR) 03/24/20 03/24/20 03/24/20 20:01 20:01 21:24 WBC RBC Hgb Hct MCV MCHC Plt Count [place] % (Auto) Lymph # (Auto) Seg Neutrophils % Seg Neuts % (Manual) Lymphocytes % (Manual) Seg Neutrophils # Man Lymphocytes # (Manual) D-Dimer ABG pH POC ABG pCO2 POC ABG pO2 ABG pO2 ABG HCO3 ABG Base Excess ABG Oxyhemoglobin ABG Sodium ABG Potassium ABG Chloride ABG Glucose Sodium Potassium Chloride Carbon Dioxide BUN Creatinine Glucose POC Glucose 321 H Lactic Acid Calcium Ferritin 1233.0 H AST Lactate Dehydrogenase 619 H C-Reactive Protein 12.90 H Total Protein Albumin Arterial Blood Glucose Arterial Blood Ionized Calcium Coronavirus (PCR) 03/25/20 03/25/20 03/25/20 01:46 05:36 07:02 WBC 16.4 H RBC Hgb 15.4 H Hct 46.8 H MCV 96 H MCHC Plt Count 127 L [place] % (Auto) Lymph # (Auto) Seg Neutrophils % Seg Neuts % (Manual) 98.0 H Lymphocytes % (Manual) Seg Neutrophils # Man 16.1 H Lymphocytes # (Manual) 0.0 L D-Dimer ABG pH POC ABG pCO2 POC ABG pO2 ABG pO2 ABG HCO3 ABG Base Excess ABG Oxyhemoglobin ABG Sodium ABG Potassium ABG Chloride ABG Glucose Sodium Potassium Chloride Carbon Dioxide BUN Creatinine Glucose POC Glucose 302 H 298 H Lactic Acid Calcium Ferritin AST Lactate Dehydrogenase C-Reactive Protein Total Protein Albumin Arterial Blood Glucose Arterial Blood Ionized Calcium Coronavirus (PCR) 03/25/20 03/25/20 03/25/20 11:27 13:16 17:12 WBC RBC Hgb Hct MCV MCHC Plt Count [place] % (Auto) Lymph # (Auto) Seg Neutrophils % Seg Neuts % (Manual) Lymphocytes % (Manual) Seg Neutrophils # Man Lymphocytes # (Manual) D-Dimer ABG pH POC ABG pCO2 POC ABG pO2 ABG pO2 ABG HCO3 ABG Base Excess ABG Oxyhemoglobin ABG Sodium ABG Potassium ABG Chloride ABG Glucose Sodium Potassium Chloride Carbon Dioxide BUN 52 H Creatinine Glucose 294 H POC Glucose 267 H 261 H Lactic Acid Calcium Ferritin AST Lactate Dehydrogenase C-Reactive Protein Total Protein 6.0 L Albumin 2.7 L Arterial Blood Glucose Arterial Blood Ionized Calcium Coronavirus (PCR) 03/25/20 03/25/20 03/25/20 21:33 22:40 23:46 WBC RBC Hgb Hct MCV MCHC Plt Count [place] % (Auto) Lymph # (Auto) Seg Neutrophils % Seg Neuts % (Manual) Lymphocytes % (Manual) Seg Neutrophils # Man Lymphocytes # (Manual) D-Dimer ABG pH POC ABG pCO2 POC ABG pO2 ABG pO2 ABG HCO3 ABG Base Excess ABG Oxyhemoglobin ABG Sodium ABG Potassium ABG Chloride ABG Glucose Sodium Potassium Chloride Carbon Dioxide BUN 57 H Creatinine Glucose 326 H POC Glucose 265 H 321 H Lactic Acid Calcium Ferritin AST Lactate Dehydrogenase C-Reactive Protein Total Protein 6.0 L Albumin 3.1 L Arterial Blood Glucose Arterial Blood Ionized Calcium Coronavirus (PCR) 03/26/20 03/26/20 03/26/20 05:09 05:09 05:20 WBC RBC 5.12 H Hgb 16.4 H Hct 48.5 H MCV 95 H MCHC Plt Count 128 L [place] % (Auto) Lymph # (Auto) Seg Neutrophils % Seg Neuts % (Manual) 91.0 H Lymphocytes % (Manual) 3.0 L Seg Neutrophils # Man Lymphocytes # (Manual) 0.2 L D-Dimer ABG pH POC ABG pCO2 POC ABG pO2 ABG pO2 ABG HCO3 ABG Base Excess ABG Oxyhemoglobin ABG Sodium ABG Potassium ABG Chloride ABG Glucose Sodium Potassium Chloride Carbon Dioxide BUN 57 H Creatinine Glucose 302 H POC Glucose 245 H Lactic Acid Calcium Ferritin AST Lactate Dehydrogenase C-Reactive Protein Total Protein Albumin Arterial Blood Glucose Arterial Blood Ionized Calcium Coronavirus (PCR) 03/26/20 03/26/20 03/26/20 11:50 16:51 18:16 WBC RBC Hgb Hct MCV MCHC Plt Count [place] % (Auto) Lymph # (Auto) Seg Neutrophils % Seg Neuts % (Manual) Lymphocytes % (Manual) Seg Neutrophils # Man Lymphocytes # (Manual) D-Dimer ABG pH POC ABG pCO2 POC ABG pO2 ABG pO2 ABG HCO3 ABG Base Excess ABG Oxyhemoglobin ABG Sodium ABG Potassium 4.8 H ABG Chloride ABG Glucose 422 H Sodium Potassium Chloride Carbon Dioxide BUN Creatinine Glucose POC Glucose 225 H 352 H Lactic Acid Calcium Ferritin AST Lactate Dehydrogenase C-Reactive Protein Total Protein Albumin Arterial Blood Glucose 422 H Arterial Blood Ionized Calcium Coronavirus (PCR) 03/26/20 03/27/20 03/27/20 23:29 04:07 05:21 WBC RBC Hgb Hct MCV MCHC Plt Count [place] % (Auto) Lymph # (Auto) Seg Neutrophils % Seg Neuts % (Manual) Lymphocytes % (Manual) Seg Neutrophils # Man Lymphocytes # (Manual) D-Dimer ABG pH POC ABG pCO2 53.4 H POC ABG pO2 129.5 H ABG pO2 ABG HCO3 ABG Base Excess ABG Oxyhemoglobin ABG Sodium 145.6 H ABG Potassium 4.9 H ABG Chloride 108.0 H ABG Glucose 475 H Sodium Potassium Chloride Carbon Dioxide BUN Creatinine Glucose POC Glucose 367 H 376 H Lactic Acid Calcium Ferritin AST Lactate Dehydrogenase C-Reactive Protein Total Protein Albumin Arterial Blood Glucose 475 H Arterial Blood Ionized Calcium Coronavirus (PCR) 03/27/20 03/27/20 03/27/20 10:52 10:52 11:46 WBC 11.8 H RBC Hgb 16.0 H Hct 47.9 H MCV 96 H MCHC Plt Count 102 L [place] % (Auto) Lymph # (Auto) Seg Neutrophils % Seg Neuts % (Manual) 93.0 H Lymphocytes % (Manual) 1.0 L Seg Neutrophils # Man 11.0 H Lymphocytes # (Manual) 0.1 L D-Dimer ABG pH POC ABG pCO2 POC ABG pO2 ABG pO2 ABG HCO3 ABG Base Excess ABG Oxyhemoglobin ABG Sodium ABG Potassium ABG Chloride ABG Glucose Sodium 149 H Potassium 5.1 H D Chloride 109.3 H Carbon Dioxide BUN 69 H Creatinine Glucose 512 H* POC Glucose 446 H Lactic Acid Calcium Ferritin AST Lactate Dehydrogenase C-Reactive Protein Total Protein Albumin Arterial Blood Glucose Arterial Blood Ionized Calcium Coronavirus (PCR) 03/27/20 03/27/20 03/28/20 17:24 23:25 04:40 WBC RBC Hgb Hct MCV MCHC Plt Count [place] % (Auto) Lymph # (Auto) Seg Neutrophils % Seg Neuts % (Manual) Lymphocytes % (Manual) Seg Neutrophils # Man Lymphocytes # (Manual) D-Dimer ABG pH 7.346 L POC ABG pCO2 POC ABG pO2 ABG pO2 166.0 H ABG HCO3 31.0 H ABG Base Excess 3.4 H ABG Oxyhemoglobin ABG Sodium ABG Potassium ABG Chloride ABG Glucose Sodium Potassium Chloride Carbon Dioxide BUN Creatinine Glucose POC Glucose 446 H 370 H Lactic Acid Calcium Ferritin AST Lactate Dehydrogenase C-Reactive Protein Total Protein Albumin Arterial Blood Glucose Arterial Blood Ionized Calcium Coronavirus (PCR) 03/28/20 03/28/20 03/28/20 05:05 07:24 07:24 WBC 17.9 H RBC 5.08 H Hgb 16.3 H Hct 48.4 H MCV 95 H MCHC Plt Count 124 L [place] % (Auto) Lymph # (Auto) Seg Neutrophils % Seg Neuts % (Manual) 97.0 H Lymphocytes % (Manual) Seg Neutrophils # Man 17.4 H Lymphocytes # (Manual) 0.0 L D-Dimer ABG pH POC ABG pCO2 POC ABG pO2 ABG pO2 ABG HCO3 ABG Base Excess ABG Oxyhemoglobin ABG Sodium ABG Potassium ABG Chloride ABG Glucose Sodium 151 H Potassium 5.4 H Chloride 111.5 H Carbon Dioxide 31 H BUN 76 H Creatinine Glucose 481 H POC Glucose 326 H Lactic Acid Calcium Ferritin AST Lactate Dehydrogenase C-Reactive Protein Total Protein Albumin Arterial Blood Glucose Arterial Blood Ionized Calcium Coronavirus (PCR) 03/28/20 03/28/20 03/28/20 11:42 17:01 23:25 WBC RBC Hgb Hct MCV MCHC Plt Count [place] % (Auto) Lymph # (Auto) Seg Neutrophils % Seg Neuts % (Manual) Lymphocytes % (Manual) Seg Neutrophils # Man Lymphocytes # (Manual) D-Dimer ABG pH POC ABG pCO2 POC ABG pO2 ABG pO2 ABG HCO3 ABG Base Excess ABG Oxyhemoglobin ABG Sodium ABG Potassium ABG Chloride ABG Glucose Sodium Potassium Chloride Carbon Dioxide BUN Creatinine Glucose POC Glucose 395 H 392 H 388 H Lactic Acid Calcium Ferritin AST Lactate Dehydrogenase C-Reactive Protein Total Protein Albumin Arterial Blood Glucose Arterial Blood Ionized Calcium Coronavirus (PCR) 03/29/20 03/29/20 03/29/20 04:00 05:16 08:30 WBC 20.9 H RBC 5.15 H Hgb 16.3 H Hct 49.9 H MCV 97 H MCHC Plt Count 114 L [place] % (Auto) Lymph # (Auto) Seg Neutrophils % Seg Neuts % (Manual) Lymphocytes % (Manual) Seg Neutrophils # Man Lymphocytes # (Manual) D-Dimer ABG pH POC ABG pCO2 POC ABG pO2 66.0 L ABG pO2 ABG HCO3 ABG Base Excess ABG Oxyhemoglobin 91.6 L ABG Sodium 147.3 H ABG Potassium 4.6 H ABG Chloride 109.0 H ABG Glucose 532 H Sodium Potassium Chloride Carbon Dioxide BUN Creatinine Glucose POC Glucose 446 H Lactic Acid Calcium Ferritin AST Lactate Dehydrogenase C-Reactive Protein Total Protein Albumin Arterial Blood Glucose 532 H Arterial Blood Ionized Calcium Coronavirus (PCR) 03/29/20 03/29/20 03/29/20 08:30 11:53 13:15 WBC RBC Hgb Hct MCV MCHC Plt Count [place] % (Auto) Lymph # (Auto) Seg Neutrophils % Seg Neuts % (Manual) Lymphocytes % (Manual) Seg Neutrophils # Man Lymphocytes # (Manual) D-Dimer ABG pH POC ABG pCO2 POC ABG pO2 ABG pO2 ABG HCO3 ABG Base Excess ABG Oxyhemoglobin ABG Sodium ABG Potassium ABG Chloride ABG Glucose Sodium 151 H Potassium Chloride 110.5 H Carbon Dioxide 32 H BUN 91 H Creatinine 1.4 H Glucose 605 H* POC Glucose 496 H 437 H Lactic Acid Calcium Ferritin AST Lactate Dehydrogenase C-Reactive Protein Total Protein Albumin Arterial Blood Glucose Arterial Blood Ionized Calcium Coronavirus (PCR) 03/29/20 03/29/20 03/29/20 13:50 13:56 15:09 WBC RBC Hgb Hct MCV MCHC Plt Count [place] % (Auto) Lymph # (Auto) Seg Neutrophils % Seg Neuts % (Manual) Lymphocytes % (Manual) Seg Neutrophils # Man Lymphocytes # (Manual) D-Dimer ABG pH POC ABG pCO2 POC ABG pO2 ABG pO2 ABG HCO3 ABG Base Excess ABG Oxyhemoglobin ABG Sodium ABG Potassium ABG Chloride ABG Glucose Sodium Potassium Chloride Carbon Dioxide BUN Creatinine Glucose POC Glucose 434 H 397 H 458 H Lactic Acid Calcium Ferritin AST Lactate Dehydrogenase C-Reactive Protein Total Protein Albumin Arterial Blood Glucose Arterial Blood Ionized Calcium Coronavirus (PCR) 03/29/20 03/29/20 03/29/20 16:18 17:16 18:19 WBC RBC Hgb Hct MCV MCHC Plt Count [place] % (Auto) Lymph # (Auto) Seg Neutrophils % Seg Neuts % (Manual) Lymphocytes % (Manual) Seg Neutrophils # Man Lymphocytes # (Manual) D-Dimer ABG pH POC ABG pCO2 POC ABG pO2 ABG pO2 ABG HCO3 ABG Base Excess ABG Oxyhemoglobin ABG Sodium ABG Potassium ABG Chloride ABG Glucose Sodium Potassium Chloride Carbon Dioxide BUN Creatinine Glucose POC Glucose 446 H 369 H 371 H Lactic Acid Calcium Ferritin AST Lactate Dehydrogenase C-Reactive Protein Total Protein Albumin Arterial Blood Glucose Arterial Blood Ionized Calcium Coronavirus (PCR) 03/29/20 03/29/20 03/29/20 19:24 20:11 21:58 WBC RBC Hgb Hct MCV MCHC Plt Count [place] % (Auto) Lymph # (Auto) Seg Neutrophils % Seg Neuts % (Manual) Lymphocytes % (Manual) Seg Neutrophils # Man Lymphocytes # (Manual) D-Dimer ABG pH POC ABG pCO2 POC ABG pO2 ABG pO2 ABG HCO3 ABG Base Excess ABG Oxyhemoglobin ABG Sodium ABG Potassium ABG Chloride ABG Glucose Sodium Potassium Chloride Carbon Dioxide BUN Creatinine Glucose POC Glucose 332 H 355 H 315 H Lactic Acid Calcium Ferritin AST Lactate Dehydrogenase C-Reactive Protein Total Protein Albumin Arterial Blood Glucose Arterial Blood Ionized Calcium Coronavirus (PCR) 03/29/20 03/30/20 03/30/20 23:44 01:09 02:05 WBC RBC Hgb Hct MCV MCHC Plt Count [place] % (Auto) Lymph # (Auto) Seg Neutrophils % Seg Neuts % (Manual) Lymphocytes % (Manual) Seg Neutrophils # Man Lymphocytes # (Manual) D-Dimer ABG pH POC ABG pCO2 POC ABG pO2 ABG pO2 ABG HCO3 ABG Base Excess ABG Oxyhemoglobin ABG Sodium ABG Potassium ABG Chloride ABG Glucose Sodium Potassium Chloride Carbon Dioxide BUN Creatinine Glucose POC Glucose 260 H 263 H 257 H Lactic Acid Calcium Ferritin AST Lactate Dehydrogenase C-Reactive Protein Total Protein Albumin Arterial Blood Glucose Arterial Blood Ionized Calcium Coronavirus (PCR) 12/23/20 12/23/20 12/23/20 03:17 04:15 05:44 WBC RBC Hgb Hct MCV MCHC Plt Count [place] % (Auto) Lymph # (Auto) Seg Neutrophils % Seg Neuts % (Manual) Lymphocytes % (Manual) Seg Neutrophils # Man Lymphocytes # (Manual) D-Dimer ABG pH POC ABG pCO2 POC ABG pO2 ABG pO2 ABG HCO3 ABG Base Excess ABG Oxyhemoglobin ABG Sodium ABG Potassium ABG Chloride ABG Glucose Sodium Potassium Chloride Carbon Dioxide BUN Creatinine Glucose POC Glucose 233 H 223 H 217 H Lactic Acid Calcium Ferritin AST Lactate Dehydrogenase C-Reactive Protein Total Protein Albumin Arterial Blood Glucose Arterial Blood Ionized Calcium Coronavirus (PCR) 03/30/20 03/30/20 03/30/20 06:36 07:20 07:20 WBC RBC Hgb Hct MCV 96 H MCHC Plt Count 67 L [place] % (Auto) Lymph # (Auto) Seg Neutrophils % Seg Neuts % (Manual) Lymphocytes % (Manual) Seg Neutrophils # Man Lymphocytes # (Manual) D-Dimer ABG pH POC ABG pCO2 POC ABG pO2 ABG pO2 ABG HCO3 ABG Base Excess ABG Oxyhemoglobin ABG Sodium ABG Potassium ABG Chloride ABG Glucose Sodium 153 H Potassium Chloride 114.5 H Carbon Dioxide BUN 157 H Creatinine 4.4 H D Glucose 307 H POC Glucose 229 H Lactic Acid Calcium 6.4 L D Ferritin AST Lactate Dehydrogenase C-Reactive Protein Total Protein Albumin Arterial Blood Glucose Arterial Blood Ionized Calcium Coronavirus (PCR) 03/30/20 03/30/20 08:34 10:14 WBC RBC Hgb Hct MCV MCHC Plt Count [place] % (Auto) Lymph # (Auto) Seg Neutrophils % Seg Neuts % (Manual) Lymphocytes % (Manual) Seg Neutrophils # Man Lymphocytes # (Manual) D-Dimer ABG pH POC ABG pCO2 POC ABG pO2 ABG pO2 ABG HCO3 ABG Base Excess ABG Oxyhemoglobin ABG Sodium ABG Potassium ABG Chloride ABG Glucose Sodium Potassium Chloride Carbon Dioxide BUN Creatinine Glucose POC Glucose 217 H 198 H Lactic Acid Calcium Ferritin AST Lactate Dehydrogenase C-Reactive Protein Total Protein Albumin Arterial Blood Glucose Arterial Blood Ionized Calcium Coronavirus (PCR) Chest x-ray: image reviewed
[2020-03-30] MEDS: HYDROCORTISONE SOD SUCC 100 MG/2 ML VIAL IV SCH ×3 (11:38→22:06)
[2020-03-30 12:47] LABS: Total Cells Counted 100
[2020-03-30 12:50] LABS: Schistocytes Few
[2020-03-30 12:52] LABS: Platelet Estimate Consistent w Auto
[2020-03-30] MEDS ORDERED: INSULIN REGULAR, HUMAN 100 UNIT/ML 3ML VIAL IV ONE (15:00)
[2020-03-30] MEDS ORDERED: SODIUM POLYSTYRENE 15 GM/60 ML ORAL LIQD PO ONE (15:00)
[2020-03-30] MEDS ORDERED: DEXTROSE 50% IN WATER (25GM) 50 ML SYRINGE IV ONE (15:00)
[2020-03-30] MEDS ORDERED: CALCIUM CHLORIDE 1,000 MG in SODIUM CHLORIDE 0.9% 100 ML IV ONE (15:00)
[2020-03-30] MEDS ORDERED: SODIUM BICARB 8.4% 50 MEQ/50 ML SYRINGE IV ONE (15:00)
[2020-03-30] MEDS: INSULIN REGULAR, HUMAN 100 UNITS in SODIUM CHLORIDE 0.9% 99 ML IV SCH (17:20)
[2020-03-30 19:53] VITALS: BP 50/19
--- NOTE | 2020-03-31 02:15 | Event Note ---
Date: 03/30/20 TAMERA FABIAN called on patient who has been on admission for acute respiratory failure and pneumonia due to COVID-19. All resuscitation measures done according to ACLS protocol proved futile. On Exam:Pupils fixed and dilated No response to verbal commands or tactile stimuli Chest: No Breath sounds CVS-no heart sounds and no peripheral pulses Abdomen-soft Extremities-cold and clammy Central nervous system-no reflexes Patient pronounced date at 23:12PM on 03/30/2020. Attempts being made to contact family members.
--- NOTE | 2020-03-31 07:30 | Death Summary ---
Summary - Providers Date of service: 03/31/20 Consults: 03/20/20 13:40 Consult to Physician [CONS] Routine Comment: Consulting Provider: AARON FRANKEL Physician Instructions: Reason For Exam: covid 19 03/22/20 09:39 Consult to Physician [CONS] Routine Comment: Consulting Provider: NICOLE ESPINOZA Physician Instructions: Reason For Exam: acute respiratory failure 03/23/20 22:42 Consult to Dietitian/Nutrition [CONS] Routine Physician Instructions: Reason For Exam: Reason for Consult: Evaluate nutritional intake 03/24/20 10:38 Midline [Consult to PICC Line RN] [CONS] Urgent Reason For Exam: IV medication needs Type Line:: Midline 03/25/20 10:17 Consult to Physician [CONS] Urgent Comment: Consulting Provider: BETTIE ELKINS Physician Instructions: Reason For Exam: Stroke, altered mental state 03/25/20 10:33 Consult to Dietitian/Nutrition [CONS] Routine Physician Instructions: Reason For Exam: Reason for Consult: Write/Manage Tube Feeding 03/29/20 16:53 PICC Line Insertion [Consult to PICC Line RN] [CONS] Urgent Reason For Exam: Vasoactive medication Type Line:: PICC Attending: BEV MOON MD - summary Date of admission: 03/19/20 16:33 Date of : 03/30/20 Reason for admission: acute hypoxic respiratory failure, Covid-19 infection Procedures/treatments rendered: 59 YO Male with HTN presents to ED for evaluation. Patient states that he has experienced "shortness of breath" for the past 1 week with persistently worsening symptoms over the same timeframe days. Patient underwent a coronavirus test as an outpatient 4 days ago and was found to have coronavirus infection. Pt acknowledges dry cough, shortness of breath, loss of sense of smell, loss of sense of taste, fatigue, malaise, body aches, and decreased exercise tolerance. EMS notified and upon arrival the patient was found to be in distress and subsequently transported to [facility] for further care and evaluation of the aforementioned symptoms. Patient seen and evaluated in the emergency department. All lab and imaging studies reviewed. Patient found to have lactic acidosis, tachycardia with heart rate of 105, tachypnea with a respiratory rate of 34, and a pulse oximetry of 84% with exertion while on room air which is consistent with acute hypoxemic respiratory failure. Patient underwent chest x- ray which revealed bilateral pneumonia complicated by sepsis. Patient admitted to medical floor and initiated on sepsis protocol, pneumonia protocol as well as coronavirus protocol. Pt denies chest pain, palpitation, skin rash, recent ill contacts, trauma. No medication listed at time of admission. No prior admission for review. Advanced care planning conducted in ED. As documented below family was notified of impending demise of the patient multiple attempts were made to transfer the patient to other facilities patient was placed on 4 pressors which will also make transportation difficult. Nevertheless there was no bed available at all the other facilities. Patient was subsequently managed and unfortunately in the LOS of this morning. My colleague did pronounce the patient and and advised that family was informed. -- Sepsis due to COVID19 infection cont iv steroid, remdesivir, supplemental O2 Patient now hypoxemic intubated. Severe sepsis secondary to COVID-19 pneumonia. -- Acute hypoxemic respiratory failure due to covid19 PNA Supplemental oxygen, nebulizer therapy, pulse oximetry, pulmonary toilet, supportive care. Will need to obtain CT scan head and neck. Patient has crepitus in neck area and increased rhonchi. -- Covid19 PNA IV steroid therapy, prophylactic anticoagulation, prone positioning while in bed, supplemental oxygen, pulse oximetry, nebulizer therapy, contact precautions, isolation precaution, supportive care. remdesivir for 5 days -ve SARS-CoV-2 IgG: ordered for convalescent plasma --DM type 2 started on long acting insulin along with SSI Uncontrolled. Will increase long-acting Lantus at this time. --Bacteremia, likely contamination 1 out of 2 blood cx +ve for gm+ve cocci s/p iv vanco, repeat blood cx negative -- Hypertension Monitor blood pressure every shift, continue medical management : Positive for COVID 4 days ago before admission. started on dexamethasone iv. ID consulted. ordered for remdesivir. follow inflammatory markers. Start on vancomycin for positive blood culture -we will follow final result 03/21: ordered repeat blood cx. -ve SARS-CoV-2 IgG, ordered for convalescent plasma. patient remains on high flow O2. cont to adjust insulin dose for better glycemic control 03/22: Patient remains on high flow O2, ordered for pulmonary consult, CTA chest and bilateral lower extremity Doppler. Continue to follow inflammatory markers. Pending convalescent plasma transfusion 03/23: pending convalescent plasma transfusion. remains on high flow O2. s/p laisx 40mg today. cont remdesivir and steroid. Le doppler neg for PE. on 35L with 100% FiO2 - poor prognostic factor 03/24 patient overnight episode altered mental status hypoxemia requiring i ntubation. At present patient in the prone position intubated remains unresponsive with altered mental status despite being only on 1 cal fentanyl. 03/25/2020; patient is intubated and sedated, on mechanical ventilation. From prone positioning when I saw the patient. Patient has altered mental status and CT head was done yesterday and significant for acute bilateral CVA, left cerebral hemispheres, both thalamus, occipital with mass-effect and teleneurology was consulted. Teleneurology recommend to transfer to another facility and I called [place] transfer line and pending the call back. Our neurosurgeon was also consulted and agreed with the transfer. It is difficult to get an accepting facility given the current pandemic, limited bed availability especially in the ICU. 03/26/2020; patient is intubated and sedated and on mechanical ventilation with FiO2 of 100%. Patient was on prone position. I have a long discussion with his sister about transferring to another facility. I called [place] transfer on 03/25/2020 and discussed with Neurointensivist Dr Dae Cordon and Neurosurgeon Dr Hector Wellington after explained to the the clinical condition and told them the CT and CTA head findings impression read by our radiologist both of them agreed that the patient is not a candidate for any neuro intervention. Said the damage is extensive and prognosis is very poor. I also told them the recommendations neurosurgeon at [facility] Dr Gaurav berry recommendations for the transfer. I also called other facilities including [place] and because of the pandemic most of the ICU beds are full and I could not find any accepting facility. I also discussed with neurosurgeon Dr. Berry here at [facility]. I talk with her daughter about the poor prognosis and further plan of care, she wants him to be full code and thinking once his respiratory condition is improving she said she will take him to [facility] if they can do surgery. At this time prognosis is very poor and is not stable enough to be transferred or to do any surgery. His daughter wants plasma to be given to the patient and I called ID and he does not think it will help him much but okay to give it to him if the family requested. 03/27/2020; I have also tried to call [facility] yesterday to transfer the patient and the neurosurgeon said did not have any capacity to accept the patient and he said call back tomorrow to place the patient on waiting list. Plans discussed in detail with his Sister Asad. His blood sugar level was very high and I increase his Lantus from 22units to 30 units and added 10 units of Humalog AC. I have discussed with his sister asad and she says she is going to get accepting facility. From my side already called the nearby hospitals who have neurosurgery capability but declined because of patient's poor prognosis. I have also discussed the neurosurgery here Dr. Gaurav Berry and he said patient's prognosis is very poor and no point to transfer the patient. He said he is going to talk to patient's sister marisel and I gave her number. [phone]. 03/28/2020; yesterday I discussed with Dr. Avinash Cabral neurosurgeon at [facility] and he accepted the patient. But [facility] called me and said they did not have any bed but patient is on the waiting list. 03/29/2020; patient is intubated and sedated and on mechanical ventilation. FiO2 60% and PEEP of 8. On the waiting list to be transferred to [facility]. Patient's blood sugar was 605 this a.m. and I discussed with the nurse to put the patient on insulin drip. Prognosis very poor. 03/30: Patient remains intubated and critically ill, I have advised patient's sister Ms. Milton about the critical nature of his illness. And also he is unstable for transport even at this time due to low blood pressure. She wants me to call the surgeon to see if he can make a push, I do not have a number for him but I have gone ahead and called the facility and advised that how cr itically ill the patient is day said that at this time they still do not have a bed behind him on the wait list. I felt like our zanjero diltiazem has been discontinued patient has been started on a third pressor epinephrine in addition to other pressors that he is already on. We will also start him on amiodarone with a bolus. To control the A. fib. Will adjust insulin for better blood sugar control. (1) Cerebrovascular accident involving posterior circulation Current Visit: Yes Status: Acute (2) Acute hypoxemic respiratory failure Current Visit: Yes Status: Acute (3) Acute respiratory failure due to COVID-19 Current Visit: Yes Status: Acute (4) COVID-19 pneumonia (5) sepsis with septic shock - vasogenic./Multiorgan failure (5) Atrial Fibrillation RVR: (6) DM with Hyperglycemia
== END 2020-03-30 23:12 | DRG 870 ==
LOC: ED 13:26 → 3A 16:33 → CC1 03-23 22:12
PROVIDERS: ADMIT Internal Medicine; ATTEND Internal Medicine
PROC: XW033E5 Introduction of Remdesivir Anti-infective into Peripheral Vein, Percutaneous Approach, New Technology Group 5 (ICD-10-PCS; 2020-03-20)
PROC: 0BH17EZ Insertion of Endotracheal Airway into Trachea, Via Natural or Artificial Opening (ICD-10-PCS; principal; 2020-03-23)
PROC: 5A1955Z Respiratory Ventilation, Greater than 96 Consecutive Hours (ICD-10-PCS; 2020-03-23)
PROC: 4A033R1 Measurement of Arterial Saturation, Peripheral, Percutaneous Approach (ICD-10-PCS; 2020-03-23)
PROC: 02HV33Z Insertion of Infusion Device into Superior Vena Cava, Percutaneous Approach (ICD-10-PCS; 2020-03-29)
DX: A41.89 Other specified sepsis (principal); U07.1 COVID-19; J96.01 Acute respiratory failure with hypoxia; I63.9 Cerebral infarction, unspecified; J12.89 Other viral pneumonia; R65.21 Severe sepsis with septic shock; I48.20 Chronic atrial fibrillation, unspecified; B95.7 Other staphylococcus as the cause of diseases classified elsewhere; I10 Essential (primary) hypertension; Z88.8 Allergy status to other drugs, medicaments and biological substances; F17.200 Nicotine dependence, unspecified, uncomplicated; J98.2 Interstitial emphysema; E11.65 Type 2 diabetes mellitus with hyperglycemia; R29.700 NIHSS score 0
CPT/HCPCS: 31500; 36415; 36600; 70450; 70490; 70496; 70498; 71045; 71250; 74018; 80048; 80053; 80076; 81001; 82140; 82728; 82803; 82805; 82962; 83615; 83930; 84132; 84145; 85007; 85025; 85027; 85379; 86140; 86850; 86900; 86901; 87040; 87070; 87086; 87205; 93005; 93970; 94002; 94003; 94760; 96361; 96365; 96366; 96367; 96368; 96375; 96376; G0378; J0171; J0282; J0456; J0692; J0696; J1100; J1170; J1265; J1644; J1720; J1815; J1940; J2370; J2920; J2930; J3010; J3370; J7030; J7040; J7050; J7060; J7120; Q9967; U0003